=== PATIENT | male | born 1955 | race African-American/Black ===

== ENCOUNTER 2018-09-19 18:31 | Inpatient (IN) | payer BC ==
[2018-09-19] MEDS ORDERED: ASPIRIN 81 MG CHEWABLE TABLETS PO ONE (18:50)
--- NOTE | 2018-09-19 18:50 | PDOC ---
Rapid Medical Evaluation Time Seen by Provider: 09/19/18 18:48 Medical Evaluation: 09/19/18 18:49 Pt c/o: dizziness and palpitations since yesterday, no chest pain, Pt on brief exam: a fib at 136, lcta, trace pedal edema Pt ordered for: cardiac w/u pt to proceed to the ED Discharge Disposition - Diagnosis Atrial fibrillation with RVR, CKD (chronic kidney disease), Troponin I above reference range - Discharge Dispostion Disposition: AGAINST MEDICAL ADVICE Condition at time of disposition: Stable - Referrals - Patient Instructions - Post Discharge Activity
[2018-09-19] MEDS ORDERED: ASPIRIN 81 MG CHEWABLE TABLETS ONE (19:27)
[2018-09-19 19:34] LABS: BASO % 1.1 % (0-2.0); EOS % 1.2 % (0-4.5); HEMATOCRIT 33.1 % (35.4-49); HEMOGLOBIN 10.5 GM/dL (11.7-16.9); LYMPH % 20.3 % (8-40); MCH 26.5 pg (25.7-33.7); MCHC 31.7 g/dl (32.0-35.9); MEAN CELL VOLUME 83.5 fl (80-96); NEUT % 64.4 % (42.8-82.8); PLATELET COUNT 404 K/MM3 (134-434); RBC 3.96 M/mm3 (4.00-5.60); RDW 16.1 % (11.9-15.9); WHITE BLOOD COUNT 9.3 K/mm3 (4.0-10.0)
[2018-09-19] MEDS ORDERED: dilTIAZem HCL 50 MG/10 ML - 10 ML VIAL IVPUSH ONE (19:36)
--- NOTE | 2018-09-19 19:44 | PDOC ---
History of Present Illness - General Chief Complaint: Palpitations Stated Complaint: SENT BY PCP/ABNORMAL EKG Time Seen by Provider: 09/19/18 18:48 History Source: Patient Exam Limitations: No Limitations - History of Present Illness Initial Comments: Pt is a 62 yo M, with PMH of HTN and NIDDM, who is presenting from PCP office ( Dr. Deluca) with A-fib RVR. Pt presented to Dr. Deluca's office with complaints of SOB at rest and on exertion, b/l LE swelling, and waking up at night with SOB. Pt states the symptoms have been ongoing for the past 2 weeks and worsening , and has not been taking any medications or f/u at [facility] for 1.5 years. Pt denies any fevers/chills, headache, vision changes, syncope, chest pain, palpitations, nausea/vomiting, abdominal pain, urinary symptoms, or diarrhea/ constipation. Pt states he may have been on rate-control medication in the past, but does not know the names or dosages. His last stress test/echo was "decades ago". Allergies: NKDA PCP: Dr. Deluca Social: Pt denies any cigarette, alcohol, or drug use. Pt denies any recent travel or sick contacts. Surgical: no relevant history. Family: Father - MD in 60s, Mother - DM in 50s. 09/19/18 22:58 Past History - Travel Traveled outside of the country in the last 30 days: No Close contact w/someone who was outside of country & ill: No - Past Medical History Allergies/Adverse Reactions: Allergies Allergy/AdvReac Type Severity Reaction Status Date / Time No Known Allergies Allergy Verified 09/19/18 18:56 Home Medications: Ambulatory Orders NK [No Known Home Medication] 09/19/18 COPD: No Diabetes: Yes HTN: Yes Other medical history: GOUT - Suicide/Smoking/Psychosocial Hx Smoking History: Never smoked Have you smoked in the past 12 months: No Information on smoking cessation initiated: No Hx Alcohol Use: No Drug/Substance Use Hx: No Review of Systems - Review of Systems Able to Perform ROS?: Yes Is the patient limited Chinese proficient: No Constitutional: Yes: Weight Stable. No: Chills, Diaphoresis, Fever, Loss of Appetite, Malaise, Weakness HEENTM: No: Blurred Vision, Double Vision, Nose Congestion, Throat Pain, Throat Swelling, Difficulty Swallowing Respiratory: Yes: Orthopnea, Shortness of Breath, SOB with Exertion, SOB at Rest. No: Cough, Wheezing, Productive cough, Hemoptysis Cardiac (ROS): Yes: Edema. No: Irregular Heart Rate, Lightheadedness, Palpitations, Syncope, Chest Tightness ABD/GI: No: Constipated, Diarrhea, Nausea, Poor Appetite, Poor Fluid Intake, Vomiting, Abdominal cramping : No: Burning, Dysuria, Frequency, Pain, Urgency Musculoskeletal: No: Back Pain, Joint Pain, Muscle Pain, Muscle Weakness Integumentary: No: Erythema, Rash Neurological: No: Headache, Numbness, Paresthesia, Seizure, Weakness, Unsteady Gait, Dizziness Psychiatric: No: Sleep Pattern Change, Change in Appetite Endocrine: No: Increased Urine, Change in Weight Hematologic/Lymphatic: No: Anemia, Blood Clots, Easy Bleeding, Easy Bruising All Other Systems: Reviewed and Negative *Physical Exam - Vital Signs Last Vital Signs Temp Pulse Resp BP Pulse Ox 98.4 F 138 H 21 H 142/106 H 96 09/19/18 18:50 09/19/18 18:50 09/19/18 18:50 09/19/18 18:50 09/19/18 18:50 - Physical Exam Comments: Active A-fib, HR 120-140 on exam, pt afebrile. Pt in NAD, obese body habitus. No increased WOB or distress. Pt alert and oriented x3. medical intern generally intact, muscular strength and sensation intact. No midline spinal tenderness, step-offs, or crepitus. Head normocephalic, atraumatic. Eyes PERRLA, EOMI. Oropharynx without erythema or exudates, no LAD b/l. No nasal congestion, hearing intact. Clear heart sounds, S1/S2, no heart murmur. Mild JVD with b/l pitting edema to mid-shins. Diminished lung sounds at bases, no crackles or wheezes. No accessory muscle use. No abdominal or CVA tenderness to palpation, no rebound, no guarding. Abdomen soft, protuberant, and with normoactive bowel sounds. Hyperpigmentation of b/l LE. Skin without jaundice or rash. 09/19/18 19:45 09/19/18 21:28 ED Treatment Course - LABORATORY CBC & Chemistry Diagram: 09/19/18 19:20 09/19/18 19:20 - Medications Given in the ED: ED Medications Discontinued Medications Generic Name Dose Route Start Last Admin Trade Name Lee PRN Reason Stop Dose Admin Aspirin 162 mg 09/19/18 18:50 09/19/18 19:29 Asa - PO 09/19/18 18:51 162 mg ONCE ONE Administration Medical Decision Making - Medical Decision Making Pt was seen at bedside, also will be seen by attending Dr. Cardenas/ pre- attending Altaf. Pt presenting from PCP office (Dr. Deluca) with A-fib RVR. Pt presented to Dr. Deluca's office with complaints of SOB at rest and on exertion , b/l LE swelling, and waking up at night with SOB. Pt states the symptoms have been ongoing for the past 2 weeks and worsening, and has not been taking any medications or f/u at [facility] for 1.5 years. Pt denies any fevers/chills, headache, vision changes, syncope, chest pain, palpitations, nausea/vomiting, abdominal pain, urinary symptoms, or diarrhea/constipation. Considering A-fib 2/2 to chronic medication non-compliance vs new onset 2/2 CHF , CKD, infection, DVT/PE. Ordered work-up including CBC, CMP, cardiac profile, coags, D-dimer, chest x- ray. Provided 10 mg IV push diltiazem and 162 mg PO ASA for rate control and cardiac protection. Will continue to reassess pt and monitor for symptomatic improvement. ECG: NSR, intervals WNL. No TWIs or significant ST segment changes. No significant changes from prior ECG. 09/19/18 19:44 CBC: H/H 10.5/33, no increased WBC -- will obtain stool for occult blood to eval for GI bleed. BGM 208 Chest x-ray shows cardiomegaly, blunting at R base. Will continue to monitor HR for additional rate control. 09/19/18 19:58 stool for occult blood negative CMP: K 3.1, BUN 66, Cr 4.0 BNP 10,879 -- provided 40 mg IV lasix Trop .16 -- will repeat, likely demand Paging hospitalist team for admission, nephrology and cardiology for consults Pending b/l LE doppler and D-dimer 09/19/18 21:06 Spoke with cardiology team (Dr. Bradlow's group) who suggested heparin for AC and 25 mg PO toprol for rate control. Awaiting call back from nephrology and admitting team. 09/19/18 21:30 Spoke with nephrology, will replete K, consult orders placed. Pt admitted to on-call service (Dr. Ramirez covering for Dr. Deluca's team) PTT normal, ordered heparin protocol and toprol 25 mg PO BID. Pt stable and lying comfortably. BP improved 150/100, HR in 80s. 09/19/18 21:53 *DC/Admit/Observation/Transfer Diagnosis at time of Disposition: Atrial fibrillation with RVR, Troponin I above reference range CKD (chronic kidney disease) Qualifiers: Chronic kidney disease stage: unspecified stage Qualified Code(s): N18.9 - Chronic kidney disease, unspecified - Discharge Dispostion Condition at time of disposition: Stable Decision to Admit order: Yes - Referrals Referrals: Nat Deluca MD [Staff Physician] - - Patient Instructions - Post Discharge Activity
[2018-09-19] MEDS ORDERED: dilTIAZem HCL 125 MG/25 ML - 25 ML VIAL ONE ×2 (19:47)
[2018-09-19 20:20] LABS: INR 1.21 (0.83-1.09); PROTHROMBIN TIME (PATIENT) 14.3 SEC (9.7-13.0)
[2018-09-19 20:34] LABS: ALBUMIN 2.9 g/dl (3.4-5.0); BILIRUBIN,TOTAL 0.5 mg/dL (0.2-1); CALCIUM 8.3 mg/dL (8.5-10.1); MAGNESIUM 2.3 mg/dL (1.8-2.4); POTASSIUM 3.1 mmol/L (3.5-5.1); TOT PROT 6.7 g/dl (6.4-8.2)
[2018-09-19] MEDS ORDERED: FUROSEMIDE 40 MG/4 ML INJECTABLE VIAL IVPUSH ONE (20:37)
[2018-09-19] MEDS ORDERED: FUROSEMIDE 40 MG/4 ML INJECTABLE VIAL ONE (20:38)
[2018-09-19] MEDS ORDERED: POTASSIUM CHLORIDE 20 MEQ PREMIX IVPB 100 ML IVPB ONE (20:48)
[2018-09-19] MEDS ORDERED: POTASSIUM CHLORIDE TABS 20 MEQ TABLET.ER (FP) PO ONE ×2 (21:46→22:21)
[2018-09-19 21:48] LABS: ACTIVATED PTT 28.8 SECONDS (25.2-36.5)
[2018-09-19] MEDS ORDERED: HEPARIN NA (PORCINE) 5,000 UNITS/ML 1ML VIAL IVPUSH PRN ×2 (21:49)
--- NOTE | 2018-09-19 21:54 | PDOC ---
Documentation entered by Mike Mark SCRIBE, acting as scribe for Loan Cardenas DO. Loan Cardenas DO: This documentation has been prepared by the Deedee jain Elijah, SCRIBE, under my direction and personally reviewed by me in its entirety. I confirm that the documentation accurately reflects all work , treatment, procedures, and medical decision making performed by me. Attending Attestation - Resident Resident Name: SanchoMarion - ED Attending Attestation I have performed the following: I have examined & evaluated the patient, The case was reviewed & discussed with the resident, I agree w/resident's findings & plan - HPI HPI: 09/19/18 21:31 Patient is a 62 year old male with a significant past medical history of HTN, DM , and GOUT who presents to the ED from via PCP with AFIB. The patient was seen at his PCP earlier today for examination of SOB. The patient was found to have AFIB RVR and then was sent to the ED. The patient reports that the SOB occurs at both rest and with exertion. Denies Chest Pain and Syncope Allergies: FRANCES PCP: Dr. Deluca - Physicial Exam PE: 09/19/18 21:32 Agree with Resident's Exam - Critical Care Time Total Critical Care Time: 45 Critical Care Statement: The care of this patient involved high complexity decision making to prevent further life threatening deterioration of the patient 's condition and/or to evaluate & treat vital organ system(s) failure or risk of failure. - Medical Decision Making 09/19/18 21:51 62-year-old male with leg swelling and dyspnea on exertion Patient in rapid A. fib on arrival Workup and exam consistent with rapid atrial fibrillation with congestive heart failure as well as renal insufficiency with hypokalemia Consultations obtained via telephone by both cardiology and nephrology Plan for anticoagulation, diuresis and potassium replacement Admission to medical service on telemetry
[2018-09-19] MEDS ORDERED: KCL 10 MEQ IVPB 10 MEQ/100 ML INFUS.BAG IVPB SCH (22:00)
[2018-09-19] MEDS ORDERED: HEPARIN - 25,000 UNIT in SODIUM CHLORIDE 495 ML IV SCH (22:00)
[2018-09-19] MEDS ORDERED: metoPROLOL SUCCINATE 25 MG TAB.SR.24H (FP) PO SCH (22:00)
[2018-09-19 22:18] LABS: EPI CELLS 0.7 /HPF (0-5/HPF); HYALINE CASTS 0 /lpf (0-8); PH,URINE 6.5 (5.0-8.0); URINE APPEARANCE CLEAR; URINE BACTERIA 7.3 /hpf (NEGATIVE); URINE BILIRUBIN NEGATIVE (NEGATIVE); URINE COLOR YELLOW; URINE GLUCOSE (UA) NEGATIVE (NEGATIVE); URINE KETONE NEGATIVE (NEGATIVE); URINE LEUK ESTERASE NEGATIVE (NEGATIVE); URINE NITRITE NEGATIVE (NEGATIVE); URINE PROTEIN 1+ (NEGATIVE); URINE RBC 1 /hpf (0-4); URINE UROBILINOGEN 0.2 mg/dL (0.2-1.0); URINE WBC 0 /hpf (0-5)
[2018-09-19] MEDS ORDERED: KCL 10 MEQ IVPB 10 MEQ/100 ML INFUS.BAG IVPB ONE (22:21)
--- NOTE | 2018-09-19 22:52 | HP ---
CHIEF COMPLAINT: SOB and b/l leg swelling PCP:Dr Deluca HISTORY OF PRESENT ILLNESS: 62 year old male with PMHx of HTN, DM and Gout (has not taken any medication for over year and half as per patient), went to visit new PCP for SOB and b/l leg swelling, at the office patient found to have A-fib with RVR and patient sent ED for further evaluation. Patient stated has been having sob for about 2-3 week ( getting worse over time , worse when walking or sleeping, needs freqent rest periods), b/l leg edema was noted getting worse for 2 weeks now. Patient denies chest pain, syncope, dizziness at this time ER course was notable for: (1) work up consistent with rapid A-fin, CHF, renal insufficiency with hypokalemia (2) nephro and cardio consultes (3) plan of diuresis , anticoagulation, and potassium replacement Recent Travel: NO PAST MEDICAL HISTORY: HTN, DM, GOUT PAST SURGICAL HISTORY: no Social History: Smoking:NO Alcohol:social drinker Drugs: No Family History: Father, both brother had HTN, one brother had pacemaker ( all ), mother : DM Allergies: NKA No Known Allergies Allergy (Verified 09/19/18 18:56) HOME MEDICATIONS: Home Medications Medication Instructions Recorded NK [No Known Home Medication] 09/19/18 REVIEW OF SYSTEMS CONSTITUTIONAL: weight change ( as per patient gained 20 labs over a year) HEENT: Absent: rhinorrhea, nasal congestion, throat pain, throat swelling, difficulty swallowing, mouth swelling, ear pain, eye pain, visual changes CARDIOVASCULAR: Absent: chest pain, syncope, palpitations. Noted with peripheral edema RESPIRATORY: complain of shortness of breath, dyspnea with exertion, No wheezing , stridor, hemoptysis GASTROINTESTINAL: Absent: abdominal pain, abdominal distension, nausea, vomiting , diarrhea, constipation, melena, hematochezia GENITOURINARY: Absent: dysuria, frequency, urgency, hesitancy, hematuria, flank pain, genital pain MUSCULOSKELETAL: Absent: myalgia, arthralgia, joint swelling, back pain, neck pain SKIN: Absent: rash, itching, pallor HEMATOLOGIC/IMMUNOLOGIC: Absent: easy bleeding, easy bruising, lymphadenopathy , frequent infections NEUROLOGIC: Absent: headache, focal weakness or paresthesias, dizziness, unsteady gait, seizure, mental status changes, bladder or bowel incontinence PSYCHIATRIC: Absent: anxiety, depression, suicidal or homicidal ideation, hallucinations. PHYSICAL EXAMINATION Vital Signs - 24 hr 09/19/18 09/19/18 09/19/18 18:50 20:23 20:33 Temperature 98.4 F Pulse Rate 138 H Respiratory 21 H Rate Blood Pressure 142/106 H Blood Pressure 170/97 158/112 H [Left Arm] O2 Sat by Pulse 96 Oximetry (%) 09/19/18 20:55 Temperature Pulse Rate Respiratory Rate Blood Pressure Blood Pressure 170/142 H [Left Arm] O2 Sat by Pulse Oximetry (%) GENERAL: Awake, alert, and fully oriented HEENT: NC/AT, EOMI, Perrla NECK: Normal range of motion, supple without lymphadenopathy LUNGS: Breath sounds equal, no wheezing noted HEART: normal S1 and S2 without murmur, rub or gallop., pitting edema + 3 b/l LE ABDOMEN: Soft,protuberant, nontender, normoactive bowel sounds, no guarding, no rebound, no masses. MUSCULOSKELETAL: Normal range of motion at all joints. No bony deformities or tenderness. No CVA tenderness. EXTREMITY: b/l LE + 3 edema NEUROLOGICAL: Cranial nerves II-XII intact. Normal speech. Normal gait. PSYCHIATRIC: Cooperative. Good eye contact. Appropriate mood and affect. SKIN: hyperpigmentation of b/l LE, no rash Laboratory Results - last 24 hr 09/19/18 09/19/18 09/19/18 19:20 19:20 19:20 WBC 9.3 RBC 3.96 L Hgb 10.5 L Hct 33.1 L MCV 83.5 MCH 26.5 MCHC 31.7 L RDW 16.1 H Plt Count 404 MPV 8.0 Absolute Neuts (auto) 6.0 Neutrophils % 64.4 Lymphocytes % 20.3 Monocytes % 13.0 H Eosinophils % 1.2 Basophils % 1.1 Nucleated RBC % 0 PT with INR 14.30 H INR 1.21 H PTT (Actin FS) 28.8 D-Dimer Sodium 141 Potassium 3.1 L Chloride 101 Carbon Dioxide 29 Anion Gap 11 BUN 66.0 H Creatinine 4.0 H Est GFR (CKD-EPI)AfAm 17.54 Est GFR (CKD-EPI)NonAf 15.13 POC Glucometer Random Glucose 194 H Calcium 8.3 L Magnesium 2.3 Total Bilirubin 0.5 AST 29 ALT 49 Alkaline Phosphatase 77 Creatine Kinase 553 H Creatine Kinase Index 0.8 CK-MB (CK-2) 4.9 H Troponin I 0.16 H B-Natriuretic Peptide 52823.0 H Total Protein 6.7 Albumin 2.9 L Stool Occult Blood 09/19/18 09/19/18 09/19/18 19:20 19:53 20:19 WBC RBC Hgb Hct MCV MCH MCHC RDW Plt Count MPV Absolute Neuts (auto) Neutrophils % Lymphocytes % Monocytes % Eosinophils % Basophils % Nucleated RBC % PT with INR INR PTT (Actin FS) D-Dimer 626 H Sodium Potassium Chloride Carbon Dioxide Anion Gap BUN Creatinine Est GFR (CKD-EPI)AfAm Est GFR (CKD-EPI)NonAf POC Glucometer 208 Random Glucose Calcium Magnesium Total Bilirubin AST ALT Alkaline Phosphatase Creatine Kinase Creatine Kinase Index CK-MB (CK-2) Troponin I B-Natriuretic Peptide Total Protein Albumin Stool Occult Blood Negative ASSESSMENT/PLAN: 62 year old with PMHx of HTN, DM, and GOUT arrived to ER for Sob and B/L leg swelling. A-fib due to noncompliance with mediation vs new onset due to CHF Renal insufficency CKD with hypokalemia R/o DVT, PE A-fib with RVR ECG: NSR, intervals WNL. No TWIs or significant ST segment changes. No significant changes from prior ECG. D-dimer: 626 tropoin #1 : 0.16 s/p 10mg IV push diltiazem and 162 mg Po ASA for rater control stool for occult blood negative - admit to telemetry for monitoring - start rate control metoprolol 25mg BID IV push - start heparin drip - trend troponin level - follow up cardiology - Pending b/l LE doppler ?CHF BNP: 99096.0 s/p lasix 40 mg IV push x1 - follow up ECHO - continue with lasix - cardiology consult CKD with hypokalemia CMP: K 3.1, BUN 66, Cr 4.0 - K + replaced, repeat level - tend renal function - follow up neprology DM - elina at medication - diet control - follow up HgbA1c Problem List - Problem (1) A-fib Assessment/Plan: A-fib with RVR ECG: NSR, intervals WNL. No TWIs or significant ST segment changes. No significant changes from prior ECG. D-dimer: 626 tropoin #1 : 0.16 s/p 10mg IV push diltiazem and 162 mg Po ASA for rater control stool for occult blood negative - admit to telemetry for monitoring - start rate control metoprolol 25mg BID IV push - start heparin drip - trend troponin level - follow up cardiology - Pending b/l LE doppler Code(s): I48.91 - UNSPECIFIED ATRIAL FIBRILLATION (2) CHF (congestive heart failure), NYHA class II Assessment/Plan: CHF BNP: 41340.0 s/p lasix 40 mg IV push x1 - follow up ECHO - continue with lasix - cardiology consult Code(s): I50.9 - HEART FAILURE, UNSPECIFIED (3) CKD (chronic kidney disease) stage 4, GFR 15-29 ml/min Assessment/Plan: CKD stage 4 with hypokalemia CMP: K 3.1, BUN 66, Cr 4.0 - K + replaced, repeat level - tend renal function - follow up neprology Code(s): N18.4 - CHRONIC KIDNEY DISEASE, STAGE 4 (SEVERE) (4) Hypokalemia Assessment/Plan: Hypokalemia - replaced K + supplement - repeat K + level , monitor trend Code(s): E87.6 - HYPOKALEMIA (5) Diabetes Assessment/Plan: DM - elina at medication - diet control - follow up HgbA1c Code(s): E11.9 - TYPE 2 DIABETES MELLITUS WITHOUT COMPLICATIONS Visit type - Emergency Visit Emergency Visit: Yes Care time: The patient presented to the Emergency Department on the above date and was hospitalized for further evaluation of their emergent condition. - New Patient This patient is new to me today: Yes Date on this admission: 09/19/18 - Critical Care Critical Care patient: No
[2018-09-19] MEDS ORDERED: HEPARIN NA (PORCINE) 5,000 UNITS/ML 1ML VIAL ONE (22:57)
[2018-09-19] MEDS ORDERED: HEPARIN INFUSION - 25,000 UNITS/500 ML INFUS.BAG IVPB ONE (22:58)
[2018-09-20 06:27] VITALS: BP 142/90; PULSE 126; TEMP 97.9
[2018-09-20 07:55] LABS: HEMATOCRIT 32.4 % (35.4-49); HEMOGLOBIN 10.6 GM/dL (11.7-16.9); MCH 27.2 pg (25.7-33.7); MCHC 32.7 g/dl (32.0-35.9); WHITE BLOOD COUNT 9.1 K/mm3 (4.0-10.0)
[2018-09-20 08:37] LABS: BILIRUBIN,TOTAL 0.8 mg/dL (0.2-1); BLOOD UREA NITROGEN 67.4 mg/dL (7-18); CALCIUM 8.9 mg/dL (8.5-10.1); CREATININE 3.6 mg/dL (0.55-1.3); PLATELET COUNT 420 K/MM3 (134-434); POTASSIUM 3.2 mmol/L (3.5-5.1); TOT PROT 6.8 g/dl (6.4-8.2)
--- NOTE | 2018-09-20 09:07 | PN ---
Progress Note, Physician Chief Complaint: PAM Acute on chronic renal failure Hypokalemia HTN Fluid overload Anemia BLLE edema History of Present Illness: NAD sitting at the edge of the bed Extremely resistant to medical recommendations and care Refusing meds On heparin drip - Current Medication List Current Medications: Active Medications Heparin Sodium (Porcine) (Heparin -) 1,000 unit IVPUSH PRN PRN PRN Reason: Heparin Heparin Sodium (Porcine) (Heparin -) 5,000 unit IVPUSH PRN PRN PRN Reason: Heparin Last Admin: 09/19/18 23:17 Dose: 5,000 unit Heparin Sodium (Porcine) 25, (000 unit/ Sodium Chloride) 500 mls @ 20 mls/hr IV TITR [place]; Protocol Last Admin: 09/19/18 23:16 Dose: 1,000 unit/hr, 20 mls/hr Insulin Aspart (Novolog Vial Sliding Scale -) 1 vial SQ TIDAC [facility]; Protocol Insulin Detemir (Levemir Vial) 14 units SQ BID [facility] Metoprolol Tartrate (Lopressor -) 50 mg PO BID [place] Potassium Chloride (K-Dur -) 20 meq PO DAILY [place] Rosuvastatin Calcium (Crestor -) 5 mg PO HS [place] - Objective Vital Signs: Vital Signs Temperature 97.9 F 09/20/18 06:00 Pulse Rate 126 H 09/20/18 06:00 Respiratory Rate 22 H 09/20/18 08:21 Blood Pressure 142/90 09/20/18 06:00 O2 Sat by Pulse Oximetry (%) 100 09/20/18 08:21 Constitutional: Yes: Well Nourished, No Distress, Calm, Obese Cardiovascular: Yes: Regular Rate and Rhythm Respiratory: Yes: Regular Gastrointestinal: Yes: Normal Bowel Sounds, Soft, Abdomen, Obese Musculoskeletal: Yes: Muscle Weakness Edema: Yes Edema: LLE: 2+, RLE: 2+ Peripheral Pulses WNL: Yes Neurological: Yes: Alert, Oriented Psychiatric: Yes: Alert, Oriented Labs: CBC, BMP 09/20/18 07:15 09/20/18 07:15 INR, PTT INR 1.21 (0.83-1.09) H 09/19/18 19:20 Problem List - Problems (1) Acute on chronic renal failure Assessment/Plan: -Nephrology consult -monitor Cr Code(s): N17.9 - ACUTE KIDNEY FAILURE, UNSPECIFIED; N18.9 - CHRONIC KIDNEY DISEASE, UNSPECIFIED (2) Bilateral lower extremity edema Assessment/Plan: -Furosemide 40 mg as per nephrology Code(s): R60.0 - LOCALIZED EDEMA (3) Atrial fibrillation with RVR Assessment/Plan: -On heparin drip -Echo -Cardiology consult -Tele monitor -Received Toprol 25 yesterday, increase/change to lopressor 50 mg po bid, taper up as tolerated Code(s): I48.91 - UNSPECIFIED ATRIAL FIBRILLATION (4) Diabetes Assessment/Plan: -A1c at 9.3 -Diabetic low sodium diet -BGM AC HS -Start levemir 14 U BID -Novolog sliding scale TID AC -RD consult Code(s): E11.9 - TYPE 2 DIABETES MELLITUS WITHOUT COMPLICATIONS (5) Hypokalemia Assessment/Plan: -Received 50 meq KCl yesterday -Nephrology consult -KCl 40 meq BID -Continue to monitor trend Code(s): E87.6 - HYPOKALEMIA Assessment/Plan see problem list
[2018-09-20] MEDS ORDERED: POTASSIUM CHLORIDE TABS 20 MEQ TABLET.ER (FP) PO ONE (09:15)
[2018-09-20] MEDS ORDERED: FUROSEMIDE 40 MG/4 ML INJECTABLE VIAL IVPUSH ONE (09:23)
--- NOTE | 2018-09-20 09:23 | CONSULT ---
Consult Consult Specialty:: Nephrology Reason for Consultation:: PIO - History of Present Illness Chief Complaint: shortness of breath History of Present Illness: Pt is a 62 year old male with pmhx of CKD, HTN, and DM who was sent in with shortness of breath. He was found to be in afib with RVR. He was also found to have elevated creatinine and I was called to evaluate him. He does not follow with a physical therapist clinic director. He does see a physical therapist clinic director when he is admitted in [facility] and he says that his renal function was at about 30 percent a year ago. He denies dysuria or hematuria. He has a history of nsaid use in the past however was told to stop about a year ago secondary to renal disease. He complains of lower ext edema and shortness of breath. He has not taken any meds in over a year. He has appetite. He denies chest pain or palpitations. - History Source History Provided By: Patient, Medical Record - Past Medical History Cardio/Vascular: Yes: HTN Renal/: Yes: Renal Inusuff Endocrine: Yes: Diabetes Mellitus - Alcohol/Substance Use Hx Alcohol Use: No - Smoking History Smoking history: Never smoked Have you smoked in the past 12 months: No Home Medications - Allergies Allergies/Adverse Reactions: Allergies Allergy/AdvReac Type Severity Reaction Status Date / Time No Known Allergies Allergy Verified 09/19/18 18:56 - Home Medications Home Medications: Ambulatory Orders NK [No Known Home Medication] 09/19/18 Family Disease History - Family Disease History Family History: Denies Review of Systems - Review of Systems Constitutional: reports: Malaise Eyes: reports: No Symptoms HENT: reports: No Symptoms Neck: reports: No Symptoms Cardiovascular: reports: Edema, Shortness of Breath Respiratory: reports: SOB, SOB on Exertion Gastrointestinal: reports: No Symptoms Genitourinary: reports: No Symptoms Musculoskeletal: reports: No Symptoms Integumentary: reports: No Symptoms Neurological: reports: No Symptoms Endocrine: reports: No Symptoms Hematology/Lymphatic: reports: No Symptoms Psychiatric: reports: No Symptoms Physical Exam Vital Signs: Vital Signs Temperature 97.9 F 09/20/18 06:00 Pulse Rate 126 H 09/20/18 06:00 Respiratory Rate 22 H 09/20/18 08:21 Blood Pressure 142/90 09/20/18 06:00 O2 Sat by Pulse Oximetry (%) 100 09/20/18 08:21 Constitutional: Yes: Calm Eyes: Yes: Conjunctiva Clear HENT: Yes: Atraumatic Neck: Yes: Supple Cardiovascular: Yes: S1, S2 Respiratory: Yes: CTA Bilaterally Gastrointestinal: Yes: Normal Bowel Sounds, Soft Renal/: Yes: WNL Musculoskeletal: Yes: WNL Edema: Yes Edema: LLE: 3+, RLE: 3+ Neurological: Yes: Oriented Psychiatric: Yes: Oriented Labs: CBC, BMP 09/20/18 07:15 09/20/18 07:15 Laboratory Tests 09/19/18 19:20 BUN 66.0 H Creatinine 4.0 H Imaging - Results Chest X-ray: Report Reviewed Ultrasound: Report Reviewed Problem List - Problems (1) A-fib Code(s): I48.91 - UNSPECIFIED ATRIAL FIBRILLATION (2) Acute on chronic renal failure Code(s): N17.9 - ACUTE KIDNEY FAILURE, UNSPECIFIED; N18.9 - CHRONIC KIDNEY DISEASE, UNSPECIFIED (3) Atrial fibrillation with RVR Code(s): I48.91 - UNSPECIFIED ATRIAL FIBRILLATION (4) CHF (congestive heart failure), NYHA class II Code(s): I50.9 - HEART FAILURE, UNSPECIFIED (5) CKD (chronic kidney disease) Code(s): N18.9 - CHRONIC KIDNEY DISEASE, UNSPECIFIED Qualifiers: Chronic kidney disease stage: unspecified stage Qualified Code(s): N18.9 - Chronic kidney disease, unspecified Assessment/Plan Current Medications Generic Name Dose Route Start Last Admin Trade Name Freq PRN Reason Stop Dose Admin Heparin Sodium (Porcine) 1,000 unit 09/19/18 21:49 Heparin - IVPUSH PRN PRN Heparin Heparin Sodium (Porcine) 5,000 unit 09/19/18 21:49 09/19/18 23:17 Heparin - IVPUSH 5,000 unit PRN PRN Administration Heparin Heparin Sodium (Porcine) 25, 500 mls @ 20 mls/hr 09/19/18 22:00 09/19/18 23: 16 000 unit/ Sodium Chloride IV 1,000 unit/hr TITR DAKOTA 20 mls/hr Administration Protocol 1,000 UNIT/HR Insulin Aspart 1 vial 09/20/18 11:00 Novolog Vial Sliding Scale - SQ TIDAC DAK[place] Protocol Insulin Detemir 14 units 09/20/18 10:00 Levemir Vial SQ BID DAK[place] Metoprolol Tartrate 50 mg 09/20/18 10:00 Lopressor - PO BID DAK[place] Pantoprazole Sodium 40 mg 09/20/18 10:00 Protonix - PO DAILY DAK[place] Potassium Chloride 20 meq 09/20/18 10:00 K-Dur - PO DAILY DAKOTA Rosuvastatin Calcium 5 mg 09/20/18 22:00 Crestor - PO HS DAKOTA Laboratory Tests 09/19/18 22:10 Urine Protein 1+ H Urine Blood 1+ H Impression 1. CKD 2. PIO 3. a-fib 4. HTN 5. CHF 6. DM 7. non compliance Plan - replace potassium - agree with lasix - renal function is improving - will send renal workup - will need outpt follow up - cardio eval - check echo - discussed importance of compliance with pt - will need close outpt follow up once discharged
[2018-09-20] MEDS ORDERED: POTASSIUM CHLORIDE TABS 20 MEQ TABLET.ER (FP) PO SCH ×2 (09:30→10:00)
[2018-09-20] MEDS: INSULIN (LEVEMIR) 100 UNITS/ML UNITS SQ SCH ×2 (09:39→09:45)
[2018-09-20] MEDS ORDERED: METOPROLOL TARTRATE 25 MG TABLET (FP) PO SCH (10:00)
[2018-09-20] MEDS ORDERED: METOPROLOL TARTRATE 50 MG TABLET (FP) PO SCH (10:00)
[2018-09-20] MEDS ORDERED: PANTOPRAZOLE 40 MG TABLET (FP) PO SCH (10:00)
[2018-09-20] MEDS ORDERED: FUROSEMIDE 40 MG/4 ML INJECTABLE VIAL IVPUSH SCH (10:00)
--- NOTE | 2018-09-20 10:15 | EKG ---
Test Reason : Blood Pressure : / mmHG Vent. Rate : 139 BPM Atrial Rate : 394 BPM P-R Int : 000 ms QRS Dur : 098 ms QT Int : 306 ms P-R-T Axes : 000 102 -44 degrees QTc Int : 465 ms ATRIAL FIBRILLATION WITH RAPID VENTRICULAR RESPONSE WITH PREMATURE VENTRICULAR OR ABERRANTLY CONDUCTED COMPLEXES RIGHTWARD AXIS NONSPECIFIC T WAVE ABNORMALITY ABNORMAL ECG NO PREVIOUS ECGS AVAILABLE Confirmed by MARIELENA AZEVEDO MD ([id number]) on 09/20/2018 10:15:08 AM Referred By: Confirmed By:MARIELENA AZEVEDO MD
[2018-09-20] MEDS ORDERED: INSULIN SLIDING SCALE (NOVOLOG) 1 VIAL SQ SCH (11:00)
--- NOTE | 2018-09-20 12:01 | PN ---
Progress Note (short form) - Note Progress Note: I was asked to consult on this patient for newly documented atrial fibrillation. The patient wished not to be seen. Was not willing to discuss his condition with me. Wishes to go home. The patient is in atrial fibrillation and needs anticoagulation. Please arrange for an outpatient follow-up with our team. No further recommendation in this setting.
[2018-09-20 16:56] VITALS: BMI 36.0
[2018-09-20] MEDS ORDERED: ROSUVASTATIN CA 5 MG TABLET (FP) PO SCH (22:00)
[2018-09-21 12:08] LABS: SERUM IRON SATURATION 13 % (15-55); TOTAL IRON BINDING CAPACITY 365 ug/dL (250-450)
== END 2018-09-20 14:48 | disposition left against medical advice (07) | DRG 309 ==
LOC: JER 18:31 → JERBED 21:01 → J4W 23:56
PROVIDERS: ADMIT Family Medicine; ATTEND Family Medicine
DX: I48.91 Unspecified atrial fibrillation (principal); I13.0 Hypertensive heart and chronic kidney disease with heart failure and stage 1 through stage 4 chronic kidney disease, or unspecified chronic kidney disease; N18.4 Chronic kidney disease, stage 4 (severe); N17.9 Acute kidney failure, unspecified; E11.22 Type 2 diabetes mellitus with diabetic chronic kidney disease; E87.6 Hypokalemia; R00.2 Palpitations; M10.9 Gout, unspecified; E66.8 Other obesity; Z68.36 Body mass index [BMI] 36.0-36.9, adult; D64.9 Anemia, unspecified; E87.70 Fluid overload, unspecified; R60.0 Localized edema; Z91.14 Patient's other noncompliance with medication regimen
CPT/HCPCS: 36415; 71045-TC-FY; 80053; 80061; 81003; 82272; 82550; 82553; 82607; 82728; 82746; 82962; 83036; 83540; 83550; 83721; 83735; 83880; 84439; 84443; 84484; 85025; 85027; 85379; 85610; 85730; 93005; 93010; 93970-TC; 99285-25; J1644

== ENCOUNTER 2018-09-28 11:02 | Inpatient (IN) | payer BC ==
--- NOTE | 2018-09-28 12:22 | PDOC ---
History of Present Illness - General Chief Complaint: Irregular Heart Beat Stated Complaint: SENT BY PCP Time Seen by Provider: 09/28/18 11:29 - History of Present Illness Initial Comments: 09/28/18 12:21 Bennett Dorsey is a 62yM with PMHx of diabetes, HTN, new onset a fib presenting with irregular heart rate. He endorses generalized weakness and dyspnea with exertion for the last 4 weeks, progressively worsening. Presented to the ED last week and dx with a fib. Was seen in doctor office this morning, diagnosed with a fib w rvr and sent to ED. Denies fever, nausea, vomiting, chest pain, AB pain, urinary or bowel changes. Past History - Past Medical History Allergies/Adverse Reactions: Allergies Allergy/AdvReac Type Severity Reaction Status Date / Time No Known Allergies Allergy Verified 09/28/18 11:11 Home Medications: Ambulatory Orders NK [No Known Home Medication] 09/19/18 Anemia: No Asthma: No Cancer: No Cardiac Disorders: Yes (SOB) CVA: No COPD: No CHF: Yes Dementia: No Diabetes: No GI Disorders: No Disorders: No HTN: Yes Hypercholesterolemia: No Liver Disease: No Seizures: No Thyroid Disease: No - Surgical History Abdominal Surgery: No Appendectomy: No Cardiac Surgery: No Cholecystectomy: No Lung Surgery: No Neurologic Surgery: No Orthopedic Surgery: No - Suicide/Smoking/Psychosocial Hx Smoking History: Never smoked Have you smoked in the past 12 months: No Hx Alcohol Use: No Drug/Substance Use Hx: No Cardiac Specific PMH - Complaint Specific PMHX Pacemaker: No Review of Systems - Review of Systems Constitutional: Yes: Weakness (generalized). No: Chills, Fever HEENTM: No: Eye Pain, Ear Discharge, Nose Pain, Throat Pain Respiratory: Yes: Shortness of Breath (with exertion). No: Cough, Orthopnea, Wheezing, Productive cough, Hemoptysis Cardiac (ROS): No: Chest Pain, Palpitations, Syncope, Chest Tightness ABD/GI: Yes: Abdominal Distended. No: Constipated, Diarrhea, Nausea, Vomiting, Indigestion : No: Burning, Dysuria, Discharge, Flank Pain, Hematuria Musculoskeletal: No: Gout, Joint Pain, Joint Swelling, Muscle Pain Integumentary: Yes: Other (lower extremity swelling bilaterally). No: Bruising , Dryness, Erythema Neurological: No: Headache, Numbness, Paresthesia, Tingling, Tremors, Weakness Psychiatric: No: Anxiety, Depression, Stressors Endocrine: No: Excessive Sweating, Flushing, Intolerance to Cold, Intolerance to Heat Hematologic/Lymphatic: No: Anemia, Blood Clots *Physical Exam - Vital Signs Last Vital Signs Temp Pulse Resp BP Pulse Ox 97.6 F 114 H 20 142/74 97 09/28/18 15:31 09/28/18 16:20 09/28/18 16:20 09/28/18 16:20 09/28/18 16:20 - Physical Exam General Appearance: Yes: Nourished, Appropriately Dressed, Obese. No: Apparent Distress HEENT: positive: EOMI, EBONI, Normal Voice, Hearing Grossly Normal. negative: Pale Conjunctivae, Tonsillar Exudate, Lesions, [place] Respiratory/Chest: positive: Lungs Clear, Normal Breath Sounds. negative: Chest Tender, Respiratory Distress, Accessory Muscle Use, Crackles, Rales, Rhonchi, Stridor, Wheezing Cardiovascular: positive: S1, S2, Tachycardia, Irregular. negative: Edema, Murmur Gastrointestinal/Abdominal: positive: Normal Bowel Sounds, Soft, Distended. negative: Flat, Guarding, Rebound, Mass Extremity: positive: Normal Range of Motion, Swelling (+2 bilateral to knees). negative: Calf Tenderness, Erythema Neurologic: positive: Fully Oriented, Alert, Normal Mood/Affect, Normal Response. negative: Confused, Disoriented ED Treatment Course - LABORATORY CBC & Chemistry Diagram: 09/28/18 12:29 09/28/18 12:35 - ADDITIONAL ORDERS Additional order review: Laboratory Results 09/28/18 09/28/18 09/28/18 12:38 12:35 12:35 PT with INR 14.30 H INR 1.21 H PTT (Actin FS) 30.1 Sodium 137 Potassium 3.4 L Chloride 98 Carbon Dioxide 31 Anion Gap 8 BUN 68.5 H Creatinine 4.5 H Est GFR (CKD-EPI)AfAm 15.21 Est GFR (CKD-EPI)NonAf 13.12 Random Glucose 224 H Calcium 9.2 Magnesium 2.4 Total Bilirubin 0.5 AST 19 ALT 49 Alkaline Phosphatase 81 Creatine Kinase 288 Creatine Kinase Index 1.5 CK-MB (CK-2) 4.4 H Troponin I 0.15 H B-Natriuretic Peptide 84692.2 H Total Protein 7.0 Albumin 3.2 L TSH 2.70 D Urine Color Yellow Urine Appearance Clear Urine pH 5.5 Ur Specific [place] 1.016 Urine Protein 3+ H Urine Glucose (UA) Trace Urine Ketones Negative Urine Blood 1+ H Urine Nitrite Negative Urine Bilirubin Negative Urine Urobilinogen 1.0 Ur Leukocyte Esterase Negative Urine WBC (Auto) 2 Urine RBC (Auto) 1 Urine Casts (Auto) 4 U Pathogenic Cast Auto U Epithel Cells (Auto) 1.8 Urine Bacteria (Auto) 2.5 Urine Yeast (Auto) None seen 09/28/18 12:29 PT with INR INR PTT (Actin FS) Cancelled Sodium Potassium Chloride Carbon Dioxide Anion Gap BUN Creatinine Est GFR (CKD-EPI)AfAm Est GFR (CKD-EPI)NonAf Random Glucose Calcium Magnesium Total Bilirubin AST ALT Alkaline Phosphatase Creatine Kinase Creatine Kinase Index CK-MB (CK-2) Troponin I B-Natriuretic Peptide Total Protein Albumin TSH Urine Color Urine Appearance Urine pH Ur Specific [place] Urine Protein Urine Glucose (UA) Urine Ketones Urine Blood Urine Nitrite Urine Bilirubin Urine Urobilinogen Ur Leukocyte Esterase Urine WBC (Auto) Urine RBC (Auto) Urine Casts (Auto) U Pathogenic Cast Auto U Epithel Cells (Auto) Urine Bacteria (Auto) Urine Yeast (Auto) 09/28/18 12:29 RBC 4.20 MCV 83.0 MCHC 32.2 RDW 15.9 MPV 8.5 Neutrophils % 60.6 Lymphocytes % 25.3 D Monocytes % 11.9 H Eosinophils % 1.0 Basophils % 1.2 - Medications Given in the ED: ED Medications Discontinued Medications Generic Name Dose Route Start Last Admin Trade Name Marckq PRN Reason Stop Dose Admin Aspirin 162 mg 09/28/18 12:28 09/28/18 12:44 Asa - PO 09/28/18 12:29 162 mg ONCE ONE Administration Diltiazem HCl 25 mg 09/28/18 12:37 09/28/18 12:44 Cardizem Injection - IVPUSH 09/28/18 12:38 25 mg ONCE ONE Administration Diltiazem HCl 30 mg 09/28/18 13:00 09/28/18 13:52 Cardizem - PO 09/28/18 13:01 30 mg ONCE ONE Administration Diltiazem HCl 10 mg 09/28/18 13:46 09/28/18 13:52 Cardizem Injection - IVPUSH 09/28/18 13:47 10 mg ONCE ONE Administration Heparin Sodium (Porcine) 5,000 unit 09/28/18 14:05 09/28/18 14:18 Heparin - IVPUSH 09/28/18 14:06 5,000 unit ONCE ONE Administration Medical Decision Making - Critical Care Time Total Critical Care Time (minutes): 30 Critical Care Statement: The care of this patient involved high complexity decision making to prevent further life threatening deterioration of the patient 's condition and/or to evaluate & treat vital organ system(s) failure or risk of failure. - Medical Decision Making 09/28/18 13:28 EKG shows a fib with rvr Given 25 diltiazem, no response Given 30 PO + 10 IV diltiazem with HR down to 100 Chadvasc score of 3, started heparin hgb 11.2, glucose 220, Cr 4.5, trop 0.15, BNP 17,000, CK-MB 4.4 CXR showed large heart w questionable retrocardia infiltrate UA protein 3+, blood 1+ Bennett Dorsey is a 62yM with PMHx of presenting with atrial fibrillation with RVR on EKG. Given 25 diltiazem, then 30 PO + 10 diltiazem which brought HR down to 100. Started heparin. Trop elevated 0.15, Cr 4.5, 3+ urine protein Admitted to Dr Yosi white for a fib anticoagulation and acute renal failure *DC/Admit/Observation/Transfer Diagnosis at time of Disposition: A-fib Qualifiers: Atrial fibrillation type: unspecified Qualified Code(s): I48.91 - Unspecified atrial fibrillation Acute renal failure Qualifiers: Acute renal failure type: unspecified Qualified Code(s): N17.9 - Acute kidney failure, unspecified - Discharge Dispostion Condition at time of disposition: Stable Decision to Admit order Date/Time: Decision to Admit Order Category Date Time Status Decision to Admit to Hospital Routine Admission 09/28/18 16:34 Ordered - Referrals Referrals: Nat Deluca MD [Primary Care Provider] - - Patient Instructions - Post Discharge Activity
[2018-09-28] MEDS ORDERED: ASPIRIN 81 MG CHEWABLE TABLETS PO ONE (12:28)
[2018-09-28] MEDS ORDERED: dilTIAZem HCL 50 MG/10 ML - 10 ML VIAL IVPUSH ONE ×2 (12:37→13:46)
[2018-09-28] MEDS ORDERED: ASPIRIN 81 MG CHEWABLE TABLETS ONE (12:41)
[2018-09-28] MEDS ORDERED: dilTIAZem HCL 125 MG/25 ML - 25 ML VIAL ONE ×2 (12:41→13:49)
[2018-09-28 12:53] LABS: BASO % 1.2 % (0-2.0); HEMATOCRIT 34.9 % (35.4-49); HEMOGLOBIN 11.2 GM/dL (11.7-16.9); LYMPH % 25.3 % (8-40); MCH 26.8 pg (25.7-33.7); MCHC 32.2 g/dl (32.0-35.9); MEAN PLT VOLUME 8.5 fl (7.5-11.1); MONO % 11.9 % (3.8-10.2); NEUT % 60.6 % (42.8-82.8); PLATELET COUNT 418 K/MM3 (134-434); RDW 15.9 % (11.9-15.9); WHITE BLOOD COUNT 9.1 K/mm3 (4.0-10.0)
[2018-09-28] MEDS ORDERED: dilTIAZem HCL 30 MG TABLET (FP) PO ONE (13:00)
[2018-09-28 13:02] LABS: EPI CELLS 1.8 /HPF (0-5/HPF); HYALINE CASTS 4 /lpf (0-8); PH,URINE 5.5 (5.0-8.0); URINE APPEARANCE CLEAR; URINE BACTERIA 2.5 /hpf (NEGATIVE); URINE BILIRUBIN NEGATIVE (NEGATIVE); URINE COLOR YELLOW; URINE GLUCOSE (UA) TRACE (NEGATIVE); URINE KETONE NEGATIVE (NEGATIVE); URINE LEUK ESTERASE NEGATIVE (NEGATIVE); URINE NITRITE NEGATIVE (NEGATIVE); URINE PROTEIN 3+ (NEGATIVE); URINE RBC 1 /hpf (0-4); URINE WBC 2 /hpf (0-5)
[2018-09-28 13:09] LABS: INR 1.21 (0.83-1.09); PROTHROMBIN TIME (PATIENT) 14.3 SEC (9.7-13.0)
[2018-09-28 13:12] LABS: ACTIVATED PTT 30.1 SECONDS (25.2-36.5)
[2018-09-28 13:15] LABS: ALBUMIN 3.2 g/dl (3.4-5.0); BILIRUBIN,TOTAL 0.5 mg/dL (0.2-1); BLOOD UREA NITROGEN 68.5 mg/dL (7-18); CALCIUM 9.2 mg/dL (8.5-10.1); CREATININE 4.5 mg/dL (0.55-1.3); POTASSIUM 3.4 mmol/L (3.5-5.1)
--- NOTE | 2018-09-28 13:26 | PDOC ---
Documentation entered by Ryan Randolph SCRIBE, acting as scribe for Dieter Saldivar MD. Dieter Saldivar MD: This documentation has been prepared by the Agustín jain Joel, SCRIBE, under my direction and personally reviewed by me in its entirety. I confirm that the documentation accurately reflects all work, treatment, procedures, and medical decision making performed by me. Attending Attestation - Resident Resident Name: Monroe Vernon - ED Attending Attestation I have performed the following: I have examined & evaluated the patient, The case was reviewed & discussed with the resident, I agree w/resident's findings & plan, Exceptions are as noted - HPI HPI: 09/28/18 12:57 The patient is a 62 year old male with a significant PMH of new onset Afib w/ RVR, CHF, HTN, and DM who presents to the emergency department from Dr. Deluca s office for evaluation of irregular heart rate. The patient was diagnosed with Afib with RVR last week in the ED and was admitted but signed out AMA prior to completing his work up. He went back to Dr. Deluca's office today for check up, was found to be in afib with RVR, and was subsequently sent to ED for further evaluation. The patient denies chest pain, shortness of breath, headache and dizziness. Denies fever, chills, nausea, vomit, diarrhea and constipation. Denies dysuria, frequency, urgency and hematuria. Allergies: NKA Past surgical history: None reported. Social history: No reported cigarette, alcohol, or drug use. PCP: Dr. Deluca - Physicial Exam PE: 09/28/18 13:19 GENERAL: Awake, alert, and fully oriented, in no acute distress. HEAD: No signs of trauma EYES: PERRLA, EOMI, sclera anicteric, conjunctiva clear ENT: Auricles normal inspection, hearing grossly normal, nares patent, oropharynx clear without exudates. Moist mucosa NECK: Nontender, no stepoffs, Normal ROM, supple, no lymphadenopathy, JVD, or masses LUNGS: Breath sounds equal, clear to auscultation bilaterally. No wheezes, and no crackles HEART: tachycardic, irregular, no murmurs, rubs or gallops ABDOMEN: Soft, nontender, normoactive bowel sounds. No guarding, no rebound. No masses EXTREMITIES: Normal range of motion, no edema. No clubbing or cyanosis. No cords, erythema, or tenderness NEUROLOGICAL: Cranial nerves II through XII intact. 5/5 strength and sensation in all extremities, Normal speech, normal gait, normal cerebellar function SKIN: Warm, Dry, normal turgor, no rashes or lesions noted. - Critical Care Time Total Critical Care Time: 60 Critical Care Statement: The care of this patient involved high complexity decision making to prevent further life threatening deterioration of the patient 's condition and/or to evaluate & treat vital organ system(s) failure or risk of failure. - Medical Decision Making 09/28/18 13:22 62 M with afib with RVR. Rate now controlled with IV and PO dilt in ED. Pt without any symptoms. - Labs, trop, BNP - CXR - Anticoagulation - Admit for echo, cards eval
[2018-09-28 13:32] LABS: YEAST NONE SEEN (NEGATIVE)
[2018-09-28] MEDS ORDERED: dilTIAZem HCL 30 MG TABLET (FP) ONE (13:49)
[2018-09-28 14:00] LABS: MAGNESIUM 2.4 mg/dL (1.8-2.4); N-TERMINAL BNP 17796.2 pg/ml (5-125)
[2018-09-28] MEDS ORDERED: HEPARIN NA (PORCINE) 5,000 UNITS/ML 1ML VIAL IVPUSH PRN ×2 (14:05)
[2018-09-28] MEDS ORDERED: HEPARIN NA (PORCINE) 5,000 UNITS/ML 1ML VIAL IVPUSH ONE (14:05)
[2018-09-28] MEDS ORDERED: HEPARIN INFUSION - 25,000 UNITS/500 ML INFUS.BAG IVPB ONE (14:11)
[2018-09-28] MEDS ORDERED: HEPARIN NA (PORCINE) 5,000 UNITS/ML 1ML VIAL ONE (14:11)
[2018-09-28] MEDS: HEPARIN - 25,000 UNIT in SODIUM CHLORIDE 495 ML IV SCH (14:14)
[2018-09-28] MEDS ORDERED: INSULIN (NOVOLOG) ASPART 100 UNITS/ML 10ML VIAL ONE (22:17)
[2018-09-28] MEDS: INSULIN SLIDING SCALE (NOVOLOG) 1 VIAL SQ SCH (22:26)
[2018-09-28] MEDS: METOPROLOL TARTRATE 5 MG/5 ML VIAL IVPUSH PRN (23:22)
[2018-09-29] MEDS: INSULIN SLIDING SCALE (NOVOLOG) 1 VIAL SQ SCH ×4 (06:26→22:43)
[2018-09-29 08:01] LABS: BASO % 1.1 % (0-2.0); EOS % 1.1 % (0-4.5); HEMATOCRIT 32.1 % (35.4-49); HEMOGLOBIN 10.5 GM/dL (11.7-16.9); LYMPH % 26.6 % (8-40); MCH 26.7 pg (25.7-33.7); MCHC 32.6 g/dl (32.0-35.9); MEAN PLT VOLUME 8.7 fl (7.5-11.1); MONO % 8.9 % (3.8-10.2); NEUT % 62.3 % (42.8-82.8); RBC 3.92 M/mm3 (4.00-5.60); RDW 15.7 % (11.9-15.9); WHITE BLOOD COUNT 8.2 K/mm3 (4.0-10.0)
[2018-09-29 08:07] LABS: BILIRUBIN,TOTAL 0.7 mg/dL (0.2-1); CREATININE 4.4 mg/dL (0.55-1.3); MAGNESIUM 2.1 mg/dL (1.8-2.4); N-TERMINAL BNP 13942.8 pg/ml (5-125); PHOSPHOROUS 4.7 mg/dL (2.5-4.9); POTASSIUM 3.3 mmol/L (3.5-5.1); TOT PROT 6.8 g/dl (6.4-8.2)
--- NOTE | 2018-09-29 08:15 | EKG ---
Test Reason : Blood Pressure : / mmHG Vent. Rate : 168 BPM Atrial Rate : 159 BPM P-R Int : 000 ms QRS Dur : 088 ms QT Int : 300 ms P-R-T Axes : 000 107 036 degrees QTc Int : 501 ms ATRIAL FIBRILLATION WITH RAPID VENTRICULAR RESPONSE RIGHTWARD AXIS ABNORMAL ECG WHEN COMPARED WITH ECG OF 19-SEP-2018 18:28, NO SIGNIFICANT CHANGE WAS FOUND Confirmed by HUMBERTO BOJORQUEZ MD ([id number]) on 09/29/2018 8:15:04 AM Referred By: Confirmed By:HUMBERTO BOJORQUEZ MD
[2018-09-29 08:46] LABS: PLATELET COUNT 420 K/MM3 (134-434)
[2018-09-29] MEDS: METOPROLOL TARTRATE 5 MG/5 ML VIAL IVPUSH PRN ×2 (09:41→15:58)
--- NOTE | 2018-09-29 09:41 | EKG ---
Test Reason : Blood Pressure : / mmHG Vent. Rate : 100 BPM Atrial Rate : 082 BPM P-R Int : 000 ms QRS Dur : 090 ms QT Int : 392 ms P-R-T Axes : 000 103 124 degrees QTc Int : 505 ms POOR DATA QUALITY, INTERPRETATION MAY BE ADVERSELY AFFECTED ATRIAL FIBRILLATION WITH PREMATURE VENTRICULAR OR ABERRANTLY CONDUCTED COMPLEXES RIGHTWARD AXIS NONSPECIFIC T WAVE ABNORMALITY ABNORMAL ECG WHEN COMPARED WITH ECG OF 28-SEP-2018 11:48, NO SIGNIFICANT CHANGE WAS FOUND Confirmed by MARYELLEN GREEN, HUMBERTO ([id number]) on 09/29/2018 9:41:30 AM Referred By: Confirmed By:HUMBERTO BOJORQUEZ MD
[2018-09-29] MEDS ORDERED: POTASSIUM CHLORIDE ORAL LIQUID 20 MEQ/15 ML PO ONE ×2 (11:30→16:15)
--- NOTE | 2018-09-29 12:06 | HP ---
Admitting History and Physical - Primary Care Physician PCP: Nat Deluca - Admission Chief Complaint: Afib with RVR History of Present Illness: Patient is a 62 y/o male with past medical history of DM, HTN, and gout. Patient was sent to [facility] ER yesterday from PCP office with abnormal EKG showing AFIB with RVR noted with HR in 150s. Patient was previously admitted one week ago for same chief complaint but left AMA. On exam patient denies feeling any palpitations or chest pain. States having intermittent episodes of SOB. History Source: Patient Limitations to Obtaining History: No Limitations - Past Medical History Cardiovascular: Yes: HTN Renal/: Yes: Renal Inusuff Rheumatology: Yes: Gout Endocrine: Yes: Diabetes Mellitus - Smoking History Smoking history: Never smoked Have you smoked in the past 12 months: No - Alcohol/Substance Use Hx Alcohol Use: No - Social History Usual Living Arrangement: Yes: With Spouse ADL: Independent History of Recent Travel: No Home Medications - Allergies Allergies/Adverse Reactions: Allergies Allergy/AdvReac Type Severity Reaction Status Date / Time No Known Allergies Allergy Verified 09/28/18 11:11 - Home Medications Home Medications: Ambulatory Orders NK [No Known Home Medication] 09/19/18 Review of Systems - Review of Systems Constitutional: reports: Weakness Eyes: reports: No Symptoms HENT: reports: No Symptoms Neck: reports: No Symptoms Cardiovascular: reports: Shortness of Breath Respiratory: reports: SOB Gastrointestinal: reports: Abdominal Pain Genitourinary: reports: No Symptoms Breasts: reports: No Symptoms Reported Musculoskeletal: reports: No Symptoms Integumentary: reports: No Symptoms Neurological: reports: No Symptoms Endocrine: reports: No Symptoms Hematology/Lymphatic: reports: No Symptoms Psychiatric: reports: No Symptoms Physical Examination Vital Signs: Vital Signs Temperature 98.2 F 09/29/18 06:00 Pulse Rate 142 H 09/29/18 09:41 Respiratory Rate 18 09/29/18 09:00 Blood Pressure 144/100 09/29/18 09:41 O2 Sat by Pulse Oximetry (%) 98 09/28/18 22:30 Constitutional: Yes: No Distress, Calm Eyes: Yes: Conjunctiva Clear HENT: Yes: Atraumatic Neck: Yes: Supple Cardiovascular: Yes: Tachycardia, Pulse Irregular Respiratory: Yes: Regular, CTA Bilaterally Gastrointestinal: Yes: Normal Bowel Sounds, Soft, Abdomen, Obese, Tenderness ( lower abdomen) Musculoskeletal: Yes: Muscle Weakness Extremities: Yes: WNL Edema: Yes Edema: LLE: 1+, RLE: 1+ Neurological: Yes: Alert, Oriented Psychiatric: Yes: Alert, Oriented Labs: CBC, BMP 09/29/18 05:18 09/29/18 05:18 Problem List - Problems (1) Acute on chronic renal failure Assessment/Plan: -Renal consult -BUN/Cr 71/4.4 -monitor renal function daily Code(s): N17.9 - ACUTE KIDNEY FAILURE, UNSPECIFIED; N18.9 - CHRONIC KIDNEY DISEASE, UNSPECIFIED (2) Atrial fibrillation with RVR Assessment/Plan: -Tele monitoring -Cardiology consult -Metoprolol 50mg TID -Lopressor 5mg IVP prn for HR >110bpm -Heparin drip--will switch to oral AC when time for discharge Code(s): I48.91 - UNSPECIFIED ATRIAL FIBRILLATION (3) Bilateral lower extremity edema Assessment/Plan: -2/2 CHF exacerbation -1L fluid restriction -daily weights Code(s): R60.0 - LOCALIZED EDEMA (4) CHF (congestive heart failure), NYHA class II Assessment/Plan: -Cardiology on board -Furosemide -1L fluid restriction -daily weights -strict I&Os -Echocardiogram -BNP [id number] Code(s): I50.9 - HEART FAILURE, UNSPECIFIED (5) Diabetes Assessment/Plan: -HgA1c 9.5% -Endocrinology consult -ISS Code(s): E11.9 - TYPE 2 DIABETES MELLITUS WITHOUT COMPLICATIONS Assessment/Plan see problem list
[2018-09-29] MEDS ORDERED: PT OWN MED DRAWER 7, Y5N ONE (16:07)
[2018-09-29] MEDS: HEPARIN - 25,000 UNIT in SODIUM CHLORIDE 495 ML IV SCH (16:09)
[2018-09-29] MEDS ORDERED: FUROSEMIDE 40 MG/4 ML INJECTABLE VIAL IVPUSH ONE (16:21)
[2018-09-29] MEDS ORDERED: METOPROLOL TARTRATE 50 MG TABLET (FP) PO ONE (16:22)
--- NOTE | 2018-09-29 16:31 | CON.CARD ---
Consult Consult Specialty:: Cardiology Referred by:: Dr. Deluca Reason for Consultation:: afib with rvr - History of Present Illness Chief Complaint: sob, cough History of Present Illness: 62 year old man pmh HTN, DMII, afib dx on recent hospital visit last week but left ama now sent back to hospital and admitted with AFib with RVR, JASON on likely CKD, CHF. pt seen and examined today with multiple family members in the room pt in nad currently. no palpitations chest pain or sob currently. states his symptoms started approx 2 weeks ago with fatigue, sob, b/l LE edema and decreased urine output. - History Source History Provided By: Patient, Family Member Limitations to Obtaining History: No Limitations - Past Medical History Cardio/Vascular: Yes: AFIB, HTN, Hyperlipdemia Renal/: Yes: Renal Inusuff Rheumatology: Yes: Gout Endocrine: Yes: Diabetes Mellitus - Alcohol/Substance Use Hx Alcohol Use: No - Smoking History Smoking history: Never smoked Have you smoked in the past 12 months: No - Social History ADL: Independent History of Recent Travel: No Home Medications - Allergies Allergies/Adverse Reactions: Allergies Allergy/AdvReac Type Severity Reaction Status Date / Time No Known Allergies Allergy Verified 09/28/18 11:11 - Home Medications Home Medications: Ambulatory Orders NK [No Known Home Medication] 09/19/18 Family Disease History - Family Disease History Family History: Denies Review of Systems - Review of Systems Constitutional: reports: Malaise, Weakness. denies: No Symptoms, Chills, Diaphoresis, Fever, Lethargy, Loss of Appetite, Night Sweats, Unintentional Wgt. Loss, Other Eyes: denies: No Symptoms, Blind Spots, Blurred Vision, Double Vision, Eye Pain , Floaters, Photophobia, Recent Change in Vision, Other HENT: denies: No Symptoms, Difficult Swallowing, Ear Discharge, Ear Pain, Epistaxis, Gingival Bleeding, Hearing Loss, Mouth Swelling, Nasal Congestion, Ocular Prosthesis, Throat Pain, Toothache, Ringing in Ears, Other Neck: denies: No Symptoms, Decreased ROM, Lumps, Pain on Movement, Stiffness, Swollen Glands, Tenderness, Other Cardiovascular: reports: Edema, Shortness of Breath. denies: No Symptoms, Chest Pain, Palpitations, Other Respiratory: reports: Exercise Intolerance, Orthopnea, SOB, SOB on Exertion. denies: No Symptoms, Cough, Hemoptysis, PND, Snoring, Wheezing, Other Gastrointestinal: denies: No Symptoms, Abdominal Pain, Bloating, Constipation, Diarrhea, Dysphagia, Indigestion, Melena, Nausea, Rectal Bleeding, Vomiting, Vomiting Blood, Other Genitourinary: denies: No Symptoms, Burning, Discharge, Dysuria, Flank Pain, Frequency, Hematuria, Incontinence, Lesions, Menses, Pain, Testicular Mass, Testicular Pain, Testicular Swelling, Urgency, Vaginal Bleeding, Other Breasts: denies: No Symptoms Reported, See HPI, Breast Implants, Discharge from Nipple, Lumps, Pain, Skin Changes, Other Musculoskeletal: denies: No Symptoms, Back Pain, Crepitus, Decreased ROM, Extremity Pain, Joint Pain, Joint Swelling, Muscle Pain, Muscle Cramps, Muscle Weakness, Other Integumentary: denies: No Symptoms, Blister, Bruising, Change in Color, Eczema, Erythema, Incision, Lesions, Lump, Pallor, Pruritis, Rash, Wound, Other Neurological: denies: No Symptoms, Change in LOC, Change in Speech, Confusion, Dizziness, Headache, Incoordination, Numbness, Parasthesia, Pre-Existing Deficit , Seizure, Syncope, Tremors, Unsteady Gait, Weakness, Other Endocrine: denies: No Symptoms, Excessive Sweating, Flushing, Increased Hunger, Increased Thirst, Intolerance to Cold, Intolerance to Heat, Unexplained Weight Gain, Unexplained Weight Loss, Other Hematology/Lymphatic: denies: No Symptoms, Easily Bruised, Excessive Bleeding, Swollen Glands, Other Psychiatric: denies: No Symptoms, Altered Sleep Pattern, Anxiety, Depression, Hallucinations, Panic, Paranoia, Suicidal, Other - Risk Factors Known Risk Factors: Yes: Diabetes Mellitus, Hypertension Vital Signs: Vital Signs Temperature 98.6 F 09/29/18 14:00 Pulse Rate 138 H 09/29/18 15:58 Respiratory Rate 20 09/29/18 14:00 Blood Pressure 168/96 09/29/18 15:58 O2 Sat by Pulse Oximetry (%) 98 09/28/18 22:30 Constitutional: Yes: No Distress, Calm Eyes: Yes: Conjunctiva Clear, EOM Intact, PERRL HENT: Yes: Atraumatic, Normocephalic Neck: Yes: Supple, Trachea Midline Respiratory: Yes: Regular, Diminished, Rales, SOB. No: Rhonchi, Wheezes Gastrointestinal: Yes: Normal Bowel Sounds, Soft. No: Distention, Tenderness Cardiovascular: Yes: Tachycardia, Pulse Irregular. No: Regular Rate and Rhythm , Bradycardia, Gallop, Rub, Varicosities JVD: No Carotid Bruit: No PMI: Non-Displaced Heart Sounds: Yes: S1, S2. No: Split S2, S3, S4, Clicks, Gallop, Rub, Bruit Murmur: No: Systolic Murmur, Diastolic Murmur Musculoskeletal: Yes: WNL Extremities: Yes: WNL Edema: Yes Edema: LLE: 2+, RLE: 2+ Peripheral Pulses WNL: Yes Neurological: Yes: Alert, Oriented Psychiatric: Yes: Alert, Oriented - Other Data Labs, Other Data: CBC, BMP 09/29/18 05:18 09/29/18 05:18 INR, PTT INR 1.21 (0.83-1.09) H 09/28/18 12:35 Troponin, BNP 09/29/18 05:18 Troponin I 0.20 H B-Natriuretic Peptide 01544.8 H Troponin, BNP 09/29/18 05:18 Troponin I 0.20 H B-Natriuretic Peptide 55663.8 H afib with rvr Echo: Pending Imaging - Results Chest X-ray: Report Reviewed, Image Reviewed EKG: Report Reviewed, Image Reviewed Other: Report Reviewed, Image Reviewed (tele-afib with RVR 140s) Assessment/Plan AFib with RVR-HR uncontrolled -unknown if paroxysmal or chronic -cont heparin gtt with plan to transition to po prior to discharge, choice of medication to be determined based on clinical hospital course -start rate control meds, Lopressor 50mg po TID with IV pushes prn -cont tele SOB/edema/JASON on CKD -concern for ACute on chronic CHF unknown type -suspect decreased renal perfusion secondary to CHF -give trial of IV Lasix 40mg now and BID -monitor strict I/Os and daily weights -replete K and Mg -monitor bun/creat, electrolytes, and replete as needed -needs ECHO to evaluate LV function and structural heart disease
--- NOTE | 2018-09-29 19:21 | CON.NEP ---
Consult - Past Medical History Cardio/Vascular: Yes: HTN Renal/: Yes: Renal Inusuff Rheumatology: Yes: Gout Endocrine: Yes: Diabetes Mellitus - Alcohol/Substance Use Hx Alcohol Use: No - Smoking History Smoking history: Never smoked Have you smoked in the past 12 months: No - Social History ADL: Independent History of Recent Travel: No Home Medications - Allergies Allergies/Adverse Reactions: Allergies Allergy/AdvReac Type Severity Reaction Status Date / Time No Known Allergies Allergy Verified 09/28/18 11:11 - Home Medications Home Medications: Ambulatory Orders NK [No Known Home Medication] 09/19/18 Nephrology Consult - Height Height: 5 ft 9 in - Weight Weight: 246 lb - BMI Body Mass Index (BMI): 36.3 - Lab Results CBC,BMP: CBC, BMP 09/29/18 05:18 09/29/18 05:18 Anion Gap: Anion Gap Anion Gap 12 MMOL/L (8-16) 09/29/18 05:18 - Physical Examination Vital Signs: Vital Signs Temperature 98.6 F 09/29/18 14:00 Pulse Rate 138 H 09/29/18 15:58 Respiratory Rate 20 09/29/18 14:00 Blood Pressure 168/96 09/29/18 15:58 O2 Sat by Pulse Oximetry (%) 98 09/28/18 22:30 Assessment/Plan afib decompensated HF CKD stage 4 R/O acute component Hypokalemia Plan- sonogram of kidney and bladder daily weights renal data base ordered
[2018-09-29] MEDS: KCL 10 MEQ IVPB 10 MEQ/100 ML INFUS.BAG IVPB SCH (22:42)
[2018-09-29] MEDS: METOPROLOL TARTRATE 50 MG TABLET (FP) PO SCH ×2 (22:42→23:37)
[2018-09-30] MEDS ORDERED: ZOLPIDEM TARTRATE 5 MG TABLET PO ONE (00:15)
[2018-09-30] MEDS: KCL 10 MEQ IVPB 10 MEQ/100 ML INFUS.BAG IVPB SCH (01:00)
[2018-09-30] MEDS: FUROSEMIDE 40 MG/4 ML INJECTABLE VIAL IVPUSH SCH ×2 (05:23→13:54)
[2018-09-30] MEDS: METOPROLOL TARTRATE 50 MG TABLET (FP) PO SCH ×3 (05:23→22:11)
[2018-09-30] MEDS: INSULIN SLIDING SCALE (NOVOLOG) 1 VIAL SQ SCH ×4 (06:03→22:15)
[2018-09-30 07:05] LABS: HEMATOCRIT 33.7 % (35.4-49); HEMOGLOBIN 10.9 GM/dL (11.7-16.9); MCH 26.6 pg (25.7-33.7); MCHC 32.3 g/dl (32.0-35.9); MEAN CELL VOLUME 82.3 fl (80-96); MEAN PLT VOLUME 8.6 fl (7.5-11.1); PLATELET COUNT 411 K/MM3 (134-434); RBC 4.09 M/mm3 (4.00-5.60); RDW 15.9 % (11.9-15.9); WHITE BLOOD COUNT 10.7 K/mm3 (4.0-10.0)
[2018-09-30 07:40] LABS: ALBUMIN 3.1 g/dl (3.4-5.0); BILIRUBIN,TOTAL 0.8 mg/dL (0.2-1); BLOOD UREA NITROGEN 81.9 mg/dL (7-18); CALCIUM 9.1 mg/dL (8.5-10.1); CREATININE 4.7 mg/dL (0.55-1.3); POTASSIUM 4.2 mmol/L (3.5-5.1)
[2018-09-30 08:04] LABS: URIC ACID 14.6 mg/dL (2.6-7.2)
--- NOTE | 2018-09-30 09:22 | PN ---
Progress Note, Physician Chief Complaint: Afib CHF Exacerbation History of Present Illness: Previous notes and events reviewed awake and alert NAD sts having SOB on exertion denies chest pain B/L lower extremity edema - Current Medication List Current Medications: Active Medications Furosemide (Lasix Injection -) 40 mg IVPUSH BID@0600,1400 [facility] Last Admin: 09/30/18 05:23 Dose: 40 mg Heparin Sodium (Porcine) (Heparin -) 1,000 unit IVPUSH PRN PRN PRN Reason: Heparin Heparin Sodium (Porcine) (Heparin -) 5,000 unit IVPUSH PRN PRN PRN Reason: Heparin Heparin Sodium (Porcine) 25, (000 unit/ Sodium Chloride) 500 mls @ 20 mls/hr IV TITR [facility]; Protocol Last Admin: 09/29/18 16:09 Dose: 1,000 unit/hr, 20 mls/hr Insulin Aspart (Novolog Vial Sliding Scale -) 1 vial SQ ACHS [facility]; Protocol Last Admin: 09/30/18 06:03 Dose: Not Given Metoprolol Tartrate (Lopressor Injection -) 5 mg IVPUSH Q4H PRN PRN Reason: TACHYCARDIA Last Admin: 09/29/18 15:58 Dose: 5 mg Metoprolol Tartrate (Lopressor -) 50 mg PO TID [facility] Last Admin: 09/30/18 05:23 Dose: 50 mg - Objective Vital Signs: Vital Signs Temperature 98 F 09/30/18 08:44 Pulse Rate 114 H 09/30/18 08:44 Respiratory Rate 20 09/30/18 08:45 Blood Pressure 138/95 09/30/18 08:44 O2 Sat by Pulse Oximetry (%) 95 09/30/18 08:45 Constitutional: Yes: No Distress, Calm, Obese Eyes: Yes: Conjunctiva Clear HENT: Yes: Atraumatic Cardiovascular: Yes: Tachycardia, Pulse Irregular Respiratory: Yes: Regular, Diminished Gastrointestinal: Yes: Normal Bowel Sounds, Soft Musculoskeletal: Yes: WNL Extremities: Yes: WNL Edema: Yes Neurological: Yes: Alert, Oriented Psychiatric: Yes: Alert, Oriented Labs: CBC, BMP 09/30/18 05:12 09/30/18 05:12 INR, PTT INR 1.21 (0.83-1.09) H 09/28/18 12:35 Problem List - Problems (1) Acute on chronic renal failure Assessment/Plan: -Renal on board -BUN/Cr 81.9/4.7 -monitor renal function daily Code(s): N17.9 - ACUTE KIDNEY FAILURE, UNSPECIFIED; N18.9 - CHRONIC KIDNEY DISEASE, UNSPECIFIED (2) Atrial fibrillation with RVR Assessment/Plan: -Tele monitoring -Cardiology on board -Metoprolol 50mg TID -Lopressor 5mg IVP prn for HR >110bpm -Heparin drip--will switch to oral AC when time for discharge Code(s): I48.91 - UNSPECIFIED ATRIAL FIBRILLATION (3) Bilateral lower extremity edema Assessment/Plan: -2/2 CHF exacerbation -1L fluid restriction -daily weights -Furosemide Code(s): R60.0 - LOCALIZED EDEMA (4) CHF (congestive heart failure), NYHA class II Assessment/Plan: -Cardiology on board -Furosemide -1L fluid restriction -daily weights -strict I&Os -Echocardiogram -BNP 11725 Code(s): I50.9 - HEART FAILURE, UNSPECIFIED (5) Diabetes Assessment/Plan: -HgA1c 9.5% -Endocrinology consult -ISS Code(s): E11.9 - TYPE 2 DIABETES MELLITUS WITHOUT COMPLICATIONS (6) Gout Assessment/Plan: -Uric acid 14.6 -Colchicine Code(s): M10.9 - GOUT, UNSPECIFIED Assessment/Plan see problem list
[2018-09-30] MEDS: HEPARIN - 25,000 UNIT in SODIUM CHLORIDE 495 ML IV SCH ×2 (13:51→22:19)
--- NOTE | 2018-09-30 15:49 | PN ---
Progress Note (short form) - Note Progress Note: advanced renal failure AFib /HF being eval LE edema Current Medications Furosemide (Lasix Injection -) 40 mg IVPUSH BID@0600,1400 [facility] Last Admin: 09/30/18 13:54 Dose: 40 mg Heparin Sodium (Porcine) (Heparin -) 1,000 unit IVPUSH PRN PRN PRN Reason: Heparin Heparin Sodium (Porcine) (Heparin -) 5,000 unit IVPUSH PRN PRN PRN Reason: Heparin Heparin Sodium (Porcine) 25, (000 unit/ Sodium Chloride) 500 mls @ 20 mls/hr IV TITR [facility]; Protocol Last Admin: 09/29/18 16:09 Dose: 1,000 unit/hr, 20 mls/hr Insulin Aspart (Novolog Vial Sliding Scale -) 1 vial SQ ACHS [facility]; Protocol Last Admin: 09/30/18 11:18 Dose: Not Given Metoprolol Tartrate (Lopressor Injection -) 5 mg IVPUSH Q4H PRN PRN Reason: TACHYCARDIA Last Admin: 09/29/18 15:58 Dose: 5 mg Metoprolol Tartrate (Lopressor -) 50 mg PO TID [facility] Last Admin: 09/30/18 13:54 Dose: 50 mg Last Vital Signs Temp Pulse Resp BP Pulse Ox 97.8 F 112 H 20 146/88 95 09/30/18 14:00 09/30/18 14:00 09/30/18 14:00 09/30/18 14:00 09/30/18 08:45 alert in nad Lungs clear heart reg Abd soft nontender Ext no edema CBC, BMP 09/30/18 05:12 09/30/18 05:12 Renal Failure- unclear if theres acute component HF may be a factor for kidney failure Hyperuricemia responding to diuretics he diuresed 800 cc after lasix in the morning sono of bladder no significant post void Plan- continue to diurese to alleviate lung congestion follow renal function and daily weights i explained to the patient about possible need for HD in the near future
--- NOTE | 2018-09-30 16:52 | PN ---
Progress Note, Physician History of Present Illness: seen and examined today in [facility]. states he is feeling a bit better today. urinating more than yesterday. - Current Medication List Current Medications: Active Medications Furosemide (Lasix Injection -) 40 mg IVPUSH BID@0600,1400 [facility] Last Admin: 09/30/18 13:54 Dose: 40 mg Heparin Sodium (Porcine) (Heparin -) 1,000 unit IVPUSH PRN PRN PRN Reason: Heparin Heparin Sodium (Porcine) (Heparin -) 5,000 unit IVPUSH PRN PRN PRN Reason: Heparin Heparin Sodium (Porcine) 25, (000 unit/ Sodium Chloride) 500 mls @ 20 mls/hr IV TITR [facility]; Protocol Last Admin: 09/29/18 16:09 Dose: 1,000 unit/hr, 20 mls/hr Insulin Aspart (Novolog Vial Sliding Scale -) 1 vial SQ ACHS [facility]; Protocol Last Admin: 09/30/18 11:18 Dose: Not Given Metoprolol Tartrate (Lopressor Injection -) 5 mg IVPUSH Q4H PRN PRN Reason: TACHYCARDIA Last Admin: 09/29/18 15:58 Dose: 5 mg Metoprolol Tartrate (Lopressor -) 50 mg PO TID [facility] Last Admin: 09/30/18 13:54 Dose: 50 mg - Objective Vital Signs: Vital Signs Temperature 97.8 F 09/30/18 14:00 Pulse Rate 112 H 09/30/18 14:00 Respiratory Rate 20 09/30/18 14:00 Blood Pressure 146/88 09/30/18 14:00 O2 Sat by Pulse Oximetry (%) 95 09/30/18 08:45 Constitutional: Yes: No Distress, Calm Eyes: Yes: Conjunctiva Clear, PERRL HENT: Yes: Atraumatic, Normocephalic Neck: Yes: Supple, Trachea Midline Cardiovascular: Yes: Tachycardia, Pulse Irregular, S1, S2. No: Regular Rate and Rhythm, Bradycardia, Bruit, JVD, Gallop, Murmur, Rub, S3, S4, Varicosities Respiratory: Yes: Regular, Diminished. No: Rales, Rhonchi, SOB, Wheezes Gastrointestinal: Yes: Normal Bowel Sounds, Soft. No: Distention, Tenderness Musculoskeletal: Yes: WNL Extremities: Yes: WNL Edema: Yes Edema: LLE: 2+, RLE: 2+ Peripheral Pulses WNL: Yes Peripheral Pulses: Left Doralis Pedis: 2+, Right Dorsalis Pedis: 2+ Neurological: Yes: Alert, Oriented Psychiatric: Yes: Alert, Oriented Labs: CBC, BMP 09/30/18 05:12 09/30/18 05:12 INR, PTT INR 1.21 (0.83-1.09) H 09/28/18 12:35 - ....Imaging Chest X-ray: Report Reviewed, Image Reviewed EKG: Report Reviewed, Image Reviewed Other: Report Reviewed, Image Reviewed (tele-AF with RVR HR low 100sbpm,) Assessment/Plan AFib with RVR-HR uncontrolled -unknown if paroxysmal or chronic -HR is better controlled today -cont heparin gtt with plan to transition to po prior to discharge, choice of medication to be determined based on clinical hospital course -cont Lopressor 50mg po TID with IV pushes prn -titrate metoprolol as needed -cont tele SOB/edema/JASON on CKD -concern for Acute on chronic CHF unknown type -suspect decreased renal perfusion secondary to CHF -lungs more clear today, LE edema persists -cont IV Lasix 40mg BID -monitor strict I/Os and daily weights -replete K and Mg -monitor bun/creat, electrolytes, and replete as needed -needs ECHO to evaluate LV function and structural heart disease
[2018-09-30] MEDS ORDERED: PT OWN MED DRAWER 7, Y5N ONE (21:31)
[2018-10-01] MEDS: INSULIN SLIDING SCALE (NOVOLOG) 1 VIAL SQ SCH ×4 (06:24→22:38)
[2018-10-01] MEDS: METOPROLOL TARTRATE 50 MG TABLET (FP) PO SCH ×3 (06:24→22:37)
[2018-10-01] MEDS: FUROSEMIDE 40 MG/4 ML INJECTABLE VIAL IVPUSH SCH ×2 (06:24→14:00)
[2018-10-01 08:00] LABS: HEMATOCRIT 33.8 % (35.4-49); MCH 26.6 pg (25.7-33.7); MCHC 32.6 g/dl (32.0-35.9); MEAN CELL VOLUME 81.5 fl (80-96); MEAN PLT VOLUME 8.5 fl (7.5-11.1); PLATELET COUNT 449 K/MM3 (134-434); RBC 4.15 M/mm3 (4.00-5.60); WHITE BLOOD COUNT 9.2 K/mm3 (4.0-10.0)
[2018-10-01 08:30] LABS: ALBUMIN 3.1 g/dl (3.4-5.0); BILIRUBIN,TOTAL 0.8 mg/dL (0.2-1); BLOOD UREA NITROGEN 85.8 mg/dL (7-18); CALCIUM 9.1 mg/dL (8.5-10.1); CREATININE 4.6 mg/dL (0.55-1.3); N-TERMINAL BNP 21253.1 pg/ml (5-125); POTASSIUM 4.2 mmol/L (3.5-5.1)
[2018-10-01] MEDS ORDERED: PNEUMOC 13-VAL CONJ-DIP CRM/PF 0.5 ML DISP.SYRIN IM ONE (10:37)
[2018-10-01] MEDS: COLCHICINE 0.6 MG CAP PO SCH (11:17)
--- NOTE | 2018-10-01 11:55 | PN ---
Progress Note, Physician Chief Complaint: Afib with RVR History of Present Illness: NAD sitting in chair On tele, still not rate controlled - Current Medication List Current Medications: Active Medications Colchicine (Colcrys) 0.6 mg PO DAILY [facility] Last Admin: 10/01/18 11:17 Dose: 0.6 mg Furosemide (Lasix Injection -) 40 mg IVPUSH BID@0600,1400 [facility] Last Admin: 10/01/18 06:24 Dose: 40 mg Heparin Sodium (Porcine) (Heparin -) 1,000 unit IVPUSH PRN PRN PRN Reason: Heparin Heparin Sodium (Porcine) (Heparin -) 5,000 unit IVPUSH PRN PRN PRN Reason: Heparin Heparin Sodium (Porcine) 25, (000 unit/ Sodium Chloride) 500 mls @ 20 mls/hr IV TITR [facility]; Protocol Last Admin: 09/30/18 22:19 Dose: 1,000 unit/hr, 20 mls/hr Insulin Aspart (Novolog Vial Sliding Scale -) 1 vial SQ ACHS [facility]; Protocol Last Admin: 10/01/18 11:17 Dose: Not Given Metoprolol Tartrate (Lopressor Injection -) 5 mg IVPUSH Q4H PRN PRN Reason: TACHYCARDIA Last Admin: 09/29/18 15:58 Dose: 5 mg Metoprolol Tartrate (Lopressor -) 50 mg PO TID [facility] Last Admin: 10/01/18 06:24 Dose: 50 mg - Objective Vital Signs: Vital Signs Temperature 97.8 F 10/01/18 08:26 Pulse Rate 104 H 10/01/18 08:26 Respiratory Rate 20 10/01/18 08:26 Blood Pressure 139/103 H 10/01/18 08:26 O2 Sat by Pulse Oximetry (%) 99 10/01/18 08:26 Constitutional: Yes: Well Nourished, No Distress, Calm Cardiovascular: Yes: Regular Rate and Rhythm Respiratory: Yes: Regular Gastrointestinal: Yes: Normal Bowel Sounds, Soft Genitourinary: Yes: WNL Musculoskeletal: Yes: Muscle Weakness Extremities: Yes: WNL Edema: Yes Edema: LLE: 2+, RLE: 2+ Peripheral Pulses WNL: Yes Neurological: Yes: Alert, Oriented Psychiatric: Yes: Alert, Oriented Labs: CBC, BMP 10/01/18 06:00 10/01/18 06:00 INR, PTT INR 1.21 (0.83-1.09) H 09/28/18 12:35 Assessment/Plan (1) Acute on chronic renal failure Assessment/Plan: -Nephrology on board -monitor renal function trend Code(s): N17.9 - ACUTE KIDNEY FAILURE, UNSPECIFIED; N18.9 - CHRONIC KIDNEY DISEASE, UNSPECIFIED (2) Atrial fibrillation with RVR Assessment/Plan: -Tele monitoring -Cardiology on board -Metoprolol 50mg TID -Lopressor 5mg IVP prn for HR >110bpm -Heparin drip--will switch to oral AC -coumadin, if patient agrees Code(s): I48.91 - UNSPECIFIED ATRIAL FIBRILLATION (3) Bilateral lower extremity edema Assessment/Plan: -2/2 CHF exacerbation -1L fluid restriction -daily weights -Furosemide 40 mg IVP BID Code(s): R60.0 - LOCALIZED EDEMA (4) CHF (congestive heart failure), NYHA class II Assessment/Plan: -Cardiology on board -Furosemide -1L fluid restriction -daily weights -strict I&Os -Echocardiogram reviewed-with global hypokinesis and LVEF 30-35% with mild to mod MR/mild TR Code(s): I50.9 - HEART FAILURE, UNSPECIFIED (5) Diabetes Assessment/Plan: -HgA1c 9.5% -Endocrinology consult -ISS Code(s): E11.9 - TYPE 2 DIABETES MELLITUS WITHOUT COMPLICATIONS (6) Gout Assessment/Plan: -Uric acid 14.6 -Colchicine Code(s): M10.9 - GOUT, UNSPECIFIED
--- NOTE | 2018-10-01 13:19 | ECHO ---
Name: PATRICE GORDON Exam:Adult Echocardiogram Study Date: 10/01/2018 10:52 AM Age: 62 yrs Reason For Study: chf a fib,rvr Height: 69 in Weight: 246 lb BSA: 2.3 m2 MMode/2D Measurements & Calculations IVSd: 0.94 cm Ao root diam: 3.3 cm LVIDd: 5.7 cm LA dimension: 3.8 cm LVIDs: 4.8 cm ACS: 1.7 cm LVPWd: 0.99 cm IVSs: 1.2 cm LVPWs: 1.2 cm EDV(Teich): 161.1 ml ESV(Teich): 105.4 ml Doppler Measurements & Calculations MV E max kirill: 115.0 cm/sec Ao V2 max: 114.2 cm/sec Ao max P.3 mmHg Ao V2 mean: 70.4 cm/sec Ao mean P.3 mmHg Ao V2 VTI: 15.9 cm MR max kirill: 440.1 cm/sec TR max kirill: 206.1 cm/sec MR max P.5 mmHg TR max P.1 mmHg PI end-d kirill: 131.0 cm/sec Med Peak E' Kirill: 6.1 cm/sec Med E/e': 18.7 Lat Peak E' Kirill: 8.0 cm/sec Lat E/e': 14.4 Procedure A complete two-dimensional transthoracic echocardiogram was performed (2D, M-mode, Doppler and color flow Doppler). Technically limited study. Left Ventricle The left ventricle is normal in size. Left ventricular systolic function is moderate to severely redu aisha. Ejection Fraction = 30-35%. Diastolic dysfunction, Grade II (pseudonormalization pattern). There is m oderate to severe global hypokinesis of the left ventricle. Right Ventricle The right ventricle is not well visualized. Atria The left atrial size is normal. Right atrium not well visualized. Mitral Valve The mitral valve is normal in structure and function. There is mild to moderate mitral regurgitation. Tricuspid Valve The tricuspid valve is normal in structure and function. There is mild tricuspid regurgitation. Right ventricular systolic pressure is normal. Aortic Valve There is mild aortic sclerosis.;. No aortic regurgitation is present. Pulmonic Valve The pulmonic valve is not well visualized. Trace pulmonic valvular regurgitation. Great Vessels The aortic root is normal size. Pericardium/Pleura Small pericardial effusion (<1cm). Interpretation Summary Technically limited study The left ventricle is normal in size. Left ventricular systolic function is moderate to severely reduced. There is moderate to severe global hypokinesis of the left ventricle. Ejection Fraction = 30-35%. Diastolic dysfunction, Grade II (pseudonormalization pattern). The right ventricle is not well visualized. The left atrial size is normal. Right atrium not well visualized. There is mild to moderate mitral regurgitation. There is mild tricuspid regurgitation. Right ventricular systolic pressure is normal. There is mild aortic sclerosis. Trace pulmonic valvular regurgitation. Small pericardial effusion (<1cm) Jose Penaloza MD 10/01/2018 01:18 PM
[2018-10-01] MEDS: PNEUMOCOCCAL 23 VACCINE 0.5 ML VIAL IM ONE ×2 (13:59→14:23)
[2018-10-01] MEDS: HEPARIN - 25,000 UNIT in SODIUM CHLORIDE 495 ML IV SCH (14:01)
--- NOTE | 2018-10-01 14:02 | PN ---
Progress Note, Physician Chief Complaint: Putting out urine No complaints today Tele: afib 100-110s VR - Current Medication List Current Medications: Active Medications Colchicine (Colcrys) 0.6 mg PO DAILY [facility] Last Admin: 10/01/18 11:17 Dose: 0.6 mg Furosemide (Lasix Injection -) 40 mg IVPUSH BID@0600,1400 [place] Last Admin: 10/01/18 06:24 Dose: 40 mg Heparin Sodium (Porcine) (Heparin -) 1,000 unit IVPUSH PRN PRN PRN Reason: Heparin Heparin Sodium (Porcine) (Heparin -) 5,000 unit IVPUSH PRN PRN PRN Reason: Heparin Heparin Sodium (Porcine) 25, (000 unit/ Sodium Chloride) 500 mls @ 20 mls/hr IV TITR [facility]; Protocol Last Admin: 09/30/18 22:19 Dose: 1,000 unit/hr, 20 mls/hr Insulin Aspart (Novolog Vial Sliding Scale -) 1 vial SQ ACHS [facility]; Protocol Last Admin: 10/01/18 11:17 Dose: Not Given Metoprolol Tartrate (Lopressor Injection -) 5 mg IVPUSH Q4H PRN PRN Reason: TACHYCARDIA Last Admin: 09/29/18 15:58 Dose: 5 mg Metoprolol Tartrate (Lopressor -) 50 mg PO TID [facility] Last Admin: 10/01/18 06:24 Dose: 50 mg - Objective Vital Signs: Vital Signs Temperature 97.8 F 10/01/18 08:26 Pulse Rate 104 H 10/01/18 08:26 Respiratory Rate 20 10/01/18 08:26 Blood Pressure 139/103 H 10/01/18 08:26 O2 Sat by Pulse Oximetry (%) 99 10/01/18 08:26 Constitutional: Yes: No Distress Neck: Yes: Supple Cardiovascular: Yes: Tachycardia, Pulse Irregular, JVD, S1, S2. No: Murmur Respiratory: Yes: Rales Gastrointestinal: Yes: Soft Edema: LLE: 1+, RLE: 1+ Labs: CBC, BMP 10/01/18 06:00 10/01/18 06:00 INR, PTT INR 1.21 (0.83-1.09) H 09/28/18 12:35 Problem List - Problems (1) A-fib Code(s): I48.91 - UNSPECIFIED ATRIAL FIBRILLATION Qualifiers: Atrial fibrillation type: unspecified Qualified Code(s): I48.91 - Unspecified atrial fibrillation (2) CHF (congestive heart failure), NYHA class II Code(s): I50.9 - HEART FAILURE, UNSPECIFIED Assessment/Plan 62 year old male pmhx of htn, dm, pafib, ckd, chronic systolic chf, and obesity presenting with LE edema and dyspnea on exertion. Volume overloaded Afib with RVR 1) AFib with RVR- -Was known in past as far back as 2016 with h/o paroxysmal afib and refused AC in past. Now on heparin drip for AC Increase metoprolol to 75mg TID and will uptitrate as needed. 2) Acute on chronic systolic chf. -Continue to diurese with furosemide 40mg IV bid. -monitor strict I/Os and daily weights -replete K and Mg -monitor bun/creat, electrolytes, and replete as needed -Echo with global hypokinesis and LVEF 30-35% with mild to mod MR/mild TR. ( Echo in 2018 with LVEF 40-50%) -will continue volume and HR control. Will continue to diurese and uptitrate metoprolol as tolerates and needed for HR control. Also will likely need more anti-hypertensives for bp control. Holding benito/arb and spironolactone at this time given Cr 4.6 (was 2.8 04/2017)
--- NOTE | 2018-10-01 15:36 | PN ---
Progress Note, Physician History of Present Illness: Pt seen and examined at bedside. He complains of lower ext edema. He signed out AMA during last admission. - Current Medication List Current Medications: Active Medications Colchicine (Colcrys) 0.6 mg PO DAILY [facility] Last Admin: 10/01/18 11:17 Dose: 0.6 mg Furosemide (Lasix Injection -) 40 mg IVPUSH BID@0600,1400 [facility] Last Admin: 10/01/18 14:00 Dose: 40 mg Heparin Sodium (Porcine) (Heparin -) 1,000 unit IVPUSH PRN PRN PRN Reason: Heparin Heparin Sodium (Porcine) (Heparin -) 5,000 unit IVPUSH PRN PRN PRN Reason: Heparin Heparin Sodium (Porcine) 25, (000 unit/ Sodium Chloride) 500 mls @ 20 mls/hr IV TITR [facility]; Protocol Last Admin: 10/01/18 14:01 Dose: Not Given Insulin Aspart (Novolog Vial Sliding Scale -) 1 vial SQ ACHS [facility]; Protocol Last Admin: 10/01/18 11:17 Dose: Not Given Metoprolol Tartrate (Lopressor Injection -) 5 mg IVPUSH Q4H PRN PRN Reason: TACHYCARDIA Last Admin: 09/29/18 15:58 Dose: 5 mg Metoprolol Tartrate (Lopressor -) 50 mg PO TID [facility] Last Admin: 10/01/18 14:00 Dose: 50 mg - Objective Vital Signs: Vital Signs Temperature 97.8 F 10/01/18 08:26 Pulse Rate 116 H 10/01/18 14:36 Respiratory Rate 20 10/01/18 14:36 Blood Pressure 132/100 10/01/18 14:36 O2 Sat by Pulse Oximetry (%) 99 10/01/18 08:26 Constitutional: Yes: Calm Eyes: Yes: Conjunctiva Clear HENT: Yes: Atraumatic Neck: Yes: Supple Cardiovascular: Yes: S1, S2 Respiratory: Yes: CTA Bilaterally Gastrointestinal: Yes: Soft Genitourinary: Yes: WNL Musculoskeletal: Yes: WNL Edema: Yes Edema: LLE: 3+, RLE: 3+ Neurological: Yes: Oriented Psychiatric: Yes: Oriented Labs: CBC, BMP 10/01/18 06:00 10/01/18 06:00 INR, PTT INR 1.21 (0.83-1.09) H 09/28/18 12:35 Problem List - Problems (1) A-fib Code(s): I48.91 - UNSPECIFIED ATRIAL FIBRILLATION Qualifiers: Atrial fibrillation type: unspecified Qualified Code(s): I48.91 - Unspecified atrial fibrillation (2) CHF (congestive heart failure), NYHA class II Code(s): I50.9 - HEART FAILURE, UNSPECIFIED (3) CKD (chronic kidney disease) Code(s): N18.9 - CHRONIC KIDNEY DISEASE, UNSPECIFIED Qualifiers: Chronic kidney disease stage: unspecified stage Qualified Code(s): N18.9 - Chronic kidney disease, unspecified Assessment/Plan Current Medications Generic Name Dose Route Start Last Admin Trade Name Freq PRN Reason Stop Dose Admin Colchicine 0.6 mg 10/01/18 10:00 10/01/18 11:17 Colcrys PO 0.6 mg DAILY [facility] Administration Furosemide 40 mg 09/30/18 06:00 10/01/18 14:00 Lasix Injection - IVPUSH 40 mg BID@0600,1400 [facility] Administration Heparin Sodium (Porcine) 1,000 unit 09/28/18 14:05 Heparin - IVPUSH PRN PRN Heparin Heparin Sodium (Porcine) 5,000 unit 09/28/18 14:05 Heparin - IVPUSH PRN PRN Heparin Heparin Sodium (Porcine) 25, 500 mls @ 20 mls/hr 09/28/18 14:15 10/01/18 14: 01 000 unit/ Sodium Chloride IV Not Given TITR [facility] Protocol 1,000 UNIT/HR Insulin Aspart 1 vial 09/28/18 22:00 10/01/18 11:17 Novolog Vial Sliding Scale - SQ Not Given ACHS [facility] Protocol Metoprolol Tartrate 5 mg 09/28/18 16:30 09/29/18 15:58 Lopressor Injection - IVPUSH 5 mg Q4H PRN Administration TACHYCARDIA Metoprolol Tartrate 50 mg 09/29/18 22:00 10/01/18 14:00 Lopressor - PO 50 mg TID [facility] Administration Laboratory Tests 09/28/18 10/01/18 12:38 06:00 Creatinine 4.6 H Est GFR (CKD-EPI)AfAm 14.81 B-Natriuretic Peptide 13277.1 H Urine Protein 3+ H Impression 1. CKD 2. PIO 3. a-fib 4. HTN 5. CHF 6. DM 7. non compliance Plan - cont lasix - monitor renal function - check prt to master yacht ratio - pt with long standing CKD and uncontrolled HTN along with non compliance - check echo - renal workup
[2018-10-01 21:28] LABS: RATIO URIN PROTEIN/URIN CREAT 0.84 MG/DL
--- NOTE | 2018-10-02 00:05 | CONSULT ---
Consult Consult Specialty:: ENDOCRINE Referred by:: JOHN LOPEZ Reason for Consultation:: DIABETES MELLITUS UNCONTROLLED - History of Present Illness Chief Complaint: WEAK AND HIGH SUGARS History of Present Illness: 62 y/o male with past medical history of DM2, HTN, and gout. Patient was sent to [facility] ER yesterday from PCP office with abnormal EKG showing AFIB with RVR noted with HR in 150s. Patient recently left AMA,for similiar complaint. pt is poor historian,unable to remember medication or blood sugar meds. On exam patient denies feeling any palpitations or chest pain. States having intermittent episodes of SOB. - Past Medical History Cardio/Vascular: Yes: HTN Renal/: Yes: Renal Inusuff Rheumatology: Yes: Gout Endocrine: Yes: Diabetes Mellitus - Alcohol/Substance Use Hx Alcohol Use: No - Smoking History Smoking history: Never smoked Have you smoked in the past 12 months: No - Social History ADL: Independent History of Recent Travel: No Home Medications - Allergies Allergies/Adverse Reactions: Allergies Allergy/AdvReac Type Severity Reaction Status Date / Time No Known Allergies Allergy Verified 09/28/18 11:11 - Home Medications Home Medications: Ambulatory Orders NK [No Known Home Medication] 09/19/18 Review of Systems - Review of Systems Constitutional: reports: Lethargy, Weakness Eyes: reports: Blurred Vision HENT: reports: No Symptoms Neck: reports: No Symptoms Cardiovascular: reports: No Symptoms Respiratory: reports: Exercise Intolerance, SOB on Exertion Gastrointestinal: reports: Constipation Genitourinary: reports: No Symptoms Breasts: reports: No Symptoms Reported Musculoskeletal: reports: Muscle Pain, Muscle Cramps, Muscle Weakness Neurological: reports: Confusion, Weakness Physical Exam Vital Signs: Vital Signs Temperature 97.9 F 10/01/18 20:40 Pulse Rate 100 H 10/01/18 20:40 Respiratory Rate 18 10/01/18 20:40 Blood Pressure 137/87 10/01/18 20:40 O2 Sat by Pulse Oximetry (%) 99 10/01/18 08:26 Constitutional: Yes: Calm Eyes: Yes: EOM Intact HENT: Yes: Normocephalic Neck: Yes: Trachea Midline Cardiovascular: Yes: Regular Rate and Rhythm Respiratory: Yes: CTA Bilaterally Gastrointestinal: Yes: Normal Bowel Sounds ...Rectal Exam: Yes: Deferred Renal/: Yes: WNL Musculoskeletal: Yes: WNL Extremities: Yes: WNL Edema: No Integumentary: Yes: WNL Neurological: Yes: Alert, Oriented Psychiatric: Yes: Alert Labs: CBC, BMP 10/01/18 06:00 10/01/18 06:00 Problem List - Problems (1) Acute renal failure Code(s): N17.9 - ACUTE KIDNEY FAILURE, UNSPECIFIED Qualifiers: Acute renal failure type: unspecified Qualified Code(s): N17.9 - Acute kidney failure, unspecified (2) Gout Code(s): M10.9 - GOUT, UNSPECIFIED (3) Acute on chronic renal failure Code(s): N17.9 - ACUTE KIDNEY FAILURE, UNSPECIFIED; N18.9 - CHRONIC KIDNEY DISEASE, UNSPECIFIED (4) Atrial fibrillation with RVR Code(s): I48.91 - UNSPECIFIED ATRIAL FIBRILLATION (5) Bilateral lower extremity edema Code(s): R60.0 - LOCALIZED EDEMA (6) CHF (congestive heart failure), NYHA class II Code(s): I50.9 - HEART FAILURE, UNSPECIFIED (7) CKD (chronic kidney disease) Code(s): N18.9 - CHRONIC KIDNEY DISEASE, UNSPECIFIED Qualifiers: Chronic kidney disease stage: unspecified stage Qualified Code(s): N18.9 - Chronic kidney disease, unspecified Assessment/Plan Current Active Problems diabetes mellitus neuropathy ckd diabetic nephropathy A-fib (Acute) Acute renal failure (Acute) Gout (Acute) Abnormal Lab Results 10/01/18 10/01/18 10/01/18 06:00 06:00 06:00 Hgb 11.0 L Hct 33.8 L RDW 16.0 H Plt Count 449 H PTT (Actin FS) 61.9 H BUN 85.8 H Creatinine 4.6 H Random Glucose 140 H AST 70 H ALT 147 H Troponin I 0.43 H B-Natriuretic Peptide 95789.1 H Albumin 3.1 L U Random Total Protein 10/01/18 19:48 Hgb Hct RDW Plt Count PTT (Actin FS) BUN Creatinine Random Glucose AST ALT Troponin I B-Natriuretic Peptide Albumin U Random Total Protein 54.2 H Laboratory Results - last 24 hr 09/28/18 09/29/18 09/29/18 22:13 05:27 12:41 WBC RBC Hgb Hct MCV MCH MCHC RDW Plt Count MPV PTT (Actin FS) Sodium Potassium Chloride Carbon Dioxide Anion Gap BUN Creatinine Est GFR (CKD-EPI)AfAm Est GFR (CKD-EPI)NonAf POC Glucometer 201 217 213 Random Glucose Calcium Total Bilirubin AST ALT Alkaline Phosphatase Troponin I B-Natriuretic Peptide Total Protein Albumin U Random Total Protein Urine Creatinine Protein/Creatinin Ratio 09/29/18 09/29/18 09/30/18 18:45 23:27 06:00 WBC RBC Hgb Hct MCV MCH MCHC RDW Plt Count MPV PTT (Actin FS) Sodium Potassium Chloride Carbon Dioxide Anion Gap BUN Creatinine Est GFR (CKD-EPI)AfAm Est GFR (CKD-EPI)NonAf POC Glucometer 173 156 175 Random Glucose Calcium Total Bilirubin AST ALT Alkaline Phosphatase Troponin I B-Natriuretic Peptide Total Protein Albumin U Random Total Protein Urine Creatinine Protein/Creatinin Ratio 09/30/18 09/30/18 09/30/18 11:17 16:44 22:10 WBC RBC Hgb Hct MCV MCH MCHC RDW Plt Count MPV PTT (Actin FS) Sodium Potassium Chloride Carbon Dioxide Anion Gap BUN Creatinine Est GFR (CKD-EPI)AfAm Est GFR (CKD-EPI)NonAf POC Glucometer 190 191 234 Random Glucose Calcium Total Bilirubin AST ALT Alkaline Phosphatase Troponin I B-Natriuretic Peptide Total Protein Albumin U Random Total Protein Urine Creatinine Protein/Creatinin Ratio 10/01/18 10/01/18 10/01/18 06:00 06:00 06:00 WBC 9.2 RBC 4.15 Hgb 11.0 L Hct 33.8 L MCV 81.5 MCH 26.6 MCHC 32.6 RDW 16.0 H Plt Count 449 H MPV 8.5 PTT (Actin FS) 61.9 H Sodium 139 Potassium 4.2 Chloride 99 Carbon Dioxide 29 Anion Gap 11 BUN 85.8 H Creatinine 4.6 H Est GFR (CKD-EPI)AfAm 14.81 Est GFR (CKD-EPI)NonAf 12.78 POC Glucometer Random Glucose 140 H Calcium 9.1 Total Bilirubin 0.8 AST 70 H ALT 147 H Alkaline Phosphatase 90 Troponin I 0.43 H B-Natriuretic Peptide 53330.1 H Total Protein 7.0 Albumin 3.1 L U Random Total Protein Urine Creatinine Protein/Creatinin Ratio 10/01/18 10/01/18 10/01/18 06:21 11:13 17:03 WBC RBC Hgb Hct MCV MCH MCHC RDW Plt Count MPV PTT (Actin FS) Sodium Potassium Chloride Carbon Dioxide Anion Gap BUN Creatinine Est GFR (CKD-EPI)AfAm Est GFR (CKD-EPI)NonAf POC Glucometer 153 182 203 Random Glucose Calcium Total Bilirubin AST ALT Alkaline Phosphatase Troponin I B-Natriuretic Peptide Total Protein Albumin U Random Total Protein Urine Creatinine Protein/Creatinin Ratio 10/01/18 10/01/18 19:48 21:40 WBC RBC Hgb Hct MCV MCH MCHC RDW Plt Count MPV PTT (Actin FS) Sodium Potassium Chloride Carbon Dioxide Anion Gap BUN Creatinine Est GFR (CKD-EPI)AfAm Est GFR (CKD-EPI)NonAf POC Glucometer 191 Random Glucose Calcium Total Bilirubin AST ALT Alkaline Phosphatase Troponin I B-Natriuretic Peptide Total Protein Albumin U Random Total Protein 54.2 H Urine Creatinine 64.0 Protein/Creatinin Ratio 0.840 plan; levemir 20units am bgm qid novolog scale doses diet nutrtition consult
[2018-10-02] MEDS ORDERED: PT OWN MED DRAWER 7, Y5N ONE (00:29)
[2018-10-02] MEDS: HEPARIN - 25,000 UNIT in SODIUM CHLORIDE 495 ML IV SCH ×2 (00:34→13:40)
[2018-10-02] MEDS: FUROSEMIDE 40 MG/4 ML INJECTABLE VIAL IVPUSH SCH ×2 (06:43→13:39)
[2018-10-02] MEDS: INSULIN (LEVEMIR) 100 UNITS/ML UNITS SQ SCH (06:43)
[2018-10-02] MEDS: INSULIN SLIDING SCALE (NOVOLOG) 1 VIAL SQ SCH ×4 (06:43→23:01)
[2018-10-02] MEDS: METOPROLOL TARTRATE 50 MG TABLET (FP) PO SCH ×3 (06:43→23:01)
[2018-10-02] MEDS ORDERED: INSULIN (NOVOLOG) ASPART 100 UNITS/ML 10ML VIAL ONE ×2 (07:03→11:19)
[2018-10-02] MEDS: COLCHICINE 0.6 MG CAP PO SCH (09:34)
[2018-10-02 11:02] LABS: BLOOD UREA NITROGEN 83.7 mg/dL (7-18); CALCIUM 9.4 mg/dL (8.5-10.1); CREATININE 4.2 mg/dL (0.55-1.3); POTASSIUM 3.8 mmol/L (3.5-5.1)
--- NOTE | 2018-10-02 11:16 | PN ---
Progress Note, Physician Chief Complaint: Afib with RVR History of Present Illness: NAD sitting in chair On tele, still not rate controlled - Current Medication List Current Medications: Active Medications Colchicine (Colcrys) 0.6 mg PO DAILY [facility] Last Admin: 10/02/18 09:34 Dose: 0.6 mg Furosemide (Lasix Injection -) 40 mg IVPUSH BID@0600,1400 [facility] Last Admin: 10/02/18 06:43 Dose: 40 mg Heparin Sodium (Porcine) (Heparin -) 1,000 unit IVPUSH PRN PRN PRN Reason: Heparin Heparin Sodium (Porcine) (Heparin -) 5,000 unit IVPUSH PRN PRN PRN Reason: Heparin Heparin Sodium (Porcine) 25, (000 unit/ Sodium Chloride) 500 mls @ 20 mls/hr IV TITR [facility]; Protocol Last Titration: 10/02/18 10:47 Dose: 1,000 unit/hr, 20 mls/hr Insulin Aspart (Novolog Vial Sliding Scale -) 1 vial SQ ACHS [facility]; Protocol Last Admin: 10/02/18 06:43 Dose: Not Given Insulin Detemir (Levemir Vial) 20 units SQ AM [facility] Last Admin: 10/02/18 06:43 Dose: 20 units Metoprolol Tartrate (Lopressor Injection -) 5 mg IVPUSH Q4H PRN PRN Reason: TACHYCARDIA Last Admin: 09/29/18 15:58 Dose: 5 mg Metoprolol Tartrate (Lopressor -) 50 mg PO TID [facility] Last Admin: 10/02/18 06:43 Dose: 50 mg - Objective Vital Signs: Vital Signs Temperature 97.7 F 10/02/18 10:00 Pulse Rate 104 H 10/02/18 10:00 Respiratory Rate 20 10/02/18 10:00 Blood Pressure 132/96 10/02/18 10:00 O2 Sat by Pulse Oximetry (%) 98 10/02/18 10:00 Constitutional: Yes: Well Nourished, No Distress, Calm Cardiovascular: Yes: Regular Rate and Rhythm Respiratory: Yes: Regular Gastrointestinal: Yes: Normal Bowel Sounds, Soft, Abdomen, Obese Genitourinary: Yes: WNL Musculoskeletal: Yes: Muscle Weakness Extremities: Yes: WNL Edema: Yes Edema: LLE: 2+, RLE: 2+ Peripheral Pulses WNL: Yes Neurological: Yes: Alert, Oriented Psychiatric: Yes: Alert, Oriented Labs: CBC, BMP 10/01/18 06:00 10/02/18 05:45 INR, PTT INR 1.21 (0.83-1.09) H 09/28/18 12:35 Assessment/Plan (1) Acute on chronic renal failure Assessment/Plan: -Nephrology on board -monitor renal function trend -AVF placement? Code(s): N17.9 - ACUTE KIDNEY FAILURE, UNSPECIFIED; N18.9 - CHRONIC KIDNEY DISEASE, UNSPECIFIED (2) Atrial fibrillation with RVR Assessment/Plan: -Tele monitoring -Cardiology on board -Metoprolol 50mg TID -Lopressor 5mg IVP prn for HR >110bpm -Heparin drip--will switch to oral AC -coumadin, if patient agrees Code(s): I48.91 - UNSPECIFIED ATRIAL FIBRILLATION (3) Bilateral lower extremity edema Assessment/Plan: -2/2 CHF exacerbation -1L fluid restriction -daily weights -Furosemide 40 mg IVP BID Code(s): R60.0 - LOCALIZED EDEMA (4) CHF (congestive heart failure), NYHA class II Assessment/Plan: -Cardiology on board -Furosemide -1L fluid restriction -daily weights -strict I&Os -Echocardiogram reviewed-with global hypokinesis and LVEF 30-35% with mild to mod MR/mild TR Code(s): I50.9 - HEART FAILURE, UNSPECIFIED (5) Diabetes Assessment/Plan: -HgA1c 9.5% -Endocrinology consult -ISS Code(s): E11.9 - TYPE 2 DIABETES MELLITUS WITHOUT COMPLICATIONS (6) Gout Assessment/Plan: -Uric acid 14.6 -Colchicine Code(s): M10.9 - GOUT, UNSPECIFIED
--- NOTE | 2018-10-02 11:44 | PN ---
Progress Note, Physician History of Present Illness: Pt seen and examined at bedside. He is awake and alert. He denies shortness of breath. He feels that his edema is improving. - Current Medication List Current Medications: Active Medications Colchicine (Colcrys) 0.6 mg PO DAILY [facility] Last Admin: 10/02/18 09:34 Dose: 0.6 mg Furosemide (Lasix Injection -) 40 mg IVPUSH BID@0600,1400 [facility] Last Admin: 10/02/18 06:43 Dose: 40 mg Heparin Sodium (Porcine) (Heparin -) 1,000 unit IVPUSH PRN PRN PRN Reason: Heparin Heparin Sodium (Porcine) (Heparin -) 5,000 unit IVPUSH PRN PRN PRN Reason: Heparin Heparin Sodium (Porcine) 25, (000 unit/ Sodium Chloride) 500 mls @ 20 mls/hr IV TITR [facility]; Protocol Last Titration: 10/02/18 10:47 Dose: 1,000 unit/hr, 20 mls/hr Insulin Aspart (Novolog Vial Sliding Scale -) 1 vial SQ ACHS [facility]; Protocol Last Admin: 10/02/18 11:29 Dose: Not Given Insulin Detemir (Levemir Vial) 20 units SQ AM [facility] Last Admin: 10/02/18 06:43 Dose: 20 units Metoprolol Tartrate (Lopressor Injection -) 5 mg IVPUSH Q4H PRN PRN Reason: TACHYCARDIA Last Admin: 09/29/18 15:58 Dose: 5 mg Metoprolol Tartrate (Lopressor -) 50 mg PO TID [facility] Last Admin: 10/02/18 06:43 Dose: 50 mg - Objective Vital Signs: Vital Signs Temperature 97.7 F 10/02/18 10:00 Pulse Rate 104 H 10/02/18 10:00 Respiratory Rate 20 10/02/18 10:00 Blood Pressure 132/96 10/02/18 10:00 O2 Sat by Pulse Oximetry (%) 98 10/02/18 10:00 Constitutional: Yes: Calm Eyes: Yes: Conjunctiva Clear HENT: Yes: Atraumatic Neck: Yes: Supple Cardiovascular: Yes: S1, S2 Respiratory: Yes: CTA Bilaterally Gastrointestinal: Yes: Soft, Abdomen, Obese Genitourinary: Yes: WNL Musculoskeletal: Yes: WNL Edema: Yes Edema: LLE: 2+, RLE: 2+ Integumentary: Yes: WNL Neurological: Yes: Oriented Psychiatric: Yes: Oriented Labs: CBC, BMP 10/01/18 06:00 10/02/18 05:45 INR, PTT INR 1.21 (0.83-1.09) H 09/28/18 12:35 Problem List - Problems (1) A-fib Code(s): I48.91 - UNSPECIFIED ATRIAL FIBRILLATION Qualifiers: Atrial fibrillation type: unspecified Qualified Code(s): I48.91 - Unspecified atrial fibrillation (2) CHF (congestive heart failure), NYHA class II Code(s): I50.9 - HEART FAILURE, UNSPECIFIED (3) CKD (chronic kidney disease) Code(s): N18.9 - CHRONIC KIDNEY DISEASE, UNSPECIFIED Qualifiers: Chronic kidney disease stage: unspecified stage Qualified Code(s): N18.9 - Chronic kidney disease, unspecified Assessment/Plan Current Medications Generic Name Dose Route Start Last Admin Trade Name Freq PRN Reason Stop Dose Admin Colchicine 0.6 mg 10/01/18 10:00 10/02/18 09:34 Colcrys PO 0.6 mg DAILY [facility] Administration Furosemide 40 mg 09/30/18 06:00 10/02/18 06:43 Lasix Injection - IVPUSH 40 mg BID@0600,1400 [facility] Administration Heparin Sodium (Porcine) 1,000 unit 09/28/18 14:05 Heparin - IVPUSH PRN PRN Heparin Heparin Sodium (Porcine) 5,000 unit 09/28/18 14:05 Heparin - IVPUSH PRN PRN Heparin Heparin Sodium (Porcine) 25, 500 mls @ 20 mls/hr 09/28/18 14:15 10/02/18 10: 47 000 unit/ Sodium Chloride IV 1,000 unit/hr TITR [facility] 20 mls/hr Titration Protocol 1,000 UNIT/HR Insulin Aspart 1 vial 09/28/18 22:00 10/02/18 11:29 Novolog Vial Sliding Scale - SQ Not Given ACHS [facility] Protocol Insulin Detemir 20 units 10/02/18 07:00 10/02/18 06:43 Levemir Vial SQ 20 units AM [facility] Administration Metoprolol Tartrate 5 mg 09/28/18 16:30 09/29/18 15:58 Lopressor Injection - IVPUSH 5 mg Q4H PRN Administration TACHYCARDIA Metoprolol Tartrate 50 mg 09/29/18 22:00 10/02/18 06:43 Lopressor - PO 50 mg TID [facility] Administration Impression 1. CKD 2. PIO 3. a-fib 4. HTN 5. CHF 6. DM 7. 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
--- NOTE | 2018-10-02 11:59 | PN ---
Progress Note, Physician History of Present Illness: seen and examined today in nad. no overnight events. no new complaints. - Current Medication List Current Medications: Active Medications Colchicine (Colcrys) 0.6 mg PO DAILY [facility] Last Admin: 10/02/18 09:34 Dose: 0.6 mg Furosemide (Lasix Injection -) 40 mg IVPUSH BID@0600,1400 [facility] Last Admin: 10/02/18 06:43 Dose: 40 mg Heparin Sodium (Porcine) (Heparin -) 1,000 unit IVPUSH PRN PRN PRN Reason: Heparin Heparin Sodium (Porcine) (Heparin -) 5,000 unit IVPUSH PRN PRN PRN Reason: Heparin Heparin Sodium (Porcine) 25, (000 unit/ Sodium Chloride) 500 mls @ 20 mls/hr IV TITR [facility]; Protocol Last Titration: 10/02/18 10:47 Dose: 1,000 unit/hr, 20 mls/hr Insulin Aspart (Novolog Vial Sliding Scale -) 1 vial SQ ACHS [facility]; Protocol Last Admin: 10/02/18 11:29 Dose: Not Given Insulin Detemir (Levemir Vial) 20 units SQ AM [facility] Last Admin: 10/02/18 06:43 Dose: 20 units Metoprolol Tartrate (Lopressor Injection -) 5 mg IVPUSH Q4H PRN PRN Reason: TACHYCARDIA Last Admin: 09/29/18 15:58 Dose: 5 mg Metoprolol Tartrate (Lopressor -) 50 mg PO TID [facility] Last Admin: 10/02/18 06:43 Dose: 50 mg - Objective Vital Signs: Vital Signs Temperature 97.7 F 10/02/18 10:00 Pulse Rate 104 H 10/02/18 10:00 Respiratory Rate 20 10/02/18 10:00 Blood Pressure 132/96 10/02/18 10:00 O2 Sat by Pulse Oximetry (%) 98 10/02/18 10:00 Constitutional: Yes: No Distress, Calm Eyes: Yes: Conjunctiva Clear, EOM Intact HENT: Yes: Atraumatic, Normocephalic Neck: Yes: Supple, Trachea Midline Cardiovascular: Yes: Tachycardia, Pulse Irregular, S1, S2. No: Regular Rate and Rhythm, Bradycardia, Bruit, JVD, Gallop, Murmur, Rub, S3, S4, Varicosities Respiratory: Yes: Regular, Diminished. No: Rales, Rhonchi, SOB, Wheezes Gastrointestinal: Yes: Normal Bowel Sounds, Soft. No: Distention, Tenderness Edema: Yes Edema: LLE: 2+, RLE: 2+ Peripheral Pulses WNL: Yes Neurological: Yes: Alert, Oriented Psychiatric: Yes: Alert, Oriented Labs: CBC, BMP 10/01/18 06:00 10/02/18 05:45 INR, PTT INR 1.21 (0.83-1.09) H 09/28/18 12:35 - ....Imaging Chest X-ray: Report Reviewed, Image Reviewed EKG: Report Reviewed, Image Reviewed Other: Report Reviewed, Image Reviewed (tele-AF HR 90s-110s) Assessment/Plan 62 year old male pmhx of htn, dm, pafib, ckd, chronic systolic chf, and obesity presenting with LE edema and dyspnea on exertion. Volume overloaded Afib with RVR 1) AFib with RVR-HR better controlled -Was known in past as far back as 2016 with h/o paroxysmal afib and refused AC in past. -Now on heparin drip for AC, decision on po med prior to discharge depending on labs at that time -HR control is adequate for now, cont metoprolol 75mg TID and will uptitrate as needed. 2) Acute on chronic systolic chf. -Echo with global hypokinesis and LVEF 30-35% with mild to mod MR/mild TR. ( Echo in 2018 with LVEF 40-50%) -bun/creat trending down with diuresis -Continue to diurese with IV furosemide, will increase dose to 80mg BID for now -dw pt fluid restriction to 1L/24hr -monitor strict I/Os and daily weights -replete K and Mg -monitor bun/creat, electrolytes, and replete as needed -will continue volume and HR control. Will continue to diurese and uptitrate metoprolol as tolerates and needed for HR control. Also will likely need more anti-hypertensives for bp control. Holding benito/arb and spironolactone at this time given Cr 4.6 (was 2.8 04/2017)
--- NOTE | 2018-10-02 21:41 | HOSP ---
Subjective - Review of Symptoms Events since last encounter: RN on unit called hospitalist to evaluate patient post fall, during patient interview patient states " i was in the bathroom got weak and lean on right side of my body, i did not hit my head or land on the floor" Upon exam ROM good , no visible injury noted. denies any pain at this time, initally post incident had some soreness on right elbow now completely better. Patient is on Heparin drip, as per protocol will order CT head stat and follow up results. Safety/ fall precaution educated patient to use call juarez for assistance verbalized understanding. Physical Examination Vital Signs: Vital Signs Temperature 97.5 F L 10/02/18 20:30 Pulse Rate 123 H 10/02/18 20:30 Respiratory Rate 20 10/02/18 20:30 Blood Pressure 160/95 10/02/18 20:30 O2 Sat by Pulse Oximetry (%) 98 10/02/18 10:00 Constitutional: Yes: No Distress Eyes: Yes: Conjunctiva Clear, EOM Intact HENT: Yes: Atraumatic, Normocephalic Neck: Yes: Supple, Trachea Midline Cardiovascular: Yes: Regular Rate and Rhythm Respiratory: Yes: Regular Gastrointestinal: Yes: Normal Bowel Sounds, Soft Musculoskeletal: Yes: WNL Extremities: Yes: WNL Integumentary: Yes: WNL Neurological: Yes: Alert, Oriented Psychiatric: Yes: WNL Labs: CBC, BMP 10/01/18 06:00 10/02/18 05:45 Hospitalist Encounter Assessment: s/p fall incident - per protocol will follow up CT head - monitor for pain - safety/fall precaution, educated patient on safety
[2018-10-03] MEDS: FUROSEMIDE 40 MG/4 ML INJECTABLE VIAL IVPUSH SCH ×2 (06:41→14:50)
[2018-10-03] MEDS: METOPROLOL TARTRATE 50 MG TABLET (FP) PO SCH ×3 (06:41→21:22)
[2018-10-03] MEDS: INSULIN (LEVEMIR) 100 UNITS/ML UNITS SQ SCH (06:42)
[2018-10-03] MEDS: INSULIN SLIDING SCALE (NOVOLOG) 1 VIAL SQ SCH ×4 (06:48→21:23)
[2018-10-03] MEDS: COLCHICINE 0.6 MG CAP PO SCH (09:52)
[2018-10-03] MEDS: HEPARIN - 25,000 UNIT in SODIUM CHLORIDE 495 ML IV SCH ×2 (09:53→14:51)
--- NOTE | 2018-10-03 10:32 | EKG ---
Test Reason : Blood Pressure : / mmHG Vent. Rate : 133 BPM Atrial Rate : 182 BPM P-R Int : 000 ms QRS Dur : 100 ms QT Int : 288 ms P-R-T Axes : 000 074 089 degrees QTc Int : 428 ms POOR DATA QUALITY, INTERPRETATION MAY BE ADVERSELY AFFECTED ATRIAL FIBRILLATION WITH RAPID VENTRICULAR RESPONSE WITH PREMATURE VENTRICULAR OR ABERRANTLY CONDUCTED COMPLEXES NONSPECIFIC T WAVE ABNORMALITY ABNORMAL ECG WHEN COMPARED WITH ECG OF 28-SEP-2018 11:07, QRS AXIS SHIFTED LEFT Confirmed by MARYELLEN GREEN, HUMBERTO ([id number]) on 10/03/2018 10:32:24 AM Referred By: Confirmed By:HUMBERTO BOJORQUEZ MD
--- NOTE | 2018-10-03 12:09 | PN ---
Progress Note, Physician History of Present Illness: Pt seen and examined at bedside. He is awake and alert. He feels that his edema is improving. - Current Medication List Current Medications: Active Medications Colchicine (Colcrys) 0.6 mg PO DAILY [facility] Last Admin: 10/03/18 09:52 Dose: 0.6 mg Furosemide (Lasix Injection -) 80 mg IVPUSH BID@0600,1400 [facility] Last Admin: 10/03/18 06:41 Dose: 80 mg Heparin Sodium (Porcine) (Heparin -) 1,000 unit IVPUSH PRN PRN PRN Reason: Heparin Heparin Sodium (Porcine) (Heparin -) 5,000 unit IVPUSH PRN PRN PRN Reason: Heparin Heparin Sodium (Porcine) 25, (000 unit/ Sodium Chloride) 500 mls @ 20 mls/hr IV TITR [facility]; Protocol Last Admin: 10/03/18 09:53 Dose: 1,000 unit/hr, 20 mls/hr Insulin Aspart (Novolog Vial Sliding Scale -) 1 vial SQ ACHS [facility]; Protocol Last Admin: 10/03/18 12:02 Dose: Not Given Insulin Detemir (Levemir Vial) 20 units SQ AM [facility] Last Admin: 10/03/18 06:42 Dose: Not Given Metoprolol Tartrate (Lopressor Injection -) 5 mg IVPUSH Q4H PRN PRN Reason: TACHYCARDIA Last Admin: 09/29/18 15:58 Dose: 5 mg Metoprolol Tartrate (Lopressor -) 50 mg PO TID [facility] Last Admin: 10/03/18 06:41 Dose: 50 mg - Objective Vital Signs: Vital Signs Temperature 97.4 F L 10/03/18 06:00 Pulse Rate 117 H 10/03/18 06:00 Respiratory Rate 20 10/03/18 06:00 Blood Pressure 135/117 H 10/03/18 06:00 O2 Sat by Pulse Oximetry (%) 100 10/02/18 22:00 Constitutional: Yes: Calm Eyes: Yes: Conjunctiva Clear HENT: Yes: Atraumatic Cardiovascular: Yes: S1, S2 Respiratory: Yes: CTA Bilaterally Gastrointestinal: Yes: Soft Genitourinary: Yes: WNL Musculoskeletal: Yes: WNL Edema: Yes Edema: LLE: 3+, RLE: 3+ Neurological: Yes: Oriented Psychiatric: Yes: Oriented Labs: CBC, BMP 10/01/18 06:00 10/02/18 05:45 INR, PTT INR 1.21 (0.83-1.09) H 09/28/18 12:35 Problem List - Problems (1) A-fib Code(s): I48.91 - UNSPECIFIED ATRIAL FIBRILLATION Qualifiers: Atrial fibrillation type: unspecified Qualified Code(s): I48.91 - Unspecified atrial fibrillation (2) CHF (congestive heart failure), NYHA class II Code(s): I50.9 - HEART FAILURE, UNSPECIFIED (3) CKD (chronic kidney disease) Code(s): N18.9 - CHRONIC KIDNEY DISEASE, UNSPECIFIED Qualifiers: Chronic kidney disease stage: unspecified stage Qualified Code(s): N18.9 - Chronic kidney disease, unspecified Assessment/Plan Current Medications Generic Name Dose Route Start Last Admin Trade Name Freq PRN Reason Stop Dose Admin Colchicine 0.6 mg 10/01/18 10:00 10/03/18 09:52 Colcrys PO 0.6 mg DAILY [facility] Administration Furosemide 80 mg 10/02/18 12:40 10/03/18 06:41 Lasix Injection - IVPUSH 80 mg BID@0600,1400 [place] Administration Heparin Sodium (Porcine) 1,000 unit 09/28/18 14:05 Heparin - IVPUSH PRN PRN Heparin Heparin Sodium (Porcine) 5,000 unit 09/28/18 14:05 Heparin - IVPUSH PRN PRN Heparin Heparin Sodium (Porcine) 25, 500 mls @ 20 mls/hr 09/28/18 14:15 10/03/18 09: 53 000 unit/ Sodium Chloride IV 1,000 unit/hr TITR [facility] 20 mls/hr Administration Protocol 1,000 UNIT/HR Insulin Aspart 1 vial 09/28/18 22:00 10/03/18 12:02 Novolog Vial Sliding Scale - SQ Not Given ACHS [facility] Protocol Insulin Detemir 20 units 10/02/18 07:00 10/03/18 06:42 Levemir Vial SQ Not Given AM [facility] Metoprolol Tartrate 5 mg 09/28/18 16:30 09/29/18 15:58 Lopressor Injection - IVPUSH 5 mg Q4H PRN Administration TACHYCARDIA Metoprolol Tartrate 50 mg 09/29/18 22:00 10/03/18 06:41 Lopressor - PO 50 mg TID [place] Administration Laboratory Tests 10/01/18 10/02/18 10/02/18 19:48 05:45 06:00 Protein/Creatinin Ratio 0.840 ANAIS M-Jovon Pending FELIX Screen Pending c-ANCA Pending Proteinase 3 (PR3) Pending p-ANCA Pending Atypical p-ANCA Pending Myeloperoxidase Ab Pending Double Strand DNA Ab <1 Glomerular Base Memb Ab Pending Hep Bs Antigen Pending Hep Bs Antibody Pending Hep B Core Total Ab Pending Hep B Core IgM Ab Pending Hepatitis Be Antibody Pending Hepatitis Be Antigen Pending HCV Quantitation Pending Impression 1. CKD 2. PIO 3. a-fib 4. HTN 5. CHF 6. DM 7. non compliance Plan - cont lasix - check bmp, allergist/immunologist had been improving - repeat ua - follow renal workup - discussed diet and fluid intake
[2018-10-03] MEDS ORDERED: PT OWN MED DRAWER 7, Y5N ONE (12:32)
--- NOTE | 2018-10-03 12:52 | PN ---
Progress Note (short form) - Note Progress Note: PULMONARY CONSULTATION DICTATED 10/03/18 IMP DYSPNEA ACUTE ON CHRONIC CHF AFIB WITH RVR DIASTOLIC DYSFUNCTION HTN ACUTE ON CHRONIC KIDNEY INJURY ANEMIA ELEVATED TROPONIN LIKELY OSAS PLAN LASIX DAILY WT RATE CONTROL PER CARDIOLOGY MONITOR LYTES,RENAL FUNCTION,TREND TROPONIN SLEEP SCREEN F/U CHEST X-RAYS DR TAYLOR Problem List - Problems (1) A-fib Code(s): I48.91 - UNSPECIFIED ATRIAL FIBRILLATION Qualifiers: Atrial fibrillation type: unspecified Qualified Code(s): I48.91 - Unspecified atrial fibrillation (2) Gout Code(s): M10.9 - GOUT, UNSPECIFIED (3) Acute on chronic renal failure Code(s): N17.9 - ACUTE KIDNEY FAILURE, UNSPECIFIED; N18.9 - CHRONIC KIDNEY DISEASE, UNSPECIFIED (4) Atrial fibrillation with RVR Code(s): I48.91 - UNSPECIFIED ATRIAL FIBRILLATION (5) Bilateral lower extremity edema Code(s): R60.0 - LOCALIZED EDEMA (6) CHF (congestive heart failure), NYHA class II Code(s): I50.9 - HEART FAILURE, UNSPECIFIED (7) Diabetes Code(s): E11.9 - TYPE 2 DIABETES MELLITUS WITHOUT COMPLICATIONS (8) Troponin I above reference range Code(s): R74.8 - ABNORMAL LEVELS OF OTHER SERUM ENZYMES
--- NOTE | 2018-10-03 15:16 | PN ---
Progress Note, Physician Chief Complaint: Comfortable No complaints Afib around 100bpm - Current Medication List Current Medications: Active Medications Colchicine (Colcrys) 0.6 mg PO DAILY [facility] Last Admin: 10/03/18 09:52 Dose: 0.6 mg Furosemide (Lasix Injection -) 80 mg IVPUSH BID@0600,1400 [facility] Last Admin: 10/03/18 14:50 Dose: 80 mg Heparin Sodium (Porcine) (Heparin -) 1,000 unit IVPUSH PRN PRN PRN Reason: Heparin Heparin Sodium (Porcine) (Heparin -) 5,000 unit IVPUSH PRN PRN PRN Reason: Heparin Heparin Sodium (Porcine) 25, (000 unit/ Sodium Chloride) 500 mls @ 20 mls/hr IV TITR [facility]; Protocol Last Admin: 10/03/18 14:51 Dose: Not Given Insulin Aspart (Novolog Vial Sliding Scale -) 1 vial SQ ACHS [facility]; Protocol Last Admin: 10/03/18 12:02 Dose: Not Given Insulin Detemir (Levemir Vial) 20 units SQ AM [facility] Last Admin: 10/03/18 06:42 Dose: Not Given Metoprolol Tartrate (Lopressor Injection -) 5 mg IVPUSH Q4H PRN PRN Reason: TACHYCARDIA Last Admin: 09/29/18 15:58 Dose: 5 mg Metoprolol Tartrate (Lopressor -) 50 mg PO TID [facility] Last Admin: 10/03/18 14:51 Dose: 50 mg - Objective Vital Signs: Vital Signs Temperature 97.4 F L 10/03/18 06:00 Pulse Rate 117 H 10/03/18 06:00 Respiratory Rate 20 10/03/18 06:00 Blood Pressure 135/117 H 10/03/18 06:00 O2 Sat by Pulse Oximetry (%) 100 10/02/18 22:00 Constitutional: Yes: No Distress Neck: Yes: Supple Cardiovascular: Yes: Tachycardia, Pulse Irregular, JVD, S1, S2 Respiratory: Yes: Rales Gastrointestinal: Yes: Soft Edema: LLE: 2+, RLE: 2+ Labs: CBC, BMP 10/01/18 06:00 10/02/18 05:45 INR, PTT INR 1.21 (0.83-1.09) H 09/28/18 12:35 Problem List - Problems (1) A-fib Code(s): I48.91 - UNSPECIFIED ATRIAL FIBRILLATION Qualifiers: Atrial fibrillation type: unspecified Qualified Code(s): I48.91 - Unspecified atrial fibrillation (2) CHF (congestive heart failure), NYHA class II Code(s): I50.9 - HEART FAILURE, UNSPECIFIED Assessment/Plan 62 year old male pmhx of htn, dm, pafib, ckd, chronic systolic chf, and obesity presenting with LE edema and dyspnea on exertion. Volume overloaded Afib with RVR 1) AFib with RVR- -Was known in past as far back as 2016 with h/o paroxysmal afib and refused AC in past. Now on heparin drip for AC Change metoprolol to 100mg bid Going to start coumadin and bridge with heparin 2) Acute on chronic systolic chf. -Continue to diurese with furosemide 80mg IV bid. -monitor strict I/Os and daily weights -replete K and Mg -monitor bun/creat, electrolytes, and replete as needed -Echo with global hypokinesis and LVEF 30-35% with mild to mod MR/mild TR. ( Echo in 2018 with LVEF 40-50%) -will continue volume and HR control. Will continue to diurese and uptitrate metoprolol as tolerates and needed for HR control. Also will likely need more anti-hypertensives for bp control. Holding benito/arb and spironolactone at this time given Cr 4.6 (was 2.8 04/2017). If bp tolerates would consider starting bidil 1/2 a pill three times a day
--- NOTE | 2018-10-03 16:45 | CONS ---
PULMONARY CONSULTATION DATE OF CONSULTATION: 10/03/2018 REFERRING PHYSICIAN: Nat Deluca MD HISTORY: The patient is a 62-year-old black male with a past medical history that includes type 2 diabetes mellitus, atrial fibrillation, hypertension, chronic kidney disease, CHF, diastolic dysfunction. Admitted to [facility] secondary to atrial fibrillation with a rapid ventricular response. The patient was recently hospitalized with new onset atrial fibrillation, but he signed out AMA. He was readmitted to be found again to be in atrial fibrillation with rapid ventricular response. He denied any complaint of chest pain, nausea, vomiting, diaphoresis. He did complain of some shortness of breath at the time only ambulating a block without developing dyspnea and resting and then proceeding. He also complained of fatigue and increasing lower extremity edema and decreased urine output. On admission, he was noted to be in congestive heart failure. He was also noted to be in acute on chronic worsening renal failure. He was evaluated by Dr. Ying for Cardiology who felt that the patient most likely had acute on chronic congestive heart failure as well as atrial fibrillation with rapid ventricular response. He was also noted to have elevated troponin level. The patient denies any history of tobacco use. There is no history of occupational exposure to chemicals or fumes. During current hospitalization, he was also evaluated by Dr. Deras for Renal consultation who felt that the patient most likely has acute on chronic kidney disease possibly worsened secondary to CHF. 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 Denies any excessive daytime sleepiness. PAST MEDICAL HISTORY: Again, includes chronic kidney disease, atrial fibrillation, hypertension, CHF, diabetes. REVIEW OF SYSTEMS: Positive orthopnea. Positive for dyspnea on exertion. No chest pain, no palpitations. Positive increasing lower extremity edema. CURRENT MEDICATIONS: Include heparin, Lopressor, NovoLog, Levemir, and Lasix. PHYSICAL EXAMINATION: General: The patient is a well-developed, well-nourished male awake, alert currently in no acute distress. Vital Signs: He is afebrile. Heart rate is 117, blood pressure 135/117, respiratory rate is 20, O2 saturation is 100%. HEENT: Normocephalic, atraumatic. Neck: Supple. Heart: Irregularly irregular. S1, S2. Chest: A few bibasilar crackles. Abdomen: Soft. Bowel sounds are positive. Extremities: Bilateral lower extremity edema. LABORATORIES: WBC 9.2, hgb 11, hematocrit 33.8 with a platelet count of 449, 000. PTT 58.8. Chemistries: BUN 83, creatinine 4.2, BNP is 21,253. Troponin 0.43. Chest x-ray reveals cardiomegaly. Questionable retrocardiac infiltrate and/or atelectasis. Echocardiogram: [id number] global hypokinesis with left ventricular ejection fraction of 30%-35% and grade 2 diastolic dysfunction. IMPRESSION: 1. Dyspnea, acute on chronic systolic/diastolic congestive heart failure. 2. Diastolic dysfunction. 3. Atrial fibrillation with rapid ventricular response. 4. Hypertension. 5. Acute on chronic kidney injury. 6. Anemia. 7. Elevated troponin. 8. Likely obstructive sleep apnea. PLAN: Continue Lasix. Daily weights. Supplemental O2. Monitor electrolytes, renal function. Trend troponins. Negative sleep screen. Obtain follow up chest x- rays. BLANCA TAYLOR M.D. [id number] MTDD
[2018-10-03] MEDS ORDERED: WARFARIN NA 5 MG TABLET (UD) PO ONE (18:00)
[2018-10-03 18:32] LABS: EPI CELLS 0.1 /HPF (0-5/HPF); HYALINE CASTS 0 /lpf (0-8); PH,URINE 6.5 (5.0-8.0); URINE APPEARANCE CLEAR; URINE BILIRUBIN NEGATIVE (NEGATIVE); URINE COLOR YELLOW; URINE GLUCOSE (UA) NEGATIVE (NEGATIVE); URINE KETONE NEGATIVE (NEGATIVE); URINE LEUK ESTERASE NEGATIVE (NEGATIVE); URINE NITRITE NEGATIVE (NEGATIVE); URINE PROTEIN TRACE (NEGATIVE); URINE RBC 0 /hpf (0-4); URINE UROBILINOGEN 0.2 mg/dL (0.2-1.0); URINE WBC 0 /hpf (0-5)
--- NOTE | 2018-10-03 19:12 | PN ---
Progress Note, Physician Chief Complaint: Afib with RVR History of Present Illness: NAD sitting in chair On tele, still not rate controlled - Current Medication List Current Medications: Active Medications Colchicine (Colcrys) 0.6 mg PO DAILY [facility] Last Admin: 10/03/18 09:52 Dose: 0.6 mg Furosemide (Lasix Injection -) 80 mg IVPUSH BID@0600,1400 [facility] Last Admin: 10/03/18 14:50 Dose: 80 mg Heparin Sodium (Porcine) (Heparin -) 1,000 unit IVPUSH PRN PRN PRN Reason: Heparin Heparin Sodium (Porcine) (Heparin -) 5,000 unit IVPUSH PRN PRN PRN Reason: Heparin Heparin Sodium (Porcine) 25, (000 unit/ Sodium Chloride) 500 mls @ 20 mls/hr IV TITR [facility]; Protocol Last Admin: 10/03/18 14:51 Dose: Not Given Insulin Aspart (Novolog Vial Sliding Scale -) 1 vial SQ ACHS [facility]; Protocol Last Admin: 10/03/18 18:20 Dose: Not Given Insulin Detemir (Levemir Vial) 20 units SQ AM [facility] Last Admin: 10/03/18 06:42 Dose: Not Given Metoprolol Tartrate (Lopressor Injection -) 5 mg IVPUSH Q4H PRN PRN Reason: TACHYCARDIA Last Admin: 09/29/18 15:58 Dose: 5 mg Metoprolol Tartrate (Lopressor -) 50 mg PO TID [facility] Last Admin: 10/03/18 14:51 Dose: 50 mg - Objective Vital Signs: Vital Signs Temperature 97.3 F L 10/03/18 17:00 Pulse Rate 102 H 10/03/18 17:00 Respiratory Rate 20 10/03/18 17:00 Blood Pressure 146/92 10/03/18 15:29 O2 Sat by Pulse Oximetry (%) 100 10/03/18 10:00 Constitutional: Yes: Well Nourished, No Distress, Calm Cardiovascular: Yes: Pulse Irregular Respiratory: Yes: Regular Gastrointestinal: Yes: Normal Bowel Sounds, Soft, Abdomen, Obese Genitourinary: Yes: WNL Musculoskeletal: Yes: Muscle Weakness Extremities: Yes: WNL Edema: Yes Edema: LLE: 1+, RLE: 1+ Peripheral Pulses WNL: Yes Neurological: Yes: Alert, Oriented Psychiatric: Yes: Alert, Oriented Labs: CBC, BMP 10/01/18 06:00 10/02/18 05:45 INR, PTT INR 1.21 (0.83-1.09) H 09/28/18 12:35 Assessment/Plan (1) Acute on chronic renal failure Assessment/Plan: -Nephrology on board -monitor renal function trend -AVF placement? Code(s): N17.9 - ACUTE KIDNEY FAILURE, UNSPECIFIED; N18.9 - CHRONIC KIDNEY DISEASE, UNSPECIFIED (2) Atrial fibrillation with RVR Assessment/Plan: -Tele monitoring -Cardiology on board -Metoprolol 50mg TID -Lopressor 5mg IVP prn for HR >110bpm -Heparin drip -Has agreed to coumadin, started at 5 mg yesterday -D/C HEPARIN DRIP ONCE INR>2.0 Code(s): I48.91 - UNSPECIFIED ATRIAL FIBRILLATION (3) Bilateral lower extremity edema Assessment/Plan: -2/2 CHF exacerbation -1L fluid restriction -daily weights -Furosemide 40 mg IVP BID Code(s): R60.0 - LOCALIZED EDEMA (4) CHF (congestive heart failure), NYHA class II Assessment/Plan: -Cardiology on board -Furosemide -1L fluid restriction -daily weights -strict I&Os -Echocardiogram reviewed-with global hypokinesis and LVEF 30-35% with mild to mod MR/mild TR Code(s): I50.9 - HEART FAILURE, UNSPECIFIED (5) Diabetes Assessment/Plan: -HgA1c 9.5% -Endocrinology consult -ISS- -has been refusing insulin Code(s): E11.9 - TYPE 2 DIABETES MELLITUS WITHOUT COMPLICATIONS (6) Gout Assessment/Plan: -Uric acid 14.6 -Colchicine Code(s): M10.9 - GOUT, UNSPECIFIED
--- NOTE | 2018-10-03 21:08 | PN ---
Progress Note, Physician Chief Complaint: NO COMPLAINT - Current Medication List Current Medications: Active Medications Colchicine (Colcrys) 0.6 mg PO DAILY [facility] Last Admin: 10/03/18 09:52 Dose: 0.6 mg Furosemide (Lasix Injection -) 80 mg IVPUSH BID@0600,1400 [facility] Last Admin: 10/03/18 14:50 Dose: 80 mg Heparin Sodium (Porcine) (Heparin -) 1,000 unit IVPUSH PRN PRN PRN Reason: Heparin Heparin Sodium (Porcine) (Heparin -) 5,000 unit IVPUSH PRN PRN PRN Reason: Heparin Heparin Sodium (Porcine) 25, (000 unit/ Sodium Chloride) 500 mls @ 20 mls/hr IV TITR [facility]; Protocol Last Admin: 10/03/18 14:51 Dose: Not Given Insulin Aspart (Novolog Vial Sliding Scale -) 1 vial SQ ACHS [facility]; Protocol Last Admin: 10/03/18 18:20 Dose: Not Given Insulin Detemir (Levemir Vial) 20 units SQ AM [facility] Last Admin: 10/03/18 06:42 Dose: Not Given Metoprolol Tartrate (Lopressor Injection -) 5 mg IVPUSH Q4H PRN PRN Reason: TACHYCARDIA Last Admin: 09/29/18 15:58 Dose: 5 mg Metoprolol Tartrate (Lopressor -) 50 mg PO TID [facility] Last Admin: 10/03/18 14:51 Dose: 50 mg - Objective Vital Signs: Vital Signs Temperature 97.4 F L 10/03/18 20:48 Pulse Rate 110 H 10/03/18 20:48 Respiratory Rate 20 10/03/18 20:48 Blood Pressure 149/102 H 10/03/18 20:48 O2 Sat by Pulse Oximetry (%) 98 10/03/18 20:48 Constitutional: Yes: Calm Eyes: Yes: EOM Intact HENT: Yes: Normocephalic Neck: Yes: Trachea Midline Cardiovascular: Yes: Regular Rate and Rhythm Respiratory: Yes: CTA Bilaterally Gastrointestinal: Yes: Normal Bowel Sounds ...Rectal Exam: Yes: Deferred Breast(s): Yes: WNL Musculoskeletal: Yes: WNL Extremities: Yes: WNL Edema: No Neurological: Yes: Alert, Oriented Labs: CBC, BMP 10/01/18 06:00 10/02/18 05:45 INR, PTT INR 1.21 (0.83-1.09) H 09/28/18 12:35 Problem List - Problems (1) Acute renal failure Code(s): N17.9 - ACUTE KIDNEY FAILURE, UNSPECIFIED Qualifiers: Acute renal failure type: unspecified Qualified Code(s): N17.9 - Acute kidney failure, unspecified (2) Gout Code(s): M10.9 - GOUT, UNSPECIFIED (3) Acute on chronic renal failure Code(s): N17.9 - ACUTE KIDNEY FAILURE, UNSPECIFIED; N18.9 - CHRONIC KIDNEY DISEASE, UNSPECIFIED (4) Atrial fibrillation with RVR Code(s): I48.91 - UNSPECIFIED ATRIAL FIBRILLATION (5) Bilateral lower extremity edema Code(s): R60.0 - LOCALIZED EDEMA (6) CHF (congestive heart failure), NYHA class II Code(s): I50.9 - HEART FAILURE, UNSPECIFIED (7) CKD (chronic kidney disease) Code(s): N18.9 - CHRONIC KIDNEY DISEASE, UNSPECIFIED Qualifiers: Chronic kidney disease stage: unspecified stage Qualified Code(s): N18.9 - Chronic kidney disease, unspecified Assessment/Plan Current Active Problems DIABETES MELLITUS 2,CKD DIABETIC NEPHROPATHY A-fib (Acute) Acute renal failure (Acute) Gout (Acute) Laboratory Results - last 24 hr 09/30/18 10/02/18 10/02/18 05:12 05:45 06:00 PTT (Actin FS) POC Glucometer Calcium 9.6 Total Protein (PEP) 6.7 Albumin (PEP) 3.2 Globulin 3.5 Albumin/Globulin Ratio 0.9 Beta Globulins 1.2 PTH Intact 162 H PTH Intact Intraop 0 m Urine Color Urine Appearance Urine pH Ur Specific [place] Urine Protein Urine Glucose (UA) Urine Ketones Urine Blood Urine Nitrite Urine Bilirubin Urine Urobilinogen Ur Leukocyte Esterase Urine WBC (Auto) Urine RBC (Auto) Urine Casts (Auto) U Epithel Cells (Auto) Urine Bacteria (Auto) ANAIS M-Jovon Not observed Double Strand DNA Ab <1 10/02/18 10/03/18 10/03/18 23:00 05:00 06:31 PTT (Actin FS) 58.8 H POC Glucometer 159 126 Calcium Total Protein (PEP) Albumin (PEP) Globulin Albumin/Globulin Ratio Beta Globulins PTH Intact PTH Intact Intraop 0 m Urine Color Urine Appearance Urine pH Ur Specific [place] Urine Protein Urine Glucose (UA) Urine Ketones Urine Blood Urine Nitrite Urine Bilirubin Urine Urobilinogen Ur Leukocyte Esterase Urine WBC (Auto) Urine RBC (Auto) Urine Casts (Auto) U Epithel Cells (Auto) Urine Bacteria (Auto) ANAIS M-Jovon Double Strand DNA Ab 10/03/18 10/03/18 10/03/18 12:01 17:30 18:19 PTT (Actin FS) POC Glucometer 158 166 Calcium Total Protein (PEP) Albumin (PEP) Globulin Albumin/Globulin Ratio Beta Globulins PTH Intact PTH Intact Intraop 0 m Urine Color Yellow Urine Appearance Clear Urine pH 6.5 Ur Specific [place] 1.008 L Urine Protein Trace Urine Glucose (UA) Negative Urine Ketones Negative Urine Blood 1+ H Urine Nitrite Negative Urine Bilirubin Negative Urine Urobilinogen 0.2 Ur Leukocyte Esterase Negative Urine WBC (Auto) 0 Urine RBC (Auto) 0 Urine Casts (Auto) 0 U Epithel Cells (Auto) 0.1 Urine Bacteria (Auto) 1.0 ANAIS M-Jovon Double Strand DNA Ab Laboratory Tests 10/02/18 10/02/18 10/03/18 16:36 23:00 06:31 POC Glucometer 198 159 126 10/03/18 10/03/18 12:01 18:19 POC Glucometer 158 166 PLAN: BGM NOVOLOG SCALE LEVEMIR 20 UNITS AM DIABETIC RENAL DIET
[2018-10-04 06:54] LABS: ALBUMIN 3.3 g/dl (3.4-5.0); BILIRUBIN,TOTAL 0.9 mg/dL (0.2-1); CALCIUM 9.3 mg/dL (8.5-10.1); POTASSIUM 3.5 mmol/L (3.5-5.1); TOT PROT 7.1 g/dl (6.4-8.2)
[2018-10-04] MEDS: INSULIN SLIDING SCALE (NOVOLOG) 1 VIAL SQ SCH ×4 (06:54→21:45)
[2018-10-04] MEDS: INSULIN (LEVEMIR) 100 UNITS/ML UNITS SQ SCH (06:55)
[2018-10-04] MEDS: METOPROLOL TARTRATE 50 MG TABLET (FP) PO SCH ×3 (06:55→21:40)
[2018-10-04 07:00] LABS: INR 1.25 (0.83-1.09); PROTHROMBIN TIME (PATIENT) 14.8 SEC (9.7-13.0)
[2018-10-04] MEDS: FUROSEMIDE 40 MG/4 ML INJECTABLE VIAL IVPUSH SCH ×2 (07:04→13:33)
[2018-10-04 10:06] LABS: ANTIGLOMERULAR BASEMENT MEN.AB 3 units (0-20)
[2018-10-04] MEDS: COLCHICINE 0.6 MG CAP PO SCH (11:07)
[2018-10-04] MEDS ORDERED: POTASSIUM CHLORIDE TABS 20 MEQ TABLET.ER (FP) PO ONE (12:14)
--- NOTE | 2018-10-04 12:14 | PN ---
Progress Note, Physician History of Present Illness: Pt seen and examined at bedside. He is awake and alert. He feels that his edema is improving. He denies shortness of breath. - Current Medication List Current Medications: Active Medications Colchicine (Colcrys) 0.6 mg PO DAILY [facility] Last Admin: 10/04/18 11:07 Dose: 0.6 mg Furosemide (Lasix Injection -) 80 mg IVPUSH BID@0600,1400 [facility] Last Admin: 10/04/18 07:04 Dose: 80 mg Heparin Sodium (Porcine) (Heparin -) 1,000 unit IVPUSH PRN PRN PRN Reason: Heparin Heparin Sodium (Porcine) (Heparin -) 5,000 unit IVPUSH PRN PRN PRN Reason: Heparin Heparin Sodium (Porcine) 25, (000 unit/ Sodium Chloride) 500 mls @ 20 mls/hr IV TITR [facility]; Protocol Last Admin: 10/03/18 14:51 Dose: Not Given Insulin Aspart (Novolog Vial Sliding Scale -) 1 vial SQ ACHS [facility]; Protocol Last Admin: 10/04/18 11:20 Dose: 2 units Insulin Detemir (Levemir Vial) 20 units SQ AM [facility] Last Admin: 10/04/18 06:55 Dose: Not Given Metoprolol Tartrate (Lopressor Injection -) 5 mg IVPUSH Q4H PRN PRN Reason: TACHYCARDIA Last Admin: 09/29/18 15:58 Dose: 5 mg Metoprolol Tartrate (Lopressor -) 50 mg PO TID [facility] Last Admin: 10/04/18 06:55 Dose: 50 mg Warfarin Sodium (Coumadin -) 5 mg PO ONCE@1800 ONE Stop: 10/04/18 18:01 - Objective Vital Signs: Vital Signs Temperature 98.6 F 10/04/18 09:00 Pulse Rate 106 H 10/04/18 09:00 Respiratory Rate 20 10/04/18 09:00 Blood Pressure 145/49 L 10/04/18 09:00 O2 Sat by Pulse Oximetry (%) 98 10/04/18 10:00 Constitutional: Yes: Calm Eyes: Yes: Conjunctiva Clear HENT: Yes: Atraumatic Neck: Yes: Supple Cardiovascular: Yes: S1, S2 Respiratory: Yes: CTA Bilaterally Gastrointestinal: Yes: Soft Genitourinary: Yes: WNL Musculoskeletal: Yes: WNL Edema: Yes Edema: LLE: 2+, RLE: 2+ Integumentary: Yes: Venous Stasis Changes Neurological: Yes: Oriented Psychiatric: Yes: Oriented Labs: CBC, BMP 10/01/18 06:00 10/04/18 05:15 INR, PTT INR 1.25 (0.83-1.09) H 10/04/18 06:02 Problem List - Problems (1) A-fib Code(s): I48.91 - UNSPECIFIED ATRIAL FIBRILLATION Qualifiers: Atrial fibrillation type: unspecified Qualified Code(s): I48.91 - Unspecified atrial fibrillation (2) CHF (congestive heart failure), NYHA class II Code(s): I50.9 - HEART FAILURE, UNSPECIFIED (3) CKD (chronic kidney disease) Code(s): N18.9 - CHRONIC KIDNEY DISEASE, UNSPECIFIED Qualifiers: Chronic kidney disease stage: unspecified stage Qualified Code(s): N18.9 - Chronic kidney disease, unspecified Assessment/Plan Current Medications Generic Name Dose Route Start Last Admin Trade Name Lee PRN Reason Stop Dose Admin Colchicine 0.6 mg 10/01/18 10:00 10/04/18 11:07 Colcrys PO 0.6 mg DAILY [facility] Administration Furosemide 80 mg 10/02/18 12:40 10/04/18 07:04 Lasix Injection - IVPUSH 80 mg BID@0600,1400 [facility] Administration Heparin Sodium (Porcine) 1,000 unit 09/28/18 14:05 Heparin - IVPUSH PRN PRN Heparin Heparin Sodium (Porcine) 5,000 unit 09/28/18 14:05 Heparin - IVPUSH PRN PRN Heparin Heparin Sodium (Porcine) 25, 500 mls @ 20 mls/hr 09/28/18 14:15 10/03/18 14: 51 000 unit/ Sodium Chloride IV Not Given TITR [facility] Protocol 1,000 UNIT/HR Insulin Aspart 1 vial 09/28/18 22:00 10/04/18 11:20 Novolog Vial Sliding Scale - SQ 2 units ACHS [facility] Administration Protocol Insulin Detemir 20 units 10/02/18 07:00 10/04/18 06:55 Levemir Vial SQ Not Given AM [facility] Metoprolol Tartrate 5 mg 09/28/18 16:30 09/29/18 15:58 Lopressor Injection - IVPUSH 5 mg Q4H PRN Administration TACHYCARDIA Metoprolol Tartrate 50 mg 09/29/18 22:00 10/04/18 06:55 Lopressor - PO 50 mg TID [facility] Administration Warfarin Sodium 5 mg 10/04/18 18:00 Coumadin - PO 10/04/18 18:01 ONCE@1800 ONE Laboratory Tests 10/01/18 10/02/18 10/02/18 19:48 05:45 06:00 Urine Protein Urine Blood Protein/Creatinin Ratio 0.840 ANAIS M-Jovon Not observed FELIX Screen Negative c-ANCA Pending Proteinase 3 (PR3) Pending p-ANCA Pending Atypical p-ANCA Pending Myeloperoxidase Ab Pending Double Strand DNA Ab <1 Glomerular Base Memb Ab 3 10/03/18 17:30 Urine Protein Trace Urine Blood 1+ H Protein/Creatinin Ratio ANAIS M-Jovon FELIX Screen c-ANCA Proteinase 3 (PR3) p-ANCA Atypical p-ANCA Myeloperoxidase Ab Double Strand DNA Ab Glomerular Base Memb Ab Impression 1. CKD 2. PIO 3. a-fib 4. HTN 5. CHF 6. DM 7. non compliance Plan - renal function is improving - cont lasix - will give a dose of potassium - monitor volume status - renal workup in progress - repeat ua shows improvement in proteinuria - discussed diet and fluid intake
--- NOTE | 2018-10-04 12:47 | PN ---
Progress Note (short form) - Note Progress Note: PULMONARY States breathing better. Leg swelling improving. Vital Signs Period Temp Pulse Resp BP Sys/Abbott Pulse Ox Last 24 Hr 97.3 F-98.6 F 96-110 20-20 132-149/49-102 98-98 Intake & Output 10/01/18 10/02/18 10/03/18 10/04/18 23:59 23:59 23:59 23:59 Intake Total 1044 698 620 240 Output Total 1805 615 0017 Balance -846 198 -780 240 Weight 112.037 kg 111.765 kg 109.044 kg 109.044 kg Gen: NAD at rest Heart: RRR Lung: decreased breath sounds at the bases Abd: soft, nontender Ext: + edema CBC, BMP 10/01/18 06:00 10/04/18 05:15 Active Medications Colchicine (Colcrys) 0.6 mg PO DAILY [facility] Last Admin: 10/04/18 11:07 Dose: 0.6 mg Furosemide (Lasix Injection -) 80 mg IVPUSH BID@0600,1400 [facility] Last Admin: 10/04/18 07:04 Dose: 80 mg Heparin Sodium (Porcine) (Heparin -) 1,000 unit IVPUSH PRN PRN PRN Reason: Heparin Heparin Sodium (Porcine) (Heparin -) 5,000 unit IVPUSH PRN PRN PRN Reason: Heparin Heparin Sodium (Porcine) 25, (000 unit/ Sodium Chloride) 500 mls @ 20 mls/hr IV TITR [facility]; Protocol Last Admin: 10/03/18 14:51 Dose: Not Given Insulin Aspart (Novolog Vial Sliding Scale -) 1 vial SQ ACHS [facility]; Protocol Last Admin: 10/04/18 11:20 Dose: 2 units Insulin Detemir (Levemir Vial) 20 units SQ AM [facility] Last Admin: 10/04/18 06:55 Dose: Not Given Metoprolol Tartrate (Lopressor Injection -) 5 mg IVPUSH Q4H PRN PRN Reason: TACHYCARDIA Last Admin: 09/29/18 15:58 Dose: 5 mg Metoprolol Tartrate (Lopressor -) 50 mg PO TID [facility] Last Admin: 10/04/18 06:55 Dose: 50 mg Warfarin Sodium (Coumadin -) 5 mg PO ONCE@1800 ONE Stop: 10/04/18 18:01 A/P Acute on Chronic Systolic/Diastolic Heart Failure Atrial Fibrillation with RVR Acute on Chronic Renal FAilure +Troponins likely Demand Ischemia HTN Likely TAMI - continue lasix - monitor urine output, creatinine - daily weights - rate control - continue anticoagulation - outpt PSG
--- NOTE | 2018-10-04 13:55 | PN ---
Progress Note, Physician Chief Complaint: Urinating well Feeling better Afib VR 100 - Current Medication List Current Medications: Active Medications Colchicine (Colcrys) 0.6 mg PO DAILY [facility] Last Admin: 10/04/18 11:07 Dose: 0.6 mg Furosemide (Lasix Injection -) 80 mg IVPUSH BID@0600,1400 [facility] Last Admin: 10/04/18 13:33 Dose: 80 mg Heparin Sodium (Porcine) (Heparin -) 1,000 unit IVPUSH PRN PRN PRN Reason: Heparin Heparin Sodium (Porcine) (Heparin -) 5,000 unit IVPUSH PRN PRN PRN Reason: Heparin Heparin Sodium (Porcine) 25, (000 unit/ Sodium Chloride) 500 mls @ 20 mls/hr IV TITR [facility]; Protocol Last Admin: 10/03/18 14:51 Dose: Not Given Insulin Aspart (Novolog Vial Sliding Scale -) 1 vial SQ ACHS [facility]; Protocol Last Admin: 10/04/18 11:20 Dose: 2 units Insulin Detemir (Levemir Vial) 20 units SQ AM [facility] Last Admin: 10/04/18 06:55 Dose: Not Given Metoprolol Tartrate (Lopressor Injection -) 5 mg IVPUSH Q4H PRN PRN Reason: TACHYCARDIA Last Admin: 09/29/18 15:58 Dose: 5 mg Metoprolol Tartrate (Lopressor -) 50 mg PO TID [facility] Last Admin: 10/04/18 13:33 Dose: 50 mg Warfarin Sodium (Coumadin -) 5 mg PO ONCE@1800 ONE Stop: 10/04/18 18:01 - Objective Vital Signs: Vital Signs Temperature 98.2 F 10/04/18 11:00 Pulse Rate 102 H 10/04/18 11:00 Respiratory Rate 20 10/04/18 11:00 Blood Pressure 146/92 10/04/18 11:00 O2 Sat by Pulse Oximetry (%) 98 10/04/18 10:00 Constitutional: Yes: No Distress Neck: Yes: Supple Cardiovascular: Yes: Pulse Irregular, JVD, S1, S2 Respiratory: Yes: CTA Bilaterally Gastrointestinal: Yes: Soft Edema: LLE: 2+, RLE: 2+ Labs: CBC, BMP 10/01/18 06:00 10/04/18 05:15 INR, PTT INR 1.25 (0.83-1.09) H 10/04/18 06:02 Problem List - Problems (1) A-fib Code(s): I48.91 - UNSPECIFIED ATRIAL FIBRILLATION Qualifiers: Atrial fibrillation type: unspecified Qualified Code(s): I48.91 - Unspecified atrial fibrillation (2) CHF (congestive heart failure), NYHA class II Code(s): I50.9 - HEART FAILURE, UNSPECIFIED Assessment/Plan 62 year old male pmhx of htn, dm, pafib, ckd, chronic systolic chf, and obesity presenting with LE edema and dyspnea on exertion. Volume overloaded Afib with RVR 1) AFib with RVR- -Was known in past as far back as 2016 with h/o paroxysmal afib and refused AC in past. Started coumadin and bridge with heparin. Discussed at length with patient and his importance of compliance and how dangerous coumadin is if he is not gonna follow up weekly for his blood checks and dose adjustments. Patient understands benefits/risks and wants to take coumadin. -Change metoprolol to 100mg PO BID 2) Acute on chronic systolic chf. -Continue to diurese with furosemide 80mg IV bid. -monitor strict I/Os and daily weights -replete K and Mg -monitor bun/creat, electrolytes, and replete as needed -Echo with global hypokinesis and LVEF 30-35% with mild to mod MR/mild TR. ( Echo in 2018 with LVEF 40-50%) -will continue volume and HR control. Will continue to diurese and uptitrate metoprolol as tolerates and needed for HR control. Also will likely need more anti-hypertensives for bp control. Holding benito/arb and spironolactone at this time given Cr 4.0 (was 2.8 04/2017). If bp tolerates would consider starting bidil 1/2 a pill three times a day
[2018-10-04] MEDS: HEPARIN - 25,000 UNIT in SODIUM CHLORIDE 495 ML IV SCH (14:15)
[2018-10-04 16:09] LABS: ATYPICAL pANCA <1:20 titer (Neg:<1:20); C-ANCA <1:20 titer (Neg:<1:20)
[2018-10-04] MEDS ORDERED: PT OWN MED DRAWER 7, Y5N ONE (16:48)
--- NOTE | 2018-10-04 17:51 | PN ---
Progress Note, Physician Chief Complaint: Afib with RVR History of Present Illness: NAD sitting at the edge of the bed at bedside On tele, still not rate controlled Started on coumadin yesterday - Current Medication List Current Medications: Active Medications Colchicine (Colcrys) 0.6 mg PO DAILY [facility] Last Admin: 10/04/18 11:07 Dose: 0.6 mg Furosemide (Lasix Injection -) 80 mg IVPUSH BID@0600,1400 [facility] Last Admin: 10/04/18 13:33 Dose: 80 mg Heparin Sodium (Porcine) (Heparin -) 1,000 unit IVPUSH PRN PRN PRN Reason: Heparin Heparin Sodium (Porcine) (Heparin -) 5,000 unit IVPUSH PRN PRN PRN Reason: Heparin Heparin Sodium (Porcine) 25, (000 unit/ Sodium Chloride) 500 mls @ 20 mls/hr IV TITR [facility]; Protocol Last Admin: 10/04/18 14:15 Dose: 1,000 unit/hr, 20 mls/hr Insulin Aspart (Novolog Vial Sliding Scale -) 1 vial SQ ACHS [facility]; Protocol Last Admin: 10/04/18 16:41 Dose: Not Given Insulin Detemir (Levemir Vial) 20 units SQ AM [facility] Last Admin: 10/04/18 06:55 Dose: Not Given Metoprolol Tartrate (Lopressor Injection -) 5 mg IVPUSH Q4H PRN PRN Reason: TACHYCARDIA Last Admin: 09/29/18 15:58 Dose: 5 mg Metoprolol Tartrate (Lopressor -) 50 mg PO TID [facility] Last Admin: 10/04/18 13:33 Dose: 50 mg Warfarin Sodium (Coumadin -) 5 mg PO ONCE@1800 ONE Stop: 10/04/18 18:01 - Objective Vital Signs: Vital Signs Temperature 98.5 F 10/04/18 15:00 Pulse Rate 109 H 10/04/18 15:00 Respiratory Rate 20 10/04/18 15:00 Blood Pressure 144/100 10/04/18 15:00 O2 Sat by Pulse Oximetry (%) 98 10/04/18 10:00 Constitutional: Yes: Well Nourished, No Distress, Calm Cardiovascular: Yes: Regular Rate and Rhythm Respiratory: Yes: Regular Gastrointestinal: Yes: Normal Bowel Sounds, Soft, Abdomen, Obese Musculoskeletal: Yes: Muscle Weakness Extremities: Yes: WNL Edema: Yes Edema: LLE: 1+, RLE: 1+ Peripheral Pulses WNL: Yes Neurological: Yes: Alert, Oriented Psychiatric: Yes: Alert, Oriented Labs: CBC, BMP 10/01/18 06:00 10/04/18 05:15 INR, PTT INR 1.25 (0.83-1.09) H 10/04/18 06:02 Assessment/Plan (1) Acute on chronic renal failure Assessment/Plan: -Nephrology on board -monitor renal function trend -AVF placement as per renal Code(s): N17.9 - ACUTE KIDNEY FAILURE, UNSPECIFIED; N18.9 - CHRONIC KIDNEY DISEASE, UNSPECIFIED (2) Atrial fibrillation with RVR Assessment/Plan: -Tele monitoring -Cardiology on board -Metoprolol 50mg TID -Lopressor 5mg IVP prn for HR >110bpm -Heparin drip -Has agreed to coumadin, started at 5 mg PO DAILY yesterday -D/C HEPARIN DRIP ONCE INR>2.0 Code(s): I48.91 - UNSPECIFIED ATRIAL FIBRILLATION (3) Bilateral lower extremity edema Assessment/Plan: -2/2 CHF exacerbation -1L fluid restriction -daily weights -Furosemide 40 mg IVP BID Code(s): R60.0 - LOCALIZED EDEMA (4) CHF (congestive heart failure), NYHA class II Assessment/Plan: -Cardiology on board -Furosemide -1L fluid restriction -daily weights -strict I&Os -Echocardiogram reviewed-with global hypokinesis and LVEF 30-35% with mild to mod MR/mild TR Code(s): I50.9 - HEART FAILURE, UNSPECIFIED (5) Diabetes Assessment/Plan: -HgA1c 9.5% -Endocrinology consult -ISS- -has been refusing insulin Code(s): E11.9 - TYPE 2 DIABETES MELLITUS WITHOUT COMPLICATIONS (6) Gout Assessment/Plan: -Uric acid 14.6 -Colchicine Code(s): M10.9 - GOUT, UNSPECIFIED
[2018-10-04] MEDS ORDERED: WARFARIN NA 5 MG TABLET (UD) PO ONE (18:00)
[2018-10-04 18:10] LABS: HEP B CORE AB, TOT Negative (Negative)
[2018-10-05] MEDS: FUROSEMIDE 40 MG/4 ML INJECTABLE VIAL IVPUSH SCH ×2 (06:15→14:37)
[2018-10-05] MEDS: METOPROLOL TARTRATE 50 MG TABLET (FP) PO SCH ×3 (06:15→22:16)
[2018-10-05] MEDS: INSULIN SLIDING SCALE (NOVOLOG) 1 VIAL SQ SCH ×4 (06:15→22:17)
[2018-10-05] MEDS: INSULIN (LEVEMIR) 100 UNITS/ML UNITS SQ SCH (06:15)
[2018-10-05] MEDS: COLCHICINE 0.6 MG CAP PO SCH (11:37)
--- NOTE | 2018-10-05 11:37 | PN ---
Progress Note, Physician History of Present Illness: PULMONARY ALERT,COMFORTABLE,DYSPNEA IMPROVING. WT 238 - Current Medication List Current Medications: Active Medications Colchicine (Colcrys) 0.6 mg PO DAILY [facility] Last Admin: 10/04/18 11:07 Dose: 0.6 mg Furosemide (Lasix Injection -) 80 mg IVPUSH BID@0600,1400 [facility] Last Admin: 10/05/18 06:15 Dose: Not Given Heparin Sodium (Porcine) (Heparin -) 1,000 unit IVPUSH PRN PRN PRN Reason: Heparin Heparin Sodium (Porcine) (Heparin -) 5,000 unit IVPUSH PRN PRN PRN Reason: Heparin Heparin Sodium (Porcine) 25, (000 unit/ Sodium Chloride) 500 mls @ 20 mls/hr IV TITR [facility]; Protocol Last Admin: 10/04/18 14:15 Dose: 1,000 unit/hr, 20 mls/hr Insulin Aspart (Novolog Vial Sliding Scale -) 1 vial SQ ACHS [facility]; Protocol Last Admin: 10/05/18 06:15 Dose: Not Given Insulin Detemir (Levemir Vial) 20 units SQ AM [facility] Last Admin: 10/05/18 06:15 Dose: Not Given Metoprolol Tartrate (Lopressor Injection -) 5 mg IVPUSH Q4H PRN PRN Reason: TACHYCARDIA Last Admin: 09/29/18 15:58 Dose: 5 mg Metoprolol Tartrate (Lopressor -) 50 mg PO TID [facility] Last Admin: 10/05/18 06:15 Dose: Not Given - Objective Vital Signs: Vital Signs Temperature 98.2 F 10/05/18 09:00 Pulse Rate 117 H 10/05/18 09:00 Respiratory Rate 20 10/05/18 09:00 Blood Pressure 152/96 10/05/18 09:00 O2 Sat by Pulse Oximetry (%) 98 10/05/18 09:58 Constitutional: Yes: Well Nourished, Calm Eyes: Yes: WNL HENT: Yes: WNL Neck: Yes: WNL Cardiovascular: Yes: Pulse Irregular, S1, S2 Respiratory: Yes: Diminished Gastrointestinal: Yes: Normal Bowel Sounds, Soft Extremities: Yes: WNL Edema: Yes Edema: LLE: 2+, RLE: 2+ Labs: CBC, BMP Problem List - Problems (1) A-fib Code(s): I48.91 - UNSPECIFIED ATRIAL FIBRILLATION Qualifiers: Atrial fibrillation type: unspecified Qualified Code(s): I48.91 - Unspecified atrial fibrillation (2) Gout Code(s): M10.9 - GOUT, UNSPECIFIED (3) Acute on chronic renal failure Code(s): N17.9 - ACUTE KIDNEY FAILURE, UNSPECIFIED; N18.9 - CHRONIC KIDNEY DISEASE, UNSPECIFIED (4) Atrial fibrillation with RVR Code(s): I48.91 - UNSPECIFIED ATRIAL FIBRILLATION (5) Bilateral lower extremity edema Code(s): R60.0 - LOCALIZED EDEMA (6) CHF (congestive heart failure), NYHA class II Code(s): I50.9 - HEART FAILURE, UNSPECIFIED (7) Diabetes Code(s): E11.9 - TYPE 2 DIABETES MELLITUS WITHOUT COMPLICATIONS (8) Troponin I above reference range Code(s): R74.8 - ABNORMAL LEVELS OF OTHER SERUM ENZYMES Assessment/Plan MP DYSPNEA IMPROVING ACUTE ON CHRONIC CHF IMPROVING AFIB WITH RVR DIASTOLIC DYSFUNCTION HTN ACUTE ON CHRONIC KIDNEY INJURY ANEMIA ELEVATED TROPONIN LIKELY OSAS PLAN LASIX BID DAILY WT RATE CONTROL PER CARDIOLOGY MONITOR LYTES,RENAL FUNCTION SLEEP SCREEN F/U CHEST X-RAYS DR TAYLOR Problem List - Problems (1) A-fib Code(s): I48.91 - UNSPECIFIED ATRIAL FIBRILLATION Qualifiers: Atrial fibrillation type: unspecified Qualified Code(s): I48.91 - Unspecified atrial fibrillation (2) Gout Code(s): M10.9 - GOUT, UNSPECIFIED (3) Acute on chronic renal failure Code(s): N17.9 - ACUTE KIDNEY FAILURE, UNSPECIFIED; N18.9 - CHRONIC KIDNEY DISEASE, UNSPECIFIED (4) Atrial fibrillation with RVR Code(s): I48.91 - UNSPECIFIED ATRIAL FIBRILLATION (5) Bilateral lower extremity edema Code(s): R60.0 - LOCALIZED EDEMA (6) CHF (congestive heart failure), NYHA class II Code(s): I50.9 - HEART FAILURE, UNSPECIFIED (7) Diabetes Code(s): E11.9 - TYPE 2 DIABETES MELLITUS WITHOUT COMPLICATIONS (8) Troponin I above reference range Code(s): R74.8 - ABNORMAL LEVELS OF OTHER SERUM ENZYMES
[2018-10-05 11:40] VITALS: BMI 35.1
--- NOTE | 2018-10-05 11:57 | PN ---
Progress Note, Physician Chief Complaint: Afib with RVR History of Present Illness: NAD sitting at the edge of the bed Refused labs this morning for INR check On tele, still not rate controlled Started on coumadin, still subtherapeutic Heparin drip to be continued until INR>2.0 - Current Medication List Current Medications: Active Medications Colchicine (Colcrys) 0.6 mg PO DAILY [facility] Last Admin: 10/05/18 11:37 Dose: 0.6 mg Furosemide (Lasix Injection -) 80 mg IVPUSH BID@0600,1400 [facility] Last Admin: 10/05/18 06:15 Dose: Not Given Heparin Sodium (Porcine) (Heparin -) 1,000 unit IVPUSH PRN PRN PRN Reason: Heparin Heparin Sodium (Porcine) (Heparin -) 5,000 unit IVPUSH PRN PRN PRN Reason: Heparin Heparin Sodium (Porcine) 25, (000 unit/ Sodium Chloride) 500 mls @ 20 mls/hr IV TITR [facility]; Protocol Last Admin: 10/04/18 14:15 Dose: 1,000 unit/hr, 20 mls/hr Insulin Aspart (Novolog Vial Sliding Scale -) 1 vial SQ ACHS [facility]; Protocol Last Admin: 10/05/18 11:37 Dose: 2 units Insulin Detemir (Levemir Vial) 20 units SQ AM [facility] Last Admin: 10/05/18 06:15 Dose: Not Given Metoprolol Tartrate (Lopressor Injection -) 5 mg IVPUSH Q4H PRN PRN Reason: TACHYCARDIA Last Admin: 09/29/18 15:58 Dose: 5 mg Metoprolol Tartrate (Lopressor -) 50 mg PO TID [facility] Last Admin: 10/05/18 06:15 Dose: Not Given - Objective Vital Signs: Vital Signs Temperature 98.2 F 10/05/18 09:00 Pulse Rate 117 H 10/05/18 09:00 Respiratory Rate 20 10/05/18 09:00 Blood Pressure 152/96 10/05/18 09:00 O2 Sat by Pulse Oximetry (%) 98 10/05/18 09:58 Constitutional: Yes: Well Nourished, No Distress, Calm Cardiovascular: Yes: Pulse Irregular Respiratory: Yes: Regular Gastrointestinal: Yes: Normal Bowel Sounds, Soft, Abdomen, Obese Genitourinary: Yes: WNL Musculoskeletal: Yes: WNL Extremities: Yes: WNL Edema: Yes Edema: LLE: Trace, RLE: Trace Peripheral Pulses WNL: Yes Neurological: Yes: Alert, Oriented Psychiatric: Yes: Alert, Oriented Labs: CBC, BMP 10/01/18 06:00 10/04/18 05:15 INR, PTT INR 1.25 (0.83-1.09) H 10/04/18 06:02 Assessment/Plan (1) Acute on chronic renal failure Assessment/Plan: -Nephrology on board -monitor renal function trend -AVF placement as per renal Code(s): N17.9 - ACUTE KIDNEY FAILURE, UNSPECIFIED; N18.9 - CHRONIC KIDNEY DISEASE, UNSPECIFIED (2) Atrial fibrillation with RVR Assessment/Plan: -Tele monitoring -Cardiology on board -Metoprolol 50mg TID -Lopressor 5mg IVP prn for HR >110bpm -Heparin drip -Coumadin 10 mg today, then 7.5 mg po daily -Daily INR check -D/C HEPARIN DRIP ONCE INR>2.0 Code(s): I48.91 - UNSPECIFIED ATRIAL FIBRILLATION (3) Bilateral lower extremity edema Assessment/Plan: -2/2 CHF exacerbation -1L fluid restriction -daily weights -Furosemide 40 mg IVP BID Code(s): R60.0 - LOCALIZED EDEMA (4) CHF (congestive heart failure), NYHA class II Assessment/Plan: -Cardiology on board -Furosemide -1L fluid restriction -daily weights -strict I&Os -Echocardiogram reviewed-with global hypokinesis and LVEF 30-35% with mild to mod MR/mild TR -Cardiology recommended starting Bidil 1/2 tab tid, however hospital doesn't carry it -Start Isosorbide dinitrite 10 mg po tid -Add Hydralazine 10 mg po TID if BP allows over the weekend Code(s): I50.9 - HEART FAILURE, UNSPECIFIED (5) Diabetes Assessment/Plan: -HgA1c 9.5% -Endocrinology consult -ISS- -has been refusing insulin Code(s): E11.9 - TYPE 2 DIABETES MELLITUS WITHOUT COMPLICATIONS (6) Gout Assessment/Plan: -Uric acid 14.6 -Colchicine Code(s): M10.9 - GOUT, UNSPECIFIED
[2018-10-05 12:53] LABS: INR 1.26 (0.83-1.09); PROTHROMBIN TIME (PATIENT) 14.9 SEC (9.7-13.0)
[2018-10-05] MEDS: HEPARIN - 25,000 UNIT in SODIUM CHLORIDE 495 ML IV SCH (14:15)
--- NOTE | 2018-10-05 14:24 | PN ---
Progress Note, Physician Chief Complaint: Urinating well Feeling better Afib VR 100 - Current Medication List Current Medications: Active Medications Colchicine (Colcrys) 0.6 mg PO DAILY [facility] Last Admin: 10/05/18 11:37 Dose: 0.6 mg Furosemide (Lasix Injection -) 80 mg IVPUSH BID@0600,1400 [facility] Last Admin: 10/05/18 06:15 Dose: Not Given Heparin Sodium (Porcine) (Heparin -) 1,000 unit IVPUSH PRN PRN PRN Reason: Heparin Heparin Sodium (Porcine) (Heparin -) 5,000 unit IVPUSH PRN PRN PRN Reason: Heparin Heparin Sodium (Porcine) 25, (000 unit/ Sodium Chloride) 500 mls @ 20 mls/hr IV TITR [facility]; Protocol Last Admin: 10/04/18 14:15 Dose: 1,000 unit/hr, 20 mls/hr Insulin Aspart (Novolog Vial Sliding Scale -) 1 vial SQ ACHS [facility]; Protocol Last Admin: 10/05/18 11:37 Dose: 2 units Insulin Detemir (Levemir Vial) 20 units SQ AM [facility] Last Admin: 10/05/18 06:15 Dose: Not Given Metoprolol Tartrate (Lopressor Injection -) 5 mg IVPUSH Q4H PRN PRN Reason: TACHYCARDIA Last Admin: 09/29/18 15:58 Dose: 5 mg Metoprolol Tartrate (Lopressor -) 50 mg PO TID [facility] Last Admin: 10/05/18 06:15 Dose: Not Given - Objective Vital Signs: Vital Signs Temperature 98.2 F 10/05/18 09:00 Pulse Rate 117 H 10/05/18 09:00 Respiratory Rate 20 10/05/18 09:00 Blood Pressure 152/96 10/05/18 09:00 O2 Sat by Pulse Oximetry (%) 98 10/05/18 09:58 Constitutional: Yes: No Distress Neck: Yes: Supple Cardiovascular: Yes: Tachycardia, Pulse Irregular, JVD, S1, S2 Respiratory: Yes: Rales Gastrointestinal: Yes: Soft Edema: LLE: 3+, RLE: 3+ Labs: CBC, BMP 10/01/18 06:00 10/04/18 05:15 INR, PTT INR 1.26 (0.83-1.09) H 10/05/18 12:20 Problem List - Problems (1) A-fib Code(s): I48.91 - UNSPECIFIED ATRIAL FIBRILLATION Qualifiers: Atrial fibrillation type: unspecified Qualified Code(s): I48.91 - Unspecified atrial fibrillation (2) CHF (congestive heart failure), NYHA class II Code(s): I50.9 - HEART FAILURE, UNSPECIFIED Assessment/Plan 62 year old male pmhx of htn, dm, pafib, ckd, chronic systolic chf, and obesity presenting with LE edema and dyspnea on exertion. Volume overloaded Afib with RVR 1) AFib with RVR- -Was known in past as far back as 2016 with h/o paroxysmal afib and refused AC in past. Started coumadin and bridge with heparin. Discussed at length with patient and his importance of compliance and how dangerous coumadin is if he is not gonna follow up weekly for his blood checks and dose adjustments. Patient understands benefits/risks and wants to take coumadin. -Change metoprolol to 100mg PO BID 2) Acute on chronic systolic chf. -Continue to diurese with furosemide 80mg IV bid. -monitor strict I/Os and daily weights -replete K and Mg -monitor bun/creat, electrolytes, and replete as needed -Echo with global hypokinesis and LVEF 30-35% with mild to mod MR/mild TR. ( Echo in 2018 with LVEF 40-50%) -will continue volume and HR control. Will continue to diurese and uptitrate metoprolol as tolerates and needed for HR control. Also will likely need more anti-hypertensives for bp control. Holding benito/arb and spironolactone at this time given Cr 4.0 (was 2.8 04/2017). If bp tolerates would consider starting bidil 1/2 a pill three times a day
[2018-10-05] MEDS: ISOSORBIDE DINITRATE 10 MG TABLET (FP) PO SCH ×2 (15:17→22:16)
--- NOTE | 2018-10-05 15:47 | PN ---
Progress Note, Physician History of Present Illness: Pt seen and examined at bedside. He is awake and alert. He denies shortness of breath. - Current Medication List Current Medications: Active Medications Colchicine (Colcrys) 0.6 mg PO DAILY [facility] Last Admin: 10/05/18 11:37 Dose: 0.6 mg Furosemide (Lasix Injection -) 80 mg IVPUSH BID@0600,1400 [facility] Last Admin: 10/05/18 14:37 Dose: 80 mg Heparin Sodium (Porcine) (Heparin -) 1,000 unit IVPUSH PRN PRN PRN Reason: Heparin Heparin Sodium (Porcine) (Heparin -) 5,000 unit IVPUSH PRN PRN PRN Reason: Heparin Heparin Sodium (Porcine) 25, (000 unit/ Sodium Chloride) 500 mls @ 20 mls/hr IV TITR [facility]; Protocol Last Admin: 10/05/18 14:15 Dose: 1,000 unit/hr, 20 mls/hr Insulin Aspart (Novolog Vial Sliding Scale -) 1 vial SQ ACHS [facility]; Protocol Last Admin: 10/05/18 11:37 Dose: 2 units Insulin Detemir (Levemir Vial) 20 units SQ AM [facility] Last Admin: 10/05/18 06:15 Dose: Not Given Isosorbide Dinitrate (Isordil -) 10 mg PO TIDISORDIL [facility] Last Admin: 10/05/18 15:17 Dose: 10 mg Metoprolol Tartrate (Lopressor Injection -) 5 mg IVPUSH Q4H PRN PRN Reason: TACHYCARDIA Last Admin: 09/29/18 15:58 Dose: 5 mg Metoprolol Tartrate (Lopressor -) 50 mg PO TID [facility] Last Admin: 10/05/18 14:37 Dose: 50 mg Warfarin Sodium (Coumadin -) 7.5 mg PO DAILY@1800 [facility] Warfarin Sodium (Coumadin -) 10 mg PO ONCE@1800 [facility] Stop: 10/05/18 18:01 - Objective Vital Signs: Vital Signs Temperature 98.2 F 10/05/18 15:00 Pulse Rate 114 H 10/05/18 15:00 Respiratory Rate 20 10/05/18 15:00 Blood Pressure 147/95 10/05/18 15:00 O2 Sat by Pulse Oximetry (%) 98 10/05/18 09:58 Constitutional: Yes: Calm Eyes: Yes: Conjunctiva Clear HENT: Yes: Atraumatic Neck: Yes: Supple Cardiovascular: Yes: S1, S2 Respiratory: Yes: CTA Bilaterally Gastrointestinal: Yes: Soft Genitourinary: Yes: WNL Musculoskeletal: Yes: WNL Edema: Yes Edema: LLE: 3+, RLE: 3+ Neurological: Yes: Oriented Psychiatric: Yes: Oriented Labs: CBC, BMP 10/01/18 06:00 10/04/18 05:15 INR, PTT INR 1.26 (0.83-1.09) H 10/05/18 12:20 Problem List - Problems (1) A-fib Code(s): I48.91 - UNSPECIFIED ATRIAL FIBRILLATION Qualifiers: Atrial fibrillation type: unspecified Qualified Code(s): I48.91 - Unspecified atrial fibrillation (2) CHF (congestive heart failure), NYHA class II Code(s): I50.9 - HEART FAILURE, UNSPECIFIED (3) CKD (chronic kidney disease) Code(s): N18.9 - CHRONIC KIDNEY DISEASE, UNSPECIFIED Qualifiers: Chronic kidney disease stage: unspecified stage Qualified Code(s): N18.9 - Chronic kidney disease, unspecified Assessment/Plan Current Medications Generic Name Dose Route Start Last Admin Trade Name Freq PRN Reason Stop Dose Admin Colchicine 0.6 mg 10/01/18 10:00 10/05/18 11:37 Colcrys PO 0.6 mg DAILY [facility] Administration Furosemide 80 mg 10/02/18 12:40 10/05/18 14:37 Lasix Injection - IVPUSH 80 mg BID@0600,1400 [facility] Administration Heparin Sodium (Porcine) 1,000 unit 09/28/18 14:05 Heparin - IVPUSH PRN PRN Heparin Heparin Sodium (Porcine) 5,000 unit 09/28/18 14:05 Heparin - IVPUSH PRN PRN Heparin Heparin Sodium (Porcine) 25, 500 mls @ 20 mls/hr 09/28/18 14:15 10/05/18 14: 15 000 unit/ Sodium Chloride IV 1,000 unit/hr TITR [facility] 20 mls/hr Administration Protocol 1,000 UNIT/HR Insulin Aspart 1 vial 09/28/18 22:00 10/05/18 11:37 Novolog Vial Sliding Scale - SQ 2 units ACHS [facility] Administration Protocol Insulin Detemir 20 units 10/02/18 07:00 10/05/18 06:15 Levemir Vial SQ Not Given AM [facility] Isosorbide Dinitrate 10 mg 10/05/18 14:45 10/05/18 15:17 Isordil - PO 10 mg TIDISORDIL [facility] Administration Metoprolol Tartrate 5 mg 09/28/18 16:30 09/29/18 15:58 Lopressor Injection - IVPUSH 5 mg Q4H PRN Administration TACHYCARDIA Metoprolol Tartrate 50 mg 09/29/18 22:00 10/05/18 14:37 Lopressor - PO 50 mg TID [facility] Administration Warfarin Sodium 7.5 mg 10/06/18 18:00 Coumadin - PO DAILY@1800 [facility] Warfarin Sodium 10 mg 10/05/18 18:00 Coumadin - PO 10/05/18 18:01 ONCE@1800 [facility] Laboratory Tests 10/02/18 10/02/18 05:45 06:00 ANAIS M-Jovon Not observed FELIX Screen Negative c-ANCA <1:20 Proteinase 3 (PR3) <3.5 p-ANCA <1:20 Myeloperoxidase Ab <9.0 Double Strand DNA Ab <1 Glomerular Base Memb Ab 3 Impression 1. CKD 2. PIO 3. a-fib 4. HTN 5. CHF 6. DM 7. non compliance Plan - cont lasix - monitor renal function - serologies negative so far - cont IV lasix - repeat ua shows improvement in proteinuria - discussed diet and fluid intake again
[2018-10-05] MEDS ORDERED: WARFARIN NA 10 MG TABLET (FP) PO ONE (18:00)
[2018-10-06] MEDS: FUROSEMIDE 40 MG/4 ML INJECTABLE VIAL IVPUSH SCH ×2 (06:06→14:40)
[2018-10-06] MEDS: METOPROLOL TARTRATE 50 MG TABLET (FP) PO SCH ×3 (06:08→22:28)
[2018-10-06] MEDS: INSULIN (LEVEMIR) 100 UNITS/ML UNITS SQ SCH (06:08)
[2018-10-06] MEDS: INSULIN SLIDING SCALE (NOVOLOG) 1 VIAL SQ SCH ×4 (06:42→22:26)
[2018-10-06 07:10] LABS: BASO % 1.3 % (0-2.0); EOS % 0.6 % (0-4.5); HEMATOCRIT 32.7 % (35.4-49); HEMOGLOBIN 10.6 GM/dL (11.7-16.9); LYMPH % 22.9 % (8-40); MCH 26.5 pg (25.7-33.7); MCHC 32.5 g/dl (32.0-35.9); MEAN CELL VOLUME 81.5 fl (80-96); MEAN PLT VOLUME 8.3 fl (7.5-11.1); MONO % 10.8 % (3.8-10.2); NEUT % 64.4 % (42.8-82.8); RBC 4.01 M/mm3 (4.00-5.60); RDW 15.6 % (11.9-15.9); WHITE BLOOD COUNT 8.8 K/mm3 (4.0-10.0)
[2018-10-06 07:23] LABS: INR 1.37 (0.83-1.09); PROTHROMBIN TIME (PATIENT) 16.2 SEC (9.7-13.0)
[2018-10-06 07:39] LABS: ALBUMIN 3.2 g/dl (3.4-5.0); BILIRUBIN,TOTAL 0.4 mg/dL (0.2-1); BLOOD UREA NITROGEN 91.8 mg/dL (7-18); CALCIUM 9.3 mg/dL (8.5-10.1); CREATININE 4.1 mg/dL (0.55-1.3); POTASSIUM 3.6 mmol/L (3.5-5.1); TOT PROT 6.9 g/dl (6.4-8.2)
[2018-10-06 07:59] LABS: PLATELET COUNT 429 K/MM3 (134-434)
[2018-10-06] MEDS: ISOSORBIDE DINITRATE 10 MG TABLET (FP) PO SCH ×5 (09:49→17:26)
[2018-10-06] MEDS: COLCHICINE 0.6 MG CAP PO SCH (09:49)
--- NOTE | 2018-10-06 11:49 | PN ---
Progress Note (short form) - Note Progress Note: Renal follow up for CKD Coverage for Dr. Deras Pt seen and examined at the bedside awake and alert sob is improved, no cough leg swelling improving Vital Signs Temperature 98.2 F 10/06/18 10:00 Pulse Rate 109 H 10/06/18 10:00 Respiratory Rate 20 10/06/18 10:00 Blood Pressure 143/95 10/06/18 10:00 O2 Sat by Pulse Oximetry (%) 98 10/06/18 10:00 Intake & Output 10/03/18 10/04/18 10/05/18 10/06/18 23:59 23:59 23:59 23:59 Intake Total 620 1360 900 260 Output Total 1400 1500 900 600 Balance -780 -140 0 -340 Weight 109.044 kg 109.044 kg 107.955 kg 107.139 kg NAD irregular, tachycardic CTA + edema in LE CBC, BMP 10/06/18 05:47 10/06/18 05:47 Current Medications Colchicine (Colcrys) 0.6 mg PO DAILY [facility] Last Admin: 10/06/18 09:49 Dose: 0.6 mg Furosemide (Lasix Injection -) 80 mg IVPUSH BID@0600,1400 [facility] Last Admin: 10/06/18 06:06 Dose: 80 mg Heparin Sodium (Porcine) (Heparin -) 1,000 unit IVPUSH PRN PRN PRN Reason: Heparin Last Admin: 10/05/18 17:15 Dose: 1,000 unit Heparin Sodium (Porcine) (Heparin -) 5,000 unit IVPUSH PRN PRN PRN Reason: Heparin Heparin Sodium (Porcine) 25, (000 unit/ Sodium Chloride) 500 mls @ 20 mls/hr IV TITR [facility]; Protocol Last Titration: 10/05/18 17:15 Dose: 1,100 unit/hr, 22 mls/hr Insulin Aspart (Novolog Vial Sliding Scale -) 1 vial SQ ACHS [facility]; Protocol Last Admin: 10/06/18 06:42 Dose: Not Given Insulin Detemir (Levemir Vial) 20 units SQ AM [facility] Last Admin: 10/06/18 06:08 Dose: 20 units Isosorbide Dinitrate (Isordil -) 10 mg PO TIDISORDIL [facility] Last Admin: 10/06/18 09:52 Dose: Not Given Metoprolol Tartrate (Lopressor Injection -) 5 mg IVPUSH Q4H PRN PRN Reason: TACHYCARDIA Last Admin: 09/29/18 15:58 Dose: 5 mg Metoprolol Tartrate (Lopressor -) 50 mg PO TID [facility] Last Admin: 10/06/18 06:08 Dose: 50 mg Warfarin Sodium (Coumadin -) 7.5 mg PO DAILY@1800 [facility] Impression 1. CKD stage 4 2. PIO 3. a-fib 4. HTN 5. CHF 6. DM 7. non compliance Plan Renal function stable. No overt electrolyte or acid/base disturbance. Pt still has volume overload. Continue IV Lasix BID low salt diet. Trend weights Hgb > 10, no ALEYDA needed Rate control as per cardiology on Warfarin for A/C, INR below goal Gabriel Callahan DO
--- NOTE | 2018-10-06 12:30 | PN ---
Progress Note, Physician Chief Complaint: no complaints tele not on. refusing to wear. History of Present Illness: 62 year old male pmhx of htn, dm, pafib, ckd, chronic systolic chf, and obesity presenting with LE edema and dyspnea on exertion. Volume overloaded Afib with RVR - Current Medication List Current Medications: Active Medications Colchicine (Colcrys) 0.6 mg PO DAILY [facility] Last Admin: 10/06/18 09:49 Dose: 0.6 mg Furosemide (Lasix Injection -) 80 mg IVPUSH BID@0600,1400 [facility] Last Admin: 10/06/18 06:06 Dose: 80 mg Heparin Sodium (Porcine) (Heparin -) 1,000 unit IVPUSH PRN PRN PRN Reason: Heparin Last Admin: 10/05/18 17:15 Dose: 1,000 unit Heparin Sodium (Porcine) (Heparin -) 5,000 unit IVPUSH PRN PRN PRN Reason: Heparin Heparin Sodium (Porcine) 25, (000 unit/ Sodium Chloride) 500 mls @ 20 mls/hr IV TITR [facility]; Protocol Last Titration: 10/05/18 17:15 Dose: 1,100 unit/hr, 22 mls/hr Insulin Aspart (Novolog Vial Sliding Scale -) 1 vial SQ ACHS [facility]; Protocol Last Admin: 10/06/18 06:42 Dose: Not Given Insulin Detemir (Levemir Vial) 20 units SQ AM [facility] Last Admin: 10/06/18 06:08 Dose: 20 units Isosorbide Dinitrate (Isordil -) 10 mg PO TIDISORDIL [facility] Last Admin: 10/06/18 09:52 Dose: Not Given Metoprolol Tartrate (Lopressor Injection -) 5 mg IVPUSH Q4H PRN PRN Reason: TACHYCARDIA Last Admin: 09/29/18 15:58 Dose: 5 mg Metoprolol Tartrate (Lopressor -) 50 mg PO TID [facility] Last Admin: 10/06/18 06:08 Dose: 50 mg Warfarin Sodium (Coumadin -) 7.5 mg PO DAILY@1800 [facility] - Objective Vital Signs: Vital Signs Temperature 98.2 F 10/06/18 10:00 Pulse Rate 109 H 10/06/18 10:00 Respiratory Rate 20 10/06/18 10:00 Blood Pressure 143/95 10/06/18 10:00 O2 Sat by Pulse Oximetry (%) 98 10/06/18 10:00 Constitutional: Yes: No Distress, Calm Eyes: Yes: Conjunctiva Clear, EOM Intact HENT: Yes: Atraumatic, Normocephalic Neck: Yes: Supple Cardiovascular: Yes: Tachycardia, Pulse Irregular Respiratory: Yes: CTA Bilaterally Gastrointestinal: Yes: Normal Bowel Sounds, Abdomen, Obese Musculoskeletal: Yes: WNL Extremities: Yes: WNL Edema: No Labs: CBC, BMP 10/06/18 05:47 10/06/18 05:47 INR, PTT INR 1.37 (0.83-1.09) H 10/06/18 05:47 Assessment/Plan 62 year old male pmhx of htn, dm, pafib, ckd, chronic systolic chf, and obesity presenting with LE edema and dyspnea on exertion. Volume overloaded Afib with RVR 1) AFib with RVR- -Was known in past as far back as 2016 with h/o paroxysmal afib and refused AC in past. Started coumadin and bridge with heparin. Discussed at length with patient and his importance of compliance and how dangerous coumadin is if he is not gonna follow up weekly for his blood checks and dose adjustments. Patient understands benefits/risks and wants to take coumadin. -Change metoprolol to 100mg PO BID 2) Acute on chronic systolic chf. -Continue to diurese with furosemide 80mg IV bid. -monitor strict I/Os and daily weights -replete K and Mg -monitor bun/creat, electrolytes, and replete as needed -Echo with global hypokinesis and LVEF 30-35% with mild to mod MR/mild TR. ( Echo in 2018 with LVEF 40-50%) -will continue volume and HR control. Will continue to diurese and uptitrate metoprolol as tolerates and needed for HR control. Also will likely need more anti-hypertensives for bp control. Holding benito/arb and spironolactone at this time given Cr 4.0 (was 2.8 04/2017). If bp tolerates would consider starting bidil 1/2 a pill three times a day
[2018-10-06] MEDS ORDERED: PT OWN MED DRAWER 7, Y5N ONE ×6 (13:25→23:32)
[2018-10-06] MEDS: HEPARIN - 25,000 UNIT in SODIUM CHLORIDE 495 ML IV SCH (14:15)
--- NOTE | 2018-10-06 14:24 | PN ---
Progress Note, Physician Chief Complaint: AWAKE ALERT FEELING BETTER DENIES CHEST PAIN DENIES SOB - Current Medication List Current Medications: Active Medications Colchicine (Colcrys) 0.6 mg PO DAILY [facility] Last Admin: 10/06/18 09:49 Dose: 0.6 mg Furosemide (Lasix Injection -) 80 mg IVPUSH BID@0600,1400 [facility] Last Admin: 10/06/18 06:06 Dose: 80 mg Heparin Sodium (Porcine) (Heparin -) 1,000 unit IVPUSH PRN PRN PRN Reason: Heparin Last Admin: 10/05/18 17:15 Dose: 1,000 unit Heparin Sodium (Porcine) (Heparin -) 5,000 unit IVPUSH PRN PRN PRN Reason: Heparin Hydralazine HCl (Apresoline -) 10 mg PO TID [facility] Heparin Sodium (Porcine) 25, (000 unit/ Sodium Chloride) 500 mls @ 20 mls/hr IV TITR [facility]; Protocol Last Titration: 10/05/18 17:15 Dose: 1,100 unit/hr, 22 mls/hr Insulin Aspart (Novolog Vial Sliding Scale -) 1 vial SQ ACHS [facility]; Protocol Last Admin: 10/06/18 12:00 Dose: Not Given Insulin Detemir (Levemir Vial) 20 units SQ AM [facility] Last Admin: 10/06/18 06:08 Dose: 20 units Isosorbide Dinitrate (Isordil -) 10 mg PO TIDISORDIL [facility] Last Admin: 10/06/18 13:23 Dose: Not Given Metoprolol Tartrate (Lopressor Injection -) 5 mg IVPUSH Q4H PRN PRN Reason: TACHYCARDIA Last Admin: 09/29/18 15:58 Dose: 5 mg Metoprolol Tartrate (Lopressor -) 50 mg PO TID [facility] Last Admin: 10/06/18 06:08 Dose: 50 mg Warfarin Sodium (Coumadin -) 7.5 mg PO DAILY@1800 [facility] - Objective Vital Signs: Vital Signs Temperature 98.2 F 10/06/18 10:00 Pulse Rate 109 H 10/06/18 10:00 Respiratory Rate 20 10/06/18 10:00 Blood Pressure 143/95 10/06/18 10:00 O2 Sat by Pulse Oximetry (%) 98 10/06/18 10:00 Constitutional: Yes: Mild Distress Eyes: Yes: WNL HENT: Yes: WNL Neck: Yes: WNL Cardiovascular: Yes: Pulse Irregular Respiratory: Yes: Diminished, On Nasal O2 Gastrointestinal: Yes: WNL Genitourinary: Yes: WNL Musculoskeletal: Yes: WNL Extremities: Yes: WNL Edema: Yes Edema: LLE: 2+, RLE: 2+ Peripheral Pulses WNL: Yes Integumentary: Yes: WNL Wound/Incision: Yes: Clean/Dry Neurological: Yes: WNL ...Motor Strength: WNL Psychiatric: Yes: WNL Labs: CBC, BMP 10/06/18 05:47 10/06/18 05:47 INR, PTT INR 1.37 (0.83-1.09) H 10/06/18 05:47 Problem List - Problems (1) Noncompliance of patient with dietary regimen Code(s): Z91.11 - PATIENT'S NONCOMPLIANCE WITH DIETARY REGIMEN (2) A-fib Code(s): I48.91 - UNSPECIFIED ATRIAL FIBRILLATION Qualifiers: Atrial fibrillation type: unspecified Qualified Code(s): I48.91 - Unspecified atrial fibrillation (3) Acute renal failure Code(s): N17.9 - ACUTE KIDNEY FAILURE, UNSPECIFIED Qualifiers: Acute renal failure type: unspecified Qualified Code(s): N17.9 - Acute kidney failure, unspecified (4) Gout Code(s): M10.9 - GOUT, UNSPECIFIED (5) Acute on chronic renal failure Code(s): N17.9 - ACUTE KIDNEY FAILURE, UNSPECIFIED; N18.9 - CHRONIC KIDNEY DISEASE, UNSPECIFIED (6) Atrial fibrillation with RVR Code(s): I48.91 - UNSPECIFIED ATRIAL FIBRILLATION (7) Bilateral lower extremity edema Code(s): R60.0 - LOCALIZED EDEMA (8) CHF (congestive heart failure), NYHA class II Code(s): I50.9 - HEART FAILURE, UNSPECIFIED (9) Diabetes Code(s): E11.9 - TYPE 2 DIABETES MELLITUS WITHOUT COMPLICATIONS Assessment/Plan LASIX IV CONTINUE HEPARIN IV BRIDGE TO COUMADIN THERAPY RENAL FAILURE F/U NEPHROLOGY DECREASE COLCHRYS WHICH CAN ELEVATE RENAL FUNCTION OOB TO CHAIR WITH ASSIST CARDIO/PULM F/U. COMPLIANCE D/W PATIENT AND DIETARY CONSULT ORDERED TO FOLLOW A DIABETIC/CARDIO/RENAL DIET. CLOSE OUTPATIENT F/U
[2018-10-06] MEDS: hydrALAZINE HCL 10 MG TABLET PO SCH ×2 (14:40→22:28)
--- NOTE | 2018-10-06 14:48 | PN ---
Progress Note (short form) - Note Progress Note: Breathing feels better. No CP. No acute events overnight. Intake & Output 10/03/18 10/04/18 10/05/18 10/06/18 23:59 23:59 23:59 23:59 Intake Total 620 1360 900 260 Output Total 1400 1500 900 600 Balance -780 -140 0 -340 Weight 240 lb 6.4 oz 240 lb 6.4 oz 238 lb 236 lb 3.2 oz Last Vital Signs Temp Pulse Resp BP Pulse Ox 98.2 F 109 H 20 143/95 98 10/06/18 10:00 10/06/18 10:00 10/06/18 10:00 10/06/18 10:00 10/06/18 10:00 Active Medications Colchicine (Colcrys) 0.6 mg PO DAILY [facility] Last Admin: 10/06/18 09:49 Dose: 0.6 mg Furosemide (Lasix Injection -) 80 mg IVPUSH BID@0600,1400 [facility] Last Admin: 10/06/18 14:40 Dose: 80 mg Heparin Sodium (Porcine) (Heparin -) 1,000 unit IVPUSH PRN PRN PRN Reason: Heparin Last Admin: 10/05/18 17:15 Dose: 1,000 unit Heparin Sodium (Porcine) (Heparin -) 5,000 unit IVPUSH PRN PRN PRN Reason: Heparin Hydralazine HCl (Apresoline -) 10 mg PO TID [facility] Last Admin: 10/06/18 14:40 Dose: 10 mg Heparin Sodium (Porcine) 25, (000 unit/ Sodium Chloride) 500 mls @ 20 mls/hr IV TITR [facility]; Protocol Last Admin: 10/06/18 14:15 Dose: 1,100 unit/hr, 22 mls/hr Insulin Aspart (Novolog Vial Sliding Scale -) 1 vial SQ ACHS [facility]; Protocol Last Admin: 10/06/18 12:00 Dose: Not Given Insulin Detemir (Levemir Vial) 20 units SQ AM [facility] Last Admin: 10/06/18 06:08 Dose: 20 units Isosorbide Dinitrate (Isordil -) 10 mg PO TIDISORDIL [facility] Last Admin: 10/06/18 14:40 Dose: 10 mg Metoprolol Tartrate (Lopressor Injection -) 5 mg IVPUSH Q4H PRN PRN Reason: TACHYCARDIA Last Admin: 09/29/18 15:58 Dose: 5 mg Metoprolol Tartrate (Lopressor -) 50 mg PO TID [facility] Last Admin: 10/06/18 14:40 Dose: 50 mg Warfarin Sodium (Coumadin -) 7.5 mg PO DAILY@1800 [facility] Constitutional: Yes: NAD Eyes: Yes: WNL HENT: Yes: WNL Neck: Yes: WNL Cardiovascular: Yes: Pulse Irregular, S1, S2 Respiratory: Yes: Diminished Gastrointestinal: Yes: Normal Bowel Sounds, Soft Extremities: Yes: WNL Edema: Yes Edema: LLE: 2+, RLE: 2+ Labs: Laboratory Results - last 24 hr 10/05/18 10/05/18 10/05/18 13:40 16:48 22:15 WBC RBC Hgb Hct MCV MCH MCHC RDW Plt Count MPV Absolute Neuts (auto) Neutrophils % Lymphocytes % Monocytes % Eosinophils % Basophils % Nucleated RBC % PT with INR INR PTT (Actin FS) 41.6 H Sodium Potassium Chloride Carbon Dioxide Anion Gap BUN Creatinine Est GFR (CKD-EPI)AfAm Est GFR (CKD-EPI)NonAf POC Glucometer 146 184 Random Glucose Calcium Total Bilirubin AST ALT Alkaline Phosphatase Total Protein Albumin 10/05/18 10/06/18 10/06/18 23:15 05:47 05:47 WBC 8.8 RBC 4.01 Hgb 10.6 L Hct 32.7 L MCV 81.5 MCH 26.5 MCHC 32.5 RDW 15.6 Plt Count 429 MPV 8.3 Absolute Neuts (auto) 5.7 Neutrophils % 64.4 Lymphocytes % 22.9 Monocytes % 10.8 H Eosinophils % 0.6 Basophils % 1.3 Nucleated RBC % 0 PT with INR 16.20 H INR 1.37 H PTT (Actin FS) 72.0 H Sodium Potassium Chloride Carbon Dioxide Anion Gap BUN Creatinine Est GFR (CKD-EPI)AfAm Est GFR (CKD-EPI)NonAf POC Glucometer Random Glucose Calcium Total Bilirubin AST ALT Alkaline Phosphatase Total Protein Albumin 10/06/18 10/06/18 10/06/18 05:47 06:40 06:46 WBC RBC Hgb Hct MCV MCH MCHC RDW Plt Count MPV Absolute Neuts (auto) Neutrophils % Lymphocytes % Monocytes % Eosinophils % Basophils % Nucleated RBC % PT with INR INR PTT (Actin FS) 62.9 H Sodium 141 Potassium 3.6 Chloride 101 Carbon Dioxide 30 Anion Gap 11 BUN 91.8 H Creatinine 4.1 H Est GFR (CKD-EPI)AfAm 17.02 Est GFR (CKD-EPI)NonAf 14.69 POC Glucometer 165 Random Glucose 172 H Calcium 9.3 Total Bilirubin 0.4 AST 29 ALT 87 H Alkaline Phosphatase 72 Total Protein 6.9 Albumin 3.2 L Problem List - Problems (1) A-fib Code(s): I48.91 - UNSPECIFIED ATRIAL FIBRILLATION Qualifiers: Atrial fibrillation type: unspecified Qualified Code(s): I48.91 - Unspecified atrial fibrillation (2) Gout Code(s): M10.9 - GOUT, UNSPECIFIED (3) Acute on chronic renal failure Code(s): N17.9 - ACUTE KIDNEY FAILURE, UNSPECIFIED; N18.9 - CHRONIC KIDNEY DISEASE, UNSPECIFIED (4) Atrial fibrillation with RVR Code(s): I48.91 - UNSPECIFIED ATRIAL FIBRILLATION (5) Bilateral lower extremity edema Code(s): R60.0 - LOCALIZED EDEMA (6) CHF (congestive heart failure), NYHA class II Code(s): I50.9 - HEART FAILURE, UNSPECIFIED (7) Diabetes Code(s): E11.9 - TYPE 2 DIABETES MELLITUS WITHOUT COMPLICATIONS (8) Troponin I above reference range Code(s): R74.8 - ABNORMAL LEVELS OF OTHER SERUM ENZYMES Assessment/Plan IMP DYSPNEA IMPROVING ACUTE ON CHRONIC CHF IMPROVING AFIB WITH RVR DIASTOLIC DYSFUNCTION HTN ACUTE ON CHRONIC KIDNEY INJURY ANEMIA ELEVATED TROPONIN LIKELY OSAS PLAN LASIX BID DAILY WT RATE CONTROL PER CARDIOLOGY MONITOR LYTES,RENAL FUNCTION SLEEP SCREEN DR RUBI
[2018-10-06] MEDS: WARFARIN NA 7.5 MG TABLET (FP) PO SCH (17:26)
[2018-10-07] MEDS: FUROSEMIDE 40 MG/4 ML INJECTABLE VIAL IVPUSH SCH ×2 (06:49→13:58)
[2018-10-07] MEDS: INSULIN (LEVEMIR) 100 UNITS/ML UNITS SQ SCH ×2 (06:49→07:04)
[2018-10-07] MEDS: hydrALAZINE HCL 10 MG TABLET PO SCH ×3 (06:49→21:35)
[2018-10-07] MEDS: METOPROLOL TARTRATE 50 MG TABLET (FP) PO SCH ×3 (06:49→21:35)
[2018-10-07] MEDS: INSULIN SLIDING SCALE (NOVOLOG) 1 VIAL SQ SCH ×4 (06:50→21:36)
[2018-10-07 07:56] LABS: INR 1.57 (0.83-1.09); PROTHROMBIN TIME (PATIENT) 18.6 SEC (9.7-13.0)
[2018-10-07 07:59] LABS: ACTIVATED PTT 66.4 SECONDS (25.2-36.5)
[2018-10-07 08:42] LABS: BLOOD UREA NITROGEN 93.7 mg/dL (7-18); CALCIUM 9.4 mg/dL (8.5-10.1); CREATININE 4.3 mg/dL (0.55-1.3); MAGNESIUM 2.2 mg/dL (1.8-2.4); PHOSPHOROUS 5.9 mg/dL (2.5-4.9); POTASSIUM 3.6 mmol/L (3.5-5.1)
[2018-10-07] MEDS: COLCHICINE 0.6 MG CAP PO SCH (09:13)
[2018-10-07] MEDS: ISOSORBIDE DINITRATE 10 MG TABLET (FP) PO SCH ×3 (09:13→17:58)
--- NOTE | 2018-10-07 09:36 | PN ---
Progress Note, Physician Chief Complaint: AWAKE ALERT SITTING UP REPORTS FEELING BETTER - Current Medication List Current Medications: Active Medications Colchicine (Colcrys) 0.6 mg PO DAILY [facility] Last Admin: 10/07/18 09:13 Dose: 0.6 mg Furosemide (Lasix Injection -) 80 mg IVPUSH BID@0600,1400 [facility] Last Admin: 10/07/18 06:49 Dose: 80 mg Heparin Sodium (Porcine) (Heparin -) 1,000 unit IVPUSH PRN PRN PRN Reason: Heparin Last Admin: 10/05/18 17:15 Dose: 1,000 unit Heparin Sodium (Porcine) (Heparin -) 5,000 unit IVPUSH PRN PRN PRN Reason: Heparin Hydralazine HCl (Apresoline -) 10 mg PO TID [facility] Last Admin: 10/07/18 06:49 Dose: 10 mg Heparin Sodium (Porcine) 25, (000 unit/ Sodium Chloride) 500 mls @ 20 mls/hr IV TITR [facility]; Protocol Last Admin: 10/06/18 14:15 Dose: 1,100 unit/hr, 22 mls/hr Insulin Aspart (Novolog Vial Sliding Scale -) 1 vial SQ ACHS [facility]; Protocol Last Admin: 10/07/18 06:50 Dose: Not Given Insulin Detemir (Levemir Vial) 20 units SQ AM [facility] Last Admin: 10/07/18 07:04 Dose: Not Given Isosorbide Dinitrate (Isordil -) 10 mg PO TIDISORDIL [facility] Last Admin: 10/07/18 09:13 Dose: 10 mg Metoprolol Tartrate (Lopressor Injection -) 5 mg IVPUSH Q4H PRN PRN Reason: TACHYCARDIA Last Admin: 09/29/18 15:58 Dose: 5 mg Metoprolol Tartrate (Lopressor -) 50 mg PO TID [facility] Last Admin: 10/07/18 06:49 Dose: 50 mg Warfarin Sodium (Coumadin -) 7.5 mg PO DAILY@1800 [facility] Last Admin: 10/06/18 17:26 Dose: 7.5 mg - Objective Vital Signs: Vital Signs Temperature 98.0 F 10/07/18 05:53 Pulse Rate 106 H 10/07/18 05:53 Respiratory Rate 18 10/07/18 05:53 Blood Pressure 143/99 10/07/18 05:53 O2 Sat by Pulse Oximetry (%) 98 10/06/18 22:00 Constitutional: Yes: Mild Distress Eyes: Yes: WNL HENT: Yes: WNL Neck: Yes: WNL Cardiovascular: Yes: Pulse Irregular Respiratory: Yes: Diminished, On Nasal O2 Gastrointestinal: Yes: Soft Genitourinary: Yes: WNL Musculoskeletal: Yes: WNL Extremities: Yes: WNL Edema: Yes Edema: LLE: 2+, RLE: 2+ Peripheral Pulses WNL: Yes Integumentary: Yes: WNL Wound/Incision: Yes: Clean/Dry Neurological: Yes: WNL ...Motor Strength: WNL Psychiatric: Yes: Other Labs: CBC, BMP 10/06/18 05:47 10/07/18 06:25 INR, PTT INR 1.57 (0.83-1.09) H 10/07/18 06:25 Problem List - Problems (1) Noncompliance of patient with dietary regimen Code(s): Z91.11 - PATIENT'S NONCOMPLIANCE WITH DIETARY REGIMEN (2) A-fib Code(s): I48.91 - UNSPECIFIED ATRIAL FIBRILLATION Qualifiers: Atrial fibrillation type: unspecified Qualified Code(s): I48.91 - Unspecified atrial fibrillation (3) Acute renal failure Code(s): N17.9 - ACUTE KIDNEY FAILURE, UNSPECIFIED Qualifiers: Acute renal failure type: unspecified Qualified Code(s): N17.9 - Acute kidney failure, unspecified (4) Gout Code(s): M10.9 - GOUT, UNSPECIFIED (5) Acute on chronic renal failure Code(s): N17.9 - ACUTE KIDNEY FAILURE, UNSPECIFIED; N18.9 - CHRONIC KIDNEY DISEASE, UNSPECIFIED (6) Atrial fibrillation with RVR Code(s): I48.91 - UNSPECIFIED ATRIAL FIBRILLATION (7) Bilateral lower extremity edema Code(s): R60.0 - LOCALIZED EDEMA (8) CHF (congestive heart failure), NYHA class II Code(s): I50.9 - HEART FAILURE, UNSPECIFIED (9) Diabetes Code(s): E11.9 - TYPE 2 DIABETES MELLITUS WITHOUT COMPLICATIONS Assessment/Plan LASIX IV CONTINUE HEPARIN IV BRIDGE TO COUMADIN THERAPY RENAL FAILURE F/U NEPHROLOGY DECREASE COLCHRYS WHICH CAN ELEVATE RENAL FUNCTION OOB TO CHAIR WITH ASSIST CARDIO/PULM F/U. COMPLIANCE D/W PATIENT AND DIETARY CONSULT ORDERED TO FOLLOW A DIABETIC/CARDIO/RENAL DIET. CLOSE OUTPATIENT F/U
--- NOTE | 2018-10-07 12:54 | PN ---
Progress Note, Physician Chief Complaint: no complaints tele not on. refusing to wear. History of Present Illness: 62 year old male pmhx of htn, dm, pafib, ckd, chronic systolic chf, and obesity presenting with LE edema and dyspnea on exertion. Volume overloaded Afib with RVR - Current Medication List Current Medications: Active Medications Colchicine (Colcrys) 0.6 mg PO DAILY [facility] Last Admin: 10/07/18 09:13 Dose: 0.6 mg Furosemide (Lasix Injection -) 80 mg IVPUSH BID@0600,1400 [facility] Last Admin: 10/07/18 06:49 Dose: 80 mg Heparin Sodium (Porcine) (Heparin -) 1,000 unit IVPUSH PRN PRN PRN Reason: Heparin Last Admin: 10/05/18 17:15 Dose: 1,000 unit Heparin Sodium (Porcine) (Heparin -) 5,000 unit IVPUSH PRN PRN PRN Reason: Heparin Hydralazine HCl (Apresoline -) 10 mg PO TID [facility] Last Admin: 10/07/18 06:49 Dose: 10 mg Heparin Sodium (Porcine) 25, (000 unit/ Sodium Chloride) 500 mls @ 20 mls/hr IV TITR [facility]; Protocol Last Admin: 10/06/18 14:15 Dose: 1,100 unit/hr, 22 mls/hr Insulin Aspart (Novolog Vial Sliding Scale -) 1 vial SQ ACHS [facility]; Protocol Last Admin: 10/07/18 11:57 Dose: Not Given Insulin Detemir (Levemir Vial) 20 units SQ AM [facility] Last Admin: 10/07/18 07:04 Dose: Not Given Isosorbide Dinitrate (Isordil -) 10 mg PO TIDISORDIL [facility] Last Admin: 10/07/18 09:13 Dose: 10 mg Metoprolol Tartrate (Lopressor Injection -) 5 mg IVPUSH Q4H PRN PRN Reason: TACHYCARDIA Last Admin: 09/29/18 15:58 Dose: 5 mg Metoprolol Tartrate (Lopressor -) 50 mg PO TID [facility] Last Admin: 10/07/18 06:49 Dose: 50 mg Warfarin Sodium (Coumadin -) 7.5 mg PO DAILY@1800 [facility] Last Admin: 10/06/18 17:26 Dose: 7.5 mg - Objective Vital Signs: Vital Signs Temperature 97.8 F 10/07/18 09:57 Pulse Rate 109 H 10/07/18 09:57 Respiratory Rate 22 H 10/07/18 09:57 Blood Pressure 141/89 10/07/18 09:57 O2 Sat by Pulse Oximetry (%) 96 10/07/18 10:00 Constitutional: Yes: No Distress, Calm Eyes: Yes: Conjunctiva Clear, EOM Intact HENT: Yes: Normocephalic Neck: Yes: Trachea Midline Cardiovascular: Yes: Tachycardia, Pulse Irregular Respiratory: Yes: CTA Bilaterally Gastrointestinal: Yes: Normal Bowel Sounds, Soft Extremities: Yes: WNL Edema: No Peripheral Pulses WNL: Yes Labs: CBC, BMP 10/06/18 05:47 10/07/18 06:25 INR, PTT INR 1.57 (0.83-1.09) H 10/07/18 06:25 Assessment/Plan 62 year old male pmhx of htn, dm, pafib, ckd, chronic systolic chf, and obesity presenting with LE edema and dyspnea on exertion. Volume overloaded Afib with RVR 1) AFib with RVR- -Was known in past as far back as 2016 with h/o paroxysmal afib and refused AC in past. Started coumadin and bridge with heparin. Discussed at length with patient and his importance of compliance and how dangerous coumadin is if he is not gonna follow up weekly for his blood checks and dose adjustments. Patient understands benefits/risks and wants to take coumadin. -Change metoprolol to 100mg PO BID 2) Acute on chronic systolic chf. -Continue to diurese with furosemide 80mg IV bid. -monitor strict I/Os and daily weights -replete K and Mg -monitor bun/creat, electrolytes, and replete as needed -Echo with global hypokinesis and LVEF 30-35% with mild to mod MR/mild TR. ( Echo in 2018 with LVEF 40-50%) -will continue volume and HR control. Will continue to diurese and uptitrate metoprolol as tolerates and needed for HR control. Also will likely need more anti-hypertensives for bp control. Holding benito/arb and spironolactone at this time given Cr 4.0 (was 2.8 04/2017). - -continue hydralazine/isosorbide
--- NOTE | 2018-10-07 13:34 | PN ---
Progress Note (short form) - Note Progress Note: Breathing feels overall better. No CP. No acute events overnight. Intake & Output 10/04/18 10/05/18 10/06/18 10/07/18 23:59 23:59 23:59 23:59 Intake Total 5012 913 1444 264 Output Total 4674 698 0357 Balance -140 0 -1441 264 Weight 240 lb 6.4 oz 238 lb 236 lb 3.2 oz 237 lb 9.6 oz Last Vital Signs Temp Pulse Resp BP Pulse Ox 97.8 F 109 H 22 H 141/89 96 10/07/18 09:57 10/07/18 09:57 10/07/18 09:57 10/07/18 09:57 10/07/18 10:00 Active Medications Colchicine (Colcrys) 0.6 mg PO DAILY [facility] Last Admin: 10/07/18 09:13 Dose: 0.6 mg Furosemide (Lasix Injection -) 80 mg IVPUSH BID@0600,1400 [place] Last Admin: 10/07/18 06:49 Dose: 80 mg Heparin Sodium (Porcine) (Heparin -) 1,000 unit IVPUSH PRN PRN PRN Reason: Heparin Last Admin: 10/05/18 17:15 Dose: 1,000 unit Heparin Sodium (Porcine) (Heparin -) 5,000 unit IVPUSH PRN PRN PRN Reason: Heparin Hydralazine HCl (Apresoline -) 10 mg PO TID [facility] Last Admin: 10/07/18 06:49 Dose: 10 mg Heparin Sodium (Porcine) 25, (000 unit/ Sodium Chloride) 500 mls @ 20 mls/hr IV TITR [facility]; Protocol Last Admin: 10/06/18 14:15 Dose: 1,100 unit/hr, 22 mls/hr Insulin Aspart (Novolog Vial Sliding Scale -) 1 vial SQ ACHS [facility]; Protocol Last Admin: 10/07/18 11:57 Dose: Not Given Insulin Detemir (Levemir Vial) 20 units SQ AM [facility] Last Admin: 10/07/18 07:04 Dose: Not Given Isosorbide Dinitrate (Isordil -) 10 mg PO TIDISORDIL [facility] Last Admin: 10/07/18 09:13 Dose: 10 mg Metoprolol Tartrate (Lopressor Injection -) 5 mg IVPUSH Q4H PRN PRN Reason: TACHYCARDIA Last Admin: 09/29/18 15:58 Dose: 5 mg Metoprolol Tartrate (Lopressor -) 50 mg PO TID [facility] Last Admin: 10/07/18 06:49 Dose: 50 mg Warfarin Sodium (Coumadin -) 7.5 mg PO DAILY@1800 [facility] Last Admin: 10/06/18 17:26 Dose: 7.5 mg Constitutional: Yes: NAD Eyes: Yes: WNL HENT: Yes: WNL Neck: Yes: WNL Cardiovascular: Yes: Pulse Irregular, S1, S2 Respiratory: Yes: Diminished Gastrointestinal: Yes: Normal Bowel Sounds, Soft Extremities: Yes: WNL Edema: Yes Edema: LLE: 2+, RLE: 2+ Labs: Laboratory Results - last 24 hr 10/06/18 10/06/18 10/06/18 11:43 16:56 22:26 PT with INR INR PTT ([place]in FS) Sodium Potassium Chloride Carbon Dioxide Anion Gap BUN Creatinine Est GFR (CKD-EPI)AfAm Est GFR (CKD-EPI)NonAf POC Glucometer 179 178 111 Random Glucose Calcium Phosphorus Magnesium 10/07/18 10/07/18 10/07/18 06:25 06:25 06:49 PT with INR 18.60 H INR 1.57 H PTT (Actin FS) 66.4 H Sodium 141 Potassium 3.6 Chloride 101 Carbon Dioxide 31 Anion Gap 9 BUN 93.7 H Creatinine 4.3 H Est GFR (CKD-EPI)AfAm 16.07 Est GFR (CKD-EPI)NonAf 13.87 POC Glucometer 145 Random Glucose 132 H Calcium 9.4 Phosphorus 5.9 H Magnesium 2.2 10/07/18 11:55 PT with INR INR PTT (Actin FS) Sodium Potassium Chloride Carbon Dioxide Anion Gap BUN Creatinine Est GFR (CKD-EPI)AfAm Est GFR (CKD-EPI)NonAf POC Glucometer 182 Random Glucose Calcium Phosphorus Magnesium Problem List - Problems (1) A-fib Code(s): I48.91 - UNSPECIFIED ATRIAL FIBRILLATION Qualifiers: Atrial fibrillation type: unspecified Qualified Code(s): I48.91 - Unspecified atrial fibrillation (2) Gout Code(s): M10.9 - GOUT, UNSPECIFIED (3) Acute on chronic renal failure Code(s): N17.9 - ACUTE KIDNEY FAILURE, UNSPECIFIED; N18.9 - CHRONIC KIDNEY DISEASE, UNSPECIFIED (4) Atrial fibrillation with RVR Code(s): I48.91 - UNSPECIFIED ATRIAL FIBRILLATION (5) Bilateral lower extremity edema Code(s): R60.0 - LOCALIZED EDEMA (6) CHF (congestive heart failure), NYHA class II Code(s): I50.9 - HEART FAILURE, UNSPECIFIED (7) Diabetes Code(s): E11.9 - TYPE 2 DIABETES MELLITUS WITHOUT COMPLICATIONS (8) Troponin I above reference range Code(s): R74.8 - ABNORMAL LEVELS OF OTHER SERUM ENZYMES Assessment/Plan IMP DYSPNEA IMPROVING ACUTE ON CHRONIC CHF IMPROVING AFIB WITH RVR DIASTOLIC DYSFUNCTION HTN ACUTE ON CHRONIC KIDNEY INJURY ANEMIA ELEVATED TROPONIN LIKELY OSAS PLAN LASIX BID DAILY WT RATE CONTROL PER CARDIOLOGY MONITOR LYTES,RENAL FUNCTION CHECK SLEEP SCREEN DR RUBI
[2018-10-07] MEDS ORDERED: PT OWN MED DRAWER 7, Y5N ONE ×2 (13:54→18:16)
[2018-10-07] MEDS: HEPARIN - 25,000 UNIT in SODIUM CHLORIDE 495 ML IV SCH (13:59)
--- NOTE | 2018-10-07 14:58 | PN ---
Progress Note (short form) - Note Progress Note: Renal follow up for CKD Coverage for Dr. Deras Pt seen and examined at the bedside awake and alert leg edema slowly improving no overt sob today Vital Signs Temperature 97.8 F 10/07/18 09:57 Pulse Rate 109 H 10/07/18 09:57 Respiratory Rate 22 H 10/07/18 09:57 Blood Pressure 141/89 10/07/18 09:57 O2 Sat by Pulse Oximetry (%) 96 10/07/18 10:00 Intake & Output 10/04/18 10/05/18 10/06/18 10/07/18 23:59 23:59 23:59 23:59 Intake Total 8550 017 5546 264 Output Total 9522 398 4522 Balance -140 0 -1441 264 Weight 109.044 kg 107.955 kg 107.139 kg 107.774 kg NAD irregular, tachycardic CTA + edema in LE CBC, BMP 10/06/18 05:47 10/07/18 06:25 Current Medications Colchicine (Colcrys) 0.6 mg PO DAILY [facility] Last Admin: 10/07/18 09:13 Dose: 0.6 mg Furosemide (Lasix Injection -) 80 mg IVPUSH BID@0600,1400 [place] Last Admin: 10/07/18 13:58 Dose: 80 mg Heparin Sodium (Porcine) (Heparin -) 1,000 unit IVPUSH PRN PRN PRN Reason: Heparin Last Admin: 10/05/18 17:15 Dose: 1,000 unit Heparin Sodium (Porcine) (Heparin -) 5,000 unit IVPUSH PRN PRN PRN Reason: Heparin Hydralazine HCl (Apresoline -) 10 mg PO TID [facility] Last Admin: 10/07/18 13:58 Dose: 10 mg Heparin Sodium (Porcine) 25, (000 unit/ Sodium Chloride) 500 mls @ 20 mls/hr IV TITR [facility]; Protocol Last Admin: 10/07/18 13:59 Dose: 1,100 unit/hr, 22 mls/hr Insulin Aspart (Novolog Vial Sliding Scale -) 1 vial SQ ACHS [facility]; Protocol Last Admin: 10/07/18 11:57 Dose: Not Given Insulin Detemir (Levemir Vial) 20 units SQ AM [facility] Last Admin: 10/07/18 07:04 Dose: Not Given Isosorbide Dinitrate (Isordil -) 10 mg PO TIDISORDIL [facility] Last Admin: 10/07/18 13:59 Dose: 10 mg Metoprolol Tartrate (Lopressor Injection -) 5 mg IVPUSH Q4H PRN PRN Reason: TACHYCARDIA Last Admin: 09/29/18 15:58 Dose: 5 mg Metoprolol Tartrate (Lopressor -) 50 mg PO TID [facility] Last Admin: 10/07/18 13:58 Dose: 50 mg Warfarin Sodium (Coumadin -) 7.5 mg PO DAILY@1800 [facility] Last Admin: 10/06/18 17:26 Dose: 7.5 mg Impression 1. CKD stage 4 2. PIO 3. a-fib 4. HTN 5. CHF 6. DM 7. non compliance Plan Renal function stable. No overt electrolyte or acid/base disturbance. volume status improving, continue IV lasix as per cardiology low salt diet. Trend weights Hgb > 10, no ALEYDA needed Rate control as per cardiology on Warfarin for A/C, INR below goal Gabriel Callahan DO
[2018-10-07] MEDS: WARFARIN NA 7.5 MG TABLET (FP) PO SCH (17:58)
[2018-10-08] MEDS: FUROSEMIDE 40 MG/4 ML INJECTABLE VIAL IVPUSH SCH ×2 (06:01→13:57)
[2018-10-08] MEDS: hydrALAZINE HCL 10 MG TABLET PO SCH ×3 (06:01→22:20)
[2018-10-08] MEDS: METOPROLOL TARTRATE 50 MG TABLET (FP) PO SCH ×3 (06:01→22:20)
[2018-10-08] MEDS: INSULIN (LEVEMIR) 100 UNITS/ML UNITS SQ SCH (06:12)
[2018-10-08] MEDS: INSULIN SLIDING SCALE (NOVOLOG) 1 VIAL SQ SCH ×4 (06:12→23:05)
[2018-10-08 06:40] LABS: INR 1.97 (0.83-1.09); PROTHROMBIN TIME (PATIENT) 23.4 SEC (9.7-13.0)
[2018-10-08 07:07] LABS: BLOOD UREA NITROGEN 93.8 mg/dL (7-18); CALCIUM 9.6 mg/dL (8.5-10.1); CREATININE 4.3 mg/dL (0.55-1.3); MAGNESIUM 2.2 mg/dL (1.8-2.4); POTASSIUM 3.7 mmol/L (3.5-5.1)
[2018-10-08 07:08] LABS: HEMATOCRIT 33.6 % (35.4-49); HEMOGLOBIN 10.6 GM/dL (11.7-16.9); MCH 25.9 pg (25.7-33.7); MCHC 31.7 g/dl (32.0-35.9); MEAN CELL VOLUME 81.6 fl (80-96); MEAN PLT VOLUME 8.7 fl (7.5-11.1); PLATELET COUNT 423 K/MM3 (134-434); RBC 4.11 M/mm3 (4.00-5.60); RDW 16.2 % (11.9-15.9); WHITE BLOOD COUNT 8.2 K/mm3 (4.0-10.0)
[2018-10-08] MEDS ORDERED: PT OWN MED DRAWER 7, Y5N ONE ×4 (09:23→18:06)
[2018-10-08] MEDS: COLCHICINE 0.6 MG CAP PO SCH (09:41)
[2018-10-08] MEDS: ISOSORBIDE DINITRATE 10 MG TABLET (FP) PO SCH ×3 (09:41→17:49)
--- NOTE | 2018-10-08 10:47 | PN ---
Progress Note, Physician History of Present Illness: PULMONARY ALERT,FEELING BETTER,LESS DYSPNEIC - Current Medication List Current Medications: Active Medications Colchicine (Colcrys) 0.6 mg PO DAILY [facility] Last Admin: 10/08/18 09:41 Dose: 0.6 mg Furosemide (Lasix Injection -) 80 mg IVPUSH BID@0600,1400 [facility] Last Admin: 10/08/18 06:01 Dose: 80 mg Heparin Sodium (Porcine) (Heparin -) 1,000 unit IVPUSH PRN PRN PRN Reason: Heparin Last Admin: 10/05/18 17:15 Dose: 1,000 unit Heparin Sodium (Porcine) (Heparin -) 5,000 unit IVPUSH PRN PRN PRN Reason: Heparin Hydralazine HCl (Apresoline -) 10 mg PO TID [facility] Last Admin: 10/08/18 06:01 Dose: 10 mg Heparin Sodium (Porcine) 25, (000 unit/ Sodium Chloride) 500 mls @ 20 mls/hr IV TITR [facility]; Protocol Last Admin: 10/07/18 13:59 Dose: 1,100 unit/hr, 22 mls/hr Insulin Aspart (Novolog Vial Sliding Scale -) 1 vial SQ ACHS [facility]; Protocol Last Admin: 10/08/18 06:12 Dose: Not Given Insulin Detemir (Levemir Vial) 20 units SQ AM [facility] Last Admin: 10/08/18 06:12 Dose: Not Given Isosorbide Dinitrate (Isordil -) 10 mg PO TIDISORDIL [facility] Last Admin: 10/08/18 09:41 Dose: 10 mg Metoprolol Tartrate (Lopressor Injection -) 5 mg IVPUSH Q4H PRN PRN Reason: TACHYCARDIA Last Admin: 09/29/18 15:58 Dose: 5 mg Metoprolol Tartrate (Lopressor -) 50 mg PO TID [facility] Last Admin: 10/08/18 06:01 Dose: 50 mg Warfarin Sodium (Coumadin -) 7.5 mg PO DAILY@1800 [facility] Last Admin: 10/07/18 17:58 Dose: 7.5 mg - Objective Vital Signs: Vital Signs Temperature 97.8 F 10/08/18 05:00 Pulse Rate 122 H 10/08/18 05:00 Respiratory Rate 20 10/08/18 05:00 Blood Pressure 125/93 10/08/18 05:00 O2 Sat by Pulse Oximetry (%) 100 10/07/18 22:00 Constitutional: Yes: Well Nourished, Calm Eyes: Yes: WNL HENT: Yes: WNL Neck: Yes: WNL Cardiovascular: Yes: Pulse Irregular, S1, S2 Respiratory: Yes: Diminished Gastrointestinal: Yes: Normal Bowel Sounds, Soft Extremities: Yes: WNL Edema: Yes Labs: CBC, BMP 10/08/18 05:15 10/08/18 05:15 INR, PTT INR 1.97 (0.83-1.09) H 10/08/18 05:15 Problem List - Problems (1) A-fib Code(s): I48.91 - UNSPECIFIED ATRIAL FIBRILLATION Qualifiers: Atrial fibrillation type: unspecified Qualified Code(s): I48.91 - Unspecified atrial fibrillation (2) Gout Code(s): M10.9 - GOUT, UNSPECIFIED (3) Acute on chronic renal failure Code(s): N17.9 - ACUTE KIDNEY FAILURE, UNSPECIFIED; N18.9 - CHRONIC KIDNEY DISEASE, UNSPECIFIED (4) Atrial fibrillation with RVR Code(s): I48.91 - UNSPECIFIED ATRIAL FIBRILLATION (5) Bilateral lower extremity edema Code(s): R60.0 - LOCALIZED EDEMA (6) CHF (congestive heart failure), NYHA class II Code(s): I50.9 - HEART FAILURE, UNSPECIFIED (7) Diabetes Code(s): E11.9 - TYPE 2 DIABETES MELLITUS WITHOUT COMPLICATIONS (8) Troponin I above reference range Code(s): R74.8 - ABNORMAL LEVELS OF OTHER SERUM ENZYMES Assessment/Plan MP DYSPNEA IMPROVING ACUTE ON CHRONIC CHF IMPROVING AFIB WITH RVR DIASTOLIC DYSFUNCTION HTN ACUTE ON CHRONIC KIDNEY INJURY ANEMIA ELEVATED TROPONIN LIKELY OSAS PLAN LASIX BID DAILY WT RATE CONTROL PER CARDIOLOGY MONITOR LYTES,RENAL FUNCTION F/U CHEST X-RAYS SLEEP STUDIES OUTPATIENT DR TAYLOR Problem List - Problems (1) A-fib Code(s): I48.91 - UNSPECIFIED ATRIAL FIBRILLATION Qualifiers: Atrial fibrillation type: unspecified Qualified Code(s): I48.91 - Unspecified atrial fibrillation (2) Gout Code(s): M10.9 - GOUT, UNSPECIFIED (3) Acute on chronic renal failure Code(s): N17.9 - ACUTE KIDNEY FAILURE, UNSPECIFIED; N18.9 - CHRONIC KIDNEY DISEASE, UNSPECIFIED (4) Atrial fibrillation with RVR Code(s): I48.91 - UNSPECIFIED ATRIAL FIBRILLATION (5) Bilateral lower extremity edema Code(s): R60.0 - LOCALIZED EDEMA (6) CHF (congestive heart failure), NYHA class II Code(s): I50.9 - HEART FAILURE, UNSPECIFIED (7) Diabetes Code(s): E11.9 - TYPE 2 DIABETES MELLITUS WITHOUT COMPLICATIONS (8) Troponin I above reference range Code(s): R74.8 - ABNORMAL LEVELS OF OTHER SERUM ENZYMES
--- NOTE | 2018-10-08 11:39 | PN ---
Progress Note, Physician Chief Complaint: Afib with RVR History of Present Illness: NAD sitting at the edge of the bed Refused labs this morning for INR check On tele, still not rate controlled Started on coumadin, still subtherapeutic Heparin drip to be continued until INR>2.0 - Current Medication List Current Medications: Active Medications Colchicine (Colcrys) 0.6 mg PO DAILY [facility] Last Admin: 10/08/18 09:41 Dose: 0.6 mg Furosemide (Lasix Injection -) 80 mg IVPUSH BID@0600,1400 [facility] Last Admin: 10/08/18 06:01 Dose: 80 mg Heparin Sodium (Porcine) (Heparin -) 1,000 unit IVPUSH PRN PRN PRN Reason: Heparin Last Admin: 10/05/18 17:15 Dose: 1,000 unit Heparin Sodium (Porcine) (Heparin -) 5,000 unit IVPUSH PRN PRN PRN Reason: Heparin Hydralazine HCl (Apresoline -) 10 mg PO TID [facility] Last Admin: 10/08/18 06:01 Dose: 10 mg Heparin Sodium (Porcine) 25, (000 unit/ Sodium Chloride) 500 mls @ 20 mls/hr IV TITR [facility]; Protocol Last Admin: 10/07/18 13:59 Dose: 1,100 unit/hr, 22 mls/hr Insulin Aspart (Novolog Vial Sliding Scale -) 1 vial SQ ACHS [facility]; Protocol Last Admin: 10/08/18 06:12 Dose: Not Given Insulin Detemir (Levemir Vial) 20 units SQ AM [facility] Last Admin: 10/08/18 06:12 Dose: Not Given Isosorbide Dinitrate (Isordil -) 10 mg PO TIDISORDIL [facility] Last Admin: 10/08/18 09:41 Dose: 10 mg Metoprolol Tartrate (Lopressor Injection -) 5 mg IVPUSH Q4H PRN PRN Reason: TACHYCARDIA Last Admin: 09/29/18 15:58 Dose: 5 mg Metoprolol Tartrate (Lopressor -) 50 mg PO TID [facility] Last Admin: 10/08/18 06:01 Dose: 50 mg Warfarin Sodium (Coumadin -) 7.5 mg PO DAILY@1800 [facility] Last Admin: 10/07/18 17:58 Dose: 7.5 mg - Objective Vital Signs: Vital Signs Temperature 97.8 F 10/08/18 09:00 Pulse Rate 111 H 10/08/18 09:00 Respiratory Rate 22 H 10/08/18 09:00 Blood Pressure 145/90 10/08/18 09:00 O2 Sat by Pulse Oximetry (%) 97 10/08/18 10:00 Constitutional: Yes: Well Nourished, No Distress, Calm Cardiovascular: Yes: Regular Rate and Rhythm Respiratory: Yes: Regular Gastrointestinal: Yes: Normal Bowel Sounds, Soft, Abdomen, Obese Genitourinary: Yes: WNL Musculoskeletal: Yes: Muscle Weakness Extremities: Yes: WNL Edema: Yes Edema: LLE: Trace, RLE: Trace Peripheral Pulses WNL: Yes Neurological: Yes: Alert, Oriented Psychiatric: Yes: Alert, Oriented Labs: CBC, BMP 10/08/18 05:15 10/08/18 05:15 INR, PTT INR 1.97 (0.83-1.09) H 10/08/18 05:15 Assessment/Plan (1) Acute on chronic renal failure Assessment/Plan: -Nephrology on board -monitor renal function trend -AVF placement as per renal Code(s): N17.9 - ACUTE KIDNEY FAILURE, UNSPECIFIED; N18.9 - CHRONIC KIDNEY DISEASE, UNSPECIFIED (2) Atrial fibrillation with RVR Assessment/Plan: -Tele monitoring -Cardiology on board -Metoprolol 50mg TID -Lopressor 5mg IVP prn for HR >110bpm -Heparin drip -Coumadin 7.5 mg po daily -Daily INR check -D/C HEPARIN DRIP ONCE INR>2.0 Code(s): I48.91 - UNSPECIFIED ATRIAL FIBRILLATION (3) Bilateral lower extremity edema Assessment/Plan: -2/2 CHF exacerbation -1L fluid restriction -daily weights -Furosemide 40 mg IVP BID Code(s): R60.0 - LOCALIZED EDEMA (4) CHF (congestive heart failure), NYHA class II Assessment/Plan: -Cardiology on board -Furosemide -1L fluid restriction -daily weights -strict I&Os -Echocardiogram reviewed-with global hypokinesis and LVEF 30-35% with mild to mod MR/mild TR -Cardiology recommended starting Bidil 1/2 tab tid, however hospital doesn't carry it -Start Isosorbide dinitrite 10 mg po tid -Add Hydralazine 10 mg po TID if BP allows over the weekend Code(s): I50.9 - HEART FAILURE, UNSPECIFIED (5) Diabetes Assessment/Plan: -HgA1c 9.5% -Endocrinology consult -ISS- -has been refusing insulin Code(s): E11.9 - TYPE 2 DIABETES MELLITUS WITHOUT COMPLICATIONS (6) Gout Assessment/Plan: -Uric acid 14.6 -Colchicine Code(s): M10.9 - GOUT, UNSPECIFIED
--- NOTE | 2018-10-08 13:51 | PN ---
Progress Note, Physician Chief Complaint: no complaints tele af better VR, 6 beats NSVT History of Present Illness: 62 year old male pmhx of htn, dm, pafib, ckd, chronic systolic chf, and obesity presenting with LE edema and dyspnea on exertion. Volume overloaded Afib with RVR - Current Medication List Current Medications: Active Medications Colchicine (Colcrys) 0.6 mg PO DAILY [facility] Last Admin: 10/08/18 09:41 Dose: 0.6 mg Furosemide (Lasix Injection -) 80 mg IVPUSH BID@0600,1400 [facility] Last Admin: 10/08/18 06:01 Dose: 80 mg Heparin Sodium (Porcine) (Heparin -) 1,000 unit IVPUSH PRN PRN PRN Reason: Heparin Last Admin: 10/05/18 17:15 Dose: 1,000 unit Heparin Sodium (Porcine) (Heparin -) 5,000 unit IVPUSH PRN PRN PRN Reason: Heparin Hydralazine HCl (Apresoline -) 10 mg PO TID [facility] Last Admin: 10/08/18 06:01 Dose: 10 mg Heparin Sodium (Porcine) 25, (000 unit/ Sodium Chloride) 500 mls @ 20 mls/hr IV TITR [facility]; Protocol Last Admin: 10/07/18 13:59 Dose: 1,100 unit/hr, 22 mls/hr Insulin Aspart (Novolog Vial Sliding Scale -) 1 vial SQ ACHS [facility]; Protocol Last Admin: 10/08/18 12:45 Dose: Not Given Insulin Detemir (Levemir Vial) 20 units SQ AM [facility] Last Admin: 10/08/18 06:12 Dose: Not Given Isosorbide Dinitrate (Isordil -) 10 mg PO TIDISORDIL [facility] Last Admin: 10/08/18 09:41 Dose: 10 mg Metoprolol Tartrate (Lopressor Injection -) 5 mg IVPUSH Q4H PRN PRN Reason: TACHYCARDIA Last Admin: 09/29/18 15:58 Dose: 5 mg Metoprolol Tartrate (Lopressor -) 50 mg PO TID [facility] Last Admin: 10/08/18 06:01 Dose: 50 mg Warfarin Sodium (Coumadin -) 7.5 mg PO DAILY@1800 [facility] Last Admin: 10/07/18 17:58 Dose: 7.5 mg - Objective Vital Signs: Vital Signs Temperature 97.8 F 10/08/18 09:00 Pulse Rate 111 H 10/08/18 09:00 Respiratory Rate 22 H 10/08/18 09:00 Blood Pressure 145/90 10/08/18 09:00 O2 Sat by Pulse Oximetry (%) 97 10/08/18 10:00 Constitutional: Yes: No Distress, Calm Eyes: Yes: Conjunctiva Clear, EOM Intact HENT: Yes: Normocephalic Neck: Yes: Trachea Midline Cardiovascular: Yes: Pulse Irregular Respiratory: Yes: CTA Bilaterally Gastrointestinal: Yes: Normal Bowel Sounds, Soft Extremities: Yes: WNL Edema: No Labs: CBC, BMP 10/08/18 05:15 10/08/18 05:15 INR, PTT INR 1.97 (0.83-1.09) H 10/08/18 05:15 Assessment/Plan 62 year old male pmhx of htn, dm, pafib, ckd, chronic systolic chf, and obesity presenting with LE edema and dyspnea on exertion. Volume overloaded Afib with RVR 1) AFib with RVR- -Was known in past as far back as 2016 with h/o paroxysmal afib and refused AC in past. Started coumadin and bridged with heparin. Discussed at length with patient and his importance of compliance and how dangerous coumadin is if he is not gonna follow up weekly for his blood checks and dose adjustments. Patient understands benefits/risks and wants to take coumadin. -Continue metoprolol 100mg PO BID 2) Acute on chronic systolic chf. -Continue to diurese with furosemide 80mg IV bid. -monitor strict I/Os and daily weights -replete K and Mg -monitor bun/creat, electrolytes, and replete as needed -Echo with global hypokinesis and LVEF 30-35% with mild to mod MR/mild TR. ( Echo in 2018 with LVEF 40-50%) -will continue volume and HR control. Will continue to diurese and uptitrate metoprolol as tolerates and needed for HR control. Also will likely need more anti-hypertensives for bp control. Holding benito/arb and spironolactone at this time given Cr 4.0 (was 2.8 04/2017). - -continue hydralazine/isosorbide follow as outpatient.
--- NOTE | 2018-10-08 14:32 | PN ---
Progress Note, Physician History of Present Illness: Pt seen and examined at bedside. He feels that his edema is slowly improving. He denies shortness of breath. - Current Medication List Current Medications: Active Medications Colchicine (Colcrys) 0.6 mg PO DAILY [facility] Last Admin: 10/08/18 09:41 Dose: 0.6 mg Furosemide (Lasix Injection -) 80 mg IVPUSH BID@0600,1400 [facility] Last Admin: 10/08/18 13:57 Dose: 80 mg Heparin Sodium (Porcine) (Heparin -) 1,000 unit IVPUSH PRN PRN PRN Reason: Heparin Last Admin: 10/05/18 17:15 Dose: 1,000 unit Heparin Sodium (Porcine) (Heparin -) 5,000 unit IVPUSH PRN PRN PRN Reason: Heparin Hydralazine HCl (Apresoline -) 10 mg PO TID [facility] Last Admin: 10/08/18 13:57 Dose: 10 mg Heparin Sodium (Porcine) 25, (000 unit/ Sodium Chloride) 500 mls @ 20 mls/hr IV TITR [facility]; Protocol Last Admin: 10/07/18 13:59 Dose: 1,100 unit/hr, 22 mls/hr Insulin Aspart (Novolog Vial Sliding Scale -) 1 vial SQ ACHS [facility]; Protocol Last Admin: 10/08/18 12:45 Dose: Not Given Insulin Detemir (Levemir Vial) 20 units SQ AM [facility] Last Admin: 10/08/18 06:12 Dose: Not Given Isosorbide Dinitrate (Isordil -) 10 mg PO TIDISORDIL [facility] Last Admin: 10/08/18 13:57 Dose: 10 mg Metoprolol Tartrate (Lopressor Injection -) 5 mg IVPUSH Q4H PRN PRN Reason: TACHYCARDIA Last Admin: 09/29/18 15:58 Dose: 5 mg Metoprolol Tartrate (Lopressor -) 50 mg PO TID [facility] Last Admin: 10/08/18 13:57 Dose: 50 mg Warfarin Sodium (Coumadin -) 7.5 mg PO DAILY@1800 [facility] Last Admin: 10/07/18 17:58 Dose: 7.5 mg - Objective Vital Signs: Vital Signs Temperature 97.8 F 10/08/18 09:00 Pulse Rate 111 H 10/08/18 09:00 Respiratory Rate 22 H 10/08/18 09:00 Blood Pressure 145/90 10/08/18 09:00 O2 Sat by Pulse Oximetry (%) 97 10/08/18 10:00 Constitutional: Yes: Calm Eyes: Yes: Conjunctiva Clear HENT: Yes: Atraumatic Neck: Yes: Supple Cardiovascular: Yes: S1, S2 Respiratory: Yes: CTA Bilaterally Gastrointestinal: Yes: Soft Genitourinary: Yes: WNL Musculoskeletal: Yes: WNL Edema: No Neurological: Yes: Oriented Psychiatric: Yes: Oriented Labs: CBC, BMP 10/08/18 05:15 10/08/18 05:15 INR, PTT INR 1.97 (0.83-1.09) H 10/08/18 05:15 Problem List - Problems (1) A-fib Code(s): I48.91 - UNSPECIFIED ATRIAL FIBRILLATION Qualifiers: Atrial fibrillation type: unspecified Qualified Code(s): I48.91 - Unspecified atrial fibrillation (2) CHF (congestive heart failure), NYHA class II Code(s): I50.9 - HEART FAILURE, UNSPECIFIED (3) CKD (chronic kidney disease) Code(s): N18.9 - CHRONIC KIDNEY DISEASE, UNSPECIFIED Qualifiers: Chronic kidney disease stage: unspecified stage Qualified Code(s): N18.9 - Chronic kidney disease, unspecified Assessment/Plan Current Medications Generic Name Dose Route Start Last Admin Trade Name Freq PRN Reason Stop Dose Admin Colchicine 0.6 mg 10/01/18 10:00 10/08/18 09:41 Colcrys PO 0.6 mg DAILY [facility] Administration Furosemide 80 mg 10/02/18 12:40 10/08/18 13:57 Lasix Injection - IVPUSH 80 mg BID@0600,1400 [facility] Administration Heparin Sodium (Porcine) 1,000 unit 09/28/18 14:05 10/05/18 17:15 Heparin - IVPUSH 1,000 unit PRN PRN Administration Heparin Heparin Sodium (Porcine) 5,000 unit 09/28/18 14:05 Heparin - IVPUSH PRN PRN Heparin Hydralazine HCl 10 mg 10/06/18 14:00 10/08/18 13:57 Apresoline - PO 10 mg TID [facility] Administration Heparin Sodium (Porcine) 25, 500 mls @ 20 mls/hr 09/28/18 14:15 10/07/18 13: 59 000 unit/ Sodium Chloride IV 1,100 unit/hr TITR [facility] 22 mls/hr Administration Protocol 1,000 UNIT/HR Insulin Aspart 1 vial 09/28/18 22:00 10/08/18 12:45 Novolog Vial Sliding Scale - SQ Not Given ACHS [facility] Protocol Insulin Detemir 20 units 10/02/18 07:00 10/08/18 06:12 Levemir Vial SQ Not Given AM [facility] Isosorbide Dinitrate 10 mg 10/05/18 14:45 10/08/18 13:57 Isordil - PO 10 mg TIDISORDIL [facility] Administration Metoprolol Tartrate 5 mg 09/28/18 16:30 09/29/18 15:58 Lopressor Injection - IVPUSH 5 mg Q4H PRN Administration TACHYCARDIA Metoprolol Tartrate 50 mg 09/29/18 22:00 10/08/18 13:57 Lopressor - PO 50 mg TID [facility] Administration Warfarin Sodium 7.5 mg 10/06/18 18:00 10/07/18 17:58 Coumadin - PO 7.5 mg DAILY@1800 [facility] Administration Laboratory Tests 10/02/18 10/02/18 05:45 06:00 ANAIS M-Jovon Not observed FELIX Screen Negative c-ANCA <1:20 Proteinase 3 (PR3) <3.5 p-ANCA <1:20 Atypical p-ANCA <1:20 Myeloperoxidase Ab <9.0 Double Strand DNA Ab <1 Glomerular Base Memb Ab 3 Impression 1. CKD 2. PIO 3. a-fib 4. HTN 5. CHF 6. DM 7. non compliance Plan - cont with lasix - monitor volume status - he remains hypervolemic - will need close outpt follow up - discussed diet and fluid intake
[2018-10-08] MEDS: WARFARIN NA 7.5 MG TABLET (FP) PO SCH (17:49)
[2018-10-08] MEDS: HEPARIN - 25,000 UNIT in SODIUM CHLORIDE 495 ML IV SCH (18:43)
[2018-10-09] MEDS: hydrALAZINE HCL 10 MG TABLET PO SCH (06:08)
[2018-10-09] MEDS: METOPROLOL TARTRATE 50 MG TABLET (FP) PO SCH (06:08)
[2018-10-09] MEDS: INSULIN (LEVEMIR) 100 UNITS/ML UNITS SQ SCH (06:09)
[2018-10-09] MEDS: FUROSEMIDE 40 MG/4 ML INJECTABLE VIAL IVPUSH SCH (06:09)
[2018-10-09] MEDS: INSULIN SLIDING SCALE (NOVOLOG) 1 VIAL SQ SCH ×2 (06:09→11:27)
[2018-10-09 06:29] VITALS: BP 138/101; PULSE 104; TEMP 98.4
[2018-10-09 06:52] LABS: HEMATOCRIT 31.8 % (35.4-49); HEMOGLOBIN 10.4 GM/dL (11.7-16.9); MCH 26.6 pg (25.7-33.7); MCHC 32.7 g/dl (32.0-35.9); MEAN CELL VOLUME 81.4 fl (80-96); MEAN PLT VOLUME 8.4 fl (7.5-11.1); PLATELET COUNT 372 K/MM3 (134-434); RDW 16.4 % (11.9-15.9); WHITE BLOOD COUNT 7.9 K/mm3 (4.0-10.0)
[2018-10-09 07:14] LABS: INR 2.36 (0.83-1.09); PROTHROMBIN TIME (PATIENT) 28.1 SEC (9.7-13.0)
[2018-10-09 08:12] LABS: BLOOD UREA NITROGEN 97.3 mg/dL (7-18); CREATININE 4.5 mg/dL (0.55-1.3); POTASSIUM 3.9 mmol/L (3.5-5.1)
[2018-10-09] MEDS ORDERED: PT OWN MED DRAWER 7, Y5N ONE (08:12)
[2018-10-09 08:57] LABS: CALCIUM 9.6 mg/dL (8.5-10.1)
[2018-10-09] MEDS: ISOSORBIDE DINITRATE 10 MG TABLET (FP) PO SCH (09:21)
[2018-10-09] MEDS: COLCHICINE 0.6 MG CAP PO SCH (09:21)
--- NOTE | 2018-10-09 10:25 | PN ---
Progress Note, Physician History of Present Illness: PULMONARY ALERT,COMFORTABLE AT REST ,WANTS TO GO HOME - Current Medication List Current Medications: Active Medications Colchicine (Colcrys) 0.6 mg PO DAILY [facility] Last Admin: 10/09/18 09:21 Dose: Not Given Furosemide (Lasix Injection -) 80 mg IVPUSH BID@0600,1400 [facility] Last Admin: 10/09/18 06:09 Dose: 80 mg Heparin Sodium (Porcine) (Heparin -) 1,000 unit IVPUSH PRN PRN PRN Reason: Heparin Last Admin: 10/05/18 17:15 Dose: 1,000 unit Heparin Sodium (Porcine) (Heparin -) 5,000 unit IVPUSH PRN PRN PRN Reason: Heparin Hydralazine HCl (Apresoline -) 10 mg PO TID [facility] Last Admin: 10/09/18 06:08 Dose: 10 mg Heparin Sodium (Porcine) 25, (000 unit/ Sodium Chloride) 500 mls @ 20 mls/hr IV TITR [facility]; Protocol Last Admin: 10/08/18 18:43 Dose: 1,100 unit/hr, 22 mls/hr Insulin Aspart (Novolog Vial Sliding Scale -) 1 vial SQ ACHS [facility]; Protocol Last Admin: 10/09/18 06:09 Dose: Not Given Insulin Detemir (Levemir Vial) 20 units SQ AM [facility] Last Admin: 10/09/18 06:09 Dose: Not Given Isosorbide Dinitrate (Isordil -) 10 mg PO TIDISORDIL [facility] Last Admin: 10/09/18 09:21 Dose: Not Given Metoprolol Tartrate (Lopressor Injection -) 5 mg IVPUSH Q4H PRN PRN Reason: TACHYCARDIA Last Admin: 09/29/18 15:58 Dose: 5 mg Metoprolol Tartrate (Lopressor -) 50 mg PO TID [facility] Last Admin: 10/09/18 06:08 Dose: 50 mg Warfarin Sodium (Coumadin -) 7.5 mg PO DAILY@1800 [facility] Last Admin: 10/08/18 17:49 Dose: 7.5 mg - Objective Vital Signs: Vital Signs Temperature 98.4 F 10/09/18 06:00 Pulse Rate 104 H 10/09/18 06:00 Respiratory Rate 18 10/09/18 06:00 Blood Pressure 138/101 H 10/09/18 06:00 O2 Sat by Pulse Oximetry (%) 100 10/08/18 22:00 Constitutional: Yes: Well Nourished, Calm Eyes: Yes: WNL HENT: Yes: WNL Neck: Yes: WNL Cardiovascular: Yes: Pulse Irregular, S1, S2 Respiratory: Yes: Diminished Gastrointestinal: Yes: Normal Bowel Sounds, Soft Extremities: Yes: WNL Edema: Yes Edema: LLE: 3+, RLE: 3+ Labs: CBC, BMP 10/09/18 05:10 10/09/18 05:10 INR, PTT INR 2.36 (0.83-1.09) H 10/09/18 05:10 Problem List - Problems (1) A-fib Code(s): I48.91 - UNSPECIFIED ATRIAL FIBRILLATION Qualifiers: Atrial fibrillation type: unspecified Qualified Code(s): I48.91 - Unspecified atrial fibrillation (2) Gout Code(s): M10.9 - GOUT, UNSPECIFIED (3) Acute on chronic renal failure Code(s): N17.9 - ACUTE KIDNEY FAILURE, UNSPECIFIED; N18.9 - CHRONIC KIDNEY DISEASE, UNSPECIFIED (4) Atrial fibrillation with RVR Code(s): I48.91 - UNSPECIFIED ATRIAL FIBRILLATION (5) Bilateral lower extremity edema Code(s): R60.0 - LOCALIZED EDEMA (6) CHF (congestive heart failure), NYHA class II Code(s): I50.9 - HEART FAILURE, UNSPECIFIED (7) Diabetes Code(s): E11.9 - TYPE 2 DIABETES MELLITUS WITHOUT COMPLICATIONS (8) Troponin I above reference range Code(s): R74.8 - ABNORMAL LEVELS OF OTHER SERUM ENZYMES Assessment/Plan MP DYSPNEA IMPROVING ACUTE ON CHRONIC CHF IMPROVING AFIB WITH RVR DIASTOLIC DYSFUNCTION HTN ACUTE ON CHRONIC KIDNEY INJURY ANEMIA ELEVATED TROPONIN LIKELY OSAS PLAN LASIX DAILY WT RATE CONTROL PER CARDIOLOGY MONITOR LYTES,RENAL FUNCTION F/U CHEST X-RAYS SLEEP STUDIES OUTPATIENT DR TAYLOR Problem List - Problems (1) A-fib Code(s): I48.91 - UNSPECIFIED ATRIAL FIBRILLATION Qualifiers: Atrial fibrillation type: unspecified Qualified Code(s): I48.91 - Unspecified atrial fibrillation (2) Gout Code(s): M10.9 - GOUT, UNSPECIFIED (3) Acute on chronic renal failure Code(s): N17.9 - ACUTE KIDNEY FAILURE, UNSPECIFIED; N18.9 - CHRONIC KIDNEY DISEASE, UNSPECIFIED (4) Atrial fibrillation with RVR Code(s): I48.91 - UNSPECIFIED ATRIAL FIBRILLATION (5) Bilateral lower extremity edema Code(s): R60.0 - LOCALIZED EDEMA (6) CHF (congestive heart failure), NYHA class II Code(s): I50.9 - HEART FAILURE, UNSPECIFIED (7) Diabetes Code(s): E11.9 - TYPE 2 DIABETES MELLITUS WITHOUT COMPLICATIONS (8) Troponin I above reference range Code(s): R74.8 - ABNORMAL LEVELS OF OTHER SERUM ENZYMES
--- NOTE | 2018-10-09 11:24 | DS ---
Physical Examination Vital Signs: Vital Signs Temperature 98.4 F 10/09/18 06:00 Pulse Rate 104 H 10/09/18 06:00 Respiratory Rate 18 10/09/18 06:00 Blood Pressure 138/101 H 10/09/18 06:00 O2 Sat by Pulse Oximetry (%) 100 10/08/18 22:00 Findings/Remarks: Patient is a 62 y/o male with past medical history of DM, HTN, and gout. Patient was sent to [facility] ER yesterday from PCP office with abnormal EKG showing AFIB with RVR noted with HR in 150s. Patient was previously admitted one week ago for same chief complaint but left AMA. On exam patient denies feeling any palpitations or chest pain. States having intermittent episodes of SOB. During his stay patient was started on Heparin drip and eventually on coumadin until his INR was >2.0. Therapeutic goal for INR-2.0-3.0. His afib and BP was controlled by metoprolol, hydralazine and isosorbide. He was also started on Furosemide 80 mg po BID Pt refuses to take insulin- was seen by Endocrinology for Diabetes Mellitus type 2 Labs: CBC, BMP 10/09/18 05:10 10/09/18 05:10 Discharge Summary Reason For Visit: ACUTE RENAL FAILURE AFIB Current Active Problems A-fib (Acute) Acute renal failure (Acute) Gout (Acute) Noncompliance of patient with dietary regimen (Acute) Condition: Stable - Instructions Diet, Activity, Other Instructions: Take warfarin 5 mg Tue & Thurs, 7.5 mg on [id number] Follow up with cardiology Dr Ying by calling at [phone] within 1 week for INR check at [facility] on 1st Floor Follow up with Nephrology Dr Deras within 2 weeks Referrals: Nate Ying MD [Staff Physician] - Levar Deras MD [Staff Physician] - Disposition: HOME - Home Medications Comprehensive Discharge Medication List: Ambulatory Orders Colchicine [Colcrys] 0.6 mg PO DAILY #30 cap 10/09/18 Furosemide 80 mg PO BID #60 tablet 10/09/18 Insulin Detemir [Levemir Flextouch] 20 unit SQ AM #1 insuln.pen 10/09/18 Isosorbide Dinitrate [Isordil] 10 mg PO TID #90 tablet 10/09/18 Metoprolol Tartrate [Lopressor -] 50 mg PO TID #90 tablet 10/09/18 Pen Needle, Diabetic [Pen Needle] 1 each MC AM #30 dis.needle 10/09/18 Warfarin Na [Coumadin -] 5 mg PO ASDIR #30 tablet 10/09/18 Warfarin Na [Coumadin -] 7.5 mg PO ASDIR #30 tablet 10/09/18 hydrALAZINE HCL [Apresoline -] 10 mg PO TID #90 tablet 10/09/18
--- NOTE | 2018-10-09 11:50 | PN ---
Progress Note, Physician History of Present Illness: Pt seen and examined at bedside. He is awake and alert. He denies shortness of breath. He is asking to go home. - Current Medication List Current Medications: Active Medications Colchicine (Colcrys) 0.6 mg PO DAILY [facility] Last Admin: 10/09/18 09:21 Dose: Not Given Furosemide (Lasix Injection -) 80 mg IVPUSH BID@0600,1400 [facility] Last Admin: 10/09/18 06:09 Dose: 80 mg Hydralazine HCl (Apresoline -) 10 mg PO TID [facility] Last Admin: 10/09/18 06:08 Dose: 10 mg Insulin Aspart (Novolog Vial Sliding Scale -) 1 vial SQ ACHS [facility]; Protocol Last Admin: 10/09/18 11:27 Dose: Not Given Insulin Detemir (Levemir Vial) 20 units SQ AM [facility] Last Admin: 10/09/18 06:09 Dose: Not Given Isosorbide Dinitrate (Isordil -) 10 mg PO TIDISORDIL [facility] Last Admin: 10/09/18 09:21 Dose: Not Given Metoprolol Tartrate (Lopressor Injection -) 5 mg IVPUSH Q4H PRN PRN Reason: TACHYCARDIA Last Admin: 09/29/18 15:58 Dose: 5 mg Metoprolol Tartrate (Lopressor -) 50 mg PO TID [facility] Last Admin: 10/09/18 06:08 Dose: 50 mg Warfarin Sodium (Coumadin -) 7.5 mg PO DAILY@1800 [facility] Last Admin: 10/08/18 17:49 Dose: 7.5 mg - Objective Vital Signs: Vital Signs Temperature 98.4 F 10/09/18 06:00 Pulse Rate 104 H 10/09/18 06:00 Respiratory Rate 18 10/09/18 06:00 Blood Pressure 138/101 H 10/09/18 06:00 O2 Sat by Pulse Oximetry (%) 100 10/08/18 22:00 Constitutional: Yes: Calm Eyes: Yes: Conjunctiva Clear HENT: Yes: Atraumatic Neck: Yes: Supple Cardiovascular: Yes: S1, S2 Respiratory: Yes: CTA Bilaterally Gastrointestinal: Yes: Soft Genitourinary: Yes: WNL Musculoskeletal: Yes: WNL Edema: Yes Edema: LLE: 2+, RLE: 2+ Neurological: Yes: Oriented Psychiatric: Yes: Oriented Labs: CBC, BMP 10/09/18 05:10 10/09/18 05:10 INR, PTT INR 2.36 (0.83-1.09) H 10/09/18 05:10 Problem List - Problems (1) A-fib Code(s): I48.91 - UNSPECIFIED ATRIAL FIBRILLATION Qualifiers: Atrial fibrillation type: unspecified Qualified Code(s): I48.91 - Unspecified atrial fibrillation (2) CHF (congestive heart failure), NYHA class II Code(s): I50.9 - HEART FAILURE, UNSPECIFIED (3) CKD (chronic kidney disease) Code(s): N18.9 - CHRONIC KIDNEY DISEASE, UNSPECIFIED Qualifiers: Chronic kidney disease stage: unspecified stage Qualified Code(s): N18.9 - Chronic kidney disease, unspecified Assessment/Plan Current Medications Generic Name Dose Route Start Last Admin Trade Name Freq PRN Reason Stop Dose Admin Colchicine 0.6 mg 10/01/18 10:00 10/09/18 09:21 Colcrys PO Not Given DAILY [facility] Furosemide 80 mg 10/02/18 12:40 10/09/18 06:09 Lasix Injection - IVPUSH 80 mg BID@0600,1400 [facility] Administration Hydralazine HCl 10 mg 10/06/18 14:00 10/09/18 06:08 Apresoline - PO 10 mg TID [facility] Administration Insulin Aspart 1 vial 09/28/18 22:00 10/09/18 11:27 Novolog Vial Sliding Scale - SQ Not Given ACHS [facility] Protocol Insulin Detemir 20 units 10/02/18 07:00 10/09/18 06:09 Levemir Vial SQ Not Given AM [facility] Isosorbide Dinitrate 10 mg 10/05/18 14:45 10/09/18 09:21 Isordil - PO Not Given TIDISORDIL [facility] Metoprolol Tartrate 5 mg 09/28/18 16:30 09/29/18 15:58 Lopressor Injection - IVPUSH 5 mg Q4H PRN Administration TACHYCARDIA Metoprolol Tartrate 50 mg 09/29/18 22:00 10/09/18 06:08 Lopressor - PO 50 mg TID [facility] Administration Warfarin Sodium 7.5 mg 10/06/18 18:00 10/08/18 17:49 Coumadin - PO 7.5 mg DAILY@1800 [facility] Administration Impression 1. CKD 2. PIO 3. a-fib 4. HTN 5. CHF 6. DM 7. non compliance Plan - cont lasix, will need it at home - discussed fluid and salt intake - renal diet - will need close outpt follow up - can see in office next week
== END 2018-10-09 13:21 | disposition home or self-care (01) | DRG 308 ==
LOC: JER 11:02 → JERBED 16:34 → J4W 23:01
PROVIDERS: ADMIT Family Medicine; ATTEND Family Medicine
DX: I48.0 Paroxysmal atrial fibrillation (principal); I50.23 Acute on chronic systolic (congestive) heart failure; I13.0 Hypertensive heart and chronic kidney disease with heart failure and stage 1 through stage 4 chronic kidney disease, or unspecified chronic kidney disease; N17.9 Acute kidney failure, unspecified; N18.4 Chronic kidney disease, stage 4 (severe); I24.8 Other forms of acute ischemic heart disease; E11.9 Type 2 diabetes mellitus without complications; M10.9 Gout, unspecified; R00.0 Tachycardia, unspecified; R60.0 Localized edema; E78.5 Hyperlipidemia, unspecified; E87.6 Hypokalemia; E11.22 Type 2 diabetes mellitus with diabetic chronic kidney disease; Z91.19 Patient's noncompliance with other medical treatment and regimen; G47.33 Obstructive sleep apnea (adult) (pediatric); D64.9 Anemia, unspecified; E66.9 Obesity, unspecified; Z68.35 Body mass index [BMI] 35.0-35.9, adult; R74.8 Abnormal levels of other serum enzymes
CPT/HCPCS: 36415; 70450-TC; 71045-TC-FY; 76775-TC; 76856-TC; 80048; 80053; 80061; 81003; 82310; 82550; 82553; 82565; 82570; 82962; 83036; 83516; 83520; 83721; 83735; 83880; 83970; 84100; 84155; 84156; 84165; 84300; 84436; 84443; 84484; 84550; 85025; 85027; 85610; 85730; 86038; 86225; 86256; 86704; 86706; 86707; 86708; 86709; 87086; 87340; 87522; 90732; 93005; 93010; 93306-TC; 97116-GP; 97161-GP; 99285-25; G0009; J1644

== ENCOUNTER 2018-11-15 12:38 | Inpatient (IN) | payer BC ==
--- NOTE | 2018-11-15 13:07 | PDOC ---
History of Present Illness - General Chief Complaint: Pain Stated Complaint: Pain Time Seen by Provider: 11/15/18 13:02 History Source: Patient - History of Present Illness Initial Comments: 11/15/18 14:19 Mr. Dorsey is a 62 y/o man with hx afib, CKD, CHFII, DM (refusing insulin), gout presenting with 3-4 weeks of lower extremity swelling and difficulty walking starting today. He was recently admitted to the hospital for afib with RVR and reports that the swelling began shortly after his discharge. He reports that he has not been taking his furosemide as he felt it was not working - he last took it approx 1.5 weeks ago. He reports that he has taken his other medications including his metoprolol. He reports that this morning, he noted difficulty standing up from sitting position. He describes feeling limited by both pain and weakness, and reports concern that he may fall. He reports that the weakness began last night, and feels as though he cannot move the leg. He denies any fevers, chills, palpitations, fatigue, confusion, vertigo, dizziness. He reports mild pain in his LLE with fluid leakage from the leg. Past History - Past Medical History Allergies/Adverse Reactions: Allergies Allergy/AdvReac Type Severity Reaction Status Date / Time No Known Allergies Allergy Verified 11/15/18 12:42 Home Medications: Ambulatory Orders Colchicine [Colcrys] 0.6 mg PO DAILY #30 cap 10/09/18 Furosemide 80 mg PO BID #60 tablet 10/09/18 Insulin Detemir [Levemir Flextouch] 20 unit SQ AM #1 insuln.pen 10/09/18 Isosorbide Dinitrate [Isordil] 10 mg PO TID #90 tablet 10/09/18 Metoprolol Tartrate [Lopressor -] 50 mg PO TID #90 tablet 10/09/18 Pen Needle, Diabetic [Pen Needle] 1 each MC AM #30 dis.needle 10/09/18 Warfarin Na [Coumadin -] 5 mg PO ASDIR #30 tablet 10/09/18 Warfarin Na [Coumadin -] 7.5 mg PO ASDIR #30 tablet 10/09/18 hydrALAZINE HCL [Apresoline -] 10 mg PO TID #90 tablet 10/09/18 Anemia: No Asthma: No Cancer: No Cardiac Disorders: Yes (SOB) CVA: No COPD: No CHF: Yes Dementia: No Diabetes: Yes GI Disorders: No Disorders: No HTN: Yes Hypercholesterolemia: No Liver Disease: No Seizures: No Thyroid Disease: No - Surgical History Abdominal Surgery: No Appendectomy: No Cardiac Surgery: No Cholecystectomy: No Lung Surgery: No Neurologic Surgery: No Orthopedic Surgery: No - Suicide/Smoking/Psychosocial Hx Smoking History: Unknown if ever smoked Have you smoked in the past 12 months: No Information on smoking cessation initiated: No Hx Alcohol Use: No Drug/Substance Use Hx: No Review of Systems - Review of Systems Able to Perform ROS?: Yes Comments:: 11/15/18 15:35 ROS: GENERAL/CONSTITUTIONAL: No fever or chills. LLE weakness. HEAD, EYES, EARS, NOSE AND THROAT: No change in vision. No ear pain or discharge. No sore throat. CARDIOVASCULAR: No chest pain or shortness of breath RESPIRATORY: No cough, wheezing, or hemoptysis. GASTROINTESTINAL: No nausea, vomiting, diarrhea or constipation. GENITOURINARY: No dysuria, frequency, or change in urination. MUSCULOSKELETAL: L knee pain, weakness. SKIN: No rash NEUROLOGIC: No headache, vertigo, loss of consciousness, or change in strength/ sensation. ENDOCRINE: No increased thirst. No abnormal weight change HEMATOLOGIC/LYMPHATIC: No anemia, easy bleeding, or history of blood clots. ALLERGIC/IMMUNOLOGIC: No hives or skin allergy. *Physical Exam - Vital Signs Last Vital Signs Temp Pulse Resp BP Pulse Ox 98.1 F 130 H 16 135/85 100 11/15/18 12:40 11/15/18 12:40 11/15/18 12:40 11/15/18 12:40 11/15/18 12:40 - Physical Exam Comments: 11/15/18 15:36 PE: GENERAL: Awake, alert, and fully oriented, in no acute distress HEAD: No signs of trauma, normocephalic, atraumatic EYES: PERRLA, EOMI, scleral icteris bilaterally ENT: Auricles normal inspection, hearing grossly normal, nares patent, oropharynx clear without exudates. Moist mucosa NECK: Normal ROM, supple, no lymphadenopathy, JVD, or masses LUNGS: No distress, speaks full sentences, clear to auscultation bilaterally HEART: Afib, tachycardic, normal S1 and S2, no murmurs, rubs or gallops, peripheral pulses normal and equal bilaterally. ABDOMEN: Soft, nontender, normoactive bowel sounds. No guarding, no rebound. No masses EXTREMITIES : 3+ pitting edema bilaterally, LLE weakness. No clubbing or cyanosis. NEUROLOGICAL: Cranial nerves II through XII grossly intact. Normal speech. Normal sensation of LE bilaterally. 1/5 strength LLE. SKIN: Warm, Dry, normal turgor, no rashes or lesions noted ED Treatment Course - LABORATORY CBC & Chemistry Diagram: 11/15/18 13:57 11/15/18 13:57 Medical Decision Making - Medical Decision Making 11/15/18 14:39 62 y/o M with hx afib with RVR, DM, CHF p/w three weeks LE edema and one day of acute onset leg weakness, most likely representing volume overload secondary to CHF after self-discontinuing Lasix, but also concerning for possible lacunar stroke. Plan: CBC CMP EKG CXR Troponin BNP Head CT non-contrast Dispo: Likely telemetry admission --- Seen by ultrasound team - bedside US notable for R sided dilation w/heart failure, reduced left EF, trace cardiac effusion. Flat IVC notable - intravascularly volume depleted. No fluid identified in the lungs. --- IV placed at EJ by ultrasound team. --- Patient in CT. Cr - 5.1 (4.6 prior) BNP - >35,000 Troponin I - 0.11 (likely stress demand) --- 11/15/18 15:32 CT negative for acute hemorrhage on my review, awaiting official read. Patient admitted to telemetry. *DC/Admit/Observation/Transfer Diagnosis at time of Disposition: Bilateral lower extremity edema, Atrial fibrillation with RVR CHF (congestive heart failure), NYHA class II Qualifiers: Congestive heart failure type: unspecified Qualified Code(s): I50.9 - Heart failure, unspecified - Referrals - Patient Instructions - Post Discharge Activity
[2018-11-15] MEDS ORDERED: METOPROLOL TARTRATE 5 MG/5 ML VIAL IVPUSH ONE ×3 (13:08→15:27)
[2018-11-15] MEDS ORDERED: METOPROLOL TARTRATE 5 MG/5 ML VIAL ONE ×3 (13:47→16:06)
[2018-11-15 14:10] LABS: BASO % 0.7 % (0-2.0); EOS % 0.5 % (0-4.5); HEMATOCRIT 31.1 % (35.4-49); HEMOGLOBIN 9.9 GM/dL (11.7-16.9); LYMPH % 15.2 % (8-40); MCH 24.4 pg (25.7-33.7); MCHC 31.8 g/dl (32.0-35.9); MEAN CELL VOLUME 76.6 fl (80-96); MEAN PLT VOLUME 7.1 fl (7.5-11.1); MONO % 12.2 % (3.8-10.2); NEUT % 71.4 % (42.8-82.8); PLATELET COUNT 406 K/MM3 (134-434); RBC 4.06 M/mm3 (4.00-5.60); RDW 17.3 % (11.9-15.9); WHITE BLOOD COUNT 9.6 K/mm3 (4.0-10.0)
[2018-11-15] MEDS ORDERED: FUROSEMIDE 40 MG/4 ML INJECTABLE VIAL IVPUSH ONE (14:18)
--- NOTE | 2018-11-15 14:19 | PDOC ---
NIH Stroke Scale - Last Known Well Date/Time & Onset Date Last Known Well: 11/12/18 Time Last Known Well: 14:00 - Initial Evaluation Level of consciousness: Alert Ask patient the month and their age: Answers both correctly Ask patient to open & close eyes; make fist and let go: Obeys both correctly Best gaze (horizontal eye movement): Normal Visual field testing: No visual field loss Facial paresis (Show teeth/raise eyebrows/close eyes tight): Normal symmetrical movement Motor Function: Left Arm: Normal Motor Function: Right Arm: Normal (extends arm 90 (or 45) degrees for 10 seconds without drift Motor Function: Left Leg: No effort against gravity Motor Function: Right Leg: Normal (extends leg 30 degrees for 5 seconds without drift) Limb Ataxia: No ataxia Sensory(Use pinprick test arms,legs,trunk,face/side to side): Normal Best language (Describe picture, name items, read sentences): No Aphasia Dysarthria (read several words): Normal articulation Extinction and Inattention: No abnormality - Total Score NIH Stroke Scale Score: 3
--- NOTE | 2018-11-15 14:44 | PDOC ---
Documentation entered by Gini Preciado SCRIBE, acting as scribe for Steve Becker MD. Steve Becker MD: This documentation has been prepared by the Ilana jain Adrianna, SCRIBE, under my direction and personally reviewed by me in its entirety. I confirm that the documentation accurately reflects all work, treatment, procedures, and medical decision making performed by me. Attending Attestation - Resident Resident Name: Omid De Dios - ED Attending Attestation I have performed the following: I have examined & evaluated the patient, The case was reviewed & discussed with the resident, I agree w/resident's findings & plan - HPI HPI: 11/15/18 14:36 62y/o M diabetes, afib recent admission for rvr in setting of med noncompliance , discharged on meds but remains noncompliant (refuses insulin, stopped oral lasix because he felt it was ineffective, missed last two days of metoprolol) comes in now 2/2 b/l leg swelling and new LLE weakness. Pt reports onset 3d ago of mild LLE weakness, noting difficulty ambulating with his cane (baseline 2/2 L knee pain) that has since progressed to more severe LLE weakness since last night. denies cp/palp/sob/shepherd, no cough/f/c. - Physicial Exam PE: 11/15/18 14:40 Vitals as noted, tachycardia, blood pressure stable Alert lying in stretcher speaking full sentences Heart is irregular tachycardia, lungs with bibasilar crackles, abdomen benign 2-3+ pitting edema bilaterally, left knee joint effusion with tenderness to palpation Left lower extremity to out of 5 strength, 5 out of 5 otherwise. No facial droop , speech clear. - Critical Care Time Total Critical Care Time: 40 Critical Care Statement: The care of this patient involved high complexity decision making to prevent further life threatening deterioration of the patient 's condition and/or to evaluate & treat vital organ system(s) failure or risk of failure. - Medical Decision Making 11/15/18 14:41 62-year-old male with history of diabetes and atrial fibrillation and known medication noncompliance presents for evaluation of new and progressive left leg weakness over the last 3 days, concerning for lacunar CVA particularly in the setting of known A. fib and medication noncompliance. Patient is also in A. fib with RVR likely secondary to medication noncompliance, and also has peripheral volume overload also likely in the setting of noncompliance with diuretics. Stroke protocol initiated Rate control with metoprolol labs, ekg, cxr will need readmission Heart Score/ECG Review #1 ECG reviewed & interpreted by me at: 12:56 General ECG Interpretation: Normal Intervals (afib with rvr at 148. qtc 492), No acute ischemic changes (nonspecific t wave flattening)
[2018-11-15 14:47] LABS: ALBUMIN 2.7 g/dl (3.4-5.0); BLOOD UREA NITROGEN 64.7 mg/dL (7-18); CALCIUM 9.4 mg/dL (8.5-10.1); CREATININE 5.1 mg/dL (0.55-1.3); POTASSIUM 3.4 mmol/L (3.5-5.1); TOT PROT 6.7 g/dl (6.4-8.2)
[2018-11-15 14:57] LABS: N-TERMINAL BNP > 35000.0 pg/ml (5-125)
[2018-11-15] MEDS ORDERED: FUROSEMIDE 40 MG/4 ML INJECTABLE VIAL ONE (15:20)
--- NOTE | 2018-11-15 15:28 | EKG ---
Test Reason : Blood Pressure : / mmHG Vent. Rate : 148 BPM Atrial Rate : 159 BPM P-R Int : 000 ms QRS Dur : 090 ms QT Int : 314 ms P-R-T Axes : 000 113 -44 degrees QTc Int : 492 ms ATRIAL FIBRILLATION WITH RAPID VENTRICULAR RESPONSE LEFT POSTERIOR FASCICULAR BLOCK NONSPECIFIC T WAVE ABNORMALITY ABNORMAL ECG WHEN COMPARED WITH ECG OF 28-SEP-2018 17:17, NONSPECIFIC T WAVE ABNORMALITY NO LONGER EVIDENT IN ANTERIOR LEADS Confirmed by ANNEMARIE OLIVAS MD ([id number]) on 11/15/2018 3:28:22 PM Referred By: Confirmed By:ANNEMARIE OLIVAS MD
[2018-11-15] MEDS ORDERED: METOPROLOL TARTRATE 50 MG TABLET (FP) PO ONE (15:30)
[2018-11-15] MEDS ORDERED: METOPROLOL TARTRATE 50 MG TABLET (FP) ONE (16:06)
--- NOTE | 2018-11-15 16:15 | HP ---
Admitting History and Physical - Admission Chief Complaint: came in for leg heaviness History of Present Illness: 62 yr old male with h/o DM, afib , CKD came in with leg heaviness per patient his leg has been feeling very sluggish and heavy for a few weeks, and he has not taken coumadin since his hospital discharge a few weeks back and has not visited his PMD since,he has not been taking insulin says he has no glucometer he says his leg gotten heavy he has been dragging his leg for a few weeks and last few days got worse and today it just was not moving he had to lift up his leg in ER he got IV lopressor and iv lasix History Source: Patient - Past Medical History Cardiovascular: Yes: HTN Renal/: Yes: Renal Inusuff Rheumatology: Yes: Gout Endocrine: Yes: Diabetes Mellitus - Smoking History Smoking history: Unknown if ever smoked Have you smoked in the past 12 months: No - Alcohol/Substance Use Hx Alcohol Use: No - Social History ADL: Independent History of Recent Travel: No Home Medications - Allergies Allergies/Adverse Reactions: Allergies Allergy/AdvReac Type Severity Reaction Status Date / Time No Known Allergies Allergy Verified 11/15/18 12:42 - Home Medications Home Medications: Ambulatory Orders Colchicine [Colcrys] 0.6 mg PO DAILY #30 cap 10/09/18 Furosemide 80 mg PO BID #60 tablet 10/09/18 Insulin Detemir [Levemir Flextouch] 20 unit SQ AM #1 insuln.pen 10/09/18 Isosorbide Dinitrate [Isordil] 10 mg PO TID #90 tablet 10/09/18 Metoprolol Tartrate [Lopressor -] 50 mg PO TID #90 tablet 10/09/18 Pen Needle, Diabetic [Pen Needle] 1 each MC AM #30 dis.needle 10/09/18 Warfarin Na [Coumadin -] 5 mg PO ASDIR #30 tablet 10/09/18 Warfarin Na [Coumadin -] 7.5 mg PO ASDIR #30 tablet 10/09/18 hydrALAZINE HCL [Apresoline -] 10 mg PO TID #90 tablet 10/09/18 Review of Systems - Review of Systems Musculoskeletal: reports: Extremity Pain (left leg left leg heavy) Physical Examination Vital Signs: Vital Signs Temperature 98.1 F 11/15/18 12:40 Pulse Rate 126 H 11/15/18 15:26 Respiratory Rate 25 H 11/15/18 15:26 Blood Pressure 113/89 11/15/18 15:26 O2 Sat by Pulse Oximetry (%) 100 11/15/18 15:26 Constitutional: Yes: Calm Cardiovascular: Yes: Regular Rate and Rhythm, S1, S2 Respiratory: Yes: Diminished Gastrointestinal: Yes: Normal Bowel Sounds, Soft Edema: Yes Neurological: Yes: Alert, Oriented Labs: CBC, BMP 11/15/18 13:57 11/15/18 13:57 Imaging - Results Chest X-ray: Pending Cat Scan: Report Reviewed Problem List - Problems (1) Atrial fibrillation with RVR Code(s): I48.91 - UNSPECIFIED ATRIAL FIBRILLATION (2) Bilateral lower extremity edema Assessment/Plan: doppler of legs iv lasix Code(s): R60.0 - LOCALIZED EDEMA (3) A-fib Assessment/Plan: metoprolol tele cardiology coumadin inr check Code(s): I48.91 - UNSPECIFIED ATRIAL FIBRILLATION Qualifiers: Atrial fibrillation type: unspecified Qualified Code(s): I48.91 - Unspecified atrial fibrillation (4) CKD (chronic kidney disease) Assessment/Plan: renal consult iv lasix Code(s): N18.9 - CHRONIC KIDNEY DISEASE, UNSPECIFIED Qualifiers: Chronic kidney disease stage: unspecified stage Qualified Code(s): N18.9 - Chronic kidney disease, unspecified (5) Diabetes Assessment/Plan: insulin bgm sliding scale hgba1c Code(s): E11.9 - TYPE 2 DIABETES MELLITUS WITHOUT COMPLICATIONS (6) Left leg weakness Assessment/Plan: ct head negative PT eval lasix iv neurology eval Code(s): R29.898 - OTH SYMPTOMS AND SIGNS INVOLVING THE MUSCULOSKELETAL SYSTEM
[2018-11-15] MEDS ORDERED: HEPARIN INFUSION - 25,000 UNITS/500 ML INFUS.BAG IVPB ONE (16:34)
[2018-11-15 17:09] LABS: INR 1.35 (0.83-1.09)
[2018-11-15 17:11] LABS: ACTIVATED PTT 30.5 SECONDS (25.2-36.5)
[2018-11-15] MEDS: INSULIN SLIDING SCALE (NOVOLOG) 1 VIAL SQ SCH ×2 (17:24→21:28)
--- NOTE | 2018-11-15 17:26 | CON.CARD ---
Consult Consult Specialty:: Cardiology Reason for Consultation:: Rapid AFIB - History of Present Illness History of Present Illness: 62 yo M with DM, HTN, and chronic Afib with cardiomyopathy and a history of poor compliance presented to ER with new onset weakness of the Rt lower extremity for 1 day. He was admitted 1 moth ago with with renal dysfunction, volume overload, and rapid Afib. Echocardiogram at the time showed EF 35-30% with global LV dysfunction and normal LV size. RV was not visualized. No significant valvular pathology was noted. The patient was placed on beta viv and diuretics in addition to AC and discharged home. He did not take coumadin after discharge as he was confused about the different names of the medications he got from the pharmacy (warfarin). He last took metoprolol 2 days ago. Today, was unable to move his Rt leg. Denies dyspnea, orthopnea but has Lext swelling and abdominal distention. - History Source History Provided By: Patient, Medical Record Limitations to Obtaining History: No Limitations - Past Medical History Cardio/Vascular: Yes: AFIB, CHF, HTN Renal/: Yes: Renal Inusuff Rheumatology: Yes: Gout Endocrine: Yes: Diabetes Mellitus - Alcohol/Substance Use Hx Alcohol Use: No - Smoking History Smoking history: Unknown if ever smoked Have you smoked in the past 12 months: No - Social History ADL: Independent History of Recent Travel: No Home Medications - Allergies Allergies/Adverse Reactions: Allergies Allergy/AdvReac Type Severity Reaction Status Date / Time No Known Allergies Allergy Verified 11/15/18 12:42 - Home Medications Home Medications: Ambulatory Orders Colchicine [Colcrys] 0.6 mg PO DAILY #30 cap 10/09/18 Furosemide 80 mg PO BID #60 tablet 10/09/18 Insulin Detemir [Levemir Flextouch] 20 unit SQ AM #1 insuln.pen 10/09/18 Isosorbide Dinitrate [Isordil] 10 mg PO TID #90 tablet 10/09/18 Metoprolol Tartrate [Lopressor -] 50 mg PO TID #90 tablet 10/09/18 Pen Needle, Diabetic [Pen Needle] 1 each MC AM #30 dis.needle 10/09/18 Warfarin Na [Coumadin -] 5 mg PO ASDIR #30 tablet 10/09/18 Warfarin Na [Coumadin -] 7.5 mg PO ASDIR #30 tablet 10/09/18 hydrALAZINE HCL [Apresoline -] 10 mg PO TID #90 tablet 10/09/18 Review of Systems - Review of Systems Constitutional: reports: No Symptoms Eyes: reports: No Symptoms HENT: reports: No Symptoms Neck: reports: No Symptoms Cardiovascular: reports: Edema. denies: Chest Pain, Palpitations, Shortness of Breath Respiratory: reports: No Symptoms Gastrointestinal: reports: Bloating Vital Signs: Vital Signs Temperature 98.1 F 11/15/18 12:40 Pulse Rate 126 H 11/15/18 15:26 Respiratory Rate 25 H 11/15/18 15:26 Blood Pressure 118/86 11/15/18 16:11 O2 Sat by Pulse Oximetry (%) 100 11/15/18 15:26 Constitutional: Yes: Well Nourished, No Distress, Calm Eyes: Yes: Conjunctiva Clear, EOM Intact HENT: Yes: Atraumatic, Normocephalic Neck: Yes: Supple, Trachea Midline Respiratory: Yes: Regular, CTA Bilaterally Gastrointestinal: Yes: Normal Bowel Sounds, Soft, Abdomen, Obese. No: Hepatomegaly, Palpable Mass, Tenderness, Rebound Cardiovascular: Yes: Tachycardia, Pulse Irregular JVD: No PMI: Non-Displaced Heart Sounds: Yes: S1, S2 Murmur: No: Systolic Murmur, Diastolic Murmur Edema: Yes Edema: LLE: 2+, RLE: 2+ - Other Data Labs, Other Data: CBC, BMP 11/15/18 13:57 11/15/18 13:57 INR, PTT INR 1.35 (0.83-1.09) H 11/15/18 16:42 Troponin, BNP 11/15/18 13:57 Troponin I 0.11 H B-Natriuretic Peptide > 09553.0 H Troponin, BNP 11/15/18 13:57 Troponin I 0.11 H B-Natriuretic Peptide > 40981.0 H Afib RVR nl axis and interval. Imaging - Results Chest X-ray: Report Reviewed Problem List - Problems (1) Atrial fibrillation with RVR Code(s): I48.91 - UNSPECIFIED ATRIAL FIBRILLATION (2) CHF (congestive heart failure), NYHA class II Code(s): I50.9 - HEART FAILURE, UNSPECIFIED Qualifiers: Congestive heart failure type: unspecified Qualified Code(s): I50.9 - Heart failure, unspecified (3) Left leg weakness Code(s): R29.898 - [facility] SYMPTOMS AND SIGNS INVOLVING THE MUSCULOSKELETAL SYSTEM Assessment/Plan 62 M chronic Afib, CKD, HTN. History of poor compliance. 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 Now with leg paresis and rapid afib in the setting of medication non- compliance. 1. Neurologic evaluation in progress to exclude embolic stroke. 2. Admit to telemetry. 3. Metoprolol succinate 100mg QD 4. Has chronic Lext swelling predominantly Rt sided volume overload without significant pulmonary edema. Continue with oral diuretics. Renal consult. 5. IV heparin if no contraindications.
[2018-11-15] MEDS: HEPARIN INFUSION - 25,000 UNITS/500 ML INFUS.BAG IV SCH (17:45)
[2018-11-16] MEDS: HEPARIN INFUSION - 25,000 UNITS/500 ML INFUS.BAG IV SCH ×4 (02:07→17:17)
[2018-11-16 05:11] LABS: EPI CELLS 1.8 /HPF (0-5/HPF); HYALINE CASTS 5 /lpf (0-8); URINE APPEARANCE Error; URINE BACTERIA 10.5 /hpf (NEGATIVE); URINE BILIRUBIN NEGATIVE (NEGATIVE); URINE COLOR YELLOW; URINE GLUCOSE (UA) NEGATIVE (NEGATIVE); URINE KETONE NEGATIVE (NEGATIVE); URINE LEUK ESTERASE NEGATIVE (NEGATIVE); URINE NITRITE NEGATIVE (NEGATIVE); URINE PROTEIN 1+ (NEGATIVE); URINE RBC 5 /hpf (0-4); URINE WBC 1 /hpf (0-5)
[2018-11-16] MEDS: INSULIN SLIDING SCALE (NOVOLOG) 1 VIAL SQ SCH ×4 (06:43→21:18)
[2018-11-16] MEDS: INSULIN (LEVEMIR) 100 UNITS/ML UNITS SQ SCH (06:46)
[2018-11-16 08:04] LABS: BASO % 1.2 % (0-2.0); EOS % 0.7 % (0-4.5); HEMOGLOBIN 10.3 GM/dL (11.7-16.9); LYMPH % 18.9 % (8-40); MCH 24.2 pg (25.7-33.7); MCHC 31.3 g/dl (32.0-35.9); MEAN CELL VOLUME 77.5 fl (80-96); MEAN PLT VOLUME 7.7 fl (7.5-11.1); MONO % 12.7 % (3.8-10.2); NEUT % 66.5 % (42.8-82.8); PLATELET COUNT 449 K/MM3 (134-434); RBC 4.26 M/mm3 (4.00-5.60); RDW 17.1 % (11.9-15.9); WHITE BLOOD COUNT 9.3 K/mm3 (4.0-10.0)
[2018-11-16 08:54] LABS: ALBUMIN 2.7 g/dl (3.4-5.0); BILIRUBIN,TOTAL 1.3 mg/dL (0.2-1); BLOOD UREA NITROGEN 68.5 mg/dL (7-18); CALCIUM 9.4 mg/dL (8.5-10.1); CREATININE 5.3 mg/dL (0.55-1.3); MAGNESIUM 2.4 mg/dL (1.8-2.4); N-TERMINAL BNP 67921.8 pg/ml (5-125); PHOSPHOROUS 6.6 mg/dL (2.5-4.9); POTASSIUM 4.4 mmol/L (3.5-5.1); TOT PROT 6.9 g/dl (6.4-8.2)
[2018-11-16 09:16] LABS: INR 1.49 (0.83-1.09); PROTHROMBIN TIME (PATIENT) 17.7 SEC (9.7-13.0)
[2018-11-16 09:19] LABS: ACTIVATED PTT 32.1 SECONDS (25.2-36.5)
[2018-11-16] MEDS: FUROSEMIDE 40 MG/4 ML INJECTABLE VIAL IVPUSH SCH (09:55)
[2018-11-16] MEDS: HEPARIN NA (PORCINE) 5,000 UNITS/ML 1ML VIAL IVPUSH PRN (09:59)
--- NOTE | 2018-11-16 10:49 | ECHO ---
Name: PATRICE GORDON Exam:Adult Echocardiogram Study Date: 11/16/2018 09:44 AM Age: 62 yrs Reason For Study: LVEF Height: 69 in Weight: 245 lb BSA: 2.3 m2 MMode/2D Measurements & Calculations IVSd: 1.1 cm Ao root diam: 2.7 cm LVIDd: 4.9 cm LVIDs: 4.2 cm LVPWd: 1.0 cm EDV(Teich): 114.2 ml LVOT diam: 2.1 cm ESV(Teich): 78.4 ml Doppler Measurements & Calculations MV E max kirill: 101.7 cm/sec Ao V2 max: 128.6 cm/sec MV A max kirill: 21.2 cm/sec Ao max P.6 mmHg MV E/A: 4.8 Ao V2 mean: 105.7 cm/sec MV dec time: 0.11 sec Ao mean P.7 mmHg Ao V2 VTI: 22.0 cm LEE(I,D): 1.7 cm2 LEE(V,D): 1.9 cm2 LV V1 max P.9 mmHg MR max kirill: 444.8 cm/sec LV V1 mean P.1 mmHg MR max P.2 mmHg LV V1 max: 69.6 cm/sec LV V1 mean: 48.5 cm/sec LV V1 VTI: 10.6 cm SV(LVOT): 37.5 ml TR max kirill: 264.7 cm/sec TR max P.2 mmHg PI end-d kirill: 98.8 cm/sec Med Peak E' Kirill: 6.4 cm/sec Med E/e': 15.9 Lat Peak E' Kirill: 8.9 cm/sec Lat E/e': 11.4 Left Ventricle The left ventricle is grossly normal size. Left ventricular systolic function is severely reduced. Ej ection Fraction = 20-25%. The transmitral spectral Doppler flow pattern is suggestive of pseudonormalization . There is severe global hypokinesis of the left ventricle. Right Ventricle The right ventricle is grossly normal size. The right ventricular systolic function is moderately red uced. Atria Normal left and right atrial size and function. Mitral Valve The mitral valve is normal in structure and function. There is no mitral valve stenosis. There is mil d to moderate mitral regurgitation. Tricuspid Valve The tricuspid valve is normal in structure and function. There is mild tricuspid regurgitation. Right ventricular systolic pressure is elevated at 30-40mmHg. Aortic Valve The aortic valve opens well. No hemodynamically significant valvular aortic stenosis. No aortic regur gitation is present. Pulmonic Valve The pulmonic valve is not well seen, but is grossly normal. There is no pulmonic valvular stenosis. M ild pulmonic valvular regurgitation. Great Vessels The aortic root is normal size. Pericardium/Pleura Possible trivial pericardial effusion, not hemodynamically significant. Interpretation Summary Left ventricular systolic function is severely reduced. Ejection Fraction = 20-25%. The transmitral spectral Doppler flow pattern is suggestive of pseudonormalization. There is severe global hypokinesis of the left ventricle. The right ventricular systolic function is moderately reduced. There is mild to moderate mitral regurgitation. There is mild tricuspid regurgitation. Right ventricular systolic pressure is elevated at 30-40mmHg. Possible trivial pericardial effusion, not hemodynamically significant. MD Camilo *Dangelo 11/16/2018 10:49 AM
--- NOTE | 2018-11-16 12:38 | PN ---
Progress Note, Physician Chief Complaint: seen and examined complaining of leg weakness - Current Medication List Current Medications: Active Medications Furosemide (Lasix Injection -) 80 mg IVPUSH DAILY [facility] Last Admin: 11/16/18 09:55 Dose: 80 mg Heparin Sodium (Porcine) (Heparin -) 1,000 unit IVPUSH PRN PRN PRN Reason: Heparin Heparin Sodium (Porcine) (Heparin -) 5,000 unit IVPUSH PRN PRN PRN Reason: Heparin Last Admin: 11/16/18 09:59 Dose: 5,000 unit Heparin Sodium/Dextrose (Heparin Infusion -) 25,000 units in 500 mls @ 20 mls/ hr IV TITR [facility]; Protocol Last Admin: 11/16/18 09:58 Dose: 850 units/hr, 17 mls/hr Insulin Aspart (Novolog Vial Sliding Scale -) 1 vial SQ ACHS [facility]; Protocol Last Admin: 11/16/18 11:49 Dose: Not Given Insulin Detemir (Levemir Vial) 20 units SQ AM [facility] Last Admin: 11/16/18 06:46 Dose: Not Given Metoprolol Succinate (Toprol Xl -) 50 mg PO BID [facility] Last Admin: 11/16/18 09:58 Dose: 50 mg - Objective Vital Signs: Vital Signs Temperature 97.1 F L 11/16/18 06:00 Pulse Rate 114 H 11/16/18 06:00 Respiratory Rate 20 11/16/18 06:00 Blood Pressure 151/80 11/16/18 06:00 O2 Sat by Pulse Oximetry (%) 99 11/15/18 20:30 Constitutional: Yes: Calm Cardiovascular: Yes: Pulse Irregular, S1, S2 Respiratory: Yes: CTA Bilaterally Gastrointestinal: Yes: Normal Bowel Sounds, Soft Edema: Yes Neurological: Yes: Alert, Oriented Labs: CBC, BMP 11/16/18 06:23 11/16/18 06:23 INR, PTT INR 1.49 (0.83-1.09) H 11/16/18 06:23 Problem List - Problems (1) Atrial fibrillation with RVR Assessment/Plan: iv heparin metoprolol telemetry Code(s): I48.91 - UNSPECIFIED ATRIAL FIBRILLATION (2) Bilateral lower extremity edema Assessment/Plan: doppler of legs no dvt iv lasix Code(s): R60.0 - LOCALIZED EDEMA (3) A-fib Assessment/Plan: metoprolol tele cardiology heprain drip inr check Code(s): I48.91 - UNSPECIFIED ATRIAL FIBRILLATION Qualifiers: Atrial fibrillation type: unspecified Qualified Code(s): I48.91 - Unspecified atrial fibrillation (4) CKD (chronic kidney disease) Assessment/Plan: renal consult iv lasix Code(s): N18.9 - CHRONIC KIDNEY DISEASE, UNSPECIFIED Qualifiers: Chronic kidney disease stage: unspecified stage Qualified Code(s): N18.9 - Chronic kidney disease, unspecified (5) Diabetes Assessment/Plan: insulin bgm sliding scale hgba1c Code(s): E11.9 - TYPE 2 DIABETES MELLITUS WITHOUT COMPLICATIONS (6) Left leg weakness Assessment/Plan: ct head negative alan order MRI and MRA w/o contrast neurology evaluation PT eval Code(s): R29.898 - OTH SYMPTOMS AND SIGNS INVOLVING THE MUSCULOSKELETAL SYSTEM
[2018-11-16] MEDS: BACITRACIN 15 GM TUBE TOPICAL OINTMENT TP SCH ×2 (12:45→21:18)
--- NOTE | 2018-11-16 14:01 | CONSULT ---
Consultation: CONSULT SERVICE: Nephrology Resident HISTORY OF PRESENT ILLNESS: 62yo M with h/o T2DM, Atrial fibrillation, CKD who initially presented to the hospital for acute R knee/leg immobility and pain after stopping his Warfarin abruptly. Pt was admitted to telemetry and started on Heparin gtt. We were asked to medically evaluate the patient due to his CKD and worsening Cr. Pt has a history of noncompliance and previously has stopped taking his Lasix dose. He reports when he does take Lasix at home he has noticed diminished returns on his urine volume. Currently pt denies any lightheadedness, fever/ chills, shortness of breath, chest pain, palpitations, abdominal pain, dysuria, hematuria. MHx: As above SHx: Denies SoHx: Tobacco - None Alcohol - denies Illicit drugs - Denies Lives at home with his (Sujey) and son FamHx: Father, brother 1 - HTN Brother 2 () had PPM Mother DM REVIEW OF SYSTEMS: As per HPI PHYSICAL EXAMINATION Vital Signs 11/15/18 11/15/18 11/15/18 14:17 14:30 15:26 Temperature Pulse Rate Pulse Rate [ 118 H 126 H Apical] Respiratory 24 H 25 H Rate Blood Pressure 110/76 Blood Pressure 102/86 113/89 [Right Arm] O2 Sat by Pulse 110 H 100 Oximetry (%) 11/15/18 11/15/18 11/15/18 16:11 18:08 20:30 Temperature 98.2 F Pulse Rate 116 H Pulse Rate [ 114 H Apical] Respiratory 24 H 20 Rate Blood Pressure 118/86 141/82 Blood Pressure 120/98 [Right Arm] O2 Sat by Pulse 99 99 Oximetry (%) 11/16/18 11/16/18 02:00 06:00 Temperature 97.3 F L 97.1 F L Pulse Rate 125 H 114 H Pulse Rate [ Apical] Respiratory 20 20 Rate Blood Pressure 128/85 151/80 Blood Pressure [Right Arm] O2 Sat by Pulse Oximetry (%) GENERAL: Awake, alert, and fully oriented, in no acute distress. HEENT: NC/AT, sclera anicteric, MMM NECK: No JVD, L EJ in place LUNGS: Diminished at the bases bilaterally. No wheezes, and no crackles. No accessory muscle use. HEART: Irregularly irregular rhythm with normal rate, normal S1 and S2 without murmur ABDOMEN: Soft, NT/ND, normoactive bowel sounds, no guarding MUSCULOSKELETAL: No CVA tenderness. RLE ROM limited 2/2 to immobility EXTREMITIES: B/l warm extremities to toes, b/l skin changes noted in lower extremities, nonpitting edema noted b/l. Hypersensitivity to touch most notable on R leg. PSYCHIATRIC: Cooperative. Good eye contact. Appropriate mood and affect. SKIN: Warm, dry, no rashes Laboratory Results 11/15/18 11/16/18 11/16/18 23:00 04:35 06:23 WBC 9.3 RBC 4.26 Hgb 10.3 L Hct 33.0 L MCV 77.5 L MCH 24.2 L MCHC 31.3 L RDW 17.1 H Plt Count 449 H MPV 7.7 Absolute Neuts (auto) 6.2 Neutrophils % 66.5 Lymphocytes % 18.9 D Monocytes % 12.7 H Eosinophils % 0.7 Basophils % 1.2 Nucleated RBC % 0 Manual Slide Review Cancelled PT with INR INR PTT (Actin FS) > 400.0 H Sodium Potassium Chloride Carbon Dioxide Anion Gap BUN Creatinine Est GFR (CKD-EPI)AfAm Est GFR (CKD-EPI)NonAf POC Glucometer Random Glucose Calcium Phosphorus Magnesium Total Bilirubin AST ALT Alkaline Phosphatase Creatine Kinase Creatine Kinase Index CK-MB (CK-2) Troponin I B-Natriuretic Peptide Total Protein Albumin Triglycerides Cholesterol Total LDL Cholesterol HDL Cholesterol Urine Color Yellow Urine Appearance Error Urine pH 5.0 D Ur Specific [place] 1.012 Urine Protein 1+ H Urine Glucose (UA) Negative Urine Ketones Negative Urine Blood Trace Urine Nitrite Negative Urine Bilirubin Negative Urine Urobilinogen 1.0 Ur Leukocyte Esterase Negative Urine WBC (Auto) 1 Urine RBC (Auto) 5 Urine Casts (Auto) 5 U Epithel Cells (Auto) 1.8 Urine Bacteria (Auto) 10.5 11/16/18 11/16/18 11/16/18 06:23 06:23 06:41 WBC RBC Hgb Hct MCV MCH MCHC RDW Plt Count MPV Absolute Neuts (auto) Neutrophils % Lymphocytes % Monocytes % Eosinophils % Basophils % Nucleated RBC % Manual Slide Review PT with INR 17.70 H INR 1.49 H PTT (Actin FS) 32.1 Sodium 139 Potassium 4.4 Chloride 100 Carbon Dioxide 27 Anion Gap 12 BUN 68.5 H Creatinine 5.3 H Est GFR (CKD-EPI)AfAm 12.48 Est GFR (CKD-EPI)NonAf 10.77 POC Glucometer 144 Random Glucose 147 H Calcium 9.4 Phosphorus 6.6 H Magnesium 2.4 Total Bilirubin 1.3 H AST 328 H ALT 221 H Alkaline Phosphatase 85 Creatine Kinase 264 Creatine Kinase Index 1.0 CK-MB (CK-2) 2.9 Troponin I 0.12 H B-Natriuretic Peptide 08184.8 H Total Protein 6.9 Albumin 2.7 L Triglycerides 91 Cholesterol 119 Total LDL Cholesterol 65 HDL Cholesterol 41 Urine Color Urine Appearance Urine pH Ur Specific [place] Urine Protein Urine Glucose (UA) Urine Ketones Urine Blood Urine Nitrite Urine Bilirubin Urine Urobilinogen Ur Leukocyte Esterase Urine WBC (Auto) Urine RBC (Auto) Urine Casts (Auto) U Epithel Cells (Auto) Urine Bacteria (Auto) Active Medications Generic Name Dose Route Start Last Admin Trade Name Freq PRN Reason Stop Dose Admin Bacitracin 1 applic 11/16/18 12:45 Bacitracin - TP BID [facility] Furosemide 80 mg 11/16/18 10:00 11/16/18 09:55 Lasix Injection - IVPUSH 80 mg DAILY [facility] Administration Heparin Sodium (Porcine) 1,000 unit 11/15/18 16:22 Heparin - IVPUSH PRN PRN Heparin Heparin Sodium (Porcine) 5,000 unit 11/15/18 16:22 11/16/18 09:59 Heparin - IVPUSH 5,000 unit PRN PRN Administration Heparin Heparin Sodium/Dextrose 25,000 units in 500 mls @ 20 mls/hr 11/15/18 16:30 09:58 Heparin Infusion - IV 850 units/hr TITR [facility] 17 mls/hr Administration Protocol 1,000 UNITS/HR Insulin Aspart 1 vial 11/15/18 16:30 11/16/18 11:49 Novolog Vial Sliding Scale - SQ Not Given ACHS [facility] Protocol Insulin Detemir 20 units 11/16/18 07:00 11/16/18 06:46 Levemir Vial SQ Not Given AM [facility] Metoprolol Succinate 50 mg 11/15/18 22:00 11/16/18 09:58 Toprol Xl - PO 50 mg BID [facility] Administration ASSESSMENT/PLAN: Acute on Chronic renal insufficiency Thromboemoblic event of RLE Atrial fibrillation T2DM --Discussed paramount need for patient to adhere to his medication and to not stop any abruptly without a physician instruction --Given increase in fluid of lower extremities will continue Lasix 80mg IVP qdaily --Monitor Cr and UO (baseline Cr ~4.4) --Daily weights --Avoid nephrotoxic agents --Discussed with patient and family if diuretic response lessens and becomes insignificant, dialysis may be needed in the future. --Rest per primary team FEN: F: Avoid E: None; monitor K+ given acute failure Thank you for this consultative opportunity. Case discussed with Dr. Braeden Hilliard, DO - IM PGY-3 Visit type - Emergency Visit Emergency Visit: Yes ED Registration Date: 11/15/18 Care time: The patient presented to the Emergency Department on the above date and was hospitalized for further evaluation of their emergent condition. - New Patient This patient is new to me today: Yes Date on this admission: 11/16/18 - Critical Care Critical Care patient: No ATTENDING PHYSICIAN STATEMENT I saw and evaluated the patient. I reviewed the resident's note and discussed the case with the resident. I agree with the resident's findings and plan as documented. SUBJECTIVE: OBJECTIVE: ASSESSMENT AND PLAN:
[2018-11-16 14:06] LABS: IRON SERUM 14 ug/dL (50-175); TOTAL IRON BINDING CAPACITY 343 ug/dL (250-450)
--- NOTE | 2018-11-16 14:43 | PN ---
Teaching Attending Note Name of Resident: Omi Hilliard (Nephrology) ATTENDING PHYSICIAN STATEMENT I saw and evaluated the patient. I reviewed the resident's note and discussed the case with the resident. I agree with the resident's findings and plan as documented. Renal Pt is a 62year old male with pmhx of ckd, dm, chf, and htn who presents to the ER with kneed pain and edema. He has not followed since his last hospitalization. He says that he is making urine but feels that lasix does not work at times. He denies dysuria or hematuria. He denies shortness of breath. pmhx ckd htn chf nkda family hx denies social hx lives at home Current Medications Generic Name Dose Route Start Last Admin Trade Name Freq PRN Reason Stop Dose Admin Bacitracin 1 applic 11/16/18 12:45 Bacitracin - TP BID [facility] Furosemide 80 mg 11/16/18 10:00 11/16/18 09:55 Lasix Injection - IVPUSH 80 mg DAILY [facility] Administration Heparin Sodium (Porcine) 1,000 unit 11/15/18 16:22 Heparin - IVPUSH PRN PRN Heparin Heparin Sodium (Porcine) 5,000 unit 11/15/18 16:22 11/16/18 09:59 Heparin - IVPUSH 5,000 unit PRN PRN Administration Heparin Heparin Sodium/Dextrose 25,000 units in 500 mls @ 20 mls/hr 11/15/18 16:30 09:58 Heparin Infusion - IV 850 units/hr TITR [facility] 17 mls/hr Administration Protocol 1,000 UNITS/HR Insulin Aspart 1 vial 11/15/18 16:30 11/16/18 11:49 Novolog Vial Sliding Scale - SQ Not Given ACHS [facility] Protocol Insulin Detemir 20 units 11/16/18 07:00 11/16/18 06:46 Levemir Vial SQ Not Given AM [facility] Metoprolol Succinate 50 mg 11/15/18 22:00 11/16/18 09:58 Toprol Xl - PO 50 mg BID [facility] Administration Laboratory Tests 10/02/18 10/02/18 10/07/18 05:45 06:00 06:25 Hgb Creatinine 4.3 H ANAIS M-Jovon Not observed FELIX Screen Negative c-ANCA <1:20 Proteinase 3 (PR3) <3.5 p-ANCA <1:20 Atypical p-ANCA <1:20 Myeloperoxidase Ab <9.0 Double Strand DNA Ab <1 Glomerular Base Memb Ab 3 10/08/18 10/09/18 11/15/18 05:15 05:10 13:57 Hgb Creatinine 4.3 H 4.5 H 5.1 H ANAIS M-Jovon FELIX Screen c-ANCA Proteinase 3 (PR3) p-ANCA Atypical p-ANCA Myeloperoxidase Ab Double Strand DNA Ab Glomerular Base Memb Ab 11/16/18 11/16/18 06:23 06:23 Hgb 10.3 L Creatinine 5.3 H ANAIS M-Jovon FELIX Screen c-ANCA Proteinase 3 (PR3) p-ANCA Atypical p-ANCA Myeloperoxidase Ab Double Strand DNA Ab Glomerular Base Memb Ab Last Vital Signs Temp Pulse Resp BP Pulse Ox 97.1 F L 114 H 20 151/80 99 11/16/18 06:00 11/16/18 06:00 11/16/18 06:00 11/16/18 06:00 11/15/18 20:30 cardio s1s2 pulm clear GI soft ext edema neuro awake and alert Impression 1. CKD 2. PIO 3. a-fib 4. HTN 5. CHF 6. DM 7. 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
--- NOTE | 2018-11-16 16:33 | PN ---
Progress Note, Physician Chief Complaint: No dyspnea Telem Rapid AF. History of Present Illness: 62 yo M with DM, HTN, and chronic Afib with cardiomyopathy and a history of poor compliance presented to ER with new onset weakness of the Rt lower extremity for 1 day. He was admitted 1 moth ago with with renal dysfunction, volume overload, and rapid Afib. Echocardiogram at the time showed EF 35-30% with global LV dysfunction and normal LV size. RV was not visualized. No significant valvular pathology was noted. The patient was placed on beta viv and diuretics in addition to AC and discharged home. He did not take coumadin after discharge as he was confused about the different names of the medications he got from the pharmacy (warfarin). He last took metoprolol 2 days ago. Today, was unable to move his Rt leg. Denies dyspnea, orthopnea but has Lext swelling and abdominal distention. - Current Medication List Current Medications: Active Medications Bacitracin (Bacitracin -) 1 applic TP BID [facility] Furosemide (Lasix Injection -) 80 mg IVPUSH DAILY [facility] Last Admin: 11/16/18 09:55 Dose: 80 mg Heparin Sodium (Porcine) (Heparin -) 1,000 unit IVPUSH PRN PRN PRN Reason: Heparin Heparin Sodium (Porcine) (Heparin -) 5,000 unit IVPUSH PRN PRN PRN Reason: Heparin Last Admin: 11/16/18 09:59 Dose: 5,000 unit Heparin Sodium/Dextrose (Heparin Infusion -) 25,000 units in 500 mls @ 20 mls/ hr IV TITR [facility]; Protocol Last Admin: 11/16/18 09:58 Dose: 850 units/hr, 17 mls/hr Insulin Aspart (Novolog Vial Sliding Scale -) 1 vial SQ ACHS [facility]; Protocol Last Admin: 11/16/18 11:49 Dose: Not Given Insulin Detemir (Levemir Vial) 20 units SQ AM [facility] Last Admin: 11/16/18 06:46 Dose: Not Given Metoprolol Succinate (Toprol Xl -) 50 mg PO BID [facility] Last Admin: 11/16/18 09:58 Dose: 50 mg - Objective Vital Signs: Vital Signs Temperature 97.6 F 11/16/18 14:00 Pulse Rate 120 H 11/16/18 14:00 Respiratory Rate 20 11/16/18 14:00 Blood Pressure 146/107 H 11/16/18 14:00 O2 Sat by Pulse Oximetry (%) 99 11/15/18 20:30 Constitutional: Yes: Well Nourished, No Distress Eyes: Yes: Conjunctiva Clear, EOM Intact HENT: Yes: Atraumatic, Normocephalic Neck: Yes: Supple, Trachea Midline Cardiovascular: Yes: Tachycardia, Pulse Irregular, JVD, S1, S2 Respiratory: Yes: Regular, CTA Bilaterally Gastrointestinal: Yes: Normal Bowel Sounds Edema: Yes Edema: LLE: 2+, RLE: 2+ Labs: CBC, BMP 11/16/18 06:23 11/16/18 06:23 INR, PTT INR 1.49 (0.83-1.09) H 11/16/18 06:23 Problem List - Problems (1) Atrial fibrillation with RVR Code(s): I48.91 - UNSPECIFIED ATRIAL FIBRILLATION (2) CHF (congestive heart failure), NYHA class II Code(s): I50.9 - HEART FAILURE, UNSPECIFIED Qualifiers: Congestive heart failure type: unspecified Qualified Code(s): I50.9 - Heart failure, unspecified (3) Left leg weakness Code(s): R29.898 - [facility] SYMPTOMS AND SIGNS INVOLVING THE MUSCULOSKELETAL SYSTEM Assessment/Plan 62 M chronic Afib, CKD, HTN. History of poor compliance. 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 Now with leg paresis and rapid afib in the setting of medication non- compliance. 1. AF remains poorly controlled. Increase TOprol 200mg QD 2. cont diuretics. 5. IV heparin if no contraindications. Transition to coumadin
--- NOTE | 2018-11-16 17:17 | CON.NEURO ---
Consult - Past Medical History Cardio/Vascular: Yes: AFIB, CHF, HTN Renal/: Yes: Renal Inusuff Rheumatology: Yes: Gout Endocrine: Yes: Diabetes Mellitus - Alcohol/Substance Use Hx Alcohol Use: No - Smoking History Smoking history: Unknown if ever smoked Have you smoked in the past 12 months: No - Social History ADL: Independent History of Recent Travel: No Home Medications - Allergies Allergies/Adverse Reactions: Allergies Allergy/AdvReac Type Severity Reaction Status Date / Time No Known Allergies Allergy Verified 11/15/18 12:42 - Home Medications Home Medications: Ambulatory Orders Colchicine [Colcrys] 0.6 mg PO DAILY #30 cap 10/09/18 Furosemide 80 mg PO BID #60 tablet 10/09/18 Insulin Detemir [Levemir Flextouch] 20 unit SQ AM #1 insuln.pen 10/09/18 Isosorbide Dinitrate [Isordil] 10 mg PO TID #90 tablet 10/09/18 Metoprolol Tartrate [Lopressor -] 50 mg PO TID #90 tablet 10/09/18 Pen Needle, Diabetic [Pen Needle] 1 each [facility] AM #30 dis.needle 10/09/18 Warfarin Na [Coumadin -] 5 mg PO ASDIR #30 tablet 10/09/18 Warfarin Na [Coumadin -] 7.5 mg PO ASDIR #30 tablet 10/09/18 hydrALAZINE HCL [Apresoline -] 10 mg PO TID #90 tablet 10/09/18 Physical Exam-Neuro Vital Signs: Vital Signs Temperature 97.6 F 11/16/18 14:00 Pulse Rate 120 H 11/16/18 14:00 Respiratory Rate 20 11/16/18 14:00 Blood Pressure 146/107 H 11/16/18 14:00 O2 Sat by Pulse Oximetry (%) 99 11/15/18 20:30 Labs: CBC, BMP 11/16/18 06:23 11/16/18 06:23 INR, PTT INR 1.49 (0.83-1.09) H 11/16/18 06:23 Assessment/Plan cc Lower Extremity weakness HPI 62 year old male history of DM,CKD,Atrial fibrillation. He presented to hospital for feeling of sluggish adn heavy in his leg and last few days got worse. He denies any trauma,fever or cancer. He deneis any bowel or bladder incontinence or severe back pain. [facility] and have difficulty moving around. He uses cane. His leg swelling has been etting worse. PMH as above Allergies/Adverse Reactions: Allergies Allergy/AdvReac Type Severity Reaction Status Date / Time No Known Allergies Allergy Verified 11/15/18 12:42 Home Medications: Colchicine [Colcrys] 0.6 mg PO DAILY #30 cap 10/09/18 Furosemide 80 mg PO BID #60 tablet 10/09/18 Insulin Detemir [Levemir Flextouch] 20 unit SQ AM #1 insuln.pen 10/09/18 Isosorbide Dinitrate [Isordil] 10 mg PO TID #90 tablet 10/09/18 Metoprolol Tartrate [Lopressor -] 50 mg PO TID #90 tablet 10/09/18 Pen Needle, Diabetic [Pen Needle] 1 each MC AM #30 dis.needle 10/09/18 Warfarin Na [Coumadin -] 5 mg PO ASDIR #30 tablet 10/09/18 Warfarin Na [Coumadin -] 7.5 mg PO ASDIR #30 tablet 10/09/18 hydrALAZINE HCL [Apresoline -] 10 mg PO TID #90 tablet 10/09/18 ROS,FH, SH reviewed in chart NEUROLOGICAL EXAMINATION Alert oriented x 3, speech is normal neck is supple, VSS afebrile eomi, pupils reactive , no face asymmetry, vf normal upper extremity is grade 5 Patient has severe edema in lower extremity and skin discoloration in lower extremity There is bilateral proximal muslce weakness of grade 4 plus hip extension, knee flexion, planter extension is grade 5 left knee extension and bilateral planter flexion is grade 4+ bilaterally diminished sensation distally in lower extremity reflex are absent at ankle knee reflex are grade 2 Assessment/Plan Most likley lower extremity weakness is gradual detioration of Neuropathy and Deconditioning and painful leg swelling. Clinically unlikely to be GBS or Cord compression Plan: sugest to do b12,folate tsh, emg, mri of t and L spine -PT - Continue supportive care Thanking you so much Juan Carlos Rodríguez MD
[2018-11-17] MEDS: INSULIN SLIDING SCALE (NOVOLOG) 1 VIAL SQ SCH ×4 (06:13→22:13)
[2018-11-17] MEDS: INSULIN (LEVEMIR) 100 UNITS/ML UNITS SQ SCH (06:16)
[2018-11-17 08:37] LABS: HEMATOCRIT 33.1 % (35.4-49); HEMOGLOBIN 10.6 GM/dL (11.7-16.9); MCH 24.5 pg (25.7-33.7); MCHC 32.1 g/dl (32.0-35.9); MEAN CELL VOLUME 76.5 fl (80-96); MEAN PLT VOLUME 7.5 fl (7.5-11.1); PLATELET COUNT 481 K/MM3 (134-434); RBC 4.33 M/mm3 (4.00-5.60); WHITE BLOOD COUNT 9.2 K/mm3 (4.0-10.0)
[2018-11-17 08:48] LABS: INR 1.46 (0.83-1.09); PROTHROMBIN TIME (PATIENT) 17.3 SEC (9.7-13.0)
[2018-11-17 08:51] LABS: ACTIVATED PTT 33.9 SECONDS (25.2-36.5)
[2018-11-17 08:57] LABS: ALBUMIN 2.7 g/dl (3.4-5.0); BILIRUBIN,TOTAL 1.4 mg/dL (0.2-1); BLOOD UREA NITROGEN 75.4 mg/dL (7-18); CALCIUM 9.1 mg/dL (8.5-10.1); CREATININE 5.2 mg/dL (0.55-1.3); MAGNESIUM 2.3 mg/dL (1.8-2.4); POTASSIUM 3.7 mmol/L (3.5-5.1); TOT PROT 6.9 g/dl (6.4-8.2)
[2018-11-17] MEDS: FUROSEMIDE 40 MG/4 ML INJECTABLE VIAL IVPUSH SCH (09:06)
[2018-11-17] MEDS: BACITRACIN 15 GM TUBE TOPICAL OINTMENT TP SCH ×2 (09:18→22:13)
[2018-11-17 10:30] LABS: HEMATOCRIT 33.8 % (35.4-49); HEMOGLOBIN 10.7 GM/dL (11.7-16.9); MCH 24.4 pg (25.7-33.7); MCHC 31.7 g/dl (32.0-35.9); MEAN CELL VOLUME 76.8 fl (80-96); MEAN PLT VOLUME 7.5 fl (7.5-11.1); PLATELET COUNT 445 K/MM3 (134-434); RDW 17.5 % (11.9-15.9); WHITE BLOOD COUNT 9.4 K/mm3 (4.0-10.0)
[2018-11-17] MEDS: HEPARIN NA (PORCINE) 5,000 UNITS/ML 1ML VIAL IVPUSH PRN ×2 (13:22→22:13)
--- NOTE | 2018-11-17 13:23 | PN ---
Progress Note, Physician - Current Medication List Current Medications: Active Medications Bacitracin (Bacitracin -) 1 applic TP BID [facility] Last Admin: 11/17/18 09:18 Dose: 1 applic Furosemide (Lasix Injection -) 80 mg IVPUSH DAILY [facility] Last Admin: 11/17/18 09:06 Dose: 80 mg Heparin Sodium (Porcine) (Heparin -) 1,000 unit IVPUSH PRN PRN PRN Reason: Heparin Heparin Sodium (Porcine) (Heparin -) 5,000 unit IVPUSH PRN PRN PRN Reason: Heparin Last Admin: 11/16/18 09:59 Dose: 5,000 unit Heparin Sodium/Dextrose (Heparin Infusion -) 25,000 units in 500 mls @ 20 mls/ hr IV TITR [facility]; Protocol Last Admin: 11/16/18 17:17 Dose: 850 units/hr, 17 mls/hr Insulin Aspart (Novolog Vial Sliding Scale -) 1 vial SQ ACHS [facility]; Protocol Last Admin: 11/17/18 11:52 Dose: 2 units Insulin Detemir (Levemir Vial) 20 units SQ AM [facility] Last Admin: 11/17/18 06:16 Dose: Not Given Metoprolol Succinate (Toprol Xl -) 50 mg PO BID [facility] Last Admin: 11/17/18 09:06 Dose: 50 mg - Objective Vital Signs: Vital Signs Temperature 97.5 F L 11/17/18 08:21 Pulse Rate 125 H 11/17/18 08:21 Respiratory Rate 19 11/17/18 08:21 Blood Pressure 154/102 H 11/17/18 08:21 O2 Sat by Pulse Oximetry (%) 96 11/16/18 21:00 Cardiovascular: Yes: S1, S2 Respiratory: Yes: Regular, CTA Bilaterally Gastrointestinal: Yes: Normal Bowel Sounds, Soft Edema: Yes Labs: CBC, BMP 11/17/18 10:10 11/17/18 06:39 INR, PTT INR 1.46 (0.83-1.09) H 11/17/18 06:39 Assessment/Plan - Problems (1) Atrial fibrillation with RVR Assessment/Plan: iv heparin metoprolol telemetry Code(s): I48.91 - UNSPECIFIED ATRIAL FIBRILLATION (2) Bilateral lower extremity edema Assessment/Plan: doppler of legs no dvt iv lasix Code(s): R60.0 - LOCALIZED EDEMA (3) (4) CKD (chronic kidney disease) Assessment/Plan: renal consult iv lasix Code(s): N18.9 - CHRONIC KIDNEY DISEASE, UNSPECIFIED Qualifiers: Chronic kidney disease stage: unspecified stage Qualified Code(s): N18.9 - Chronic kidney disease, unspecified (5) Diabetes Assessment/Plan: insulin bgm sliding scale hgba1c Code(s): E11.9 - TYPE 2 DIABETES MELLITUS WITHOUT COMPLICATIONS (6) Left leg weakness Assessment/Plan: ct head negative MRI and MRA w/o contrast neurology evaluation PT eval Code(s): R29.898 - OTH SYMPTOMS AND SIGNS INVOLVING THE MUSCULOSKELETAL SYSTEM
--- NOTE | 2018-11-17 14:14 | PN ---
Progress Note, Physician Chief Complaint: The patient was sitting in chair comfortably. He reports no palpitation, SOB at rest or chest pain. Telemetry shows persistent atrial fibrillation with rapid VR: up to 150s, current at 110s. History of Present Illness: 62 yo M with DM, HTN, and chronic Afib with cardiomyopathy and a history of poor compliance presented to ER 11/15/18 with new onset weakness of the Rt lower extremity for 1 day. He was admitted 1 moth ago with with renal dysfunction, volume overload, and rapid Afib. Echocardiogram at the time showed EF 35-30% with global LV dysfunction and normal LV size. RV was not visualized. No significant valvular pathology was noted. The patient was placed on beta viv and diuretics in addition to AC and discharged home. He did not take coumadin after discharge as he was confused about the different names of the medications he got from the pharmacy (warfarin). He last took metoprolol 2 days ago. He has been treated for ventricular control and fluid overload. - Current Medication List Current Medications: Active Medications Bacitracin (Bacitracin -) 1 applic TP BID [facility] Last Admin: 11/17/18 09:18 Dose: 1 applic Furosemide (Lasix Injection -) 80 mg IVPUSH DAILY [facility] Last Admin: 11/17/18 09:06 Dose: 80 mg Heparin Sodium (Porcine) (Heparin -) 1,000 unit IVPUSH PRN PRN PRN Reason: Heparin Heparin Sodium (Porcine) (Heparin -) 5,000 unit IVPUSH PRN PRN PRN Reason: Heparin Last Admin: 11/17/18 13:22 Dose: 5,000 unit Heparin Sodium/Dextrose (Heparin Infusion -) 25,000 units in 500 mls @ 20 mls/ hr IV TITR [facility]; Protocol Last Titration: 11/17/18 13:09 Dose: 1,000 units/hr, 20 mls/hr Insulin Aspart (Novolog Vial Sliding Scale -) 1 vial SQ [facility]; Protocol Last Admin: 11/17/18 11:52 Dose: 2 units Insulin Detemir (Levemir Vial) 20 units SQ AM [facility] Last Admin: 11/17/18 06:16 Dose: Not Given Metoprolol Succinate (Toprol Xl -) 50 mg PO BID [facility] Last Admin: 11/17/18 09:06 Dose: 50 mg - Objective Vital Signs: Vital Signs Temperature 97.5 F L 11/17/18 08:21 Pulse Rate 125 H 11/17/18 08:21 Respiratory Rate 19 11/17/18 08:21 Blood Pressure 154/102 H 11/17/18 08:21 O2 Sat by Pulse Oximetry (%) 96 11/16/18 21:00 General: Well developed. Obese and chronic ill. No acute distress. Head: Normocephalic. Atraumatic, Eyes: PERRLA, EOMI. Sclerae anicteric. Conjunctivae clear. Neck: Supple. No JVD. No bruits. Heart: Normal S1, S2: Irregular rhythm and tachycardia. Lungs: Symmetrical air entry. Bibasilar crackles. No wheezing or rhonchi. Abdomen: Obese. Soft. Bowel sound positive. Non tender. No masses. Extremities: Anasarca, 3-4+ edema. . Constitutional: Yes: Well Nourished Labs: CBC, BMP 11/17/18 10:10 11/17/18 06:39 INR, PTT INR 1.46 (0.83-1.09) H 11/17/18 06:39 Assessment/Plan 62 M chronic Afib, CKD, HTN. History of poor compliance. 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 Now with leg paresis and rapid afib in the setting of medication non- compliance. He has been treated for ventricular control and fluid overload. 1. Persistent atrial fibrillation: Remains poorly controlled. -Increase Toprol to 200mg QD was recommended. -Add digoxin 0.125 mg daily, first dose 0.25 mg today. May need to decrease digoxin to 0.125 mg every other day in a few days based on his renal function. -Continue IV heparin. Transition to coumadin. 2. Decompesated systolic CHF with severe fluid overload: Increase IV Lasix to 80 mg [id number] Monitor daily weight, Is&Os, renal function and electrolytes.
[2018-11-17] MEDS: HEPARIN INFUSION - 25,000 UNITS/500 ML INFUS.BAG IV SCH (17:33)
--- NOTE | 2018-11-17 20:07 | PN ---
Progress Note (short form) - Note Progress Note: Problems 1. CKD 2. PIO 3. a-fib 4. HTN 5. CHF 6. DM 7. non compliance Current Medications Bacitracin (Bacitracin -) 1 applic TP BID [facility] Last Admin: 11/17/18 09:18 Dose: 1 applic Furosemide (Lasix Injection -) 80 mg IVPUSH DAILY [facility] Last Admin: 11/17/18 09:06 Dose: 80 mg Heparin Sodium (Porcine) (Heparin -) 1,000 unit IVPUSH PRN PRN PRN Reason: Heparin Heparin Sodium (Porcine) (Heparin -) 5,000 unit IVPUSH PRN PRN PRN Reason: Heparin Last Admin: 11/17/18 13:22 Dose: 5,000 unit Heparin Sodium/Dextrose (Heparin Infusion -) 25,000 units in 500 mls @ 20 mls/ hr IV TITR [facility]; Protocol Last Admin: 11/17/18 17:33 Dose: Not Given Insulin Aspart (Novolog Vial Sliding Scale -) 1 vial SQ ACHS [facility]; Protocol Last Admin: 11/17/18 17:32 Dose: Not Given Insulin Detemir (Levemir Vial) 20 units SQ AM [facility] Last Admin: 11/17/18 06:16 Dose: Not Given Metoprolol Succinate (Toprol Xl -) 50 mg PO BID [facility] Last Admin: 11/17/18 09:06 Dose: 50 mg Last Vital Signs Temp Pulse Resp BP Pulse Ox 98.2 F 117 H 19 138/100 97 11/17/18 18:42 11/17/18 18:42 11/17/18 18:42 11/17/18 18:42 11/17/18 09:00 CBC, BMP 11/17/18 10:10 11/17/18 06:39 advanced renal failure no improvement Plan - 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
[2018-11-18 06:16] LABS: BASO % 0.7 % (0-2.0); EOS % 1.5 % (0-4.5); HEMATOCRIT 34.1 % (35.4-49); HEMOGLOBIN 10.7 GM/dL (11.7-16.9); LYMPH % 18.9 % (8-40); MCH 24.1 pg (25.7-33.7); MCHC 31.5 g/dl (32.0-35.9); MEAN CELL VOLUME 76.6 fl (80-96); MEAN PLT VOLUME 7.1 fl (7.5-11.1); MONO % 10.7 % (3.8-10.2); NEUT % 68.2 % (42.8-82.8); PLATELET COUNT 429 K/MM3 (134-434); RBC 4.45 M/mm3 (4.00-5.60); RDW 17.3 % (11.9-15.9); WHITE BLOOD COUNT 9.5 K/mm3 (4.0-10.0)
[2018-11-18] MEDS: INSULIN SLIDING SCALE (NOVOLOG) 1 VIAL SQ SCH ×4 (06:33→22:15)
[2018-11-18] MEDS: INSULIN (LEVEMIR) 100 UNITS/ML UNITS SQ SCH (06:34)
[2018-11-18 06:43] LABS: ALBUMIN 2.8 g/dl (3.4-5.0); BILIRUBIN,TOTAL 1.1 mg/dL (0.2-1); CALCIUM 9.2 mg/dL (8.5-10.1); CREATININE 5.1 mg/dL (0.55-1.3); POTASSIUM 3.3 mmol/L (3.5-5.1)
[2018-11-18] MEDS: FUROSEMIDE 40 MG/4 ML INJECTABLE VIAL IVPUSH SCH ×2 (10:41→14:56)
[2018-11-18] MEDS: BACITRACIN 15 GM TUBE TOPICAL OINTMENT TP SCH ×2 (10:41→21:45)
--- NOTE | 2018-11-18 10:56 | PN ---
Progress Note, Physician - Current Medication List Current Medications: Active Medications Bacitracin (Bacitracin -) 1 applic TP BID [facility] Last Admin: 11/18/18 10:41 Dose: 1 applic Digoxin (Lanoxin -) 0.125 mg PO DAILY [facility] Furosemide (Lasix Injection -) 80 mg IVPUSH BID [facility] Heparin Sodium (Porcine) (Heparin -) 1,000 unit IVPUSH PRN PRN PRN Reason: Heparin Last Admin: 11/17/18 22:13 Dose: 1,000 unit Heparin Sodium (Porcine) (Heparin -) 5,000 unit IVPUSH PRN PRN PRN Reason: Heparin Last Admin: 11/17/18 13:22 Dose: 5,000 unit Heparin Sodium/Dextrose (Heparin Infusion -) 25,000 units in 500 mls @ 20 mls/ hr IV TITR [facility]; Protocol Last Titration: 11/17/18 22:14 Dose: 1,100 units/hr, 22 mls/hr Insulin Aspart (Novolog Vial Sliding Scale -) 1 vial SQ ACHS [facility]; Protocol Last Admin: 11/18/18 06:33 Dose: Not Given Insulin Detemir (Levemir Vial) 20 units SQ AM [facility] Last Admin: 11/18/18 06:34 Dose: Not Given Metoprolol Succinate (Toprol Xl -) 50 mg PO BID [facility] Last Admin: 11/18/18 10:41 Dose: 50 mg - Objective Vital Signs: Vital Signs Temperature 98.3 F 11/18/18 10:00 Pulse Rate 126 H 11/18/18 10:00 Respiratory Rate 20 11/18/18 10:00 Blood Pressure 131/96 11/18/18 10:00 O2 Sat by Pulse Oximetry (%) 98 11/17/18 20:35 Cardiovascular: Yes: S1, S2 Respiratory: Yes: Diminished, Rales Gastrointestinal: Yes: Normal Bowel Sounds, Soft Edema: Yes Labs: CBC, BMP 11/18/18 05:48 11/18/18 05:48 INR, PTT INR 1.46 (0.83-1.09) H 11/17/18 06:39 Assessment/Plan - Problems (1) Atrial fibrillation with RVR Assessment/Plan: iv heparin metoprolol add dig telemetry Code(s): I48.91 - UNSPECIFIED ATRIAL FIBRILLATION (2) Bilateral lower extremity edema Assessment/Plan: doppler of legs no dvt iv lasix Code(s): R60.0 - LOCALIZED EDEMA (3) (4) CKD (chronic kidney disease) Assessment/Plan: renal consult iv lasix-increase to 80 bid Code(s): N18.9 - CHRONIC KIDNEY DISEASE, UNSPECIFIED Qualifiers: Chronic kidney disease stage: unspecified stage Qualified Code(s): N18.9 - Chronic kidney disease, unspecified (5) Diabetes Assessment/Plan: insulin bgm sliding scale hgba1c Code(s): E11.9 - TYPE 2 DIABETES MELLITUS WITHOUT COMPLICATIONS (6) Left leg weakness Assessment/Plan: ct head negative MRI and MRA w/o contrast neurology evaluation PT eval Code(s): R29.898 - OTH SYMPTOMS AND SIGNS INVOLVING THE MUSCULOSKELETAL SYSTEM
[2018-11-18] MEDS: DIGOXIN 0.125 MG TABLET (FP) PO SCH (12:57)
[2018-11-18] MEDS: DOCUSATE SODIUM 100 MG CAPSULE (FP) PO SCH ×2 (15:45→21:45)
[2018-11-18] MEDS: HEPARIN INFUSION - 25,000 UNITS/500 ML INFUS.BAG IV SCH (17:09)
--- NOTE | 2018-11-18 17:45 | PN ---
Progress Note, Physician Chief Complaint: The patient feels better and appears comfortable. He reports no palpitation, SOB at rest or chest pain. Telemetry shows persistent atrial fibrillation with rapid VR: up to 150-160s, current at 110s. History of Present Illness: 62 yo M with DM, HTN, and chronic Afib with cardiomyopathy and a history of poor compliance presented to ER 11/15/18 with new onset weakness of the Rt lower extremity for 1 day. He was admitted 1 moth ago with with renal dysfunction, volume overload, and rapid Afib. Echocardiogram at the time showed EF 35-30% with global LV dysfunction and normal LV size. RV was not visualized. No significant valvular pathology was noted. The patient was placed on beta viv and diuretics in addition to AC and discharged home. He did not take coumadin after discharge as he was confused about the different names of the medications he got from the pharmacy (warfarin). He last took metoprolol 2 days ago. He has been treated for ventricular control and fluid overload. - Current Medication List Current Medications: Active Medications Bacitracin (Bacitracin -) 1 applic TP BID [facility] Last Admin: 11/18/18 10:41 Dose: 1 applic Digoxin (Lanoxin -) 0.125 mg PO DAILY [facility] Last Admin: 11/18/18 12:57 Dose: 0.125 mg Docusate Sodium (Colace -) 100 mg PO BID [facility] Last Admin: 11/18/18 15:45 Dose: 100 mg Furosemide (Lasix Injection -) 80 mg IVPUSH BIDLASIX [facility] Last Admin: 11/18/18 14:56 Dose: 80 mg Heparin Sodium (Porcine) (Heparin -) 1,000 unit IVPUSH PRN PRN PRN Reason: Heparin Last Admin: 11/17/18 22:13 Dose: 1,000 unit Heparin Sodium (Porcine) (Heparin -) 5,000 unit IVPUSH PRN PRN PRN Reason: Heparin Last Admin: 11/17/18 13:22 Dose: 5,000 unit Heparin Sodium/Dextrose (Heparin Infusion -) 25,000 units in 500 mls @ 20 mls/ hr IV TITR [facility]; Protocol Last Admin: 11/18/18 17:09 Dose: 1,100 units/hr, 22 mls/hr Insulin Aspart (Novolog Vial Sliding Scale -) 1 vial SQ ACHS [facility]; Protocol Last Admin: 11/18/18 17:09 Dose: Not Given Insulin Detemir (Levemir Vial) 20 units SQ AM [facility] Last Admin: 11/18/18 06:34 Dose: Not Given Metoprolol Succinate (Toprol Xl -) 100 mg PO BID [facility] - Objective Vital Signs: Vital Signs Temperature 98.0 F 11/18/18 14:00 Pulse Rate 121 H 11/18/18 14:00 Respiratory Rate 20 11/18/18 10:00 Blood Pressure 125/99 11/18/18 14:00 O2 Sat by Pulse Oximetry (%) 98 11/18/18 09:00 General: Well developed. Obese and chronic ill. No acute distress. Head: Normocephalic. Atraumatic, Eyes: PERRLA, EOMI. Sclerae anicteric. Conjunctivae clear. Neck: Supple. No JVD. No bruits. Heart: Normal S1, S2: Irregular rhythm and tachycardia. Lungs: Symmetrical air entry. Bibasilar crackles. No wheezing or rhonchi. Abdomen: Obese. Soft. Bowel sound positive. Non tender. No masses. Extremities: Anasarca, 2-3+ edema. Labs: CBC, BMP 11/18/18 05:48 11/18/18 05:48 INR, PTT INR 1.46 (0.83-1.09) H 11/17/18 06:39 Assessment/Plan 62 M chronic Afib, CKD, HTN. History of poor compliance. 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 Now with leg paresis and rapid afib in the setting of medication non- compliance. He has been treated for ventricular control and fluid overload. 1. Persistent atrial fibrillation with poorly controlled VR. -Toprol increased to 100 mg BID from 50 mg BID this afternoon. Digoxin 0.125 mg daily just added. May need to decrease digoxin to 0.125 mg every other day in a few days based on his renal function. -Continue IV heparin. Transition to coumadin. 2. Decompesated systolic CHF with severe fluid overload: IV Lasix increased to 80 mg [id number] Monitor daily weight, Is&Os, renal function and electrolytes.
--- NOTE | 2018-11-18 20:47 | PN ---
Progress Note (short form) - Note Progress Note: Problems 1. CKD 2. PIO 3. a-fib 4. HTN 5. CHF 6. DM 7. non compliance Current Medications Bacitracin (Bacitracin -) 1 applic TP BID [facility] Last Admin: 11/18/18 10:41 Dose: 1 applic Digoxin (Lanoxin -) 0.125 mg PO DAILY [facility] Last Admin: 11/18/18 12:57 Dose: 0.125 mg Docusate Sodium (Colace -) 100 mg PO BID [facility] Last Admin: 11/18/18 15:45 Dose: 100 mg Furosemide (Lasix Injection -) 80 mg IVPUSH BIDLASIX [facility] Last Admin: 11/18/18 14:56 Dose: 80 mg Heparin Sodium (Porcine) (Heparin -) 1,000 unit IVPUSH PRN PRN PRN Reason: Heparin Last Admin: 11/17/18 22:13 Dose: 1,000 unit Heparin Sodium (Porcine) (Heparin -) 5,000 unit IVPUSH PRN PRN PRN Reason: Heparin Last Admin: 11/17/18 13:22 Dose: 5,000 unit Heparin Sodium/Dextrose (Heparin Infusion -) 25,000 units in 500 mls @ 20 mls/ hr IV TITR [facility]; Protocol Last Admin: 11/18/18 17:09 Dose: 1,100 units/hr, 22 mls/hr Insulin Aspart (Novolog Vial Sliding Scale -) 1 vial SQ ACHS [facility]; Protocol Last Admin: 11/18/18 17:09 Dose: Not Given Insulin Detemir (Levemir Vial) 20 units SQ AM [facility] Last Admin: 11/18/18 06:34 Dose: Not Given Metoprolol Succinate (Toprol Xl -) 100 mg PO BID [facility] Last Vital Signs Temp Pulse Resp BP Pulse Ox 98.1 F 120 H 17 145/83 98 11/18/18 20:25 11/18/18 20:25 11/18/18 20:25 11/18/18 20:25 11/18/18 09:00 advanced renal failure no improvement CBC, BMP 11/18/18 05:48 11/18/18 05:48 IMP- advanced kidney failure no uremic symptoms or signs Hypokalemia will replace a small amount cautiously orally Plan - cont lasix - 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
[2018-11-19] MEDS: FUROSEMIDE 40 MG/4 ML INJECTABLE VIAL IVPUSH SCH ×2 (06:20→14:52)
[2018-11-19] MEDS: INSULIN (LEVEMIR) 100 UNITS/ML UNITS SQ SCH ×2 (06:21→06:38)
[2018-11-19] MEDS: INSULIN SLIDING SCALE (NOVOLOG) 1 VIAL SQ SCH ×4 (06:34→22:36)
[2018-11-19 07:31] LABS: ALBUMIN 2.8 g/dl (3.4-5.0); BLOOD UREA NITROGEN 84.1 mg/dL (7-18); CALCIUM 9.3 mg/dL (8.5-10.1); CREATININE 5.3 mg/dL (0.55-1.3); POTASSIUM 3.4 mmol/L (3.5-5.1); TOT PROT 7.5 g/dl (6.4-8.2)
[2018-11-19] MEDS: BACITRACIN 15 GM TUBE TOPICAL OINTMENT TP SCH ×2 (09:20→22:59)
[2018-11-19] MEDS: DOCUSATE SODIUM 100 MG CAPSULE (FP) PO SCH ×2 (09:20→22:36)
[2018-11-19] MEDS: DIGOXIN 0.125 MG TABLET (FP) PO SCH (09:22)
[2018-11-19 10:21] LABS: HEMATOCRIT 34.4 % (35.4-49); HEMOGLOBIN 10.8 GM/dL (11.7-16.9); MCH 24.2 pg (25.7-33.7); MCHC 31.3 g/dl (32.0-35.9); MEAN CELL VOLUME 77.5 fl (80-96); MEAN PLT VOLUME 7.3 fl (7.5-11.1); PLATELET COUNT 390 K/MM3 (134-434); RBC 4.44 M/mm3 (4.00-5.60); RDW 17.6 % (11.9-15.9); WHITE BLOOD COUNT 8.4 K/mm3 (4.0-10.0)
--- NOTE | 2018-11-19 11:31 | PN ---
Progress Note, Physician - Current Medication List Current Medications: Active Medications Bacitracin (Bacitracin -) 1 applic TP BID [facility] Last Admin: 11/19/18 09:20 Dose: 1 applic Digoxin (Lanoxin -) 0.125 mg PO DAILY [facility] Last Admin: 11/19/18 09:22 Dose: 0.125 mg Docusate Sodium (Colace -) 100 mg PO BID [facility] Last Admin: 11/19/18 09:20 Dose: 100 mg Furosemide (Lasix Injection -) 80 mg IVPUSH BIDLASIX [facility] Last Admin: 11/19/18 06:20 Dose: 80 mg Heparin Sodium (Porcine) (Heparin -) 1,000 unit IVPUSH PRN PRN PRN Reason: Heparin Last Admin: 11/17/18 22:13 Dose: 1,000 unit Heparin Sodium (Porcine) (Heparin -) 5,000 unit IVPUSH PRN PRN PRN Reason: Heparin Last Admin: 11/17/18 13:22 Dose: 5,000 unit Heparin Sodium/Dextrose (Heparin Infusion -) 25,000 units in 500 mls @ 20 mls/ hr IV TITR [facility]; Protocol Last Admin: 11/18/18 17:09 Dose: 1,100 units/hr, 22 mls/hr Insulin Aspart (Novolog Vial Sliding Scale -) 1 vial SQ ACHS [facility]; Protocol Last Admin: 11/19/18 06:34 Dose: Not Given Insulin Detemir (Levemir Vial) 20 units SQ AM [facility] Last Admin: 11/19/18 06:38 Dose: Not Given Metoprolol Succinate (Toprol Xl -) 100 mg PO BID [facility] Last Admin: 11/19/18 09:20 Dose: 100 mg - Objective Vital Signs: Vital Signs Temperature 97.3 F L 11/19/18 06:00 Pulse Rate 114 H 11/19/18 09:22 Respiratory Rate 20 11/19/18 08:51 Blood Pressure 130/96 11/19/18 06:00 O2 Sat by Pulse Oximetry (%) 98 11/19/18 08:51 Cardiovascular: Yes: Regular Rate and Rhythm Respiratory: Yes: Rales Gastrointestinal: Yes: Normal Bowel Sounds, Soft Edema: Yes Labs: CBC, BMP 11/19/18 09:55 11/19/18 06:55 INR, PTT INR 1.46 (0.83-1.09) H 11/17/18 06:39 Assessment/Plan - Problems (1) Atrial fibrillation with RVR Assessment/Plan: iv heparin metoprolol and added dig telemetry Code(s): I48.91 - UNSPECIFIED ATRIAL FIBRILLATION (2) Bilateral lower extremity edema Assessment/Plan: doppler of legs no dvt iv lasix Code(s): R60.0 - LOCALIZED EDEMA (3) (4) CKD (chronic kidney disease) Assessment/Plan: renal consult iv lasix-increase to 80 bid Code(s): N18.9 - CHRONIC KIDNEY DISEASE, UNSPECIFIED Qualifiers: Chronic kidney disease stage: unspecified stage Qualified Code(s): N18.9 - Chronic kidney disease, unspecified (5) Diabetes Assessment/Plan: insulin bgm sliding scale hgba1c Code(s): E11.9 - TYPE 2 DIABETES MELLITUS WITHOUT COMPLICATIONS (6) Left leg weakness Assessment/Plan: ct head negative MRI and MRA w/o contrast neurology evaluation PT eval Code(s): R29.898 - OTH SYMPTOMS AND SIGNS INVOLVING THE MUSCULOSKELETAL SYSTEM
--- NOTE | 2018-11-19 11:31 | PN ---
Progress Note (short form) - Note Progress Note: Problems 1. CKD 2. PIO 3. a-fib 4. HTN 5. CHF 6. DM 7. non compliance Current Medications Bacitracin (Bacitracin -) 1 applic TP BID [facility] Last Admin: 11/19/18 09:20 Dose: 1 applic Digoxin (Lanoxin -) 0.125 mg PO DAILY [facility] Last Admin: 11/19/18 09:22 Dose: 0.125 mg Docusate Sodium (Colace -) 100 mg PO BID [facility] Last Admin: 11/19/18 09:20 Dose: 100 mg Furosemide (Lasix Injection -) 80 mg IVPUSH BIDLASIX [facility] Last Admin: 11/19/18 06:20 Dose: 80 mg Heparin Sodium (Porcine) (Heparin -) 1,000 unit IVPUSH PRN PRN PRN Reason: Heparin Last Admin: 11/17/18 22:13 Dose: 1,000 unit Heparin Sodium (Porcine) (Heparin -) 5,000 unit IVPUSH PRN PRN PRN Reason: Heparin Last Admin: 11/17/18 13:22 Dose: 5,000 unit Heparin Sodium/Dextrose (Heparin Infusion -) 25,000 units in 500 mls @ 20 mls/ hr IV TITR [facility]; Protocol Last Admin: 11/18/18 17:09 Dose: 1,100 units/hr, 22 mls/hr Insulin Aspart (Novolog Vial Sliding Scale -) 1 vial SQ ACHS [facility]; Protocol Last Admin: 11/19/18 06:34 Dose: Not Given Insulin Detemir (Levemir Vial) 20 units SQ AM [facility] Last Admin: 11/19/18 06:38 Dose: Not Given Metoprolol Succinate (Toprol Xl -) 100 mg PO BID [facility] Last Admin: 11/19/18 09:20 Dose: 100 mg Last Vital Signs Temp Pulse Resp BP Pulse Ox 97.3 F L 114 H 20 130/96 98 11/19/18 06:00 11/19/18 09:22 11/19/18 08:51 11/19/18 06:00 11/19/18 08:51 advanced renal failure no improvement CBC, BMP 11/19/18 09:55 11/19/18 06:55 CBC, BMP 11/18/18 05:48 11/18/18 05:48 IMP- advanced kidney failure no uremic symptoms or signs persistent Hypokalemia will replace a small amount cautiously orally Plan - cont lasix - monitor lytes and secondary set up man - if not 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
[2018-11-19] MEDS: HEPARIN INFUSION - 25,000 UNITS/500 ML INFUS.BAG IV SCH (16:56)
[2018-11-20] MEDS: INSULIN SLIDING SCALE (NOVOLOG) 1 VIAL SQ SCH ×3 (06:56→22:03)
[2018-11-20] MEDS: INSULIN (LEVEMIR) 100 UNITS/ML UNITS SQ SCH (06:57)
[2018-11-20] MEDS: FUROSEMIDE 40 MG/4 ML INJECTABLE VIAL IVPUSH SCH ×2 (06:57→14:09)
--- NOTE | 2018-11-20 09:13 | PN ---
Progress Note, Physician - Current Medication List Current Medications: Active Medications Bacitracin (Bacitracin -) 1 applic TP BID [facility] Last Admin: 11/19/18 22:59 Dose: 1 applic Digoxin (Lanoxin -) 0.125 mg PO DAILY [facility] Last Admin: 11/19/18 09:22 Dose: 0.125 mg Docusate Sodium (Colace -) 100 mg PO BID [facility] Last Admin: 11/19/18 22:36 Dose: 100 mg Furosemide (Lasix Injection -) 80 mg IVPUSH BIDLASIX [facility] Last Admin: 11/20/18 06:57 Dose: 80 mg Heparin Sodium (Porcine) (Heparin -) 1,000 unit IVPUSH PRN PRN PRN Reason: Heparin Last Admin: 11/17/18 22:13 Dose: 1,000 unit Heparin Sodium (Porcine) (Heparin -) 5,000 unit IVPUSH PRN PRN PRN Reason: Heparin Last Admin: 11/17/18 13:22 Dose: 5,000 unit Heparin Sodium/Dextrose (Heparin Infusion -) 25,000 units in 500 mls @ 20 mls/ hr IV TITR [facility]; Protocol Last Admin: 11/19/18 16:56 Dose: 1,100 units/hr, 22 mls/hr Insulin Aspart (Novolog Vial Sliding Scale -) 1 vial SQ ACHS [facility]; Protocol Last Admin: 11/20/18 06:56 Dose: Not Given Insulin Detemir (Levemir Vial) 20 units SQ AM [facility] Last Admin: 11/20/18 06:57 Dose: Not Given Metoprolol Succinate (Toprol Xl -) 100 mg PO BID [facility] Last Admin: 11/19/18 22:36 Dose: 100 mg - Objective Vital Signs: Vital Signs Temperature 97.6 F 11/20/18 01:00 Pulse Rate 113 H 11/20/18 05:00 Respiratory Rate 20 11/20/18 08:36 Blood Pressure 141/89 11/20/18 05:00 O2 Sat by Pulse Oximetry (%) 99 11/20/18 08:36 Cardiovascular: Yes: Regular Rate and Rhythm Respiratory: Yes: Regular, CTA Bilaterally Gastrointestinal: Yes: Normal Bowel Sounds, Soft Labs: CBC, BMP 11/19/18 09:55 11/19/18 06:55 INR, PTT INR 1.46 (0.83-1.09) H 11/17/18 06:39 Assessment/Plan - Problems (1) Atrial fibrillation with RVR Assessment/Plan: iv heparin metoprolol and added dig telemetry Code(s): I48.91 - UNSPECIFIED ATRIAL FIBRILLATION (2) Bilateral lower extremity edema Assessment/Plan: doppler of legs no dvt iv lasix Code(s): R60.0 - LOCALIZED EDEMA (3) Leg Wound Assessment/Plan: wound care surgical consult (4) CKD (chronic kidney disease) Assessment/Plan: renal consult--follow up--Dialysis? iv lasix-increase to 80 bid Code(s): N18.9 - CHRONIC KIDNEY DISEASE, UNSPECIFIED Qualifiers: Chronic kidney disease stage: unspecified stage Qualified Code(s): N18.9 - Chronic kidney disease, unspecified (5) Diabetes Assessment/Plan: insulin bgm sliding scale hgba1c Code(s): E11.9 - TYPE 2 DIABETES MELLITUS WITHOUT COMPLICATIONS (6) Left leg weakness Assessment/Plan: ct head negative MRI and MRA w/o contrast mri of ls disc w mass efect NS consult neurology evaluation PT eval Code(s): R29.898 - OTH SYMPTOMS AND SIGNS INVOLVING THE MUSCULOSKELETAL SYSTEM
--- NOTE | 2018-11-20 09:35 | PN ---
Progress Note (short form) - Note Progress Note: 62 year old male history of DM,CKD,Atrial fibrillation. He presented to hospital for feeling of sluggish adn heavy in his leg and last few days got worse. He denies any trauma,fever or cancer. He deneis any bowel or bladder incontinence or severe back pain. Patient lives in apt and have difficulty moving around. He uses cane. Mri of t and l spine was unremarkable, patient is walking around with help NEUROLOGICAL EXAMINATION Alert oriented x 3, speech is normal neck is supple, VSS afebrile eomi, pupils reactive , no face asymmetry, vf normal upper extremity is grade 5 Patient has severe edema in lower extremity and skin discoloration in lower extremity There is bilateral proximal muslce weakness of grade 4 plus hip extension, knee flexion, planter extension is grade 5 left knee extension and bilateral planter flexion is grade 4+ bilaterally diminished sensation distally in lower extremity reflex are absent at ankle knee reflex are grade 2 Assessment/Plan Most likley lower extremity weakness is gradual detioration of Neuropathy and Deconditioning and painful leg swelling.MRI of L and T spine si unremarkable. He is feeling better and walking with walker Clinically unlikely to be GBS or Cord compression emg,b12,folate tsh is pending Plan: -PT - Continue supportive care Thanking you so much Juan Carlos Rodríguez MD
[2018-11-20] MEDS ORDERED: PT OWN MED DRAWER 7, Y5N ONE (10:03)
[2018-11-20] MEDS: HEPARIN INFUSION - 25,000 UNITS/500 ML INFUS.BAG IV SCH ×2 (10:07→18:18)
[2018-11-20] MEDS: BACITRACIN 15 GM TUBE TOPICAL OINTMENT TP SCH ×2 (10:07→22:00)
[2018-11-20] MEDS: DIGOXIN 0.125 MG TABLET (FP) PO SCH ×2 (10:08→10:09)
[2018-11-20] MEDS: DOCUSATE SODIUM 100 MG CAPSULE (FP) PO SCH ×2 (10:09→22:00)
--- NOTE | 2018-11-20 11:46 | CONSULT ---
- Consultation REQUESTING PROVIDER: CONSULT REQUEST: We have been asked to surgically evaluate this patient for left lower leg wounds. PCP:Doreen Corbin HISTORY OF PRESENT ILLNESS:The patient is a 62 yo male who presents to the ER for SOB, bilateral lower extremity weakness. His legs have had an increase in swelling and feeling of heaviness. There has been some leakiness from the his wounds. He ambulates small distances. PMHx: DM, CHF, AFIB, PSHx: Home Medications Medication Instructions Recorded Colchicine [Colcrys] 0.6 mg PO DAILY #30 cap 10/09/18 Furosemide 80 mg PO BID #60 tablet 10/09/18 Insulin Detemir [Levemir Flextouch] 20 unit SQ AM #1 insuln.pen 10/09/18 Isosorbide Dinitrate [Isordil] 10 mg PO TID #90 tablet 10/09/18 Metoprolol Tartrate [Lopressor -] 50 mg PO TID #90 tablet 10/09/18 Pen Needle, Diabetic [Pen Needle] 1 each MC AM #30 dis.needle 10/09/18 Warfarin Na [Coumadin -] 5 mg PO ASDIR #30 tablet 10/09/18 Warfarin Na [Coumadin -] 7.5 mg PO ASDIR #30 tablet 10/09/18 hydrALAZINE HCL [Apresoline -] 10 mg PO TID #90 tablet 10/09/18 Allergies Allergy/AdvReac Type Severity Reaction Status Date / Time No Known Allergies Allergy Verified 11/15/18 12:42 REVIEW OF SYSTEMS: CONSTITUTIONAL: Absent: fever, chills CARDIOVASCULAR: Absent: chest pain, syncope, palpitations RESPIRATORY: Present: cough, shortness of breath GASTROINTESTINAL: Absent: Abdominal distention, having bowel function GENITOURINARY: Absent: dysuria, frequency, urgency, hesitancy, hematuria, flank pain, genital pain NEUROLOGIC: Absent: paresthesias, dizziness, PHYSICAL EXAM: GENERAL: Awake, alert, and fully oriented, in no acute distress. LUNGS: Clear to auscultation bilat anteriorly. No wheezes, and no crackles. HEART: Regular rate and irrhythm. ABDOMEN: Soft, nontender, not distended. LOWER EXTREMITIES: cool to touch b/l. No ulcers to his feet. +2 DP/PT pulse with doppler to the RLE. +1 DP/+2 PT with doppler. Left >right peripheral edema to above the knee. LLE with superficial ulcers/various sizing. One laterally approx 2 x3 cm and on the posterior leg. NEUROLOGICAL: Normal speech, gait not observed. PSYCH: Cooperative. Good eye contact. Appropriate mood and affect. Vital Signs Temperature 97.6 F 11/20/18 01:00 Pulse Rate 110 H 11/20/18 10:09 Respiratory Rate 20 11/20/18 08:36 Blood Pressure 141/89 11/20/18 05:00 O2 Sat by Pulse Oximetry (%) 99 11/20/18 08:36 Lab Results WBC 8.4 K/mm3 (4.0-10.0) 11/19/18 09:55 RBC 4.44 M/mm3 (4.00-5.60) 11/19/18 09:55 Hgb 10.8 GM/dL (11.7-16.9) L 11/19/18 09:55 Hct 34.4 % (35.4-49) L 11/19/18 09:55 MCV 77.5 fl (80-96) L 11/19/18 09:55 MCHC 31.3 g/dl (32.0-35.9) L 11/19/18 09:55 RDW 17.6 % (11.9-15.9) H 11/19/18 09:55 Plt Count 390 K/MM3 (134-434) 11/19/18 09:55 Sodium 137 mmol/L (136-145) 11/19/18 06:55 Potassium 3.4 mmol/L (3.5-5.1) L 11/19/18 06:55 Chloride 99 mmol/L (98-107) 11/19/18 06:55 Carbon Dioxide 25 mmol/L (21-32) 11/19/18 06:55 Anion Gap 13 MMOL/L (8-16) 11/19/18 06:55 BUN 84.1 mg/dL (7-18) H 11/19/18 06:55 Creatinine 5.3 mg/dL (0.55-1.3) H 11/19/18 06:55 Random Glucose 190 mg/dL (74-106) H 11/19/18 06:55 Calcium 9.3 mg/dL (8.5-10.1) 11/19/18 06:55 INR 1.46 (0.83-1.09) H 11/17/18 06:39 DVT study(11/15): no evidence of DVT to both legs. Problem List - Problems (1) Bilateral lower extremity edema Assessment/Plan: Local wound care ordered to b/l lower ext. Ervin wraps to from feet to knee and xerform to open wound on the left. Elevate lower ext at all times on pillows while seated and OOB to chair. Elevate foot of bed also, at all times. Recommend to follow up with Dr. Mccollum, in the wound clinic as an outpt Medical managment of his CHF/renal disease. Plan for possible fistula once pt has stabilized. D/w Dr. Mccollum Code(s): R60.0 - LOCALIZED EDEMA
--- NOTE | 2018-11-20 14:27 | PN ---
Progress Note, Physician History of Present Illness: Pt seen and examined at bedside. He is awake and alert. He feels that the edema is improving. - Current Medication List Current Medications: Active Medications Bacitracin (Bacitracin -) 1 applic TP BID [facility] Last Admin: 11/20/18 10:07 Dose: 1 applic Digoxin (Lanoxin -) 0.125 mg PO DAILY [facility] Last Admin: 11/20/18 10:09 Dose: 0.125 mg Docusate Sodium (Colace -) 100 mg PO BID [facility] Last Admin: 11/20/18 10:09 Dose: 100 mg Furosemide (Lasix Injection -) 80 mg IVPUSH BIDLASIX [facility] Last Admin: 11/20/18 14:09 Dose: 80 mg Heparin Sodium (Porcine) (Heparin -) 1,000 unit IVPUSH PRN PRN PRN Reason: Heparin Last Admin: 11/17/18 22:13 Dose: 1,000 unit Heparin Sodium (Porcine) (Heparin -) 5,000 unit IVPUSH PRN PRN PRN Reason: Heparin Last Admin: 11/17/18 13:22 Dose: 5,000 unit Heparin Sodium/Dextrose (Heparin Infusion -) 25,000 units in 500 mls @ 20 mls/ hr IV TITR [facility]; Protocol Last Admin: 11/20/18 10:07 Dose: 1,100 units/hr, 22 mls/hr Insulin Aspart (Novolog Vial Sliding Scale -) 1 vial SQ ACHS [facility]; Protocol Last Admin: 11/20/18 06:56 Dose: Not Given Insulin Detemir (Levemir Vial) 20 units SQ AM [facility] Last Admin: 11/20/18 06:57 Dose: Not Given Metoprolol Succinate (Toprol Xl -) 100 mg PO BID [facility] Last Admin: 11/20/18 10:18 Dose: 100 mg - Objective Vital Signs: Vital Signs Temperature 97.6 F 11/20/18 01:00 Pulse Rate 110 H 11/20/18 10:09 Respiratory Rate 20 11/20/18 08:36 Blood Pressure 141/89 11/20/18 05:00 O2 Sat by Pulse Oximetry (%) 99 11/20/18 08:36 Constitutional: Yes: Calm Eyes: Yes: Conjunctiva Clear HENT: Yes: Atraumatic Neck: Yes: Supple Cardiovascular: Yes: S1, S2 Respiratory: Yes: CTA Bilaterally Gastrointestinal: Yes: Soft Genitourinary: Yes: WNL Musculoskeletal: Yes: WNL Edema: Yes Edema: LLE: 2+, RLE: 2+ Neurological: Yes: Oriented Psychiatric: Yes: Oriented Labs: CBC, BMP 11/19/18 09:55 11/19/18 06:55 INR, PTT INR 1.46 (0.83-1.09) H 11/17/18 06:39 Assessment/Plan Current Medications Generic Name Dose Route Start Last Admin Trade Name Freq PRN Reason Stop Dose Admin Bacitracin 1 applic 11/16/18 12:45 11/20/18 10:07 Bacitracin - TP 1 applic BID [facility] Administration Digoxin 0.125 mg 11/18/18 11:00 11/20/18 10:09 Lanoxin - PO 0.125 mg DAILY [facility] Administration Docusate Sodium 100 mg 11/18/18 15:45 11/20/18 10:09 Colace - PO 100 mg BID [facility] Administration Furosemide 80 mg 11/18/18 14:00 11/20/18 14:09 Lasix Injection - IVPUSH 80 mg BIDLASIX [facility] Administration Heparin Sodium (Porcine) 1,000 unit 11/15/18 16:22 11/17/18 22:13 Heparin - IVPUSH 1,000 unit PRN PRN Administration Heparin Heparin Sodium (Porcine) 5,000 unit 11/15/18 16:22 11/17/18 13:22 Heparin - IVPUSH 5,000 unit PRN PRN Administration Heparin Heparin Sodium/Dextrose 25,000 units in 500 mls @ 20 mls/hr 11/15/18 16:30 10:07 Heparin Infusion - IV 1,100 units/hr TITR [facility] 22 mls/hr Administration Protocol 1,000 UNITS/HR Insulin Aspart 1 vial 11/15/18 16:30 11/20/18 06:56 Novolog Vial Sliding Scale - SQ Not Given ACHS [facility] Protocol Insulin Detemir 20 units 11/16/18 07:00 11/20/18 06:57 Levemir Vial SQ Not Given AM [facility] Metoprolol Succinate 100 mg 11/18/18 22:00 11/20/18 10:18 Toprol Xl - PO 100 mg BID [facility] Administration Impression 1. CKD 2. PIO 3. a-fib 4. HTN 5. CHF 6. DM 7. non compliance Plan - cont current meds - will need fistula once more stable - vascular follow up - renal diet
--- NOTE | 2018-11-20 14:45 | CONSULT ---
Consult Consult Specialty:: PM&R Dr Paredes for Dr Schmitt Reason for Consultation:: EMG BLE, evaluate for peripheral neuropathy - History of Present Illness History of Present Illness: This is a 62 year old man with a medical history of CHF, A fib, HTN, renal insufficiency. CKD, gout, DM, who presented to the ED 11/15/18 with BLE weakness. He also notes LBP which is bilaterally and began only today. MRI/ MRA brain was limited but without acute pathology. MRI thoracic spine showed L T2 laminar calcifications with ligamentum flavum thickening without cord or nerve root damage. MRI lumbar spine showed DDD without central stenosis, with L4-5 disc bulge causing B foraminal narrowing and impinging on R L5 nerve root, and L5-S1 HNP causing mass effect on R S1 nerve root. Neurology consult requested EMG BLE as well as neuropathic work-up. He is also being seen and Renal and possibly Vascular for AVF placement. He was seen by PT, and on 11/20/18 he was Minimum Assist in Transfers, and ambulated 10 feet Contact Guard with Rolling Walker. Physiatry was requested to perform EMG BLE. - Past Medical History Cardio/Vascular: Yes: AFIB, CHF, HTN Renal/: Yes: Renal Inusuff Rheumatology: Yes: Gout Endocrine: Yes: Diabetes Mellitus - Alcohol/Substance Use Hx Alcohol Use: No - Smoking History Smoking history: Unknown if ever smoked Have you smoked in the past 12 months: No - Social History Usual Living Arrangement: With Spouse (in apartment without stairs) ADL: Independent (with [place]) History of Recent Travel: No Home Medications - Allergies Allergies/Adverse Reactions: Allergies Allergy/AdvReac Type Severity Reaction Status Date / Time No Known Allergies Allergy Verified 11/15/18 12:42 - Home Medications Home Medications: Ambulatory Orders Colchicine [Colcrys] 0.6 mg PO DAILY #30 cap 10/09/18 Furosemide 80 mg PO BID #60 tablet 10/09/18 Insulin Detemir [Levemir Flextouch] 20 unit SQ AM #1 insuln.pen 10/09/18 Isosorbide Dinitrate [Isordil] 10 mg PO TID #90 tablet 10/09/18 Metoprolol Tartrate [Lopressor -] 50 mg PO TID #90 tablet 10/09/18 Pen Needle, Diabetic [Pen Needle] 1 each MC AM #30 dis.needle 10/09/18 Warfarin Na [Coumadin -] 5 mg PO ASDIR #30 tablet 10/09/18 Warfarin Na [Coumadin -] 7.5 mg PO ASDIR #30 tablet 10/09/18 hydrALAZINE HCL [Apresoline -] 10 mg PO TID #90 tablet 10/09/18 Review of Systems Findings/Remarks: Denies fevers, chills, changes in vision/ hearing/ mood, CP, SOB,m abdominal pain, nausea, vomiting, constipation, diarrhea, dysuria Notes decreased urine output, LBP, and B foot electrical shocks with BLE edema Physical Exam Vital Signs: Vital Signs Temperature 97.6 F 11/20/18 01:00 Pulse Rate 110 H 11/20/18 10:09 Respiratory Rate 20 11/20/18 08:36 Blood Pressure 141/89 11/20/18 05:00 O2 Sat by Pulse Oximetry (%) 99 11/20/18 08:36 Musculoskeletal: Yes: Other (General: calm elderly AAM sitting in bed NAD N/M: 4 /5 R HF then 4/5 RLE, 3/5 L HF then 4/5 LLE Extremities: 3+ BLE pitting edema, no B calf tenderness) Labs: CBC, BMP 11/19/18 09:55 11/19/18 06:55 Imaging - Results MRI: Report Reviewed (as per HPI) Assessment/Plan Electrodiagnostics were performed, please see print-out in chart for details. FYI scan is often placed under date of admission. Test was limited due to severe BLE pitting edema. There is electrophysiological evidence of an axonal more than demyelinating sensorimotor peripheral neuropathy. 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 4) Lumbar DDD with disc bulges 5) CHF, A fib, HTN 6) CKD/ renal insufficiency with BLE pitting edema 7) gout 8) DM 9) Obesity 10) No documented flu shot/ pneumovax Recommendations: 1) PT for stretching strengthening ROM and functional mobility 2) Falls, safety precautions 3) Cardiac, diabetic precautions 4) Heat LB prn 5) DVT ppx: on hep sc 6) Denies constipation on current bowel regimen 7) Skin protection: float heels, q2 hour turning 8) Ervin wrap BLE for edema control 9) Nutrition consult for obesity 10) Continue work-up per Neurology and primary team 11) Discharge planning: given BLE weakness, he would benefit from short- course inpatient rehabilitation once medically stable Thank you for this referral.
[2018-11-20] MEDS ORDERED: FUROSEMIDE 40 MG/4 ML INJECTABLE VIAL ONE (15:13)
[2018-11-21] MEDS: FUROSEMIDE 40 MG/4 ML INJECTABLE VIAL IVPUSH SCH ×2 (06:58→14:17)
[2018-11-21] MEDS: INSULIN (LEVEMIR) 100 UNITS/ML UNITS SQ SCH (06:59)
[2018-11-21] MEDS: INSULIN SLIDING SCALE (NOVOLOG) 1 VIAL SQ SCH ×4 (06:59→23:31)
[2018-11-21 08:33] LABS: INR 1.34 (0.83-1.09); PROTHROMBIN TIME (PATIENT) 15.8 SEC (9.7-13.0)
[2018-11-21 08:36] LABS: ACTIVATED PTT 80.1 SECONDS (25.2-36.5)
[2018-11-21 08:59] LABS: ALBUMIN 2.9 g/dl (3.4-5.0); BILIRUBIN,TOTAL 0.9 mg/dL (0.2-1); BLOOD UREA NITROGEN 82.4 mg/dL (7-18); CALCIUM 9.5 mg/dL (8.5-10.1); CREATININE 4.7 mg/dL (0.55-1.3); POTASSIUM 3.9 mmol/L (3.5-5.1); TOT PROT 7.4 g/dl (6.4-8.2)
[2018-11-21 09:20] LABS: HEMATOCRIT 33.5 % (35.4-49); HEMOGLOBIN 10.6 GM/dL (11.7-16.9); MCHC 31.5 g/dl (32.0-35.9); MEAN CELL VOLUME 76.2 fl (80-96); MEAN PLT VOLUME 7.3 fl (7.5-11.1); PLATELET COUNT 348 K/MM3 (134-434); RDW 17.6 % (11.9-15.9); WHITE BLOOD COUNT 9.4 K/mm3 (4.0-10.0)
--- NOTE | 2018-11-21 09:47 | PN ---
Progress Note, Physician - Current Medication List Current Medications: Active Medications Bacitracin (Bacitracin -) 1 applic TP BID [facility] Last Admin: 11/20/18 22:00 Dose: 1 applic Digoxin (Lanoxin -) 0.125 mg PO DAILY [facility] Last Admin: 11/20/18 10:09 Dose: 0.125 mg Docusate Sodium (Colace -) 100 mg PO BID [facility] Last Admin: 11/20/18 22:00 Dose: 100 mg Furosemide (Lasix Injection -) 80 mg IVPUSH BIDLASIX [facility] Last Admin: 11/21/18 06:58 Dose: 80 mg Heparin Sodium (Porcine) (Heparin -) 1,000 unit IVPUSH PRN PRN PRN Reason: Heparin Last Admin: 11/17/18 22:13 Dose: 1,000 unit Heparin Sodium (Porcine) (Heparin -) 5,000 unit IVPUSH PRN PRN PRN Reason: Heparin Last Admin: 11/17/18 13:22 Dose: 5,000 unit Heparin Sodium/Dextrose (Heparin Infusion -) 25,000 units in 500 mls @ 20 mls/ hr IV TITR [facility]; Protocol Last Admin: 11/20/18 18:18 Dose: 1,100 units/hr, 22 mls/hr Insulin Aspart (Novolog Vial Sliding Scale -) 1 vial SQ ACHS [facility]; Protocol Last Admin: 11/21/18 06:59 Dose: Not Given Insulin Detemir (Levemir Vial) 20 units SQ AM [facility] Last Admin: 11/21/18 06:59 Dose: Not Given Metoprolol Succinate (Toprol Xl -) 100 mg PO BID [facility] Last Admin: 11/20/18 22:00 Dose: 100 mg - Objective Vital Signs: Vital Signs Temperature 97.6 F 11/21/18 02:00 Pulse Rate 105 H 11/21/18 09:37 Respiratory Rate 20 11/21/18 09:37 Blood Pressure 114/97 11/21/18 09:37 O2 Sat by Pulse Oximetry (%) 99 11/21/18 09:00 Cardiovascular: Yes: S1, S2 Respiratory: Yes: Regular, CTA Bilaterally Gastrointestinal: Yes: Normal Bowel Sounds, Soft Edema: Yes Labs: CBC, BMP 11/21/18 06:45 11/21/18 08:06 INR, PTT INR 1.34 (0.83-1.09) H 11/21/18 06:45 Assessment/Plan - Problems (1) Atrial fibrillation with RVR Assessment/Plan: iv heparin metoprolol and dig telemetry Code(s): I48.91 - UNSPECIFIED ATRIAL FIBRILLATION (2) Bilateral lower extremity edema Assessment/Plan: doppler of legs no dvt iv lasix Code(s): R60.0 - LOCALIZED EDEMA (3) Leg Wound Assessment/Plan: wound care surgical consult (4) CKD (chronic kidney disease) Assessment/Plan: renal consult--follow up--Dialysis-agrees to asses iv lasix-increase to 80 bid Code(s): N18.9 - CHRONIC KIDNEY DISEASE, UNSPECIFIED Qualifiers: Chronic kidney disease stage: unspecified stage Qualified Code(s): N18.9 - Chronic kidney disease, unspecified (5) Diabetes Assessment/Plan: insulin bgm sliding scale hgba1c Code(s): E11.9 - TYPE 2 DIABETES MELLITUS WITHOUT COMPLICATIONS (6) Left leg weakness Assessment/Plan: ct head negative MRI and MRA w/o contrast mri of ls disc w mass effect--d/w nS--Will need surgery once cleared NS consult noted neurology evaluation PT eval Code(s): R29.898 - OTH SYMPTOMS AND SIGNS INVOLVING THE MUSCULOSKELETAL SYSTEM
[2018-11-21] MEDS: DIGOXIN 0.125 MG TABLET (FP) PO SCH (10:01)
[2018-11-21] MEDS: DOCUSATE SODIUM 100 MG CAPSULE (FP) PO SCH ×2 (10:02→23:29)
[2018-11-21] MEDS: BACITRACIN 15 GM TUBE TOPICAL OINTMENT TP SCH ×2 (10:02→23:29)
--- NOTE | 2018-11-21 11:05 | CONSULT ---
Consult - text type - Consultation Consultation Note: NEUROSURGERY CONSULTATION Bennett Dorsey is a 62 year old male who has a history of multiple medical problems including Atrial Fibrillation which is managed with Coumadin as well as Chronic renal disease. Patient describes a 4 week history of progressive gait impairment and relates that he has been developing proximal leg weakness and giving away of his legs while standing. This has resulted in several falls. He has had exacerbation of his renal disease and increased lower extremity edema at the time of presentation although this is improving somewhat. He has a mid-Thoracic sensory level and feels that his abdomen feels "strange." MRI of his Thoracic spine reveals a small focus of dorsal compression which may represent an intradural/extramedullary lesion such as a meningioma versus nerve sheath tumor or possibly extradural compression from a hypertrophic facet joint or calcified ligamentum flavum. MRI with and without contrast would be helpful, but may not be advised given his renal status. His leg heaviness may also be partially due to his edema. Vascular studies did not suggest a thromboembolic etiology of his acute difficulties. Case discussed with patient and Dr. Espino. At this point, medical optimization would appear to be warranted and I understand that a fistula is being planned. Once he has been stabilized, imaging may be considered and the potential role of minimally invasive decompression of the mass may be contemplated.
[2018-11-21] MEDS: HEPARIN INFUSION - 25,000 UNITS/500 ML INFUS.BAG IV SCH ×2 (12:21→17:54)
--- NOTE | 2018-11-21 12:38 | PN ---
Progress Note, Physician History of Present Illness: Pt seen and examined at bedside. He is awake and alert. He still has edema. He denies shortness of breath. - Current Medication List Current Medications: Active Medications Bacitracin (Bacitracin -) 1 applic TP BID [facility] Last Admin: 11/21/18 10:02 Dose: Not Given Digoxin (Lanoxin -) 0.125 mg PO DAILY [facility] Last Admin: 11/21/18 10:01 Dose: 0.125 mg Docusate Sodium (Colace -) 100 mg PO BID [facility] Last Admin: 11/21/18 10:02 Dose: 100 mg Furosemide (Lasix Injection -) 80 mg IVPUSH BIDLASIX [facility] Last Admin: 11/21/18 06:58 Dose: 80 mg Heparin Sodium (Porcine) (Heparin -) 1,000 unit IVPUSH PRN PRN PRN Reason: Heparin Last Admin: 11/17/18 22:13 Dose: 1,000 unit Heparin Sodium (Porcine) (Heparin -) 5,000 unit IVPUSH PRN PRN PRN Reason: Heparin Last Admin: 11/17/18 13:22 Dose: 5,000 unit Heparin Sodium/Dextrose (Heparin Infusion -) 25,000 units in 500 mls @ 20 mls/ hr IV TITR [facility]; Protocol Last Admin: 11/21/18 12:21 Dose: 1,050 units/hr, 21 mls/hr Insulin Aspart (Novolog Vial Sliding Scale -) 1 vial SQ ACHS [facility]; Protocol Last Admin: 11/21/18 12:05 Dose: Not Given Insulin Detemir (Levemir Vial) 20 units SQ AM [facility] Last Admin: 11/21/18 06:59 Dose: Not Given Metoprolol Succinate (Toprol Xl -) 100 mg PO BID [facility] Last Admin: 11/21/18 10:02 Dose: 100 mg - Objective Vital Signs: Vital Signs Temperature 97.6 F 11/21/18 02:00 Pulse Rate 105 H 11/21/18 10:01 Respiratory Rate 20 11/21/18 09:37 Blood Pressure 114/97 11/21/18 09:37 O2 Sat by Pulse Oximetry (%) 99 11/21/18 09:00 Constitutional: Yes: Calm Eyes: Yes: Conjunctiva Clear HENT: Yes: Atraumatic Neck: Yes: Supple Cardiovascular: Yes: S1, S2 Respiratory: Yes: CTA Bilaterally Gastrointestinal: Yes: Soft Genitourinary: Yes: WNL Edema: Yes Edema: LLE: 2+, RLE: 2+ Neurological: Yes: Oriented Psychiatric: Yes: Oriented Labs: CBC, BMP 11/21/18 06:45 11/21/18 08:06 INR, PTT INR 1.34 (0.83-1.09) H 11/21/18 06:45 Assessment/Plan Current Medications Generic Name Dose Route Start Last Admin Trade Name Freq PRN Reason Stop Dose Admin Bacitracin 1 applic 11/16/18 12:45 11/21/18 10:02 Bacitracin - TP Not Given BID [facility] Digoxin 0.125 mg 11/18/18 11:00 11/21/18 10:01 Lanoxin - PO 0.125 mg DAILY [facility] Administration Docusate Sodium 100 mg 11/18/18 15:45 11/21/18 10:02 Colace - PO 100 mg BID [facility] Administration Furosemide 80 mg 11/18/18 14:00 11/21/18 06:58 Lasix Injection - IVPUSH 80 mg BIDLASIX [facility] Administration Heparin Sodium (Porcine) 1,000 unit 11/15/18 16:22 11/17/18 22:13 Heparin - IVPUSH 1,000 unit PRN PRN Administration Heparin Heparin Sodium (Porcine) 5,000 unit 11/15/18 16:22 11/17/18 13:22 Heparin - IVPUSH 5,000 unit PRN PRN Administration Heparin Heparin Sodium/Dextrose 25,000 units in 500 mls @ 20 mls/hr 11/15/18 16:30 12:21 Heparin Infusion - IV 1,050 units/hr TITR [facility] 21 mls/hr Administration Protocol 1,000 UNITS/HR Insulin Aspart 1 vial 11/15/18 16:30 11/21/18 12:05 Novolog Vial Sliding Scale - SQ Not Given ACHS [facility] Protocol Insulin Detemir 20 units 11/16/18 07:00 11/21/18 06:59 Levemir Vial SQ Not Given AM [facility] Metoprolol Succinate 100 mg 11/18/18 22:00 11/21/18 10:02 Toprol Xl - PO 100 mg BID [facility] Administration Impression 1. CKD 2. PIO 3. a-fib 4. HTN 5. CHF 6. DM 7. non compliance Plan - cont diuretics - renal function has been progressively worsening - repeat labs in am - recommend that pt gets an AV fistula, discussed it with him yesterday and again today - compliance has been an issue - vascular follow up - renal diet
--- NOTE | 2018-11-21 18:24 | PN ---
Progress Note (short form) - Note Progress Note: Vascular Surgery Pt seen and examined. Spoke to pt about HD in the future. Explained vein mapping to pt. He agrees. Pt is right handed, so we should try to save his left arm. However pt has venipuctures in both arms already. Awaiting vein mapping so that we can plan his procedure. Abdias Mccollum DO
--- NOTE | 2018-11-21 20:53 | PN ---
Progress Note (short form) - Note Progress Note: GI CONSULT DICTATED IMPRESSION: CONGESTIVE HEPATOPATHY / NAFLD REC: - F/U SEROLOGY AND SONOGRAM SEE FULL CONSULT FOR DETAILS
--- NOTE | 2018-11-21 21:22 | CONS ---
GASTROENTEROLOGY CONSULTATION DATE OF CONSULTATION: DATE OF DICTATION: 11/21/2018 Patient is a 62-year-old man, past medical history of CHF, atrial fibrillation on anticoagulation, hypertension, renal insufficiency, chronic kidney disease, gout, diabetes, who was admitted to the hospital on November 15, with complaints of bilateral lower extremity weakness and difficulty with gait. He was admitted with a diagnosis of atrial fibrillation with rapid ventricular response, bilateral lower extremity edema. During the course, he was noted to have abnormal liver tests. As per the patient's history, he denies any history of liver disease. He states he has no abdominal pain and nausea, vomiting, melena, hematochezia, constipation, diarrhea. Does not drink any alcohol. No tattoos or blood transfusions in the past. He denies a family history of liver disease. He states he had an upper endoscopy and colonoscopy done at an outside facility within the year, which he reports to be normal. He does state that he has been having some intermittent abdominal bloating. However, the outpatient workup was negative. He denies new medications, herbal supplements. PAST MEDICAL AND SURGICAL HISTORY: As listed in the HPI. ALLERGIES: No known drug allergies. SOCIAL HISTORY: Does not smoke. No alcohol or drug abuse. HOME MEDICATIONS: Reviewed, include colchicine, furosemide, insulin, isosorbide, dinitrate, metoprolol, warfarin, and hydralazine. REVIEW OF SYSTEMS: As per the HPI. PHYSICAL EXAMINATION: Vital Signs: Temperature 97, pulse 98, blood pressure 139/96, respiratory rate 12, oxygen saturation 99% on room air. General: No acute distress. HEENT: Anicteric sclera. Cardiovascular: S1, S2. Regular rate and rhythm. Lungs: Bilaterally clear to auscultation. Abdomen: Soft and nontender. Extremities: With pedal edema. LABORATORY DATA: White blood cell count 9.4, hemoglobin 10 and hematocrit 33, MCV 76, platelet count 348. INR 1.34. Sodium 149, potassium 3.9, BUN 82, creatinine 4.7, glucose 163. AST 190 yesterday and ALT 306, currently 204 and 65, respectively. Alkaline phosphatase 109, total bilirubin 0.9. Peak AST on the thirtieth was 328. He has not had any abdominal imaging done on this hospitalization. He did have an echocardiogram which revealed ejection fraction of 20% to 25%, severe global hypokinesis of the left ventricle, moderate reduction in function of the right ventricular system, [id number] mitral regurgitation, and mild tricuspid regurgitation. IMPRESSION: Transaminitis, hepatocellular pattern, most likely secondary to congestive hepatopathy with underlying nonalcoholic fatty liver disease secondary to underlying diabetes. Chronic inherited disease should be excluded. PLAN: Trend liver tests daily while hospitalized, avoid hepatotoxic medications. Viral serologies will be ordered as well as an FELIX, fluid antibody, alpha-1 antitrypsin, iron studies, and an LDH. Abdominal ultrasound was ordered by the primary medical team and will be followed up. DO JOLEEN ANAYA/[id number]
[2018-11-22] MEDS: INSULIN (LEVEMIR) 100 UNITS/ML UNITS SQ SCH (06:28)
[2018-11-22] MEDS: INSULIN SLIDING SCALE (NOVOLOG) 1 VIAL SQ SCH ×4 (06:29→21:38)
[2018-11-22 07:11] LABS: INR 1.27 (0.83-1.09)
[2018-11-22 07:13] LABS: ACTIVATED PTT 45.3 SECONDS (25.2-36.5)
[2018-11-22] MEDS: DIGOXIN 0.125 MG TABLET (FP) PO SCH (10:56)
[2018-11-22] MEDS: DOCUSATE SODIUM 100 MG CAPSULE (FP) PO SCH ×2 (10:56→21:37)
[2018-11-22] MEDS: BACITRACIN 15 GM TUBE TOPICAL OINTMENT TP SCH ×2 (10:59→11:29)
[2018-11-22] MEDS: FUROSEMIDE 40 MG/4 ML INJECTABLE VIAL IVPUSH SCH ×2 (11:10→16:32)
[2018-11-22] MEDS: HEPARIN INFUSION - 25,000 UNITS/500 ML INFUS.BAG IV SCH ×3 (11:10→16:33)
[2018-11-22] MEDS: HEPARIN NA (PORCINE) 5,000 UNITS/ML 1ML VIAL IVPUSH PRN (11:11)
--- NOTE | 2018-11-22 11:47 | PN ---
Progress Note, Physician Chief Complaint: patient seen and examined awaiting vein mapping on heparin drip - Current Medication List Current Medications: Active Medications Bacitracin (Bacitracin -) 1 applic TP BID [facility] Last Admin: 11/22/18 11:29 Dose: Not Given Digoxin (Lanoxin -) 0.125 mg PO DAILY [facility] Last Admin: 11/22/18 10:56 Dose: 0.125 mg Docusate Sodium (Colace -) 100 mg PO BID [facility] Last Admin: 11/22/18 10:56 Dose: 100 mg Furosemide (Lasix Injection -) 80 mg IVPUSH BIDLASIX [facility] Last Admin: 11/22/18 11:10 Dose: 80 mg Heparin Sodium (Porcine) (Heparin -) 1,000 unit IVPUSH PRN PRN PRN Reason: Heparin Last Admin: 11/22/18 11:11 Dose: 1,000 unit Heparin Sodium (Porcine) (Heparin -) 5,000 unit IVPUSH PRN PRN PRN Reason: Heparin Last Admin: 11/17/18 13:22 Dose: 5,000 unit Heparin Sodium/Dextrose (Heparin Infusion -) 25,000 units in 500 mls @ 20 mls/ hr IV TITR [facility]; Protocol Last Admin: 11/22/18 11:10 Dose: 1,150 units/hr, 23 mls/hr Insulin Aspart (Novolog Vial Sliding Scale -) 1 vial SQ ACHS [facility]; Protocol Last Admin: 11/22/18 06:29 Dose: Not Given Insulin Detemir (Levemir Vial) 20 units SQ AM [facility] Last Admin: 11/22/18 06:28 Dose: Not Given Metoprolol Succinate (Toprol Xl -) 100 mg PO BID [facility] Last Admin: 11/22/18 10:56 Dose: 100 mg - Objective Vital Signs: Vital Signs Temperature 97.7 F 11/22/18 02:00 Pulse Rate 112 H 11/22/18 10:56 Respiratory Rate 20 11/22/18 06:00 Blood Pressure 142/92 11/22/18 06:00 O2 Sat by Pulse Oximetry (%) 99 11/21/18 09:00 Constitutional: Yes: Calm Cardiovascular: Yes: Regular Rate and Rhythm, S1, S2, Other Respiratory: Yes: CTA Bilaterally, Diminished (at bases) Gastrointestinal: Yes: Normal Bowel Sounds, Soft Extremities: Yes: Other (LE wound) Edema: Yes Neurological: Yes: Alert, Oriented Labs: CBC, BMP 11/21/18 06:45 11/21/18 08:06 INR, PTT INR 1.27 (0.83-1.09) H 11/22/18 05:27 Problem List - Problems (1) Atrial fibrillation with RVR Assessment/Plan: iv heparin metoprolol inc to 100mg po bid not on lo0ng term AC as yet as will need placement of fistula in arm telemetry Code(s): I48.91 - UNSPECIFIED ATRIAL FIBRILLATION (2) Bilateral lower extremity edema Assessment/Plan: doppler of legs no dvt iv lasix bid Code(s): R60.0 - LOCALIZED EDEMA (3) A-fib Assessment/Plan: metoprolol inc to 100mg bid and digoxin dosing q48 given renal function check digoxin level tele cardiology noted heparin drip Code(s): I48.91 - UNSPECIFIED ATRIAL FIBRILLATION Qualifiers: Atrial fibrillation type: unspecified Qualified Code(s): I48.91 - Unspecified atrial fibrillation (4) CKD (chronic kidney disease) Assessment/Plan: renal noted awaiting vein mapping needs fistula iv lasix bid Code(s): N18.9 - CHRONIC KIDNEY DISEASE, UNSPECIFIED Qualifiers: Chronic kidney disease stage: unspecified stage Qualified Code(s): N18.9 - Chronic kidney disease, unspecified (5) Diabetes Assessment/Plan: insulin bgm sliding scale hgba1c 8.9 Code(s): E11.9 - TYPE 2 DIABETES MELLITUS WITHOUT COMPLICATIONS (6) Left leg weakness Assessment/Plan: ct head negative alan order MRI and MRA w/o contrast- no acute infarct seen neurology evaluation noted PT eval shuffling with 25 feet Code(s): R29.898 - OT SYMPTOMS AND SIGNS INVOLVING THE MUSCULOSKELETAL SYSTEM
--- NOTE | 2018-11-22 13:44 | PN ---
Progress Note, Physician History of Present Illness: Pt seen and examined at bedside. He is awake and alert. He denies shortness of breath. - Current Medication List Current Medications: Active Medications Digoxin (Lanoxin -) 0.125 mg PO Q48H [facility] Docusate Sodium (Colace -) 100 mg PO BID [facility] Last Admin: 11/22/18 10:56 Dose: 100 mg Furosemide (Lasix Injection -) 80 mg IVPUSH BIDLASIX [facility] Last Admin: 11/22/18 11:10 Dose: 80 mg Heparin Sodium (Porcine) (Heparin -) 1,000 unit IVPUSH PRN PRN PRN Reason: Heparin Last Admin: 11/22/18 11:11 Dose: 1,000 unit Heparin Sodium (Porcine) (Heparin -) 5,000 unit IVPUSH PRN PRN PRN Reason: Heparin Last Admin: 11/17/18 13:22 Dose: 5,000 unit Heparin Sodium/Dextrose (Heparin Infusion -) 25,000 units in 500 mls @ 20 mls/ hr IV TITR [facility]; Protocol Last Admin: 11/22/18 11:10 Dose: 1,150 units/hr, 23 mls/hr Insulin Aspart (Novolog Vial Sliding Scale -) 1 vial SQ ACHS [facility]; Protocol Last Admin: 11/22/18 13:03 Dose: Not Given Insulin Detemir (Levemir Vial) 20 units SQ AM [facility] Last Admin: 11/22/18 06:28 Dose: Not Given Metoprolol Succinate (Toprol Xl -) 100 mg PO BID [facility] Last Admin: 11/22/18 10:56 Dose: 100 mg - Objective Vital Signs: Vital Signs Temperature 97.7 F 11/22/18 02:00 Pulse Rate 112 H 11/22/18 10:56 Respiratory Rate 20 11/22/18 06:00 Blood Pressure 142/92 11/22/18 06:00 O2 Sat by Pulse Oximetry (%) 99 11/21/18 09:00 Constitutional: Yes: Calm Eyes: Yes: Conjunctiva Clear HENT: Yes: Atraumatic Neck: Yes: Supple Cardiovascular: Yes: S1, S2 Respiratory: Yes: CTA Bilaterally Gastrointestinal: Yes: Soft, Abdomen, Obese Genitourinary: Yes: WNL Edema: Yes Edema: LLE: 2+, RLE: 2+ Integumentary: Yes: Venous Stasis Changes Neurological: Yes: Oriented Psychiatric: Yes: Oriented Labs: CBC, BMP 11/21/18 06:45 11/21/18 08:06 INR, PTT INR 1.27 (0.83-1.09) H 11/22/18 05:27 Problem List - Problems (1) Atrial fibrillation with RVR Code(s): I48.91 - UNSPECIFIED ATRIAL FIBRILLATION (2) Bilateral lower extremity edema Code(s): R60.0 - LOCALIZED EDEMA (3) CHF (congestive heart failure), NYHA class II Code(s): I50.9 - HEART FAILURE, UNSPECIFIED Qualifiers: Congestive heart failure type: unspecified Qualified Code(s): I50.9 - Heart failure, unspecified (4) CKD (chronic kidney disease) Code(s): N18.9 - CHRONIC KIDNEY DISEASE, UNSPECIFIED Qualifiers: Chronic kidney disease stage: unspecified stage Qualified Code(s): N18.9 - Chronic kidney disease, unspecified Assessment/Plan Current Medications Generic Name Dose Route Start Last Admin Trade Name Freq PRN Reason Stop Dose Admin Digoxin 0.125 mg 11/24/18 11:45 Lanoxin - PO Q48H [facility] Docusate Sodium 100 mg 11/18/18 15:45 11/22/18 10:56 Colace - PO 100 mg BID [facility] Administration Furosemide 80 mg 11/18/18 14:00 11/22/18 11:10 Lasix Injection - IVPUSH 80 mg BIDLASIX [facility] Administration Heparin Sodium (Porcine) 1,000 unit 11/15/18 16:22 11/22/18 11:11 Heparin - IVPUSH 1,000 unit PRN PRN Administration Heparin Heparin Sodium (Porcine) 5,000 unit 11/15/18 16:22 11/17/18 13:22 Heparin - IVPUSH 5,000 unit PRN PRN Administration Heparin Heparin Sodium/Dextrose 25,000 units in 500 mls @ 20 mls/hr 11/15/18 16:30 11:10 Heparin Infusion - IV 1,150 units/hr TITR [facility] 23 mls/hr Administration Protocol 1,000 UNITS/HR Insulin Aspart 1 vial 11/15/18 16:30 11/22/18 13:03 Novolog Vial Sliding Scale - SQ Not Given ACHS [facility] Protocol Insulin Detemir 20 units 11/16/18 07:00 11/22/18 06:28 Levemir Vial SQ Not Given AM [facility] Metoprolol Succinate 100 mg 11/18/18 22:00 11/22/18 10:56 Toprol Xl - PO 100 mg BID [facility] Administration Impression 1. CKD 2. PIO 3. a-fib 4. HTN 5. CHF 6. DM 7. non compliance Plan - cont lasix - monitor lytes - vascular for fistula - discussed access and hd with pt and his at length again today - compliance has been an issue - renal diet
[2018-11-22] MEDS ORDERED: INSULIN (NOVOLOG) ASPART 100 UNITS/ML 10ML VIAL ONE (21:13)
[2018-11-23] MEDS: INSULIN SLIDING SCALE (NOVOLOG) 1 VIAL SQ SCH ×4 (06:34→21:26)
[2018-11-23] MEDS: FUROSEMIDE 40 MG/4 ML INJECTABLE VIAL IVPUSH SCH ×2 (06:34→14:26)
[2018-11-23] MEDS: INSULIN (LEVEMIR) 100 UNITS/ML UNITS SQ SCH (06:35)
[2018-11-23 06:58] LABS: INR 1.33 (0.83-1.09); PROTHROMBIN TIME (PATIENT) 15.7 SEC (9.7-13.0)
[2018-11-23 07:01] LABS: ACTIVATED PTT 79.8 SECONDS (25.2-36.5)
[2018-11-23 09:36] LABS: HEMATOCRIT 32.4 % (35.4-49); HEMOGLOBIN 10.2 GM/dL (11.7-16.9); MCH 23.7 pg (25.7-33.7); MCHC 31.4 g/dl (32.0-35.9); MEAN CELL VOLUME 75.6 fl (80-96); MEAN PLT VOLUME 7.4 fl (7.5-11.1); PLATELET COUNT 247 K/MM3 (134-434); RBC 4.28 M/mm3 (4.00-5.60); RDW 17.7 % (11.9-15.9); WHITE BLOOD COUNT 9.9 K/mm3 (4.0-10.0)
[2018-11-23 11:23] LABS: BLOOD UREA NITROGEN 83.2 mg/dL (7-18); CALCIUM 9.6 mg/dL (8.5-10.1); CREATININE 4.5 mg/dL (0.55-1.3); POTASSIUM 3.5 mmol/L (3.5-5.1)
[2018-11-23] MEDS: DOCUSATE SODIUM 100 MG CAPSULE (FP) PO SCH ×2 (11:32→21:23)
--- NOTE | 2018-11-23 13:28 | PN ---
Progress Note, Physician History of Present Illness: Pt seen and examined at bedside. He is awake and appears comfortable. He denies shortness of breath. - Current Medication List Current Medications: Active Medications Digoxin (Lanoxin -) 0.125 mg PO Q48H [facility] Docusate Sodium (Colace -) 100 mg PO BID [facility] Last Admin: 11/23/18 11:32 Dose: 100 mg Furosemide (Lasix Injection -) 80 mg IVPUSH BIDLASIX [facility] Last Admin: 11/23/18 06:34 Dose: 80 mg Insulin Aspart (Novolog Vial Sliding Scale -) 1 vial SQ ACHS [facility]; Protocol Last Admin: 11/23/18 11:38 Dose: Not Given Insulin Detemir (Levemir Vial) 20 units SQ AM [facility] Last Admin: 11/23/18 06:35 Dose: Not Given Metoprolol Succinate (Toprol Xl -) 100 mg PO BID [facility] Last Admin: 11/23/18 11:32 Dose: 100 mg - Objective Vital Signs: Vital Signs Temperature 97.3 F L 11/23/18 11:00 Pulse Rate 102 H 11/23/18 11:00 Respiratory Rate 17 11/23/18 11:00 Blood Pressure 147/82 11/23/18 11:00 O2 Sat by Pulse Oximetry (%) 98 11/23/18 08:29 Constitutional: Yes: Calm Eyes: Yes: Conjunctiva Clear HENT: Yes: Atraumatic Cardiovascular: Yes: S1, S2 Respiratory: Yes: CTA Bilaterally Gastrointestinal: Yes: Normal Bowel Sounds, Soft Genitourinary: Yes: WNL Musculoskeletal: Yes: WNL Edema: Yes Edema: LLE: 2+, RLE: 2+ Neurological: Yes: Oriented Psychiatric: Yes: Oriented Labs: CBC, BMP 11/23/18 05:40 11/23/18 07:00 INR, PTT INR 1.33 (0.83-1.09) H 11/23/18 05:40 Problem List - Problems (1) Atrial fibrillation with RVR Code(s): I48.91 - UNSPECIFIED ATRIAL FIBRILLATION (2) Bilateral lower extremity edema Code(s): R60.0 - LOCALIZED EDEMA (3) CHF (congestive heart failure), NYHA class II Code(s): I50.9 - HEART FAILURE, UNSPECIFIED Qualifiers: Congestive heart failure type: unspecified Qualified Code(s): I50.9 - Heart failure, unspecified (4) CKD (chronic kidney disease) Code(s): N18.9 - CHRONIC KIDNEY DISEASE, UNSPECIFIED Qualifiers: Chronic kidney disease stage: unspecified stage Qualified Code(s): N18.9 - Chronic kidney disease, unspecified Assessment/Plan Current Medications Generic Name Dose Route Start Last Admin Trade Name Freozzy PRN Reason Stop Dose Admin Digoxin 0.125 mg 11/24/18 11:45 Lanoxin - PO Q48H [facility] Docusate Sodium 100 mg 11/18/18 15:45 11/23/18 11:32 Colace - PO 100 mg BID [facility] Administration Furosemide 80 mg 11/18/18 14:00 11/23/18 06:34 Lasix Injection - IVPUSH 80 mg BIDLASIX [facility] Administration Insulin Aspart 1 vial 11/15/18 16:30 11/23/18 11:38 Novolog Vial Sliding Scale - SQ Not Given ACHS [facility] Protocol Insulin Detemir 20 units 11/16/18 07:00 11/23/18 06:35 Levemir Vial SQ Not Given AM [facility] Metoprolol Succinate 100 mg 11/18/18 22:00 11/23/18 11:32 Toprol Xl - PO 100 mg BID [facility] Administration Impression 1. CKD 2. PIO 3. a-fib 4. HTN 5. CHF 6. DM 7. non compliance Plan - pending fistula placement - cont lasix - renal diet - monitor lytes - follow vein mapping - compliance has been an issue
--- NOTE | 2018-11-23 14:52 | PN ---
Progress Note, Physician Chief Complaint: patient seen and examined vein mapping done - Current Medication List Current Medications: Active Medications Digoxin (Lanoxin -) 0.125 mg PO Q48H [facility] Docusate Sodium (Colace -) 100 mg PO BID [facility] Last Admin: 11/23/18 11:32 Dose: 100 mg Furosemide (Lasix Injection -) 80 mg IVPUSH BIDLASIX [facility] Last Admin: 11/23/18 14:26 Dose: 80 mg Insulin Aspart (Novolog Vial Sliding Scale -) 1 vial SQ ACHS [facility]; Protocol Last Admin: 11/23/18 11:38 Dose: Not Given Insulin Detemir (Levemir Vial) 20 units SQ AM [facility] Last Admin: 11/23/18 06:35 Dose: Not Given Metoprolol Succinate (Toprol Xl -) 100 mg PO BID [facility] Last Admin: 11/23/18 11:32 Dose: 100 mg - Objective Vital Signs: Vital Signs Temperature 97.4 F L 11/23/18 14:00 Pulse Rate 101 H 11/23/18 14:00 Respiratory Rate 20 11/23/18 14:00 Blood Pressure 147/79 11/23/18 14:00 O2 Sat by Pulse Oximetry (%) 98 11/23/18 08:29 Constitutional: Yes: Calm Cardiovascular: Yes: Regular Rate and Rhythm, S1, S2 Respiratory: Yes: Diminished (at bases) Gastrointestinal: Yes: Normal Bowel Sounds, Soft Edema: Yes Neurological: Yes: Alert, Oriented Labs: CBC, BMP 11/23/18 05:40 11/23/18 07:00 INR, PTT INR 1.33 (0.83-1.09) H 11/23/18 05:40 Problem List - Problems (1) Atrial fibrillation with RVR Assessment/Plan: iv heparin metoprolol inc to 100mg po bid not on lo0ng term AC as yet as will need placement of fistula in arm telemetry Code(s): I48.91 - UNSPECIFIED ATRIAL FIBRILLATION (2) Bilateral lower extremity edema Assessment/Plan: doppler of legs no dvt iv lasix bid Code(s): R60.0 - LOCALIZED EDEMA (3) A-fib Assessment/Plan: metoprolol inc to 100mg bid and digoxin dosing q48 given renal function check digoxin level tele cardiology noted heparin drip Code(s): I48.91 - UNSPECIFIED ATRIAL FIBRILLATION Qualifiers: Atrial fibrillation type: unspecified Qualified Code(s): I48.91 - Unspecified atrial fibrillation (4) CKD (chronic kidney disease) Assessment/Plan: renal noted vein mapping needs fistula by vascular iv lasix bid Code(s): N18.9 - CHRONIC KIDNEY DISEASE, UNSPECIFIED Qualifiers: Chronic kidney disease stage: unspecified stage Qualified Code(s): N18.9 - Chronic kidney disease, unspecified (5) Diabetes Assessment/Plan: insulin bgm sliding scale hgba1c 8.9 Code(s): E11.9 - TYPE 2 DIABETES MELLITUS WITHOUT COMPLICATIONS Qualifiers: Diabetes mellitus type: type 2 (6) Left leg weakness Assessment/Plan: ct head negative r MRI and MRA w/o contrast- no acute infarct seen neurology evaluation noted PT eval shuffling with 25 feet Code(s): R29.898 - OT SYMPTOMS AND SIGNS INVOLVING THE MUSCULOSKELETAL SYSTEM
[2018-11-24] MEDS: FUROSEMIDE 40 MG/4 ML INJECTABLE VIAL IVPUSH SCH ×2 (06:46→14:07)
[2018-11-24] MEDS: INSULIN (LEVEMIR) 100 UNITS/ML UNITS SQ SCH (06:46)
[2018-11-24] MEDS: INSULIN SLIDING SCALE (NOVOLOG) 1 VIAL SQ SCH ×4 (06:49→22:10)
[2018-11-24 07:06] LABS: HEMATOCRIT 32.2 % (35.4-49); HEMOGLOBIN 10.2 GM/dL (11.7-16.9); MCH 23.9 pg (25.7-33.7); MCHC 31.7 g/dl (32.0-35.9); MEAN CELL VOLUME 75.5 fl (80-96); MEAN PLT VOLUME 7.4 fl (7.5-11.1); PLATELET COUNT 246 K/MM3 (134-434); RBC 4.27 M/mm3 (4.00-5.60); RDW 17.3 % (11.9-15.9); WHITE BLOOD COUNT 8.7 K/mm3 (4.0-10.0)
[2018-11-24 07:37] LABS: BLOOD UREA NITROGEN 86.9 mg/dL (7-18); CALCIUM 9.5 mg/dL (8.5-10.1); CREATININE 4.3 mg/dL (0.55-1.3); POTASSIUM 3.1 mmol/L (3.5-5.1)
[2018-11-24] MEDS: DOCUSATE SODIUM 100 MG CAPSULE (FP) PO SCH ×2 (09:38→22:11)
--- NOTE | 2018-11-24 10:09 | PN ---
Progress Note (short form) - Note Progress Note: RENAL Pt is awake and alert sitting up cleaning himself on side of bed Last Vital Signs Temp Pulse Resp BP Pulse Ox 98.2 F 87 18 153/83 97 11/24/18 05:52 11/24/18 05:52 11/24/18 08:43 11/24/18 05:52 11/24/18 08:43 obese lungs clear cvs s1s2 irregular abd soft ext +edema, bilat LE's wrapped neuro a+o x3 skin no obvious rashes CBC, BMP 11/24/18 05:55 11/24/18 05:55 Current Medications Generic Name Dose Route Start Last Admin Trade Name Freq PRN Reason Stop Dose Admin Digoxin 0.125 mg 11/24/18 11:45 Lanoxin - PO Q48H [facility] Docusate Sodium 100 mg 11/18/18 15:45 11/24/18 09:38 Colace - PO 100 mg BID [facility] Administration Furosemide 80 mg 11/18/18 14:00 11/24/18 06:46 Lasix Injection - IVPUSH 80 mg BIDLASIX [facility] Administration Insulin Aspart 1 vial 11/15/18 16:30 11/24/18 06:49 Novolog Vial Sliding Scale - SQ Not Given ACHS [facility] Protocol Insulin Detemir 20 units 11/16/18 07:00 11/24/18 06:46 Levemir Vial SQ 20 units AM [facility] Administration Metoprolol Succinate 100 mg 11/18/18 22:00 11/24/18 09:38 Toprol Xl - PO 100 mg BID [facility] Administration Impression 1. CKD 2. PIO 3. a-fib 4. HTN 5. CHF 6. DM 7. non compliance Plan awaiting fistula diuretics cardiac clearance for avf keep monitoring MV
--- NOTE | 2018-11-24 11:24 | PN ---
Progress Note, Physician - Current Medication List Current Medications: Active Medications Digoxin (Lanoxin -) 0.125 mg PO Q48H [facility] Docusate Sodium (Colace -) 100 mg PO BID [facility] Last Admin: 11/24/18 09:38 Dose: 100 mg Furosemide (Lasix Injection -) 80 mg IVPUSH BIDLASIX [facility] Last Admin: 11/24/18 06:46 Dose: 80 mg Insulin Aspart (Novolog Vial Sliding Scale -) 1 vial SQ ACHS [facility]; Protocol Last Admin: 11/24/18 06:49 Dose: Not Given Insulin Detemir (Levemir Vial) 20 units SQ AM [facility] Last Admin: 11/24/18 06:46 Dose: 20 units Metoprolol Succinate (Toprol Xl -) 100 mg PO BID [facility] Last Admin: 11/24/18 09:38 Dose: 100 mg - Objective Vital Signs: Vital Signs Temperature 98.2 F 11/24/18 05:52 Pulse Rate 87 11/24/18 05:52 Respiratory Rate 18 11/24/18 08:43 Blood Pressure 153/83 11/24/18 05:52 O2 Sat by Pulse Oximetry (%) 97 11/24/18 08:43 Cardiovascular: Yes: S1, S2 Respiratory: Yes: Regular, CTA Bilaterally Gastrointestinal: Yes: Normal Bowel Sounds, Soft Labs: CBC, BMP 11/24/18 05:55 11/24/18 05:55 INR, PTT INR 1.33 (0.83-1.09) H 11/23/18 05:40 Assessment/Plan - Problems (1) Atrial fibrillation with RVR Assessment/Plan: iv heparin metoprolol inc to 100mg po bid not on lo0ng term AC as yet as will need placement of fistula in arm telemetry Code(s): I48.91 - UNSPECIFIED ATRIAL FIBRILLATION (2) Bilateral lower extremity edema Assessment/Plan: doppler of legs no dvt iv lasix bid Code(s): R60.0 - LOCALIZED EDEMA (3) A-fib Assessment/Plan: metoprolol inc to 100mg bid and digoxin dosing q48 given renal function check digoxin level tele cardiology noted heparin drip Code(s): I48.91 - UNSPECIFIED ATRIAL FIBRILLATION Qualifiers: Atrial fibrillation type: unspecified Qualified Code(s): I48.91 - Unspecified atrial fibrillation (4) CKD (chronic kidney disease) Assessment/Plan: renal noted vein mapping needs fistula by vascular iv lasix bid Code(s): N18.9 - CHRONIC KIDNEY DISEASE, UNSPECIFIED Qualifiers: Chronic kidney disease stage: unspecified stage Qualified Code(s): N18.9 - Chronic kidney disease, unspecified (5) Diabetes Assessment/Plan: insulin bgm sliding scale hgba1c 8.9 Code(s): E11.9 - TYPE 2 DIABETES MELLITUS WITHOUT COMPLICATIONS Qualifiers: Diabetes mellitus type: type 2 (6) Left leg weakness Assessment/Plan: ct head negative r MRI and MRA w/o contrast- no acute infarct seen neurology evaluation noted PT eval shuffling with 25 feet Code(s): R29.898 - OTH SYMPTOMS AND SIGNS INVOLVING THE MUSCULOSKELETAL SYSTEM
[2018-11-24] MEDS: DIGOXIN 0.125 MG TABLET (FP) PO SCH (14:06)
[2018-11-25] MEDS: FUROSEMIDE 40 MG/4 ML INJECTABLE VIAL IVPUSH SCH ×3 (06:07→17:42)
[2018-11-25] MEDS: INSULIN SLIDING SCALE (NOVOLOG) 1 VIAL SQ SCH ×4 (06:07→22:41)
[2018-11-25] MEDS: INSULIN (LEVEMIR) 100 UNITS/ML UNITS SQ SCH (06:51)
[2018-11-25] MEDS: DOCUSATE SODIUM 100 MG CAPSULE (FP) PO SCH ×2 (10:39→22:40)
[2018-11-25 11:04] LABS: HEMOGLOBIN 9.7 GM/dL (11.7-16.9); MCH 23.7 pg (25.7-33.7); MCHC 31.4 g/dl (32.0-35.9); MEAN CELL VOLUME 75.3 fl (80-96); MEAN PLT VOLUME 7.6 fl (7.5-11.1); PLATELET COUNT 227 K/MM3 (134-434); RBC 4.12 M/mm3 (4.00-5.60); RDW 17.8 % (11.9-15.9); WHITE BLOOD COUNT 10.3 K/mm3 (4.0-10.0)
--- NOTE | 2018-11-25 11:24 | PN ---
Progress Note, Physician - Current Medication List Current Medications: Active Medications Digoxin (Lanoxin -) 0.125 mg PO Q48H [facility] Last Admin: 11/24/18 14:06 Dose: 0.125 mg Docusate Sodium (Colace -) 100 mg PO BID [facility] Last Admin: 11/25/18 10:39 Dose: 100 mg Furosemide (Lasix Injection -) 80 mg IVPUSH BIDLASIX [facility] Last Admin: 11/25/18 06:07 Dose: Not Given Insulin Aspart (Novolog Vial Sliding Scale -) 1 vial SQ ACHS [facility]; Protocol Last Admin: 11/25/18 06:07 Dose: Not Given Insulin Detemir (Levemir Vial) 20 units SQ AM [facility] Last Admin: 11/25/18 06:51 Dose: Not Given Metoprolol Succinate (Toprol Xl -) 100 mg PO BID [facility] Last Admin: 11/25/18 10:38 Dose: 100 mg - Objective Vital Signs: Vital Signs Temperature 98 F 11/25/18 06:54 Pulse Rate 107 H 11/25/18 06:54 Respiratory Rate 18 11/25/18 06:54 Blood Pressure 132/87 11/25/18 06:54 O2 Sat by Pulse Oximetry (%) 99 11/24/18 21:00 Labs: CBC, BMP 11/25/18 10:35 11/24/18 05:55 INR, PTT INR 1.33 (0.83-1.09) H 11/23/18 05:40 Assessment/Plan - Problems (1) Atrial fibrillation with RVR Assessment/Plan: iv heparin metoprolol inc to 100mg po bid not on lo0ng term AC as yet as will need placement of fistula in arm telemetry Code(s): I48.91 - UNSPECIFIED ATRIAL FIBRILLATION (2) Bilateral lower extremity edema Assessment/Plan: doppler of legs no dvt iv lasix bid Code(s): R60.0 - LOCALIZED EDEMA (3) A-fib Assessment/Plan: metoprolol inc to 100mg bid and digoxin dosing q48 given renal function check digoxin level tele cardiology noted heparin drip Code(s): I48.91 - UNSPECIFIED ATRIAL FIBRILLATION Qualifiers: Atrial fibrillation type: unspecified Qualified Code(s): I48.91 - Unspecified atrial fibrillation (4) CKD (chronic kidney disease) Assessment/Plan: renal noted vein mapping needs fistula by vascular iv lasix bid Code(s): N18.9 - CHRONIC KIDNEY DISEASE, UNSPECIFIED Qualifiers: Chronic kidney disease stage: unspecified stage Qualified Code(s): N18.9 - Chronic kidney disease, unspecified (5) Diabetes Assessment/Plan: insulin bgm sliding scale hgba1c 8.9 Code(s): E11.9 - TYPE 2 DIABETES MELLITUS WITHOUT COMPLICATIONS Qualifiers: Diabetes mellitus type: type 2 (6) Left leg weakness Assessment/Plan: ct head negative r MRI and MRA w/o contrast- no acute infarct seen neurology evaluation noted PT eval shuffling with 25 feet Code(s): R29.898 - OTH SYMPTOMS AND SIGNS INVOLVING THE MUSCULOSKELETAL SYSTEM
--- NOTE | 2018-11-25 12:36 | PN ---
Progress Note (short form) - Note Progress Note: RENAL Pt is awake and alert Last Vital Signs Temp Pulse Resp BP Pulse Ox 98 F 107 H 18 132/87 99 11/25/18 06:54 11/25/18 06:54 11/25/18 09:00 11/25/18 06:54 11/25/18 09:00 obese lungs clear cvs s1s2 irregular abd soft ext +edema, legs are weeping neuro a+o x3 skin no obvious rashes CBC, BMP 11/25/18 10:35 11/24/18 05:55 Current Medications Generic Name Dose Route Start Last Admin Trade Name Lee PRN Reason Stop Dose Admin Digoxin 0.125 mg 11/24/18 11:45 11/24/18 14:06 Lanoxin - PO 0.125 mg Q48H [facility] Administration Docusate Sodium 100 mg 11/18/18 15:45 11/25/18 10:39 Colace - PO 100 mg BID [facility] Administration Furosemide 80 mg 11/18/18 14:00 11/25/18 06:07 Lasix Injection - IVPUSH Not Given BIDLASIX [facility] Insulin Aspart 1 vial 11/15/18 16:30 11/25/18 12:18 Novolog Vial Sliding Scale - SQ Not Given ACHS [facility] Protocol Insulin Detemir 20 units 11/16/18 07:00 11/25/18 06:51 Levemir Vial SQ Not Given AM [facility] Metoprolol Succinate 100 mg 11/18/18 22:00 11/25/18 10:38 Toprol Xl - PO 100 mg BID [facility] Administration Impression 1. CKD 2. PIO 3. a-fib 4. HTN 5. CHF 6. DM 7. non compliance Plan awaiting fistula would give iv lasix ad place shay in since he is concerned that he cant get to bathroom if he takes lasix cardiac clearance for avf keep monitoring repeat labs need to correct k since he is on dig MV
[2018-11-26] MEDS: INSULIN (LEVEMIR) 100 UNITS/ML UNITS SQ SCH (06:15)
[2018-11-26] MEDS: FUROSEMIDE 40 MG/4 ML INJECTABLE VIAL IVPUSH SCH ×2 (06:15→14:14)
[2018-11-26] MEDS: INSULIN SLIDING SCALE (NOVOLOG) 1 VIAL SQ SCH ×4 (06:15→22:45)
[2018-11-26] MEDS: DOCUSATE SODIUM 100 MG CAPSULE (FP) PO SCH ×3 (10:18→22:37)
--- NOTE | 2018-11-26 11:10 | PN ---
Progress Note (short form) - Note Progress Note: VASCULAR SURGERY LUE Vein mapping done. Awaiting official read. Planning for LUE AVF. Medical optimization/clearance No IVs/BP/Phlebotomy from [facility]
--- NOTE | 2018-11-26 12:13 | PN ---
Progress Note, Physician History of Present Illness: Pt seen and examined at bedside. He is awake and alert. he denied shortness of breath. He complains of edema. - Current Medication List Current Medications: Active Medications Digoxin (Lanoxin -) 0.125 mg PO Q48H [facility] Last Admin: 11/24/18 14:06 Dose: 0.125 mg Docusate Sodium (Colace -) 100 mg PO BID [facility] Last Admin: 11/26/18 10:18 Dose: Not Given Furosemide (Lasix Injection -) 80 mg IVPUSH BIDLASIX [facility] Last Admin: 11/26/18 06:15 Dose: 80 mg Insulin Aspart (Novolog Vial Sliding Scale -) 1 vial SQ ACHS [facility]; Protocol Last Admin: 11/26/18 06:15 Dose: Not Given Insulin Detemir (Levemir Vial) 20 units SQ AM [facility] Last Admin: 11/26/18 06:15 Dose: Not Given Metoprolol Succinate (Toprol Xl -) 100 mg PO BID [facility] Last Admin: 11/26/18 10:18 Dose: 100 mg - Objective Vital Signs: Vital Signs Temperature 97.8 F 11/26/18 09:00 Pulse Rate 102 H 11/26/18 09:00 Respiratory Rate 20 11/26/18 09:00 Blood Pressure 147/80 11/26/18 09:00 O2 Sat by Pulse Oximetry (%) 99 11/26/18 09:00 Constitutional: Yes: Calm Eyes: Yes: Conjunctiva Clear HENT: Yes: Atraumatic Neck: Yes: Supple Cardiovascular: Yes: S1, S2 Respiratory: Yes: CTA Bilaterally Gastrointestinal: Yes: Soft, Abdomen, Obese Genitourinary: Yes: WNL Musculoskeletal: Yes: WNL Edema: Yes Edema: LLE: 2+, RLE: 2+ Neurological: Yes: Oriented Psychiatric: Yes: Oriented Labs: CBC, BMP 11/25/18 10:35 11/24/18 05:55 INR, PTT INR 1.33 (0.83-1.09) H 11/23/18 05:40 Problem List - Problems (1) Atrial fibrillation with RVR Code(s): I48.91 - UNSPECIFIED ATRIAL FIBRILLATION (2) Bilateral lower extremity edema Code(s): R60.0 - LOCALIZED EDEMA (3) CHF (congestive heart failure), NYHA class II Code(s): I50.9 - HEART FAILURE, UNSPECIFIED Qualifiers: Congestive heart failure type: unspecified Qualified Code(s): I50.9 - Heart failure, unspecified (4) CKD (chronic kidney disease) Code(s): N18.9 - CHRONIC KIDNEY DISEASE, UNSPECIFIED Qualifiers: Chronic kidney disease stage: unspecified stage Qualified Code(s): N18.9 - Chronic kidney disease, unspecified Assessment/Plan Current Medications Generic Name Dose Route Start Last Admin Trade Name Lee PRN Reason Stop Dose Admin Digoxin 0.125 mg 11/24/18 11:45 11/24/18 14:06 Lanoxin - PO 0.125 mg Q48H [facility] Administration Docusate Sodium 100 mg 11/18/18 15:45 11/26/18 10:18 Colace - PO Not Given BID [facility] Furosemide 80 mg 11/18/18 14:00 11/26/18 06:15 Lasix Injection - IVPUSH 80 mg BIDLASIX [facility] Administration Insulin Aspart 1 vial 11/15/18 16:30 11/26/18 06:15 Novolog Vial Sliding Scale - SQ Not Given ACHS [facility] Protocol Insulin Detemir 20 units 11/16/18 07:00 11/26/18 06:15 Levemir Vial SQ Not Given AM [facility] Metoprolol Succinate 100 mg 11/18/18 22:00 11/26/18 10:18 Toprol Xl - PO 100 mg BID [facility] Administration Impression 1. CKD 2. PIO 3. a-fib 4. HTN 5. CHF 6. DM 7. non compliance Plan - check labs - discussed with medical team - follow vein mapping - pt for fistula - renal diet - monitor lytes
[2018-11-26] MEDS: DIGOXIN 0.125 MG TABLET (FP) PO SCH (12:14)
--- NOTE | 2018-11-26 12:53 | PN ---
Progress Note, Physician Chief Complaint: awating AVF placement no chest pain has leg swelling - Current Medication List Current Medications: Active Medications Digoxin (Lanoxin -) 0.125 mg PO Q48H [facility] Last Admin: 11/24/18 14:06 Dose: 0.125 mg Docusate Sodium (Colace -) 100 mg PO BID [facility] Last Admin: 11/26/18 10:18 Dose: Not Given Furosemide (Lasix Injection -) 80 mg IVPUSH BIDLASIX [facility] Last Admin: 11/26/18 06:15 Dose: 80 mg Insulin Aspart (Novolog Vial Sliding Scale -) 1 vial SQ ACHS [facility]; Protocol Last Admin: 11/26/18 12:17 Dose: Not Given Insulin Detemir (Levemir Vial) 20 units SQ AM [facility] Last Admin: 11/26/18 06:15 Dose: Not Given Metoprolol Succinate (Toprol Xl -) 100 mg PO BID [facility] Last Admin: 11/26/18 10:18 Dose: 100 mg - Objective Vital Signs: Vital Signs Temperature 97.8 F 11/26/18 09:00 Pulse Rate 102 H 11/26/18 09:00 Respiratory Rate 20 11/26/18 09:00 Blood Pressure 147/80 11/26/18 09:00 O2 Sat by Pulse Oximetry (%) 99 11/26/18 09:00 Constitutional: Yes: Calm Cardiovascular: Yes: Regular Rate and Rhythm, S1, S2 Respiratory: Yes: Diminished Gastrointestinal: Yes: Normal Bowel Sounds, Soft Edema: Yes Neurological: Yes: Alert, Oriented Labs: CBC, BMP 11/25/18 10:35 11/24/18 05:55 INR, PTT INR 1.33 (0.83-1.09) H 11/23/18 05:40 Problem List - Problems (1) Atrial fibrillation with RVR Assessment/Plan: iv heparin metoprolol inc to 100mg po bid not on lo0ng term AC as yet as will need placement of fistula in arm telemetry Code(s): I48.91 - UNSPECIFIED ATRIAL FIBRILLATION (2) Bilateral lower extremity edema Assessment/Plan: doppler of legs no dvt iv lasix bid Code(s): R60.0 - LOCALIZED EDEMA (3) A-fib Assessment/Plan: metoprolol inc to 100mg bid and digoxin dosing q48 given renal function check digoxin level tele cardiology noted heparin drip Code(s): I48.91 - UNSPECIFIED ATRIAL FIBRILLATION Qualifiers: Atrial fibrillation type: unspecified Qualified Code(s): I48.91 - Unspecified atrial fibrillation (4) CKD (chronic kidney disease) Assessment/Plan: renal noted iv lasix bid to get AVF placed Code(s): N18.9 - CHRONIC KIDNEY DISEASE, UNSPECIFIED Qualifiers: Chronic kidney disease stage: unspecified stage Qualified Code(s): N18.9 - Chronic kidney disease, unspecified (5) Diabetes Assessment/Plan: insulin bgm sliding scale hgba1c 8.9 Code(s): E11.9 - TYPE 2 DIABETES MELLITUS WITHOUT COMPLICATIONS Qualifiers: Diabetes mellitus type: type 2 (6) Left leg weakness Assessment/Plan: ct head negative r MRI and MRA w/o contrast- no acute infarct seen neurology evaluation noted PT eval shuffling with 25 feet Code(s): R29.898 - OT SYMPTOMS AND SIGNS INVOLVING THE MUSCULOSKELETAL SYSTEM Assessment/Plan needs cardiology clearance for AVF placement
--- NOTE | 2018-11-26 14:32 | PN ---
Progress Note, Physician Chief Complaint: Asked to see the patient for preop evaluation for HD access. No chest pain, sob, orthopnea, PND. Still with edema. Tele afib with controlled VR. History of Present Illness: 62 M chronic Afib, CKD, HTN. History of poor compliance. 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 Now with leg paresis and rapid afib in the setting of medication non- compliance. He is awaiting HD access surgery. - Current Medication List Current Medications: Active Medications Digoxin (Lanoxin -) 0.125 mg PO Q48H [facility] Last Admin: 11/26/18 12:14 Dose: 0.125 mg Docusate Sodium (Colace -) 100 mg PO BID [facility] Last Admin: 11/26/18 10:18 Dose: Not Given Furosemide (Lasix Injection -) 80 mg IVPUSH BIDLASIX [facility] Last Admin: 11/26/18 14:14 Dose: 80 mg Insulin Aspart (Novolog Vial Sliding Scale -) 1 vial SQ ACHS [facility]; Protocol Last Admin: 11/26/18 12:17 Dose: Not Given Insulin Detemir (Levemir Vial) 20 units SQ AM [facility] Last Admin: 11/26/18 06:15 Dose: Not Given Metoprolol Succinate (Toprol Xl -) 100 mg PO BID [facility] Last Admin: 11/26/18 10:18 Dose: 100 mg - Objective Vital Signs: Vital Signs Temperature 97.8 F 11/26/18 09:00 Pulse Rate 105 H 11/26/18 12:14 Respiratory Rate 20 11/26/18 09:00 Blood Pressure 147/80 11/26/18 09:00 O2 Sat by Pulse Oximetry (%) 99 11/26/18 09:00 Constitutional: Yes: No Distress, Calm Eyes: Yes: Conjunctiva Clear, Ptosis HENT: Yes: Atraumatic, Normocephalic Neck: Yes: Supple, Trachea Midline Cardiovascular: Yes: Pulse Irregular Respiratory: Yes: CTA Bilaterally Musculoskeletal: Yes: WNL Extremities: Yes: WNL Edema: Yes Edema: LLE: 2+, RLE: 2+ Peripheral Pulses WNL: Yes Labs: CBC, BMP 11/25/18 10:35 11/24/18 05:55 INR, PTT INR 1.33 (0.83-1.09) H 11/23/18 05:40 Assessment/Plan 62 M chronic Afib, CKD, HTN. History of poor compliance. 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 Now with leg paresis and rapid afib in the setting of medication non- compliance. He has been treated for ventricular control and fluid overload. 1. Persistent atrial fibrillation -Toprol increased to 100 mg BID from 50 mg BID this afternoon. Digoxin 0.125 mg daily just added. May need to decrease digoxin to 0.125 mg every other day in a few days based on his renal function. -Continue IV heparin. Transition to coumadin. 2. Decompesated systolic CHF with severe fluid overload: Improved with IV lasix. Monitor daily weight, Is&Os, renal function and electrolytes. 3. Preop Cardiovascular Evaluation There are no cardiac contraindications to surgery. The surgery is low risk. Will see postop as needed.
[2018-11-27] MEDS: FUROSEMIDE 40 MG/4 ML INJECTABLE VIAL IVPUSH SCH ×2 (06:02→14:12)
[2018-11-27] MEDS: INSULIN (LEVEMIR) 100 UNITS/ML UNITS SQ SCH (06:22)
[2018-11-27] MEDS: INSULIN SLIDING SCALE (NOVOLOG) 1 VIAL SQ SCH ×4 (06:22→22:30)
--- NOTE | 2018-11-27 08:17 | PN ---
Progress Note (short form) - Note Progress Note: VASCULAR SURGERY LUE Vein mapping done. Awaiting official read. Planning for LUE AVF. Medical optimization/clearance Awaiting Cardio clearance No IVs/BP/Phlebotomy from [facility]
[2018-11-27] MEDS: DOCUSATE SODIUM 100 MG CAPSULE (FP) PO SCH ×2 (09:40→22:25)
[2018-11-27 11:09] LABS: HEMATOCRIT 32.5 % (35.4-49); HEMOGLOBIN 10.1 GM/dL (11.7-16.9); MCH 23.2 pg (25.7-33.7); MCHC 31.1 g/dl (32.0-35.9); MEAN CELL VOLUME 74.7 fl (80-96); MEAN PLT VOLUME 7.6 fl (7.5-11.1); PLATELET COUNT 274 K/MM3 (134-434); RBC 4.35 M/mm3 (4.00-5.60); RDW 17.6 % (11.9-15.9); WHITE BLOOD COUNT 11.2 K/mm3 (4.0-10.0)
--- NOTE | 2018-11-27 11:57 | PN ---
Progress Note, Physician History of Present Illness: Pt seen and examined at bedside. He is awake and alert. He denies shortness of breath. - Current Medication List Current Medications: Active Medications Digoxin (Lanoxin -) 0.125 mg PO Q48H [facility] Last Admin: 11/26/18 12:14 Dose: 0.125 mg Docusate Sodium (Colace -) 100 mg PO BID [facility] Last Admin: 11/27/18 09:40 Dose: Not Given Furosemide (Lasix Injection -) 80 mg IVPUSH BIDLASIX [facility] Last Admin: 11/27/18 06:02 Dose: 80 mg Insulin Aspart (Novolog Vial Sliding Scale -) 1 vial SQ ACHS [facility]; Protocol Last Admin: 11/27/18 06:22 Dose: Not Given Insulin Detemir (Levemir Vial) 20 units SQ AM [facility] Last Admin: 11/27/18 06:22 Dose: Not Given Metoprolol Succinate (Toprol Xl -) 100 mg PO BID [facility] Last Admin: 11/27/18 09:39 Dose: 100 mg - Objective Vital Signs: Vital Signs Temperature 98.2 F 11/27/18 10:00 Pulse Rate 104 H 11/27/18 10:00 Respiratory Rate 20 11/27/18 10:00 Blood Pressure 137/87 11/27/18 10:00 O2 Sat by Pulse Oximetry (%) 100 11/27/18 09:00 Constitutional: Yes: Calm Eyes: Yes: Conjunctiva Clear HENT: Yes: Atraumatic Neck: Yes: Supple Cardiovascular: Yes: S1, S2 Respiratory: Yes: CTA Bilaterally Gastrointestinal: Yes: Soft Genitourinary: Yes: WNL Musculoskeletal: Yes: WNL Edema: Yes Edema: LLE: 2+, RLE: 2+ Neurological: Yes: Oriented Psychiatric: Yes: Oriented Labs: CBC, BMP 11/27/18 10:55 11/24/18 05:55 INR, PTT INR 1.33 (0.83-1.09) H 11/23/18 05:40 Problem List - Problems (1) Atrial fibrillation with RVR Code(s): I48.91 - UNSPECIFIED ATRIAL FIBRILLATION (2) Bilateral lower extremity edema Code(s): R60.0 - LOCALIZED EDEMA (3) CHF (congestive heart failure), NYHA class II Code(s): I50.9 - HEART FAILURE, UNSPECIFIED Qualifiers: Congestive heart failure type: unspecified Qualified Code(s): I50.9 - Heart failure, unspecified (4) CKD (chronic kidney disease) Code(s): N18.9 - CHRONIC KIDNEY DISEASE, UNSPECIFIED Qualifiers: Chronic kidney disease stage: unspecified stage Qualified Code(s): N18.9 - Chronic kidney disease, unspecified Assessment/Plan Current Medications Generic Name Dose Route Start Last Admin Trade Name Freq PRN Reason Stop Dose Admin Digoxin 0.125 mg 11/24/18 11:45 11/26/18 12:14 Lanoxin - PO 0.125 mg Q48H [facility] Administration Docusate Sodium 100 mg 11/18/18 15:45 11/27/18 09:40 Colace - PO Not Given BID [facility] Furosemide 80 mg 11/18/18 14:00 11/27/18 06:02 Lasix Injection - IVPUSH 80 mg BIDLASIX [facility] Administration Insulin Aspart 1 vial 11/15/18 16:30 11/27/18 06:22 Novolog Vial Sliding Scale - SQ Not Given ACHS [facility] Protocol Insulin Detemir 20 units 11/16/18 07:00 11/27/18 06:22 Levemir Vial SQ Not Given AM [facility] Metoprolol Succinate 100 mg 11/18/18 22:00 11/27/18 09:39 Toprol Xl - PO 100 mg BID [facility] Administration Impression 1. CKD 2. PIO 3. a-fib 4. HTN 5. CHF 6. DM 7. non compliance Plan - ordered labs again, call with results - vascular follow up - follow vein mapping - pt for fistula - renal diet - monitor lytes
[2018-11-27 12:31] LABS: BLOOD UREA NITROGEN 78.1 mg/dL (7-18); CREATININE 3.9 mg/dL (0.55-1.3); POTASSIUM 3.5 mmol/L (3.5-5.1)
--- NOTE | 2018-11-27 13:50 | PN ---
Progress Note (short form) - Note Progress Note: Vascular Surgery Vein mapping reviewed. Pt can get left avf. Please clear from a medical and cardiology standpoint. CAn do av fistula on . Abdias Mccollum DO
--- NOTE | 2018-11-27 18:12 | PN ---
Progress Note, Physician Chief Complaint: PIO BLLE edema Afib - Current Medication List Current Medications: Active Medications Digoxin (Lanoxin -) 0.125 mg PO Q48H [facility] Last Admin: 11/26/18 12:14 Dose: 0.125 mg Docusate Sodium (Colace -) 100 mg PO BID [facility] Last Admin: 11/27/18 09:40 Dose: Not Given Furosemide (Lasix Injection -) 80 mg IVPUSH BIDLASIX [facility] Last Admin: 11/27/18 14:12 Dose: 80 mg Insulin Aspart (Novolog Vial Sliding Scale -) 1 vial SQ ACHS [facility]; Protocol Last Admin: 11/27/18 17:40 Dose: Not Given Insulin Detemir (Levemir Vial) 20 units SQ AM [facility] Last Admin: 11/27/18 06:22 Dose: Not Given Metoprolol Succinate (Toprol Xl -) 100 mg PO BID [facility] Last Admin: 11/27/18 09:39 Dose: 100 mg - Objective Vital Signs: Vital Signs Temperature 98.7 F 11/27/18 15:21 Pulse Rate 105 H 11/27/18 15:21 Respiratory Rate 20 11/27/18 15:21 Blood Pressure 130/98 11/27/18 15:21 O2 Sat by Pulse Oximetry (%) 100 11/27/18 09:00 Constitutional: Yes: Well Nourished, No Distress, Calm Cardiovascular: Yes: Regular Rate and Rhythm Respiratory: Yes: Regular Gastrointestinal: Yes: Normal Bowel Sounds, Soft, Abdomen, Obese Genitourinary: Yes: Yousif Present Musculoskeletal: Yes: Muscle Weakness Extremities: Yes: WNL Edema: Yes Edema: LLE: 3+, RLE: 3+ Peripheral Pulses WNL: Yes Integumentary: Yes: Venous Stasis Changes (LLE) Neurological: Yes: Alert, Oriented Psychiatric: Yes: Alert, Oriented Labs: CBC, BMP 11/27/18 10:55 11/27/18 10:55 INR, PTT INR 1.33 (0.83-1.09) H 11/23/18 05:40 Assessment/Plan (1) Atrial fibrillation with RVR Assessment/Plan: -Heparin drip, due to AVF placement in LUE on -Metoprolol inc to 100mg po bid -Tele monitor -Seen by cardiology Code(s): I48.91 - UNSPECIFIED ATRIAL FIBRILLATION (2) Bilateral lower extremity edema Assessment/Plan: -U/S venous doppler of BLLE-no dvt -IV lasix bid Code(s): R60.0 - LOCALIZED EDEMA (3) CKD (chronic kidney disease) Assessment/Plan: -Nephrology on -IV lasix bid -AVF placement on -Cleared by Cardiology Code(s): N18.9 - CHRONIC KIDNEY DISEASE, UNSPECIFIED Qualifiers: Chronic kidney disease stage: unspecified stage Qualified Code(s): N18.9 - Chronic kidney disease, unspecified (5) Diabetes Assessment/Plan: -BGM AC HS -Refuses insulin -A1c 8.9 Code(s): E11.9 - TYPE 2 DIABETES MELLITUS WITHOUT COMPLICATIONS Qualifiers: Diabetes mellitus type: type 2 (6) Left leg weakness Assessment/Plan: -CT head negative -Brain MRI and MRA w/o contrast- no acute infarct seen -neurology evaluation noted -PT eval shuffling gait -Lumbar spine MRI-Degenerative disc disease predominantly at L4-L5 L5-S1. L4-5 broad base herniation midline toward the right and left recesses more toward the right mass effect on the right L5 nerve root with extension into the inferior aspect of the right L5-S1 foramen as evident on sagittal T1 image #4 and on axial T2 image #24. L5-S1 midline herniation toward the right with mass effect on the right S1 nerve root in the recess without extension into the foramen. No evidence of spinal stenosis. Prominent soft tissue which may related to edema in the presacral and precoccygeal distribution also diffuse in the subcutaneous area behind the lumbar spine and upper sacrum. CT scan of the abdomen and pelvis recommended for further evaluation. Code(s): R29.898 - OTH SYMPTOMS AND SIGNS INVOLVING THE MUSCULOSKELETAL SYSTEM Pt medically stable for OR for AVF placement with acceptable OR risks
[2018-11-28] MEDS: FUROSEMIDE 40 MG/4 ML INJECTABLE VIAL IVPUSH SCH ×2 (06:20→15:17)
[2018-11-28] MEDS: INSULIN (LEVEMIR) 100 UNITS/ML UNITS SQ SCH (06:20)
[2018-11-28] MEDS: INSULIN SLIDING SCALE (NOVOLOG) 1 VIAL SQ SCH ×4 (06:20→21:31)
[2018-11-28 06:28] LABS: BASO % 1.2 % (0-2.0); HEMATOCRIT 28.3 % (35.4-49); LYMPH % 18.7 % (8-40); MCH 23.7 pg (25.7-33.7); MCHC 31.9 g/dl (32.0-35.9); MEAN CELL VOLUME 74.3 fl (80-96); MEAN PLT VOLUME 7.9 fl (7.5-11.1); MONO % 10.1 % (3.8-10.2); PLATELET COUNT 270 K/MM3 (134-434); RBC 3.81 M/mm3 (4.00-5.60); RDW 17.6 % (11.9-15.9); WHITE BLOOD COUNT 9.4 K/mm3 (4.0-10.0)
[2018-11-28 07:03] LABS: ALBUMIN 2.6 g/dl (3.4-5.0); BILIRUBIN,TOTAL 0.8 mg/dL (0.2-1); BLOOD UREA NITROGEN 81.6 mg/dL (7-18); CALCIUM 8.7 mg/dL (8.5-10.1); CREATININE 3.7 mg/dL (0.55-1.3); TOT PROT 6.7 g/dl (6.4-8.2)
[2018-11-28 07:10] LABS: POTASSIUM 2.9 mmol/L (3.5-5.1)
[2018-11-28 07:28] LABS: BILIRUBIN,DIRECT 0.4 mg/dL (0.0-0.2)
[2018-11-28] MEDS ORDERED: POTASSIUM CHLORIDE TABS 20 MEQ TABLET.ER (FP) PO ONE (07:29)
--- NOTE | 2018-11-28 08:56 | PN ---
Progress Note, Physician - Current Medication List Current Medications: Active Medications Digoxin (Lanoxin -) 0.125 mg PO Q48H [facility] Last Admin: 11/26/18 12:14 Dose: 0.125 mg Docusate Sodium (Colace -) 100 mg PO BID [facility] Last Admin: 11/27/18 22:25 Dose: Not Given Furosemide (Lasix Injection -) 80 mg IVPUSH BIDLASIX [facility] Last Admin: 11/28/18 06:20 Dose: 80 mg Insulin Aspart (Novolog Vial Sliding Scale -) 1 vial SQ ACHS [facility]; Protocol Last Admin: 11/28/18 06:20 Dose: Not Given Insulin Detemir (Levemir Vial) 20 units SQ AM [facility] Last Admin: 11/28/18 06:20 Dose: Not Given Metoprolol Succinate (Toprol Xl -) 100 mg PO BID [facility] Last Admin: 11/27/18 22:26 Dose: 100 mg - Objective Vital Signs: Vital Signs Temperature 98 F 11/28/18 06:25 Pulse Rate 93 H 11/28/18 00:00 Respiratory Rate 20 11/28/18 00:00 Blood Pressure 119/71 11/28/18 06:25 O2 Sat by Pulse Oximetry (%) 100 11/27/18 21:00 Cardiovascular: Yes: S1, S2 Respiratory: Yes: CTA Bilaterally, On Nasal O2 Gastrointestinal: Yes: Normal Bowel Sounds, Soft Labs: CBC, BMP 11/28/18 05:35 11/28/18 05:35 INR, PTT INR 1.33 (0.83-1.09) H 11/23/18 05:40 Assessment/Plan (1) Atrial fibrillation with RVR Assessment/Plan: -Heparin drip, due to AVF placement in LUE on -Metoprolol inc to 100mg po bid -Tele monitor -Seen by cardiology Code(s): I48.91 - UNSPECIFIED ATRIAL FIBRILLATION (2) Bilateral lower extremity edema Assessment/Plan: -U/S venous doppler of BLLE-no dvt -IV lasix bid Code(s): R60.0 - LOCALIZED EDEMA (3) CKD (chronic kidney disease) Assessment/Plan: -Nephrology on -IV lasix bid -AVF placement on -Cleared by Cardiology Code(s): N18.9 - CHRONIC KIDNEY DISEASE, UNSPECIFIED Qualifiers: Chronic kidney disease stage: unspecified stage Qualified Code(s): N18.9 - Chronic kidney disease, unspecified (5) Diabetes Assessment/Plan: -BGM AC HS -Refuses insulin -A1c 8.9 Code(s): E11.9 - TYPE 2 DIABETES MELLITUS WITHOUT COMPLICATIONS Qualifiers: Diabetes mellitus type: type 2 (6) Left leg weakness Assessment/Plan: -CT head negative -Brain MRI and MRA w/o contrast- no acute infarct seen -neurology evaluation noted -PT eval shuffling gait -Lumbar spine MRI-Degenerative disc disease predominantly at L4-L5 L5-S1. L4-5 broad base herniation midline toward the right and left recesses more toward the right mass effect on the right L5 nerve root with extension into the inferior aspect of the right L5-S1 foramen as evident on sagittal T1 image #4 and on axial T2 image #24. L5-S1 midline herniation toward the right with mass effect on the right S1 nerve root in the recess without extension into the foramen. No evidence of spinal stenosis. Prominent soft tissue which may related to edema in the presacral and precoccygeal distribution also diffuse in the subcutaneous area behind the lumbar spine and upper sacrum. CT scan of the abdomen and pelvis recommended for further evaluation. Code(s): R29.898 - OTH SYMPTOMS AND SIGNS INVOLVING THE MUSCULOSKELETAL SYSTEM Pt medically stable for OR for AVF placement with acceptable OR risks
[2018-11-28] MEDS: KCL 10 MEQ IVPB 10 MEQ/100 ML INFUS.BAG IVPB SCH ×3 (09:07→14:00)
[2018-11-28] MEDS: DOCUSATE SODIUM 100 MG CAPSULE (FP) PO SCH ×2 (09:11→21:31)
[2018-11-28] MEDS: POTASSIUM CHLORIDE TABS 10 MEQ TABLET.ER (FP) PO SCH (11:41)
[2018-11-28] MEDS: DIGOXIN 0.125 MG TABLET (FP) PO SCH (11:42)
--- NOTE | 2018-11-28 12:42 | PN ---
Progress Note, Physician History of Present Illness: Pt seen and examined at bedside. He is awake and alert. He denies shortness of breath. - Current Medication List Current Medications: Active Medications Digoxin (Lanoxin -) 0.125 mg PO Q48H [facility] Last Admin: 11/28/18 11:42 Dose: 0.125 mg Docusate Sodium (Colace -) 100 mg PO BID [facility] Last Admin: 11/28/18 09:11 Dose: Not Given Furosemide (Lasix Injection -) 80 mg IVPUSH BIDLASIX [facility] Last Admin: 11/28/18 06:20 Dose: 80 mg Insulin Aspart (Novolog Vial Sliding Scale -) 1 vial SQ ACHS [facility]; Protocol Last Admin: 11/28/18 06:20 Dose: Not Given Insulin Detemir (Levemir Vial) 20 units SQ AM [facility] Last Admin: 11/28/18 06:20 Dose: Not Given Metoprolol Succinate (Toprol Xl -) 100 mg PO BID [facility] Last Admin: 11/28/18 09:07 Dose: 100 mg Potassium Chloride (K-Dur -) 20 meq PO DAILY [facility] Last Admin: 11/28/18 11:41 Dose: 20 meq - Objective Vital Signs: Vital Signs Temperature 97.4 F L 11/28/18 10:00 Pulse Rate 102 H 11/28/18 11:42 Respiratory Rate 18 11/28/18 10:00 Blood Pressure 138/72 11/28/18 10:00 O2 Sat by Pulse Oximetry (%) 100 11/27/18 21:00 Constitutional: Yes: Calm Eyes: Yes: Conjunctiva Clear HENT: Yes: Atraumatic Cardiovascular: Yes: S1, S2 Respiratory: Yes: CTA Bilaterally Gastrointestinal: Yes: Soft Genitourinary: Yes: Yousif Present Musculoskeletal: Yes: WNL Edema: Yes Edema: LLE: 1+, RLE: 1+ Neurological: Yes: Oriented Psychiatric: Yes: Oriented Labs: CBC, BMP 11/28/18 05:35 11/28/18 05:35 INR, PTT INR 1.33 (0.83-1.09) H 11/23/18 05:40 Problem List - Problems (1) Atrial fibrillation with RVR Code(s): I48.91 - UNSPECIFIED ATRIAL FIBRILLATION (2) Bilateral lower extremity edema Code(s): R60.0 - LOCALIZED EDEMA (3) CHF (congestive heart failure), NYHA class II Code(s): I50.9 - HEART FAILURE, UNSPECIFIED Qualifiers: Congestive heart failure type: unspecified Qualified Code(s): I50.9 - Heart failure, unspecified (4) CKD (chronic kidney disease) Code(s): N18.9 - CHRONIC KIDNEY DISEASE, UNSPECIFIED Qualifiers: Chronic kidney disease stage: unspecified stage Qualified Code(s): N18.9 - Chronic kidney disease, unspecified Assessment/Plan Current Medications Generic Name Dose Route Start Last Admin Trade Name Lee PRN Reason Stop Dose Admin Digoxin 0.125 mg 11/24/18 11:45 11/28/18 11:42 Lanoxin - PO 0.125 mg Q48H [facility] Administration Docusate Sodium 100 mg 11/18/18 15:45 11/28/18 09:11 Colace - PO Not Given BID [facility] Furosemide 80 mg 11/18/18 14:00 11/28/18 06:20 Lasix Injection - IVPUSH 80 mg BIDLASIX [facility] Administration Insulin Aspart 1 vial 11/15/18 16:30 11/28/18 06:20 Novolog Vial Sliding Scale - SQ Not Given ACHS [facility] Protocol Insulin Detemir 20 units 11/16/18 07:00 11/28/18 06:20 Levemir Vial SQ Not Given AM [facility] Metoprolol Succinate 100 mg 11/18/18 22:00 11/28/18 09:07 Toprol Xl - PO 100 mg BID [facility] Administration Potassium Chloride 20 meq 11/28/18 10:00 11/28/18 11:41 K-Dur - PO 20 meq DAILY [facility] Administration Impression 1. CKD 2. PIO 3. a-fib 4. HTN 5. CHF 6. DM 7. non compliance Plan - replace potassium - pt for fistula tomorrow - discussed plan with pt and his - renal diet - monitor lytes
--- NOTE | 2018-11-28 15:07 | SPA.PREOP ---
- PRE-OP NOTE Dx: ESRD Planned Procedure: Left arm AV fistula formation Surgeon: Abdias Mccollum DO Last Vital Signs Temp Pulse Resp BP Pulse Ox 97.4 F L 102 H 18 138/72 100 11/28/18 10:00 11/28/18 11:42 11/28/18 10:00 11/28/18 10:00 11/27/18 21:00 Lab Results WBC 9.4 K/mm3 (4.0-10.0) 11/28/18 05:35 RBC 3.81 M/mm3 (4.00-5.60) L 11/28/18 05:35 Hgb 9.0 GM/dL (11.7-16.9) L 11/28/18 05:35 Hct 28.3 % (35.4-49) L 11/28/18 05:35 MCV 74.3 fl (80-96) L 11/28/18 05:35 MCHC 31.9 g/dl (32.0-35.9) L 11/28/18 05:35 RDW 17.6 % (11.9-15.9) H 11/28/18 05:35 Plt Count 270 K/MM3 (134-434) 11/28/18 05:35 Sodium 139 mmol/L (136-145) 11/28/18 05:35 Potassium 2.9 mmol/L (3.5-5.1) L* 11/28/18 05:35 Chloride 98 mmol/L (98-107) 11/28/18 05:35 Carbon Dioxide 29 mmol/L (21-32) 11/28/18 05:35 Anion Gap 12 MMOL/L (8-16) 11/28/18 05:35 BUN 81.6 mg/dL (7-18) H 11/28/18 05:35 Creatinine 3.7 mg/dL (0.55-1.3) H 11/28/18 05:35 Random Glucose 137 mg/dL (74-106) H 11/28/18 05:35 Calcium 8.7 mg/dL (8.5-10.1) 11/28/18 05:35 INR 1.33 (0.83-1.09) H 11/23/18 05:40 - ASSESSMENT/PLAN 1. Make NPO after midnight except po meds 2. GI/DVT PPX 3. Medical optimization / clearance 4. Consent to be obtained by surgeon after risks, benefits and alternatives discussed with patient and or Health Care Proxy.
[2018-11-28 19:04] LABS: BLOOD UREA NITROGEN 78.5 mg/dL (7-18); CALCIUM 8.8 mg/dL (8.5-10.1); CREATININE 3.7 mg/dL (0.55-1.3); POTASSIUM 3.7 mmol/L (3.5-5.1)
--- NOTE | 2018-11-28 23:28 | PN ---
Progress Note (short form) - Note Progress Note: Patient continues to have gait difficulty. Reduced edema in his legs associated with some improvement in ambulation, however he still has some numbness and increased tone in his legs. Patient scheduled for AV fistula in a.m. Discussed potential role of surgical decompression of thoracic dorsal mass lesion if he does not improve after dialysis. Will continue to follow. All questions answered.
[2018-11-29] MEDS: FUROSEMIDE 40 MG/4 ML INJECTABLE VIAL IVPUSH SCH ×2 (06:14→14:00)
[2018-11-29] MEDS: INSULIN SLIDING SCALE (NOVOLOG) 1 VIAL SQ SCH ×3 (06:15→21:12)
[2018-11-29] MEDS: INSULIN (LEVEMIR) 100 UNITS/ML UNITS SQ SCH (06:15)
[2018-11-29 07:19] LABS: ALBUMIN 2.8 g/dl (3.4-5.0); BILIRUBIN,TOTAL 0.8 mg/dL (0.2-1); BLOOD UREA NITROGEN 77.2 mg/dL (7-18); CALCIUM 8.7 mg/dL (8.5-10.1); CREATININE 3.7 mg/dL (0.55-1.3); POTASSIUM 3.4 mmol/L (3.5-5.1); TOT PROT 7.1 g/dl (6.4-8.2)
[2018-11-29] MEDS: DOCUSATE SODIUM 100 MG CAPSULE (FP) PO SCH ×2 (09:10→21:10)
[2018-11-29] MEDS: POTASSIUM CHLORIDE TABS 10 MEQ TABLET.ER (FP) PO SCH ×2 (09:10→09:24)
[2018-11-29 11:11] LABS: HEMATOCRIT 29.6 % (35.4-49); HEMOGLOBIN 9.3 GM/dL (11.7-16.9); MCH 23.4 pg (25.7-33.7); MCHC 31.2 g/dl (32.0-35.9); MEAN CELL VOLUME 74.9 fl (80-96); MEAN PLT VOLUME 7.4 fl (7.5-11.1); PLATELET COUNT 315 K/MM3 (134-434); RBC 3.96 M/mm3 (4.00-5.60); RDW 17.6 % (11.9-15.9); WHITE BLOOD COUNT 7.9 K/mm3 (4.0-10.0)
[2018-11-29] MEDS ORDERED: LIDOCAINE HCL 1%, 10 MG/ML (20ML VIAL) ONE ×2 (12:07→15:08)
[2018-11-29] MEDS ORDERED: HEPARIN NA (PORCINE) 5,000 UNITS/ML 1ML VIAL ONE ×2 (12:07→15:08)
--- NOTE | 2018-11-29 12:25 | PN ---
Progress Note (short form) - Note Progress Note: Patient remains stable and is awaiting fistula placement. Case again reviewed with current plan to obtain fistula and Physical Therapy/Rehab followed by further evaluation of his persisting Thoracic compression and the potential role for decompression if he does not improve substantially. All questions answered. Patient is in agreement with this plan of care.
--- NOTE | 2018-11-29 13:18 | PN ---
Progress Note, Physician Chief Complaint: patient seen and examined awaiting placement of AVF - Current Medication List Current Medications: Active Medications Digoxin (Lanoxin -) 0.125 mg PO Q48H [facility] Last Admin: 11/28/18 11:42 Dose: 0.125 mg Docusate Sodium (Colace -) 100 mg PO BID [facility] Last Admin: 11/29/18 09:10 Dose: Not Given Furosemide (Lasix Injection -) 80 mg IVPUSH BIDLASIX [facility] Last Admin: 11/29/18 06:14 Dose: 80 mg Insulin Aspart (Novolog Vial Sliding Scale -) 1 vial SQ ACHS [facility]; Protocol Last Admin: 11/29/18 06:15 Dose: Not Given Insulin Detemir (Levemir Vial) 20 units SQ AM [facility] Last Admin: 11/29/18 06:15 Dose: Not Given Metoprolol Succinate (Toprol Xl -) 100 mg PO BID [facility] Last Admin: 11/29/18 09:11 Dose: 100 mg Potassium Chloride (K-Dur -) 20 meq PO DAILY [facility] Last Admin: 11/29/18 09:24 Dose: 20 meq - Objective Vital Signs: Vital Signs Temperature 98.2 F 11/29/18 06:00 Pulse Rate 99 H 11/29/18 06:00 Respiratory Rate 20 11/29/18 06:00 Blood Pressure 137/70 11/29/18 06:00 O2 Sat by Pulse Oximetry (%) 99 11/28/18 21:00 Constitutional: Yes: Calm Cardiovascular: Yes: Regular Rate and Rhythm, S1, S2 Respiratory: Yes: CTA Bilaterally Gastrointestinal: Yes: Normal Bowel Sounds, Soft Extremities: Yes: Other Edema: Yes Labs: CBC, BMP 11/29/18 10:55 11/29/18 05:40 INR, PTT INR 1.33 (0.83-1.09) H 11/23/18 05:40 Problem List - Problems (1) Atrial fibrillation with RVR Assessment/Plan: iv heparin metoprolol inc to 100mg po bid not on lo0ng term AC as yet as will need placement of fistula in arm telemetry Code(s): I48.91 - UNSPECIFIED ATRIAL FIBRILLATION (2) Bilateral lower extremity edema Assessment/Plan: doppler of legs no dvt iv lasix bid Code(s): R60.0 - LOCALIZED EDEMA (3) A-fib Assessment/Plan: metoprolol inc to 100mg bid and digoxin dosing q48 given renal function check digoxin level tele cardiology noted heparin drip Code(s): I48.91 - UNSPECIFIED ATRIAL FIBRILLATION Qualifiers: Atrial fibrillation type: unspecified Qualified Code(s): I48.91 - Unspecified atrial fibrillation (4) CKD (chronic kidney disease) Assessment/Plan: renal noted iv lasix bid to get AVF placed Code(s): N18.9 - CHRONIC KIDNEY DISEASE, UNSPECIFIED Qualifiers: Chronic kidney disease stage: unspecified stage Qualified Code(s): N18.9 - Chronic kidney disease, unspecified (5) Diabetes Assessment/Plan: insulin bgm sliding scale hgba1c 8.9 Code(s): E11.9 - TYPE 2 DIABETES MELLITUS WITHOUT COMPLICATIONS Qualifiers: Diabetes mellitus type: type 2 (6) Left leg weakness Assessment/Plan: ct head negative r MRI and MRA w/o contrast- no acute infarct seen neurology evaluation noted SHAREE eval noted -plan for PT and rehab and if not effective then surgery for decompression PT eval shuffling with 25 feet Code(s): R29.898 - OTH SYMPTOMS AND SIGNS INVOLVING THE MUSCULOSKELETAL SYSTEM
[2018-11-29] MEDS ORDERED: POVIDONE-IODINE OINTMENT 10% - 28.4 GM TUBE ONE (15:08)
[2018-11-29] MEDS ORDERED: MIDAZOLAM HCL 2 MG/2 ML SINGLE DOSE VIAL ONE ×2 (15:11)
--- NOTE | 2018-11-29 16:01 | PN ---
Progress Note, Physician History of Present Illness: Pt seen and examined at bedside. He is awake and alert. He denies shortness of breath. He is going for fistula creation today. - Current Medication List Current Medications: Active Medications Digoxin (Lanoxin -) 0.125 mg PO Q48H [facility] Last Admin: 11/28/18 11:42 Dose: 0.125 mg Docusate Sodium (Colace -) 100 mg PO BID [facility] Last Admin: 11/29/18 09:10 Dose: Not Given Furosemide (Lasix Injection -) 80 mg IVPUSH BIDLASIX [facility] Last Admin: 11/29/18 06:14 Dose: 80 mg Insulin Aspart (Novolog Vial Sliding Scale -) 1 vial SQ ACHS [facility]; Protocol Last Admin: 11/29/18 12:00 Dose: Not Given Insulin Detemir (Levemir Vial) 20 units SQ AM [facility] Last Admin: 11/29/18 06:15 Dose: Not Given Metoprolol Succinate (Toprol Xl -) 100 mg PO BID [facility] Last Admin: 11/29/18 09:11 Dose: 100 mg Potassium Chloride (K-Dur -) 20 meq PO DAILY [facility] Last Admin: 11/29/18 09:24 Dose: 20 meq - Objective Vital Signs: Vital Signs Temperature 98.7 F 11/29/18 10:00 Pulse Rate 103 H 11/29/18 10:00 Respiratory Rate 22 H 11/29/18 10:00 Blood Pressure 142/88 11/29/18 10:00 O2 Sat by Pulse Oximetry (%) 99 11/28/18 21:00 Constitutional: Yes: Calm Eyes: Yes: Conjunctiva Clear HENT: Yes: Atraumatic Neck: Yes: Supple Cardiovascular: Yes: S1, S2 Respiratory: Yes: CTA Bilaterally Gastrointestinal: Yes: Soft Genitourinary: Yes: WNL Musculoskeletal: Yes: WNL Edema: Yes Edema: LLE: 1+, RLE: 1+ Neurological: Yes: Oriented Psychiatric: Yes: Oriented Labs: CBC, BMP 11/29/18 10:55 11/29/18 05:40 INR, PTT INR 1.33 (0.83-1.09) H 11/23/18 05:40 Problem List - Problems (1) Atrial fibrillation with RVR Code(s): I48.91 - UNSPECIFIED ATRIAL FIBRILLATION (2) Bilateral lower extremity edema Code(s): R60.0 - LOCALIZED EDEMA (3) CHF (congestive heart failure), NYHA class II Code(s): I50.9 - HEART FAILURE, UNSPECIFIED Qualifiers: Congestive heart failure type: unspecified Qualified Code(s): I50.9 - Heart failure, unspecified (4) CKD (chronic kidney disease) Code(s): N18.9 - CHRONIC KIDNEY DISEASE, UNSPECIFIED Qualifiers: Chronic kidney disease stage: unspecified stage Qualified Code(s): N18.9 - Chronic kidney disease, unspecified Assessment/Plan Current Medications Generic Name Dose Route Start Last Admin Trade Name Freq PRN Reason Stop Dose Admin Digoxin 0.125 mg 11/24/18 11:45 11/28/18 11:42 Lanoxin - PO 0.125 mg Q48H [facility] Administration Docusate Sodium 100 mg 11/18/18 15:45 11/29/18 09:10 Colace - PO Not Given BID [facility] Furosemide 80 mg 11/18/18 14:00 11/29/18 06:14 Lasix Injection - IVPUSH 80 mg BIDLASIX [facility] Administration Insulin Aspart 1 vial 11/15/18 16:30 11/29/18 12:00 Novolog Vial Sliding Scale - SQ Not Given ACHS [facility] Protocol Insulin Detemir 20 units 11/16/18 07:00 11/29/18 06:15 Levemir Vial SQ Not Given AM [facility] Metoprolol Succinate 100 mg 11/18/18 22:00 11/29/18 09:11 Toprol Xl - PO 100 mg BID [facility] Administration Potassium Chloride 20 meq 11/28/18 10:00 11/29/18 09:24 K-Dur - PO 20 meq DAILY [facility] Administration Impression 1. CKD 2. PIO 3. a-fib 4. HTN 5. CHF 6. DM 7. non compliance Plan - pt for fistula creation - replace potassium - cont diuretics - renal diet - monitor lytes
[2018-11-29] MEDS ORDERED: PROPOFOL 20 ML ONE ×2 (17:20)
[2018-11-29] MEDS ORDERED: ceFAZolin SODIUM 1 GM VIAL ONE (17:28)
[2018-11-29] MEDS ORDERED: ceFAZolin SODIUM 1 GM VIAL IVPB ONE (17:35)
[2018-11-29] MEDS ORDERED: METOPROLOL TARTRATE 5 MG/5 ML VIAL ONE ×2 (17:43→18:07)
[2018-11-29] MEDS ORDERED: EPHEDRINE SULFATE/0.9% NACL/PF 50 MG/10 ML SYRINGE NR ONE (17:54)
[2018-11-29] MEDS ORDERED: FLUMAZENIL 0.5 MG/5 ML VIAL ONE (18:09)
--- NOTE | 2018-11-29 18:37 | CONSULT ---
Consultation: REQUESTING PROVIDER: Dr Mccollum CONSULT REQUEST: We have been asked to medically evaluate this patient for ( Cardiac Arrest). HISTORY OF PRESENT ILLNESS: Pt is a 63 yr old male with a significant past medical history of CHF (EF 35-30% ), A-Fib (on Warfarin however noncompliant), DM, CKD, and HTN who was initially admitted for R lower extremity weakness and found to have worsening of his CKD. Pt was in O.R this evening for A-V Fistula creation when he developed A-Fib with a rate in the 160 to 180 range and subsequently became bradycardic and arrested. CPR was performed and ROSC was achieved. REVIEW OF SYSTEMS: Unable to obtain 2/2 to pt's condition PHYSICAL EXAMINATION Vital Signs - 24 hr 11/28/18 11/28/18 11/29/18 21:00 22:00 02:00 Temperature 98.2 F 98.4 F Pulse Rate 102 H 95 H Respiratory 18 18 Rate Blood Pressure 129/89 134/67 O2 Sat by Pulse 99 Oximetry (%) 11/29/18 11/29/18 11/29/18 06:00 09:00 10:00 Temperature 98.2 F 98.7 F Pulse Rate 99 H 103 H Respiratory 20 22 H 22 H Rate Blood Pressure 137/70 142/88 O2 Sat by Pulse 95 Oximetry (%) GENERAL: Intubated, Sedated HEAD: AT/NC. EYES: Pinpoint pupils LUNGS: CTAB Anteriorly. Slightly decreased on left. HEART: Irregularly Irregular. Tachycardic ABDOMEN: Soft LOWER EXTREMITIES: Bandages b/l. 3+ pitting edema NEUROLOGICAL: Sedated unable to assess SKIN: Warm, dry, normal turgor, no rashes or lesions noted. Laboratory Results - last 24 hr 11/28/18 11/28/18 11/29/18 17:30 21:21 05:40 WBC RBC Hgb Hct MCV MCH MCHC RDW Plt Count MPV Sodium 138 139 Potassium 3.7 3.4 L Chloride 97 L 98 Carbon Dioxide 29 29 Anion Gap 12 12 BUN 78.5 H 77.2 H Creatinine 3.7 H 3.7 H Est GFR (CKD-EPI)AfAm 19.14 19.14 Est GFR (CKD-EPI)NonAf 16.51 16.51 POC Glucometer 187 Random Glucose 148 H 131 H Calcium 8.8 8.7 Magnesium 2.0 Total Bilirubin 0.8 AST 16 ALT 41 Alkaline Phosphatase 90 Total Protein 7.1 Albumin 2.8 L 11/29/18 11/29/18 11/29/18 06:12 10:55 12:10 WBC 7.9 RBC 3.96 L Hgb 9.3 L Hct 29.6 L MCV 74.9 L MCH 23.4 L MCHC 31.2 L RDW 17.6 H Plt Count 315 MPV 7.4 L Sodium Potassium Chloride Carbon Dioxide Anion Gap BUN Creatinine Est GFR (CKD-EPI)AfAm Est GFR (CKD-EPI)NonAf POC Glucometer 143 137 Random Glucose Calcium Magnesium Total Bilirubin AST ALT Alkaline Phosphatase Total Protein Albumin Active Medications Generic Name Dose Route Start Last Admin Trade Name Freq PRN Reason Stop Dose Admin Digoxin 0.125 mg 11/24/18 11:45 11/28/18 11:42 Lanoxin - PO 0.125 mg Q48H [facility] Administration Docusate Sodium 100 mg 11/18/18 15:45 11/29/18 09:10 Colace - PO Not Given BID [facility] Furosemide 80 mg 11/18/18 14:00 11/29/18 06:14 Lasix Injection - IVPUSH 80 mg BIDLASIX [facility] Administration Insulin Aspart 1 vial 11/15/18 16:30 11/29/18 12:00 Novolog Vial Sliding Scale - SQ Not Given ACHS [facility] Protocol Insulin Detemir 20 units 11/16/18 07:00 11/29/18 06:15 Levemir Vial SQ Not Given AM [facility] Metoprolol Succinate 100 mg 11/18/18 22:00 11/29/18 09:11 Toprol Xl - PO 100 mg BID [facility] Administration Potassium Chloride 20 meq 11/28/18 10:00 11/29/18 09:24 K-Dur - PO 20 meq DAILY [facility] Administration ASSESSMENT/PLAN: Pt is a 63 yr old male with a significant past medical history of CHF (EF 35-30% ), A-Fib, DM, CKD, and HTN who was initially admitted for R lower extremity weakness and found to have worsening of his CKD. #NEURO: Intubated and sedated w/ propofol Consider sedation vacation in am. #CARDIO:- A-fib w/ RVR/ s/p cardiac arrest -Cardiology contacted-Dr Newby. Recommend Dig 0.25x 4 doses and then 0.125 3X Week - Pt while intubated in ICU developed A-Fib w/ RVR rate 180s with RR >30. Pt given Cardizem started on Cardizem gtt and propfofol for sedation. -Continue tele Monitoring #RENAL: BUN/CR--> 71.9/3.6. GFR 19.78 -Was for AV Fistula creation this evening. Procedure cancelled 2/2 cardiac arrest. -Renal on board -CMP in am. #FEN NS@42cc Monitor Electrolytes NPO DVT ppx: Was on Heparin gtt. Consider resuming chemical ppx when H/H wnl. Dispo: We will continue to follow the patient. Thank you for this consultative opportunity. Visit type - Emergency Visit Emergency Visit: Yes ED Registration Date: 11/15/18 Care time: The patient presented to the Emergency Department on the above date and was hospitalized for further evaluation of their emergent condition. - New Patient This patient is new to me today: Yes Date on this admission: 11/29/18 - Critical Care Critical Care patient: Yes Total Critical Care Time (in minutes): 35 Critical Care Statement: The care of this patient involved high complexity decision making to prevent further life threatening deterioration of the patient 's condition and/or to evaluate & treat vital organ system(s) failure or risk of failure. ATTENDING PHYSICIAN STATEMENT I saw and evaluated the patient. I reviewed the resident's note and discussed the case with the resident. I agree with the resident's findings and plan as documented. SUBJECTIVE: OBJECTIVE: ASSESSMENT AND PLAN:
--- NOTE | 2018-11-29 18:40 | PN ---
Progress Note (short form) - Note Progress Note: VAscular Surgery Pt went in for creation of AVF. 10 min into procedure pt had Afib to 160-180. Then pt had bradycardia and arrested. Chest compressions performed . Pulse achieved. Airway secured. Incision closed. Pt tranferred to ICU bed 2. Family notified of cardiac event. Abdias Mccollum DO
--- NOTE | 2018-11-29 18:42 | OP ---
Operative Note - Note: Operative Date: 11/29/18 Pre-Operative Diagnosis: CRF Operation: Attempted left arm AVF creation Post-Operative Diagnosis: Same as Pre-op Surgeon: Abdias Mccollum Anesthesia: Fractional Estimated Blood Loss (mls): 10 Operative Report Dictated: Yes
[2018-11-29] MEDS ORDERED: dilTIAZem HCL 125 MG/25 ML - 25 ML VIAL ONE (18:44)
[2018-11-29] MEDS ORDERED: SODIUM CHLORIDE 1,000 ML IV ONE (18:52)
--- NOTE | 2018-11-29 18:58 | RAPID ---
Physical Examination Vital Signs: Vital Signs Temperature 98.7 F 11/29/18 10:00 Pulse Rate 103 H 11/29/18 10:00 Respiratory Rate 22 H 11/29/18 10:00 Blood Pressure 142/88 11/29/18 10:00 O2 Sat by Pulse Oximetry (%) 95 11/29/18 09:00 Labs: CBC, BMP 11/29/18 10:55 11/29/18 05:40 Rapid Response - Rapid Response Assessment: Code 99 called to OR #5. Rapid response team responded immediately. Please refer to code sheet for details.
[2018-11-29] MEDS: SODIUM CHLORIDE 1,000 ML IV SCH (19:00)
[2018-11-29 19:16] LABS: BASO % 1.2 % (0-2.0); EOS % 1.1 % (0-4.5); HEMATOCRIT 28.8 % (35.4-49); HEMOGLOBIN 8.8 GM/dL (11.7-16.9); LYMPH % 17.5 % (8-40); MCH 23.2 pg (25.7-33.7); MCHC 30.6 g/dl (32.0-35.9); MEAN CELL VOLUME 75.6 fl (80-96); MEAN PLT VOLUME 7.9 fl (7.5-11.1); MONO % 15.6 % (3.8-10.2); NEUT % 64.6 % (42.8-82.8); PLATELET COUNT 337 K/MM3 (134-434); RBC 3.81 M/mm3 (4.00-5.60); RDW 17.5 % (11.9-15.9); WHITE BLOOD COUNT 7.2 K/mm3 (4.0-10.0)
[2018-11-29] MEDS: DIGOXIN 0.5 MG/2 ML AMPUL IVPUSH SCH ×2 (19:20→23:08)
[2018-11-29 19:33] LABS: ARTERIAL BLD GAS O2 SATURATION 50.6 % (95-98); ARTERIAL BLOOD GAS PCO2 42.7 mmHg (35-45); ARTERIAL BLOOD GAS pH 7.32 (7.35-7.45)
[2018-11-29 19:36] LABS: ALLENS TEST POSITIVE
[2018-11-29 19:37] LABS: ALBUMIN 2.3 g/dl (3.4-5.0); BILIRUBIN,TOTAL 0.8 mg/dL (0.2-1); BLOOD UREA NITROGEN 71.9 mg/dL (7-18); CALCIUM 8.3 mg/dL (8.5-10.1); CREATININE 3.6 mg/dL (0.55-1.3); POTASSIUM 3.2 mmol/L (3.5-5.1); TOT PROT 6.2 g/dl (6.4-8.2)
[2018-11-29 19:42] LABS: ARTERIAL BLOOD GAS PO2 < 49 mmHg (80-100)
[2018-11-29] MEDS ORDERED: DEXMEDETOMIDINE HCL 200 MCG in SODIUM CHLORIDE 48 ML IVPB SCH (21:45)
[2018-11-29] MEDS ORDERED: PROPOFOL 1,000,000 MCG/100 ML VIAL ONE (22:48)
[2018-11-29] MEDS ORDERED: dilTIAZem HCL 50 MG/10 ML - 10 ML VIAL IVPUSH ONE (22:51)
[2018-11-29] MEDS ORDERED: dilTIAZem HCL 50 MG/10 ML - 10 ML VIAL ONE (22:53)
[2018-11-29] MEDS: PROPOFOL 1,000,000 MCG/100 ML VIAL IVPB SCH (23:05)
[2018-11-29] MEDS: DILTIAZEM INJECTION 125 MG in SODIUM CHLORIDE 100 ML IVPB SCH (23:06)
[2018-11-30] MEDS ORDERED: PROPOFOL 1,000,000 MCG/100 ML VIAL ONE (03:16)
[2018-11-30] MEDS: DIGOXIN 0.5 MG/2 ML AMPUL IVPUSH SCH ×2 (05:36→06:22)
[2018-11-30] MEDS: FUROSEMIDE 40 MG/4 ML INJECTABLE VIAL IVPUSH SCH (06:02)
[2018-11-30] MEDS: INSULIN SLIDING SCALE (NOVOLOG) 1 VIAL SQ SCH ×4 (06:23→21:26)
[2018-11-30] MEDS: INSULIN (LEVEMIR) 100 UNITS/ML UNITS SQ SCH (06:23)
[2018-11-30] MEDS ORDERED: KCL 10 MEQ IVPB 10 MEQ/100 ML INFUS.BAG IVPB SCH (06:45)
[2018-11-30 08:56] LABS: BASO % 0.9 % (0-2.0); EOS % 0.1 % (0-4.5); HEMATOCRIT 29.7 % (35.4-49); HEMOGLOBIN 9.3 GM/dL (11.7-16.9); LYMPH % 11.1 % (8-40); MCH 23.4 pg (25.7-33.7); MCHC 31.4 g/dl (32.0-35.9); MEAN CELL VOLUME 74.5 fl (80-96); MEAN PLT VOLUME 7.6 fl (7.5-11.1); NEUT % 74.9 % (42.8-82.8); PLATELET COUNT 310 K/MM3 (134-434); RBC 3.99 M/mm3 (4.00-5.60); RDW 17.4 % (11.9-15.9); WHITE BLOOD COUNT 10.3 K/mm3 (4.0-10.0)
[2018-11-30 09:21] LABS: ALBUMIN 2.3 g/dl (3.4-5.0); BILIRUBIN,TOTAL 0.8 mg/dL (0.2-1); BLOOD UREA NITROGEN 67.6 mg/dL (7-18); CALCIUM 8.7 mg/dL (8.5-10.1); CREATININE 3.3 mg/dL (0.55-1.3); MAGNESIUM 1.9 mg/dL (1.8-2.4); POTASSIUM 4.3 mmol/L (3.5-5.1); TOT PROT 6.1 g/dl (6.4-8.2)
--- NOTE | 2018-11-30 09:34 | PN ---
Progress Note (short form) - Note Progress Note: Anesthesia post op: POD #1 s/p attempted A-V fistula plcement under regional anesthesia with sedation. Patient developed tachy-kim afib arrest intraop, transferred to ICU. On digoxin, cardizem gtt, remains intubated/sedated in rate controlled afib.
[2018-11-30] MEDS: DOCUSATE SODIUM 100 MG CAPSULE (FP) PO SCH ×2 (09:59→21:12)
--- NOTE | 2018-11-30 11:00 | PN ---
Teaching Attending Note Name of Resident: Casey Gaona ATTENDING PHYSICIAN STATEMENT I saw and evaluated the patient. I reviewed the resident's note and discussed the case with the resident. I agree with the resident's findings and plan as documented. SUBJECTIVE: Patient seen and examined in the ICU. Intubated and sedated. AC Mode of vent, 80% FiO2. No pressors. Intake & Output 11/27/18 11/28/18 11/29/18 11/30/18 23:59 23:59 23:59 23:59 Intake Total 620 500 540 720 Output Total 9805 695 3249 1700 Balance -1080 -400 -2260 -980 Weight 237 lb 12.8 oz 239 lb 3.2 oz 238 lb 9.6 oz 240 lb 14.4 oz Last Vital Signs Temp Pulse Resp BP Pulse Ox 98.9 F 69 18 144/79 100 11/30/18 06:32 11/30/18 08:00 11/30/18 09:12 11/30/18 08:00 11/29/18 21:34 Active Medications Docusate Sodium (Colace -) 100 mg PO BID [facility] Last Admin: 11/30/18 09:59 Dose: Not Given Sodium Chloride (Normal Saline -) 1,000 mls @ 42 mls/hr IV ASDIR [facility] Last Admin: 11/29/18 19:00 Dose: 42 mls/hr Diltiazem HCl 125 mg/ Sodium (Chloride) 125 mls @ 5 mls/hr IVPB TITR [facility]; Protocol Last Admin: 11/29/18 23:06 Dose: 5 mg/hr, 5 mls/hr Propofol (Diprivan -) 1,000,000 mcg in 100 mls @ 3.247 mls/hr IVPB TITR [facility]; Protocol Last Titration: 11/30/18 07:54 Dose: 30 mcg/kg/min, 19.481 mls/hr Insulin Aspart (Novolog Vial Sliding Scale -) 1 vial SQ ACHS [facility]; Protocol Last Admin: 11/30/18 06:23 Dose: Not Given Insulin Detemir (Levemir Vial) 20 units SQ AM [facility] Last Admin: 11/30/18 06:23 Dose: Not Given GENERAL: Intubated, Sedated HEAD: AT/NC. EYES: sluggish pupils LUNGS: Vented, bilateral scattered rhonchi, no wheeze. HEART: Irregularly Irregular. Tachycardic ABDOMEN: Soft LOWER EXTREMITIES: Bandages b/l. 3+ pitting edema NEUROLOGICAL: Sedated unable to assess SKIN: Warm, dry, normal turgor, no rashes or lesions noted. Laboratory Results - last 24 hr 11/28/18 11/28/18 11/29/18 17:30 21:21 05:40 WBC RBC Hgb Hct MCV MCH MCHC RDW Plt Count MPV Sodium 138 139 Potassium 3.7 3.4 L Chloride 97 L 98 Carbon Dioxide 29 29 Anion Gap 12 12 BUN 78.5 H 77.2 H Creatinine 3.7 H 3.7 H Est GFR (CKD-EPI)AfAm 19.14 19.14 Est GFR (CKD-EPI)NonAf 16.51 16.51 POC Glucometer 187 Random Glucose 148 H 131 H Calcium 8.8 8.7 Magnesium 2.0 Total Bilirubin 0.8 AST 16 ALT 41 Alkaline Phosphatase 90 Total Protein 7.1 Albumin 2.8 L 11/29/18 11/29/18 11/29/18 06:12 10:55 12:10 WBC 7.9 RBC 3.96 L Hgb 9.3 L Hct 29.6 L MCV 74.9 L MCH 23.4 L MCHC 31.2 L RDW 17.6 H Plt Count 315 MPV 7.4 L Sodium Potassium Chloride Carbon Dioxide Anion Gap BUN Creatinine Est GFR (CKD-EPI)AfAm Est GFR (CKD-EPI)NonAf POC Glucometer 143 137 Random Glucose Calcium Magnesium Total Bilirubin AST ALT Alkaline Phosphatase Total Protein Albumin ASSESSMENT/PLAN: Acute CP arrest CHF (EF 20 to 25%) A-Fib DM CKD HTN R/O RENETTA DC sedation to assess mental status Currently on Cardizem drip for rate control Wean FiO2 Strict I & O Cardiac Telemetry monitoring Follow Neuro exam off sedation Will D/W Renal eventual need for HD Requires ICU monitoring Dr Rojas Critical care time spent in reviewing chart, evaluating patient and formulating plan - 36 minutes.
--- NOTE | 2018-11-30 12:03 | PN ---
Progress Note, Physician Chief Complaint: events noted and reviewed in icu intubated sedated - Current Medication List Current Medications: Active Medications Docusate Sodium (Colace -) 100 mg PO BID [facility] Last Admin: 11/30/18 09:59 Dose: Not Given Sodium Chloride (Normal Saline -) 1,000 mls @ 42 mls/hr IV ASDIR [facility] Last Admin: 11/29/18 19:00 Dose: 42 mls/hr Diltiazem HCl 125 mg/ Sodium (Chloride) 125 mls @ 5 mls/hr IVPB TITR [facility]; Protocol Last Admin: 11/29/18 23:06 Dose: 5 mg/hr, 5 mls/hr Propofol (Diprivan -) 1,000,000 mcg in 100 mls @ 3.247 mls/hr IVPB TITR [facility]; Protocol Last Titration: 11/30/18 07:54 Dose: 30 mcg/kg/min, 19.481 mls/hr Insulin Aspart (Novolog Vial Sliding Scale -) 1 vial SQ ACHS [facility]; Protocol Last Admin: 11/30/18 06:23 Dose: Not Given Insulin Detemir (Levemir Vial) 20 units SQ AM [facility] Last Admin: 11/30/18 06:23 Dose: Not Given - Objective Vital Signs: Vital Signs Temperature 98.9 F 11/30/18 06:32 Pulse Rate 69 11/30/18 08:00 Respiratory Rate 18 11/30/18 09:12 Blood Pressure 144/79 11/30/18 08:00 O2 Sat by Pulse Oximetry (%) 100 11/29/18 21:34 Constitutional: Yes: No Distress Cardiovascular: Yes: Tachycardia, Pulse Irregular Respiratory: Yes: Diminished, Mechanically Ventilated Gastrointestinal: Yes: Soft Genitourinary: Yes: Yousif Present Musculoskeletal: Yes: Muscle Weakness Edema: Yes Wound/Incision: Yes: Dressing Dry and Intact Labs: CBC, BMP 11/30/18 08:35 11/30/18 08:35 INR, PTT INR 1.33 (0.83-1.09) H 11/23/18 05:40 Problem List - Problems (1) Atrial fibrillation with RVR Code(s): I48.91 - UNSPECIFIED ATRIAL FIBRILLATION (2) Bilateral lower extremity edema Code(s): R60.0 - LOCALIZED EDEMA (3) CHF (congestive heart failure), NYHA class II Code(s): I50.9 - HEART FAILURE, UNSPECIFIED Qualifiers: Congestive heart failure type: unspecified Qualified Code(s): I50.9 - Heart failure, unspecified (4) CKD (chronic kidney disease) stage 4, GFR 15-29 ml/min Code(s): N18.4 - CHRONIC KIDNEY DISEASE, STAGE 4 (SEVERE) (5) Diabetes Code(s): E11.9 - TYPE 2 DIABETES MELLITUS WITHOUT COMPLICATIONS Qualifiers: Diabetes mellitus type: type 2 Assessment/Plan iv cardizem titrate as needed cardio/pulm eval appreciated wean off vent as tolerated on 80%fio2 sedation needs to be decreased to change to assist mode vent ppi/dvt prophylaxis reviewed icu monitoring continied check labs renal eval/follow up CRF
[2018-11-30 12:48] VITALS: BMI 35.4
--- NOTE | 2018-11-30 12:51 | PN ---
Progress Note, Physician History of Present Illness: Pt seen and examined at bedside. He went into rapid a-fib and then had a cardiac arrest. Pulse was achieved and he was brought to the ICU. He had a second episode of rapid a-fib and was started on a cardizem drip. He is now in the ICU intubated. - Current Medication List Current Medications: Active Medications Docusate Sodium (Colace -) 100 mg PO BID [facility] Last Admin: 11/30/18 09:59 Dose: Not Given Sodium Chloride (Normal Saline -) 1,000 mls @ 42 mls/hr IV ASDIR [facility] Last Admin: 11/29/18 19:00 Dose: 42 mls/hr Diltiazem HCl 125 mg/ Sodium (Chloride) 125 mls @ 5 mls/hr IVPB TITR [facility]; Protocol Last Admin: 11/29/18 23:06 Dose: 5 mg/hr, 5 mls/hr Propofol (Diprivan -) 1,000,000 mcg in 100 mls @ 3.247 mls/hr IVPB TITR [facility]; Protocol Last Titration: 11/30/18 07:54 Dose: 30 mcg/kg/min, 19.481 mls/hr Insulin Aspart (Novolog Vial Sliding Scale -) 1 vial SQ ACHS [facility]; Protocol Last Admin: 11/30/18 06:23 Dose: Not Given Insulin Detemir (Levemir Vial) 20 units SQ AM [facility] Last Admin: 11/30/18 06:23 Dose: Not Given - Objective Vital Signs: Vital Signs Temperature 98.9 F 11/30/18 06:32 Pulse Rate 69 11/30/18 10:00 Respiratory Rate 17 11/30/18 12:20 Blood Pressure 146/82 11/30/18 10:00 O2 Sat by Pulse Oximetry (%) 100 11/29/18 21:34 Constitutional: Yes: Calm Eyes: Yes: Conjunctiva Clear HENT: Yes: Atraumatic Neck: Yes: Supple Cardiovascular: Yes: S1, S2 Respiratory: Yes: Intubated, Mechanically Ventilated Gastrointestinal: Yes: Soft Genitourinary: Yes: Yousif Present Musculoskeletal: Yes: Muscle Weakness Edema: Yes Edema: LLE: 2+, RLE: 2+ Neurological: Yes: Other (pt sedated, moving all extremities) Labs: CBC, BMP 11/30/18 08:35 11/30/18 08:35 INR, PTT INR 1.33 (0.83-1.09) H 11/23/18 05:40 - ....Imaging Chest X-ray: Report Reviewed Problem List - Problems (1) Atrial fibrillation with RVR Code(s): I48.91 - UNSPECIFIED ATRIAL FIBRILLATION (2) Bilateral lower extremity edema Code(s): R60.0 - LOCALIZED EDEMA (3) CHF (congestive heart failure), NYHA class II Code(s): I50.9 - HEART FAILURE, UNSPECIFIED Qualifiers: Congestive heart failure type: unspecified Qualified Code(s): I50.9 - Heart failure, unspecified (4) CKD (chronic kidney disease) Code(s): N18.9 - CHRONIC KIDNEY DISEASE, UNSPECIFIED Qualifiers: Chronic kidney disease stage: unspecified stage Qualified Code(s): N18.9 - Chronic kidney disease, unspecified Assessment/Plan Current Medications Generic Name Dose Route Start Last Admin Trade Name Freq PRN Reason Stop Dose Admin Docusate Sodium 100 mg 11/18/18 15:45 11/30/18 09:59 Colace - PO Not Given BID [facility] Sodium Chloride 1,000 mls @ 42 mls/hr 11/29/18 21:45 11/29/18 19:00 Normal Saline - IV 42 mls/hr ASDIR [facility] Administration Diltiazem HCl 125 mg/ Sodium 125 mls @ 5 mls/hr 11/29/18 23:00 11/29/18 23:06 Chloride IVPB 5 mg/hr TITR [facility] 5 mls/hr Administration Protocol 5 MG/HR Propofol 1,000,000 mcg in 100 mls @ 3.247 mls/hr 11/30/18 06:30 11/30/18 07: 54 Diprivan - IVPB 30 mcg/kg/min TITR [facility] 19.481 mls/hr Titration Protocol 5 MCG/KG/MIN Insulin Aspart 1 vial 11/15/18 16:30 11/30/18 06:23 Novolog Vial Sliding Scale - SQ Not Given ACHS [facility] Protocol Insulin Detemir 20 units 11/16/18 07:00 11/30/18 06:23 Levemir Vial SQ Not Given AM [facility] Impression 1. CKD 2. PIO 3. a-fib 4. HTN 5. CHF 6. DM 7. non compliance Plan - can restart lasix - monitor lytes - monitor output - cardiology follow up for a-fib management - monitor renal function - cxr with congestion - weaning per primary - hold sedation to assess mental status - discussed with ICU team
[2018-11-30] MEDS: FUROSEMIDE 100 MG/10 ML INJECTABLE VIAL IVPB SCH (14:00)
--- NOTE | 2018-11-30 14:40 | PN ---
Progress Note, Physician Chief Complaint: Asked to see the patient after cardiac arrest during AV fistula creation. Tele afib with controlled VR. History of Present Illness: 62 M chronic Afib, CKD, HTN. History of poor compliance. 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 Now with leg paresis and rapid afib in the setting of medication non- compliance. He is s/p attempted HD access surgery 11/29/18. Pt was in O.R 11/29/18 for A-V Fistula creation when he developed A-Fib with a rate in the 160 to 180 range and subsequently became bradycardic and arrested. CPR was performed and ROSC was achieved. He was intubated and hypotensive, fluid resuscitated. Now on dilt drip and getting dig at renal dosing. - Current Medication List Current Medications: Active Medications Docusate Sodium (Colace -) 100 mg PO BID [facility] Last Admin: 11/30/18 09:59 Dose: Not Given Furosemide (Lasix Injection -) 80 mg IVPB BID@0600,1400 [facility] Last Admin: 11/30/18 14:00 Dose: 80 mg Sodium Chloride (Normal Saline -) 1,000 mls @ 42 mls/hr IV ASDIR [facility] Last Admin: 11/29/18 19:00 Dose: 42 mls/hr Diltiazem HCl 125 mg/ Sodium (Chloride) 125 mls @ 5 mls/hr IVPB TITR [facility]; Protocol Last Admin: 11/29/18 23:06 Dose: 5 mg/hr, 5 mls/hr Propofol (Diprivan -) 1,000,000 mcg in 100 mls @ 3.247 mls/hr IVPB TITR [facility]; Protocol Last Titration: 11/30/18 07:54 Dose: 30 mcg/kg/min, 19.481 mls/hr Insulin Aspart (Novolog Vial Sliding Scale -) 1 vial SQ ACHS [facility]; Protocol Last Admin: 11/30/18 13:32 Dose: Not Given Insulin Detemir (Levemir Vial) 20 units SQ AM [facility] Last Admin: 11/30/18 06:23 Dose: Not Given - Objective Vital Signs: Vital Signs Temperature 97.8 F 11/30/18 12:00 Pulse Rate 74 11/30/18 12:00 Respiratory Rate 17 11/30/18 12:20 Blood Pressure 161/94 11/30/18 12:00 O2 Sat by Pulse Oximetry (%) 100 11/30/18 09:00 Constitutional: Yes: No Distress, Calm Eyes: Yes: Conjunctiva Clear, EOM Intact HENT: Yes: Atraumatic, Normocephalic Neck: Yes: Trachea Midline Cardiovascular: Yes: Pulse Irregular, S1, S2 Respiratory: Yes: CTA Bilaterally Extremities: Yes: WNL Edema: Yes Edema: LLE: 2+, RLE: 2+ Labs: CBC, BMP 11/30/18 08:35 11/30/18 08:35 INR, PTT INR 1.33 (0.83-1.09) H 11/23/18 05:40 Assessment/Plan 62 M chronic Afib, CKD, HTN. History of poor compliance. 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 Now with leg paresis and rapid afib in the setting of medication non- compliance. Pt was in O.R 11/29/18 for A-V Fistula creation when he developed A-Fib with a rate in the 160 to 180 range and subsequently became bradycardic and arrested. CPR was performed and ROSC was achieved. He has been treated for ventricular control and fluid overload. 1. Persistent atrial fibrillation -Digoxin 0.125 mg TIW. -Continue IV heparin. Transition to coumadin when stable. -continue IV dilt for now until stable post extubation. Then start dilt 30q6h increase as florin by bp and hr. 2. Decompesated systolic CHF with severe fluid overload: Improved with IV lasix. Monitor daily weight, Is&Os, renal function and electrolytes.
--- NOTE | 2018-11-30 16:01 | PN ---
Physical Exam: SUBJECTIVE: Patient seen and examined at bedside this AM. Overnight events: Pt was recently admitted for decompensated systolic CHF, cardiomyopathy due to rapid AF and PIO on CKD. Pt presented with leg paresis and rapid afib in the setting of medication non-compliance. He is s/p attempted AV fistula placement by [facility] surgery 11/29/18. Pt was in O.R when he developed A-Fib with a rate in the 160 to 180 range and subsequently became bradycardic and arrested. CPR was performed and ROSC was achieved. He was intubated and hypotensive, fluid resuscitated. Pt has since been extubated and off sedation. OBJECTIVE: Vital Signs Period Temp Pulse Resp BP Sys/Abbott Pulse Ox Last 24 Hr 97.8 F-98.9 F 69-180 14-26 82-161/60-96 24-100 GENERAL: The patient is off sedation, extubated, on [place] 2L satting 100% . HEAD: Normal with no signs of trauma. NECK: supple. LUNGS: Breath sounds equal, clear to auscultation bilaterally, no wheezes, no crackles, no accessory muscle use. HEART: Regular rate and rhythm, S1, S2 without murmur, rub or gallop. ABDOMEN: Soft, nontender, nondistended, normoactive bowel sounds, no guarding, no rebound. EXTREMITIES: 2+ pulses, warm, well-perfused, no edema. NEUROLOGICAL: Cranial nerves II through XII grossly intact. Normal speech, gait not observed. PSYCH: Normal mood, normal affect. SKIN: Warm, dry, no rashes or lesions noted Laboratory Results - last 24 hr 11/29/18 11/29/18 11/29/18 18:50 18:50 18:50 WBC 7.2 RBC 3.81 L Hgb 8.8 L Hct 28.8 L MCV 75.6 L MCH 23.2 L MCHC 30.6 L RDW 17.5 H Plt Count 337 MPV 7.9 Absolute Neuts (auto) 4.7 Neutrophils % 64.6 Lymphocytes % 17.5 Monocytes % 15.6 H Eosinophils % 1.1 Basophils % 1.2 Nucleated RBC % 0 Anticoagulation Therapy Puncture Site ABG pH ABG pCO2 at Pt Temp ABG pO2 at Pt Temp ABG HCO3 ABG O2 Sat (Measured) ABG O2 Content ABG Base Excess Emery Test O2 Delivery Device Oxygen Flow Rate Vent Mode Vent Rate Mechanical Rate PEEP Pressure Support Vent Sodium 142 Potassium 3.2 L Chloride 102 Carbon Dioxide 28 Anion Gap 12 BUN 71.9 H Creatinine 3.6 H Est GFR (CKD-EPI)AfAm 19.78 Est GFR (CKD-EPI)NonAf 17.07 POC Glucometer Random Glucose 129 H Lactic Acid 3.7 H* Calcium 8.3 L Magnesium Total Bilirubin 0.8 AST 43 H ALT 48 Alkaline Phosphatase 80 Creatine Kinase 91 Troponin I 0.05 Total Protein 6.2 L Albumin 2.3 L 11/29/18 11/29/18 11/30/18 19:28 21:11 06:17 WBC RBC Hgb Hct MCV MCH MCHC RDW Plt Count MPV Absolute Neuts (auto) Neutrophils % Lymphocytes % Monocytes % Eosinophils % Basophils % Nucleated RBC % Anticoagulation Therapy No Result Required. Puncture Site Right brachial ABG pH 7.32 L ABG pCO2 at Pt Temp 42.7 ABG pO2 at Pt Temp < 49 L* ABG HCO3 21.2 L ABG O2 Sat (Measured) 50.6 L ABG O2 Content No Result Required. ABG Base Excess -4.0 L Emery Test Positive O2 Delivery Device No Result Required. Oxygen Flow Rate 100 Vent Mode No Result Required. Vent Rate 14 Mechanical Rate No Result Required. PEEP 5.0 Pressure Support Vent 500 Sodium Potassium Chloride Carbon Dioxide Anion Gap BUN Creatinine Est GFR (CKD-EPI)AfAm Est GFR (CKD-EPI)NonAf POC Glucometer 123 124 Random Glucose Lactic Acid Calcium Magnesium Total Bilirubin AST ALT Alkaline Phosphatase Creatine Kinase Troponin I Total Protein Albumin 11/30/18 11/30/18 11/30/18 08:35 08:35 08:35 WBC 10.3 H RBC 3.99 L Hgb 9.3 L Hct 29.7 L MCV 74.5 L MCH 23.4 L MCHC 31.4 L RDW 17.4 H Plt Count 310 MPV 7.6 Absolute Neuts (auto) 7.7 Neutrophils % 74.9 Lymphocytes % 11.1 D Monocytes % 13.0 H Eosinophils % 0.1 D Basophils % 0.9 Nucleated RBC % 0 Anticoagulation Therapy Puncture Site ABG pH ABG pCO2 at Pt Temp ABG pO2 at Pt Temp ABG HCO3 ABG O2 Sat (Measured) ABG O2 Content ABG Base Excess Emery Test O2 Delivery Device Oxygen Flow Rate Vent Mode Vent Rate Mechanical Rate PEEP Pressure Support Vent Sodium 142 Potassium 4.3 Chloride 103 Carbon Dioxide 31 Anion Gap 8 BUN 67.6 H Creatinine 3.3 H Est GFR (CKD-EPI)AfAm 21.98 Est GFR (CKD-EPI)NonAf 18.96 POC Glucometer Random Glucose 129 H Lactic Acid 1.6 Calcium 8.7 Magnesium 1.9 Total Bilirubin 0.8 AST 31 ALT 43 Alkaline Phosphatase 80 Creatine Kinase Troponin I 0.09 H Total Protein 6.1 L Albumin 2.3 L 11/30/18 11:50 WBC RBC Hgb Hct MCV MCH MCHC RDW Plt Count MPV Absolute Neuts (auto) Neutrophils % Lymphocytes % Monocytes % Eosinophils % Basophils % Nucleated RBC % Anticoagulation Therapy Puncture Site ABG pH ABG pCO2 at Pt Temp ABG pO2 at Pt Temp ABG HCO3 ABG O2 Sat (Measured) ABG O2 Content ABG Base Excess Emery Test O2 Delivery Device Oxygen Flow Rate Vent Mode Vent Rate Mechanical Rate PEEP Pressure Support Vent Sodium Potassium Chloride Carbon Dioxide Anion Gap BUN Creatinine Est GFR (CKD-EPI)AfAm Est GFR (CKD-EPI)NonAf POC Glucometer 108 Random Glucose Lactic Acid Calcium Magnesium Total Bilirubin AST ALT Alkaline Phosphatase Creatine Kinase Troponin I Total Protein Albumin Active Medications Generic Name Dose Route Start Last Admin Trade Name Freq PRN Reason Stop Dose Admin Docusate Sodium 100 mg 11/18/18 15:45 11/30/18 09:59 Colace - PO Not Given BID [place] Furosemide 80 mg 11/30/18 14:00 11/30/18 14:00 Lasix Injection - IVPB 80 mg BID@0600,1400 [place] Administration Sodium Chloride 1,000 mls @ 42 mls/hr 11/29/18 21:45 11/29/18 19:00 Normal Saline - IV 42 mls/hr ASDIR [facility] Administration Diltiazem HCl 125 mg/ Sodium 125 mls @ 5 mls/hr 11/29/18 23:00 11/29/18 23:06 Chloride IVPB 5 mg/hr TITR [facility] 5 mls/hr Administration Protocol 5 MG/HR Propofol 1,000,000 mcg in 100 mls @ 3.247 mls/hr 11/30/18 06:30 11/30/18 07: 54 Diprivan - IVPB 30 mcg/kg/min TITR [place] 19.481 mls/hr Titration Protocol 5 MCG/KG/MIN Insulin Aspart 1 vial 11/15/18 16:30 11/30/18 13:32 Novolog Vial Sliding Scale - SQ Not Given ACHS [facility] Protocol Insulin Detemir 20 units 11/16/18 07:00 11/30/18 06:23 Levemir Vial SQ Not Given AM [facility] ASSESSMENT/PLAN: Pt is a 63 yr old male with a significant past medical history of CHF (EF 35-30% ), A-Fib, DM, CKD, and HTN who was initially admitted for R lower extremity weakness and found to have worsening of his CKD. #NEURO-> mental status eval post extubation Pt extubated and off sedation given his RSBI was <105. -once pt is more awake will assess mental status. -neuro consulted (Dr. Murry) appreciate recs. #CARDIO -> Persistent A-fib w/ RVR/ s/p cardiac arrest/decompensated Systolic CHF -Cardiology contacted-Dr Newby. Recommend Dig 0.125 TIW, Heparin, transitioning to Coumadin once pt stable, c/w IV dilt until stable post extubation, then will start dilt 30q6h and increase as tolerated by the bp and hr. - continue tele monitoring - pt improving w lasix. #RENAL->Acute on CKD BUN/CR--> 71.9/3.6. GFR 19.78 on admission to ICU. -Renal on board (Dr. Barnett) appreciat recs to continue lasix 80 and monitor I &O and lytes. - PT congested on CXR. - CMP in am. #FEN NS@42cc Monitor Electrolytes NPO DVT ppx: c/w Heparin IV. Dispo: We will continue to follow the patient. Thank you for this consultative opportunity. Visit type - Emergency Visit Emergency Visit: No - New Patient This patient is new to me today: Yes Date on this admission: 11/30/18 - Critical Care Critical Care patient: Yes Total Critical Care Time (in minutes): 35 Critical Care Statement: The care of this patient involved high complexity decision making to prevent further life threatening deterioration of the patient 's condition and/or to evaluate & treat vital organ system(s) failure or risk of failure. - Discharge Referral Referred to [facility] Med [facility] No ATTENDING PHYSICIAN STATEMENT I saw and evaluated the patient. I reviewed the resident's note and discussed the case with the resident. I agree with the resident's findings and plan as documented. SUBJECTIVE: OBJECTIVE: ASSESSMENT AND PLAN:
[2018-11-30] MEDS ORDERED: DIGOXIN 0.5 MG/2 ML AMPUL IVPUSH SCH (17:00)
[2018-11-30] MEDS: SODIUM CHLORIDE 1,000 ML IV SCH (22:42)
[2018-12-01] MEDS: DILTIAZEM INJECTION 125 MG in SODIUM CHLORIDE 100 ML IVPB SCH ×2 (06:03→06:19)
[2018-12-01] MEDS: FUROSEMIDE 100 MG/10 ML INJECTABLE VIAL IVPB SCH ×2 (06:04→14:04)
[2018-12-01] MEDS: INSULIN (LEVEMIR) 100 UNITS/ML UNITS SQ SCH (06:12)
[2018-12-01] MEDS: INSULIN SLIDING SCALE (NOVOLOG) 1 VIAL SQ SCH ×4 (06:12→22:26)
[2018-12-01] MEDS ORDERED: dilTIAZem HCL 25 MG/5 ML - 5 ML VIAL ONE (06:14)
--- NOTE | 2018-12-01 06:46 | PN ---
Progress Note (short form) - Note Progress Note: renal addendum - pt now extubated and is awake - lasix restarted - cardio input appreciated - unable to reach family today, they have not come in yet - discussed with icu Problem List - Problems (1) Atrial fibrillation with RVR Code(s): I48.91 - UNSPECIFIED ATRIAL FIBRILLATION (2) Bilateral lower extremity edema Code(s): R60.0 - LOCALIZED EDEMA (3) CHF (congestive heart failure), NYHA class II Code(s): I50.9 - HEART FAILURE, UNSPECIFIED Qualifiers: Congestive heart failure type: unspecified Qualified Code(s): I50.9 - Heart failure, unspecified (4) CKD (chronic kidney disease) Code(s): N18.9 - CHRONIC KIDNEY DISEASE, UNSPECIFIED Qualifiers: Chronic kidney disease stage: unspecified stage Qualified Code(s): N18.9 - Chronic kidney disease, unspecified
[2018-12-01] MEDS: PROPOFOL 1,000,000 MCG/100 ML VIAL IVPB SCH (07:30)
[2018-12-01 07:49] LABS: EOS % 0.5 % (0-4.5); HEMATOCRIT 31.9 % (35.4-49); LYMPH % 10.7 % (8-40); MCH 23.4 pg (25.7-33.7); MCHC 31.4 g/dl (32.0-35.9); MEAN CELL VOLUME 74.6 fl (80-96); MEAN PLT VOLUME 8.1 fl (7.5-11.1); MONO % 13.7 % (3.8-10.2); NEUT % 74.1 % (42.8-82.8); PLATELET COUNT 390 K/MM3 (134-434); RBC 4.28 M/mm3 (4.00-5.60); RDW 17.7 % (11.9-15.9); WHITE BLOOD COUNT 11.2 K/mm3 (4.0-10.0)
[2018-12-01 08:24] LABS: ALBUMIN 2.6 g/dl (3.4-5.0); BILIRUBIN,TOTAL 1.2 mg/dL (0.2-1); BLOOD UREA NITROGEN 61.2 mg/dL (7-18); CALCIUM 9.1 mg/dL (8.5-10.1); MAGNESIUM 1.7 mg/dL (1.8-2.4); PHOSPHOROUS 3.8 mg/dL (2.5-4.9); POTASSIUM 3.5 mmol/L (3.5-5.1); TOT PROT 6.8 g/dl (6.4-8.2)
--- NOTE | 2018-12-01 08:42 | PN ---
Progress Note (short form) - Note Progress Note: Renal Coverage for Dr. Deras Seen and examined in the ICU awake and alert no overnight events making urine via shay denies any sob, cp, abd pain, fever or chills Vital Signs Temperature 98.3 F 12/01/18 06:00 Pulse Rate 101 H 12/01/18 06:19 Respiratory Rate 15 12/01/18 06:00 Blood Pressure 171/97 H 12/01/18 06:19 O2 Sat by Pulse Oximetry (%) 100 11/30/18 21:00 Intake & Output 11/28/18 11/29/18 11/30/18 12/01/18 23:59 23:59 23:59 23:59 Intake Total 500 540 720 574 Output Total 900 2800 6260 1000 Balance -400 -2260 -5540 -426 Weight 108.499 kg 108.227 kg 109.27 kg 107.365 kg NAD irregular HR, no M/R Dec BS, no rales + LE edema, legs in wrap shay in place CBC, BMP 12/01/18 05:38 12/01/18 05:38 Laboratory Tests 10/07/18 12/01/18 06:25 05:38 Calcium 9.4 9.1 Phosphorus 5.9 H 3.8 Magnesium 2.2 1.7 L Albumin 2.6 L Current Medications Digoxin (Lanoxin Injection -) 0.125 mg IVPUSH MOWEFR@1000 [facility] Last Admin: 11/30/18 17:12 Dose: 0.125 mg Docusate Sodium (Colace -) 100 mg PO BID [facility] Last Admin: 11/30/18 21:12 Dose: Not Given Furosemide (Lasix Injection -) 80 mg IVPB BID@0600,1400 [facility] Last Admin: 12/01/18 06:04 Dose: 80 mg Sodium Chloride (Normal Saline -) 1,000 mls @ 42 mls/hr IV ASDIR [facility] Last Admin: 11/30/18 22:42 Dose: Not Given Diltiazem HCl 125 mg/ Sodium (Chloride) 125 mls @ 5 mls/hr IVPB TITR [facility]; Protocol Last Admin: 12/01/18 06:19 Dose: 6 mg/hr, 6 mls/hr Insulin Aspart (Novolog Vial Sliding Scale -) 1 vial SQ ACHS [facility]; Protocol Last Admin: 12/01/18 06:12 Dose: Not Given Insulin Detemir (Levemir Vial) 20 units SQ AM [place] Last Admin: 12/01/18 06:12 Dose: Not Given Magnesium Sulfate (Magnesium Sulfate) 1 gm IVPB ONCE ONE Stop: 12/01/18 08:46 Impression 1. CKD 2. PIO 3. a-fib 4. HTN 5. CHF 6. DM 7. non compliance Renal function is improving and pt is non-oliguric. No overt electrolyte or acid /base disturbance noted. Continue Lasix IV BID as pt has signs of volume overload. Continue Diltizem for HR control. Consider addition of BB vs. vasodilator of BP remains elevated. Cardiology follow up Maintain shay for now Supplement Mg ICU monitoring Gabriel Callahan DO
[2018-12-01] MEDS ORDERED: MAGNESIUM SULF 50% (8.12 MEQ/2 ML-1 GM VIAL) IVPB ONE (08:45)
[2018-12-01] MEDS: DOCUSATE SODIUM 100 MG CAPSULE (FP) PO SCH ×3 (09:24→22:45)
--- NOTE | 2018-12-01 09:42 | PN ---
Teaching Attending Note Name of Resident: George Christie ATTENDING PHYSICIAN STATEMENT I saw and evaluated the patient. I reviewed the resident's note and discussed the case with the resident. I agree with the resident's findings and plan as documented. SUBJECTIVE: Patient seen and examined in the ICU. Now extubated. Awake and able to follow some simple commands. No pressors. Intake & Output 11/28/18 11/29/18 11/30/18 12/01/18 23:59 23:59 23:59 23:59 Intake Total 500 540 720 574 Output Total 900 2800 6260 1000 Balance -400 -2260 -5540 -426 Weight 239 lb 3.2 oz 238 lb 9.6 oz 240 lb 14.4 oz 236 lb 11.2 oz Last Vital Signs Temp Pulse Resp BP Pulse Ox 98.3 F 101 H 15 171/97 H 95 12/01/18 06:00 12/01/18 06:19 12/01/18 06:00 12/01/18 06:19 12/01/18 08:02 Active Medications Digoxin (Lanoxin Injection -) 0.125 mg IVPUSH MOWEFR@1000 [facility] Last Admin: 11/30/18 17:12 Dose: 0.125 mg Docusate Sodium (Colace -) 100 mg PO BID [facility] Last Admin: 12/01/18 09:33 Dose: Not Given Furosemide (Lasix Injection -) 80 mg IVPB BID@0600,1400 [facility] Last Admin: 12/01/18 06:04 Dose: 80 mg Sodium Chloride (Normal Saline -) 1,000 mls @ 42 mls/hr IV ASDIR [facility] Last Admin: 11/30/18 22:42 Dose: Not Given Diltiazem HCl 125 mg/ Sodium (Chloride) 125 mls @ 5 mls/hr IVPB TITR [facility]; Protocol Last Admin: 12/01/18 06:19 Dose: 6 mg/hr, 6 mls/hr Insulin Aspart (Novolog Vial Sliding Scale -) 1 vial SQ ACHS [facility]; Protocol Last Admin: 12/01/18 06:12 Dose: Not Given Insulin Detemir (Levemir Vial) 20 units SQ AM [facility] Last Admin: 12/01/18 06:12 Dose: Not Given GENERAL: Extubated, awake and responsive HEAD: AT/NC. EYES: (-) Pallor LUNGS: Few scattered rhonchi, no wheeze. HEART: Irregularly Irregular. ABDOMEN: Soft LOWER EXTREMITIES: Bandages b/l. 3+ pitting edema NEUROLOGICAL: Non-focal SKIN: Warm, dry, normal turgor, no rashes or lesions noted. ASSESSMENT/PLAN: Acute CP arrest CHF (EF 20 to 25%) A-Fib DM CKD HTN No clear evidence of RENETTA O2 as needed Rate control Follow I & O Cardiac Telemetry monitoring Follow Neuro exam IV Lasix Daily weight Trial of PO Dr Rojas
--- NOTE | 2018-12-01 09:57 | PN ---
Physical Exam: SUBJECTIVE: Patient seen and examined in ICU. Extubated yesterday successfully. Complains of a sore throat, but talks and responds to questions and commands. No acute events overnight. OBJECTIVE: Vital Signs Period Temp Pulse Resp BP Sys/Abbott Pulse Ox Last 24 Hr 97.8 F-98.3 F 69-101 15-25 146-174/82-104 95-100 GENERAL: The patient is awake, alert, and fully oriented, in no acute distress. HEAD: Normal with no signs of trauma. EYES: PERRL, extraocular movements intact, sclera anicteric, conjunctiva clear. ENT: Ears normal, nares patent, oropharynx clear without exudates, moist mucous membranes. NECK: Trachea midline, full range of motion, supple. LUNGS: Breath sounds equal, clear to auscultation bilaterally, no wheezes, no crackles, no accessory muscle use. HEART: Regular rate and rhythm, S1, S2 without murmur, rub or gallop. ABDOMEN: Soft, nontender, nondistended, no guarding, no rebound, no hepatosplenomegaly, no masses. EXTREMITIES: 2+ pulses, warm, well-perfused, no edema. NEUROLOGICAL: Cranial nerves II through XII grossly intact. Normal speech, Moves all extremities equally. Laboratory Results - last 24 hr 11/30/18 11/30/18 11/30/18 11:50 17:06 21:20 WBC RBC Hgb Hct MCV MCH MCHC RDW Plt Count MPV Absolute Neuts (auto) Neutrophils % Lymphocytes % Monocytes % Eosinophils % Basophils % Nucleated RBC % Sodium Potassium Chloride Carbon Dioxide Anion Gap BUN Creatinine Est GFR (CKD-EPI)AfAm Est GFR (CKD-EPI)NonAf POC Glucometer 108 121 109 Random Glucose Calcium Phosphorus Magnesium Total Bilirubin AST ALT Alkaline Phosphatase Total Protein Albumin 12/01/18 12/01/18 12/01/18 05:38 05:38 05:56 WBC 11.2 H RBC 4.28 Hgb 10.0 L Hct 31.9 L MCV 74.6 L MCH 23.4 L MCHC 31.4 L RDW 17.7 H Plt Count 390 D MPV 8.1 Absolute Neuts (auto) 8.3 H Neutrophils % 74.1 Lymphocytes % 10.7 Monocytes % 13.7 H Eosinophils % 0.5 D Basophils % 1.0 Nucleated RBC % 0 Sodium 143 Potassium 3.5 Chloride 103 Carbon Dioxide 29 Anion Gap 12 BUN 61.2 H Creatinine 3.0 H Est GFR (CKD-EPI)AfAm 24.66 Est GFR (CKD-EPI)NonAf 21.28 POC Glucometer 100 Random Glucose 101 Calcium 9.1 Phosphorus 3.8 Magnesium 1.7 L Total Bilirubin 1.2 H AST 24 ALT 32 Alkaline Phosphatase 87 Total Protein 6.8 Albumin 2.6 L Active Medications Generic Name Dose Route Start Last Admin Trade Name Lee PRN Reason Stop Dose Admin Digoxin 0.125 mg 11/30/18 17:00 11/30/18 17:12 Lanoxin Injection - IVPUSH 0.125 mg MOWEFR@1000 [place] Administration Docusate Sodium 100 mg 11/18/18 15:45 12/01/18 09:33 Colace - PO Not Given BID [place] Furosemide 80 mg 11/30/18 14:00 12/01/18 06:04 Lasix Injection - IVPB 80 mg BID@0600,1400 [facility] Administration Sodium Chloride 1,000 mls @ 42 mls/hr 11/29/18 21:45 11/30/18 22:42 Normal Saline - IV Not Given ASDIR [facility] Diltiazem HCl 125 mg/ Sodium 125 mls @ 5 mls/hr 11/29/18 23:00 12/01/18 06:19 Chloride IVPB 6 mg/hr TITR [place] 6 mls/hr Administration Protocol 5 MG/HR Insulin Aspart 1 vial 11/15/18 16:30 12/01/18 06:12 Novolog Vial Sliding Scale - SQ Not Given ACHS [facility] Protocol Insulin Detemir 20 units 11/16/18 07:00 12/01/18 06:12 Levemir Vial SQ Not Given AM [facility] ASSESSMENT/PLAN: Pt is a 63 yr old male with a significant past medical history of CHF (EF 35-30% ), A-Fib, DM, CKD, and HTN who was initially admitted for R lower extremity weakness and found to have worsening of his CKD. #NEURO-> mental status eval post extubation Pt extubated and off sedation given his RSBI was <105. -Mental status improving, stable #CARDIO -> Persistent A-fib w/ RVR/ s/p cardiac arrest/decompensated Systolic CHF -Cardiology contacted-Dr Newby. Recommend Dig 0.125 TIW, Heparin, transitioning to Coumadin once pt stable, c/w IV dilt until stable post extubation, then will start dilt 30q6h and increase as tolerated by the bp and hr. - continue tele monitoring - pt improving w lasix. #RENAL->Acute on CKD BUN/CR--> 71.9/3.6. GFR 19.78 on admission to ICU. -Renal on board (Dr. Barnett) appreciat recs to continue lasix 80 and monitor I &O and lytes. - PT congested on CXR. - Daily CMPs #FEN NS@42cc Monitor Electrolytes NPO DVT ppx: c/w Heparin IV. Dispo: Transfer to tele Visit type - Emergency Visit Emergency Visit: Yes ED Registration Date: 11/15/18 Care time: The patient presented to the Emergency Department on the above date and was hospitalized for further evaluation of their emergent condition. - New Patient This patient is new to me today: No - Critical Care Critical Care patient: Yes Total Critical Care Time (in minutes): 38 Critical Care Statement: The care of this patient involved high complexity decision making to prevent further life threatening deterioration of the patient 's condition and/or to evaluate & treat vital organ system(s) failure or risk of failure. ATTENDING PHYSICIAN STATEMENT I saw and evaluated the patient. I reviewed the resident's note and discussed the case with the resident. I agree with the resident's findings and plan as documented. SUBJECTIVE: OBJECTIVE: ASSESSMENT AND PLAN:
--- NOTE | 2018-12-01 11:32 | PN ---
Progress Note, Physician Chief Complaint: the patient is sitting quite comfortably in bed. No specific complaints. History of Present Illness: 62 M chronic Afib, CKD, HTN. History of poor compliance. 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 Now with leg paresis and rapid afib in the setting of medication non- compliance. He is s/p attempted HD access surgery 11/29/18. Pt was in O.R 11/29/18 for A-V Fistula creation when he developed A-Fib with a rate in the 160 to 180 range and subsequently became bradycardic and arrested. CPR was performed and ROSC was achieved. He was intubated and hypotensive, fluid resuscitated. Now on dilt drip and getting dig at renal dosing. the patient was eventually extubated.Clinically and symptomatically better. - Current Medication List Current Medications: Active Medications Digoxin (Lanoxin Injection -) 0.125 mg IVPUSH MOWEFR@1000 [facility] Last Admin: 11/30/18 17:12 Dose: 0.125 mg Docusate Sodium (Colace -) 100 mg PO BID [facility] Last Admin: 12/01/18 09:33 Dose: Not Given Furosemide (Lasix Injection -) 80 mg IVPB BID@0600,1400 [facility] Last Admin: 12/01/18 06:04 Dose: 80 mg Sodium Chloride (Normal Saline -) 1,000 mls @ 42 mls/hr IV ASDIR [facility] Last Admin: 11/30/18 22:42 Dose: Not Given Diltiazem HCl 125 mg/ Sodium (Chloride) 125 mls @ 5 mls/hr IVPB TITR [facility]; Protocol Last Admin: 12/01/18 06:19 Dose: 6 mg/hr, 6 mls/hr Insulin Aspart (Novolog Vial Sliding Scale -) 1 vial SQ ACHS [facility]; Protocol Last Admin: 12/01/18 06:12 Dose: Not Given Insulin Detemir (Levemir Vial) 20 units SQ AM [facility] Last Admin: 12/01/18 06:12 Dose: Not Given - Objective Vital Signs: Vital Signs Temperature 98.3 F 12/01/18 06:00 Pulse Rate 101 H 12/01/18 06:19 Respiratory Rate 15 12/01/18 06:00 Blood Pressure 171/97 H 12/01/18 06:19 O2 Sat by Pulse Oximetry (%) 95 12/01/18 08:02 Constitutional: Yes: Well Nourished, No Distress, Calm Eyes: Yes: WNL, Conjunctiva Clear, EOM Intact HENT: Yes: WNL, Atraumatic, Normocephalic Neck: Yes: WNL, Supple, Trachea Midline Cardiovascular: Yes: Tachycardia, Pulse Irregular, S1, S2 Respiratory: Yes: Regular (decreased breath sounds at bases), Other (decreased breath sounds at bases) Gastrointestinal: Yes: WNL, Normal Bowel Sounds, Soft ...Rectal Exam: Yes: Deferred Musculoskeletal: Yes: WNL Extremities: Yes: WNL Edema: No Peripheral Pulses WNL: No Peripheral Pulses: Left Radial: 1+, Right Radial: 1+, Left Doralis Pedis: 1+, Right Dorsalis Pedis: 1+, Left Femoral: 1+, Right Femoral: 1+ Neurological: Yes: Alert, Confusion, Lethargy Psychiatric: Yes: Alert Labs: CBC, BMP 12/01/18 05:38 12/01/18 05:38 INR, PTT INR 1.33 (0.83-1.09) H 11/23/18 05:40 Assessment/Plan 62 M chronic Afib, CKD, HTN. History of poor compliance. 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 Now with leg paresis and rapid afib in the setting of medication non- compliance. He is s/p attempted HD access surgery 11/29/18. Pt was in O.R 11/29/18 for A-V Fistula creation when he developed A-Fib with a rate in the 160 to 180 range and subsequently became bradycardic and arrested. CPR was performed and ROSC was achieved. He was intubated and hypotensive, fluid resuscitated. Now on dilt drip and getting dig at renal dosing. the patient was eventually extubated.Clinically and symptomatically better. ould try to avoid diltiazem.The patient has significant left ventricular systolic dysfunction. try to taper intravenous diltiazem to off. Start Toprol-XL 50 mg daily. May increaseas needed for heart rate controland hypertension. May also use IV pushes of metoprolol as needed for rate control s Toprol-XL kicks in. Salt and fluid restrictions. Gradually improving.
[2018-12-01] MEDS: SODIUM CHLORIDE 1,000 ML IV SCH (11:49)
[2018-12-01] MEDS: dilTIAZem HCL 30 MG TABLET (FP) PO SCH ×2 (12:03→17:40)
[2018-12-01] MEDS ORDERED: METOPROLOL TARTRATE 25 MG TABLET (FP) PO ONE (12:30)
--- NOTE | 2018-12-01 12:47 | PN ---
Progress Note, Physician Chief Complaint: PATIENR SEEN AND EXAMINED IN ICU EXTUBATED AWAKE - Current Medication List Current Medications: Active Medications Digoxin (Lanoxin Injection -) 0.125 mg IVPUSH MOWEFR@1000 [facility] Diltiazem HCl (Cardizem -) 30 mg PO Q6HPO [facility] Last Admin: 12/01/18 12:03 Dose: 30 mg Docusate Sodium (Colace -) 100 mg PO BID [facility] Furosemide (Lasix Injection -) 80 mg IVPB BID@0600,1400 [facility] Sodium Chloride (Normal Saline -) 1,000 mls @ 42 mls/hr IV ASDIR [facility] Last Admin: 12/01/18 11:49 Dose: 42 mls/hr Insulin Aspart (Novolog Vial Sliding Scale -) 1 vial SQ ACHS [facility]; Protocol Insulin Detemir (Levemir Vial) 20 units SQ AM [facility] - Objective Vital Signs: Vital Signs Temperature 98.5 F 12/01/18 08:00 Pulse Rate 102 H 12/01/18 11:00 Respiratory Rate 21 H 12/01/18 11:00 Blood Pressure 178/89 H 12/01/18 11:00 O2 Sat by Pulse Oximetry (%) 95 12/01/18 08:02 Constitutional: Yes: Mild Distress Cardiovascular: Yes: Pulse Irregular Respiratory: Yes: On Nasal O2, Rhonchi Gastrointestinal: Yes: Soft Genitourinary: Yes: Incontinence Musculoskeletal: Yes: Muscle Weakness Edema: Yes Integumentary: Yes: Pressure Ulcer Wound/Incision: Yes: Dressing Dry and Intact Neurological: Yes: Pre-Existing Deficit Psychiatric: Yes: Other Labs: CBC, BMP 12/01/18 05:38 12/01/18 05:38 INR, PTT INR 1.33 (0.83-1.09) H 11/23/18 05:40 Problem List - Problems (1) Atrial fibrillation with RVR Code(s): I48.91 - UNSPECIFIED ATRIAL FIBRILLATION (2) Bilateral lower extremity edema Code(s): R60.0 - LOCALIZED EDEMA (3) CHF (congestive heart failure), NYHA class II Code(s): I50.9 - HEART FAILURE, UNSPECIFIED Qualifiers: Congestive heart failure type: unspecified Qualified Code(s): I50.9 - Heart failure, unspecified (4) CKD (chronic kidney disease) stage 4, GFR 15-29 ml/min Code(s): N18.4 - CHRONIC KIDNEY DISEASE, STAGE 4 (SEVERE) (5) Diabetes Code(s): E11.9 - TYPE 2 DIABETES MELLITUS WITHOUT COMPLICATIONS Qualifiers: Diabetes mellitus type: type 2 Assessment/Plan SEEN IN ICU AND EXTUBATED OFF CARDIZEM DRIP CARDIOLOGY F/U APPRECIATED WILL NEED SNF PLACEMENT ESRD NEEDING HD IN NEAR FUTURE WILL D/W NEPHROLOGY DVT PROPHYLAXIS WOUND CARE LEGS
[2018-12-01 13:59] LABS: HEMATOCRIT 31.1 % (35.4-49); HEMOGLOBIN 9.7 GM/dL (11.7-16.9); MCH 23.3 pg (25.7-33.7); MCHC 31.2 g/dl (32.0-35.9); MEAN CELL VOLUME 74.7 fl (80-96); MEAN PLT VOLUME 7.5 fl (7.5-11.1); PLATELET COUNT 394 K/MM3 (134-434); RBC 4.15 M/mm3 (4.00-5.60); RDW 17.5 % (11.9-15.9); WHITE BLOOD COUNT 10.9 K/mm3 (4.0-10.0)
[2018-12-02] MEDS: dilTIAZem HCL 30 MG TABLET (FP) PO SCH ×4 (00:59→17:08)
[2018-12-02] MEDS: FUROSEMIDE 100 MG/10 ML INJECTABLE VIAL IVPB SCH ×2 (06:22→13:18)
[2018-12-02] MEDS: INSULIN SLIDING SCALE (NOVOLOG) 1 VIAL SQ SCH ×4 (06:22→21:45)
[2018-12-02] MEDS: INSULIN (LEVEMIR) 100 UNITS/ML UNITS SQ SCH ×2 (06:28→06:32)
[2018-12-02 06:47] LABS: HEMATOCRIT 30.2 % (35.4-49); HEMOGLOBIN 9.5 GM/dL (11.7-16.9); MCH 23.5 pg (25.7-33.7); MCHC 31.6 g/dl (32.0-35.9); MEAN CELL VOLUME 74.5 fl (80-96); MEAN PLT VOLUME 7.7 fl (7.5-11.1); PLATELET COUNT 370 K/MM3 (134-434); RBC 4.06 M/mm3 (4.00-5.60); RDW 17.7 % (11.9-15.9); WHITE BLOOD COUNT 10.4 K/mm3 (4.0-10.0)
[2018-12-02 07:09] LABS: ALBUMIN 2.4 g/dl (3.4-5.0); BLOOD UREA NITROGEN 52.7 mg/dL (7-18); CALCIUM 8.9 mg/dL (8.5-10.1); MAGNESIUM 1.8 mg/dL (1.8-2.4); POTASSIUM 3.2 mmol/L (3.5-5.1); TOT PROT 6.5 g/dl (6.4-8.2)
[2018-12-02] MEDS: SODIUM CHLORIDE 1,000 ML IV SCH (11:53)
--- NOTE | 2018-12-02 12:09 | PN ---
Progress Note (short form) - Note Progress Note: Renal Coverage for Dr. Deras Seen and examined at the bedside awake and alert still confused at the bedside making urine Vital Signs Temperature 99.1 F 12/02/18 10:00 Pulse Rate 117 H 12/02/18 10:00 Respiratory Rate 20 12/02/18 10:00 Blood Pressure 156/99 12/02/18 10:00 O2 Sat by Pulse Oximetry (%) 98 12/02/18 09:00 Intake & Output 11/29/18 11/30/18 12/01/18 12/02/18 23:59 23:59 23:59 23:59 Intake Total 540 720 877 504 Output Total 2800 6260 2600 700 Balance -2260 -5540 -1723 -196 Weight 108.227 kg 109.27 kg 107.365 kg NAD irregular HR, no M/R Dec BS, no rales + LE edema, legs in wrap shay in place CBC, BMP 12/02/18 05:28 12/02/18 05:28 Current Medications Digoxin (Lanoxin Injection -) 0.125 mg IVPUSH MOWEFR@1000 [facility] Diltiazem HCl (Cardizem -) 30 mg PO Q6HPO [facility] Last Admin: 12/02/18 11:53 Dose: 30 mg Docusate Sodium (Colace -) 100 mg PO BID [facility] Last Admin: 12/01/18 22:45 Dose: 100 mg Furosemide (Lasix Injection -) 80 mg IVPB BID@0600,1400 [facility] Last Admin: 12/02/18 06:22 Dose: 80 mg Insulin Aspart (Novolog Vial Sliding Scale -) 1 vial SQ ACHS [facility]; Protocol Last Admin: 12/02/18 11:29 Dose: Not Given Insulin Detemir (Levemir Vial) 20 units SQ AM [facility] Last Admin: 12/02/18 06:32 Dose: Not Given Impression 1. CKD 2. PIO 3. a-fib 4. HTN 5. CHF 6. DM 7. Hypokalemia Renal function is improving and pt is non-oliguric. No overt electrolyte or acid /base disturbance noted. Continue Lasix IV BID as pt has signs of volume overload. D/C IVF No acute need for dialysis at this time Cardiology follow up Maintain shay for now supplement Eliz Callahan DO
[2018-12-02] MEDS ORDERED: POTASSIUM CHLORIDE TABS 20 MEQ TABLET.ER (FP) PO ONE (12:30)
[2018-12-02] MEDS: DOCUSATE SODIUM 100 MG CAPSULE (FP) PO SCH ×2 (14:49→21:48)
--- NOTE | 2018-12-02 15:03 | PN ---
Progress Note (short form) - Note Progress Note: Awake and interactive but confused. NAD. No acute events overnight. Intake & Output 11/29/18 11/30/18 12/01/18 12/02/18 23:59 23:59 23:59 23:59 Intake Total 540 720 877 504 Output Total 2800 6260 2600 700 Balance -2260 -5540 -1723 -196 Weight 238 lb 9.6 oz 240 lb 14.4 oz 236 lb 11.2 oz Last Vital Signs Temp Pulse Resp BP Pulse Ox 99.1 F 117 H 20 156/99 98 12/02/18 10:00 12/02/18 10:00 12/02/18 10:00 12/02/18 10:00 12/02/18 09:00 Active Medications Digoxin (Lanoxin Injection -) 0.125 mg IVPUSH MOWEFR@1000 [facility] Diltiazem HCl (Cardizem -) 30 mg PO Q6HPO [facility] Last Admin: 12/02/18 11:53 Dose: 30 mg Docusate Sodium (Colace -) 100 mg PO BID [facility] Last Admin: 12/02/18 14:49 Dose: 100 mg Furosemide (Lasix Injection -) 80 mg IVPB BID@0600,1400 [facility] Last Admin: 12/02/18 13:18 Dose: 80 mg Insulin Aspart (Novolog Vial Sliding Scale -) 1 vial SQ ACHS [facility]; Protocol Last Admin: 12/02/18 11:29 Dose: Not Given Insulin Detemir (Levemir Vial) 20 units SQ AM [facility] Last Admin: 12/02/18 06:32 Dose: Not Given GENERAL: awake, NAD HEAD: AT/NC. EYES: (-) Pallor LUNGS: Few scattered rhonchi, no wheeze. HEART: Irregularly Irregular. ABDOMEN: Soft LOWER EXTREMITIES: Bandages b/l. 3+ pitting edema NEUROLOGICAL: Non-focal SKIN: Warm, dry, normal turgor, no rashes or lesions noted. Laboratory Results - last 24 hr 12/01/18 12/01/18 12/02/18 16:34 22:20 05:28 WBC 10.4 H RBC 4.06 Hgb 9.5 L Hct 30.2 L MCV 74.5 L MCH 23.5 L MCHC 31.6 L RDW 17.7 H Plt Count 370 MPV 7.7 Sodium Potassium Chloride Carbon Dioxide Anion Gap BUN Creatinine Est GFR (CKD-EPI)AfAm Est GFR (CKD-EPI)NonAf POC Glucometer 243 187 Random Glucose Calcium Magnesium Total Bilirubin AST ALT Alkaline Phosphatase Total Protein Albumin 12/02/18 12/02/18 12/02/18 05:28 06:21 11:23 WBC RBC Hgb Hct MCV MCH MCHC RDW Plt Count MPV Sodium 146 H Potassium 3.2 L Chloride 105 Carbon Dioxide 31 Anion Gap 10 BUN 52.7 H Creatinine 3.0 H Est GFR (CKD-EPI)AfAm 24.66 Est GFR (CKD-EPI)NonAf 21.28 POC Glucometer 166 182 Random Glucose 153 H Calcium 8.9 Magnesium 1.8 Total Bilirubin 1.0 AST 17 ALT 23 Alkaline Phosphatase 86 Total Protein 6.5 Albumin 2.4 L ASSESSMENT/PLAN: Acute CP arrest CHF (EF 20 to 25%) A-Fib DM CKD HTN No clear evidence of RENETTA O2 as needed Rate control Follow I & O Cardiac Telemetry monitoring Follow Neuro exam IV Lasix Daily weight PO as tolerated Dr Rojas
--- NOTE | 2018-12-02 15:13 | PN ---
Progress Note, Physician Chief Complaint: PIO BLLE edema Afib History of Present Illness: s/p acute cardiopulmonary arrest CHF A-Fib DM CKD HTN - Current Medication List Current Medications: Active Medications Digoxin (Lanoxin Injection -) 0.125 mg IVPUSH MOWEFR@1000 [facility] Diltiazem HCl (Cardizem -) 30 mg PO Q6HPO [facility] Last Admin: 12/02/18 11:53 Dose: 30 mg Docusate Sodium (Colace -) 100 mg PO BID [facility] Last Admin: 12/02/18 14:49 Dose: 100 mg Furosemide (Lasix Injection -) 80 mg IVPB BID@0600,1400 [facility] Last Admin: 12/02/18 13:18 Dose: 80 mg Insulin Aspart (Novolog Vial Sliding Scale -) 1 vial SQ [facility]; Protocol Last Admin: 12/02/18 11:29 Dose: Not Given Insulin Detemir (Levemir Vial) 20 units SQ AM [facility] Last Admin: 12/02/18 06:32 Dose: Not Given - Objective Vital Signs: Vital Signs Temperature 99.1 F 12/02/18 10:00 Pulse Rate 117 H 12/02/18 10:00 Respiratory Rate 20 12/02/18 10:00 Blood Pressure 156/99 12/02/18 10:00 O2 Sat by Pulse Oximetry (%) 98 12/02/18 09:00 Constitutional: Yes: Well Nourished, No Distress, Calm Cardiovascular: Yes: Regular Rate and Rhythm Respiratory: Yes: Regular Gastrointestinal: Yes: Normal Bowel Sounds, Soft, Abdomen, Obese Musculoskeletal: Yes: Muscle Weakness Extremities: Yes: WNL Edema: Yes Edema: LLE: 2+, RLE: 2+ Peripheral Pulses WNL: Yes Neurological: Yes: Alert, Confusion Psychiatric: Yes: Alert Labs: CBC, BMP 12/02/18 05:28 12/02/18 05:28 INR, PTT INR 1.33 (0.83-1.09) H 11/23/18 05:40 Problem List - Problems (1) Hypokalemia Assessment/Plan: -KCl 40 meq once -nephrology on board -monitor trend Code(s): E87.6 - HYPOKALEMIA Assessment/Plan (1) Atrial fibrillation with RVR Assessment/Plan: -Heparin drip, due to AVF placement in LUE on -Metoprolol inc to 100mg po bid -Tele monitor -Seen by cardiology Code(s): I48.91 - UNSPECIFIED ATRIAL FIBRILLATION (2) Bilateral lower extremity edema Assessment/Plan: -U/S venous doppler of BLLE-no dvt -IV lasix bid Code(s): R60.0 - LOCALIZED EDEMA (3) CKD (chronic kidney disease) Assessment/Plan: -Nephrology on board -IV lasix bid -s/p AVF placement -Cleared by Cardiology Code(s): N18.9 - CHRONIC KIDNEY DISEASE, UNSPECIFIED Qualifiers: Chronic kidney disease stage: unspecified stage Qualified Code(s): N18.9 - Chronic kidney disease, unspecified (5) Diabetes Assessment/Plan: -BGM AC HS -Refuses insulin -A1c 8.9 Code(s): E11.9 - TYPE 2 DIABETES MELLITUS WITHOUT COMPLICATIONS Qualifiers: Diabetes mellitus type: type 2 (6) Left leg weakness Assessment/Plan: -CT head negative -Brain MRI and MRA w/o contrast- no acute infarct seen -neurology evaluation noted -PT eval shuffling gait -Lumbar spine MRI-Degenerative disc disease predominantly at L4-L5 L5-S1. L4-5 broad base herniation midline toward the right and left recesses more toward the right mass effect on the right L5 nerve root with extension into the inferior aspect of the right L5-S1 foramen as evident on sagittal T1 image #4 and on axial T2 image #24. L5-S1 midline herniation toward the right with mass effect on the right S1 nerve root in the recess without extension into the foramen. No evidence of spinal stenosis. Prominent soft tissue which may related to edema in the presacral and precoccygeal distribution also diffuse in the subcutaneous area behind the lumbar spine and upper sacrum. CT scan of the abdomen and pelvis recommended for further evaluation. Code(s): R29.898 - OTH SYMPTOMS AND SIGNS INVOLVING THE MUSCULOSKELETAL SYSTEM
[2018-12-03] MEDS: dilTIAZem HCL 30 MG TABLET (FP) PO SCH ×2 (00:32→06:17)
[2018-12-03] MEDS ORDERED: ACETAMINOPHEN 325 MG TABLET (FP) PO ONE (01:11)
[2018-12-03] MEDS: INSULIN SLIDING SCALE (NOVOLOG) 1 VIAL SQ SCH ×4 (06:17→22:23)
[2018-12-03] MEDS: INSULIN (LEVEMIR) 100 UNITS/ML UNITS SQ SCH (06:17)
[2018-12-03] MEDS: FUROSEMIDE 100 MG/10 ML INJECTABLE VIAL IVPB SCH ×2 (06:17→13:58)
[2018-12-03 06:53] LABS: BASO % 1.1 % (0-2.0); EOS % 1.1 % (0-4.5); HEMATOCRIT 30.2 % (35.4-49); HEMOGLOBIN 9.3 GM/dL (11.7-16.9); MCHC 30.8 g/dl (32.0-35.9); MEAN CELL VOLUME 74.6 fl (80-96); MEAN PLT VOLUME 7.6 fl (7.5-11.1); MONO % 13.2 % (3.8-10.2); NEUT % 68.6 % (42.8-82.8); PLATELET COUNT 363 K/MM3 (134-434); RBC 4.05 M/mm3 (4.00-5.60); RDW 18.1 % (11.9-15.9); WHITE BLOOD COUNT 11.2 K/mm3 (4.0-10.0)
[2018-12-03 07:18] LABS: BLOOD UREA NITROGEN 45.6 mg/dL (7-18); CALCIUM 8.9 mg/dL (8.5-10.1); CREATININE 2.9 mg/dL (0.55-1.3); MAGNESIUM 1.8 mg/dL (1.8-2.4); PHOSPHOROUS 3.4 mg/dL (2.5-4.9); POTASSIUM 3.3 mmol/L (3.5-5.1)
[2018-12-03] MEDS: DOCUSATE SODIUM 100 MG CAPSULE (FP) PO SCH ×2 (09:26→22:23)
[2018-12-03] MEDS: DIGOXIN 0.5 MG/2 ML AMPUL IVPUSH SCH (09:26)
[2018-12-03 10:47] LABS: HEMATOCRIT 30.7 % (35.4-49); HEMOGLOBIN 9.6 GM/dL (11.7-16.9); MCH 23.4 pg (25.7-33.7); MCHC 31.3 g/dl (32.0-35.9); MEAN CELL VOLUME 74.8 fl (80-96); MEAN PLT VOLUME 7.4 fl (7.5-11.1); PLATELET COUNT 354 K/MM3 (134-434); RBC 4.11 M/mm3 (4.00-5.60); RDW 18.2 % (11.9-15.9); WHITE BLOOD COUNT 10.3 K/mm3 (4.0-10.0)
--- NOTE | 2018-12-03 10:55 | PN ---
Progress Note, Physician History of Present Illness: PULMONARY AWAKE,COMFORTABLE,-RESP DISTRESS - Current Medication List Current Medications: Active Medications Digoxin (Lanoxin Injection -) 0.125 mg IVPUSH MOWEFR@1000 [facility] Last Admin: 12/03/18 09:26 Dose: 0.125 mg Docusate Sodium (Colace -) 100 mg PO BID [facility] Last Admin: 12/03/18 09:26 Dose: 100 mg Furosemide (Lasix Injection -) 80 mg IVPB BID@0600,1400 [facility] Last Admin: 12/03/18 06:17 Dose: 80 mg Insulin Aspart (Novolog Vial Sliding Scale -) 1 vial SQ ACHS [facility]; Protocol Last Admin: 12/03/18 06:17 Dose: Not Given Insulin Detemir (Levemir Vial) 20 units SQ AM [facility] Last Admin: 12/03/18 06:17 Dose: Not Given Metoprolol Succinate (Toprol Xl -) 50 mg PO DAILY [facility] - Objective Vital Signs: Vital Signs Temperature 99.6 F 12/03/18 09:34 Pulse Rate 114 H 12/03/18 09:34 Respiratory Rate 20 12/03/18 09:34 Blood Pressure 168/100 12/03/18 09:34 O2 Sat by Pulse Oximetry (%) 98 12/02/18 20:10 Constitutional: Yes: Well Nourished, Calm Eyes: Yes: WNL HENT: Yes: WNL Neck: Yes: WNL Cardiovascular: Yes: Pulse Irregular, S1, S2 Respiratory: Yes: Rales (BIBASILAR RALES) Gastrointestinal: Yes: Normal Bowel Sounds, Soft Extremities: Yes: WNL Edema: No Labs: CBC, BMP 12/03/18 05:30 INR, PTT INR 1.33 (0.83-1.09) H 11/23/18 05:40 Problem List - Problems (1) Cardiopulmonary arrest with successful resuscitation Code(s): I46.9 - CARDIAC ARREST, CAUSE UNSPECIFIED (2) Atrial fibrillation with RVR Code(s): I48.91 - UNSPECIFIED ATRIAL FIBRILLATION (3) Bilateral lower extremity edema Code(s): R60.0 - LOCALIZED EDEMA (4) A-fib Code(s): I48.91 - UNSPECIFIED ATRIAL FIBRILLATION Qualifiers: Atrial fibrillation type: unspecified Qualified Code(s): I48.91 - Unspecified atrial fibrillation (5) Acute on chronic renal failure Code(s): N17.9 - ACUTE KIDNEY FAILURE, UNSPECIFIED; N18.9 - CHRONIC KIDNEY DISEASE, UNSPECIFIED Assessment/Plan ASSESSMENT/PLAN: Acute CP arrest CHF (EF 20 to 25%) A-Fib DM CKD HTN No clear evidence of RENETTA O2 as needed Rate control Follow I & O F/U Neuro exam IV Lasix Daily weight DR TAYLOR
[2018-12-03] MEDS ORDERED: POTASSIUM CHLORIDE TABS 20 MEQ TABLET.ER (FP) PO ONE (11:09)
--- NOTE | 2018-12-03 12:26 | PN ---
Progress Note, Physician History of Present Illness: Pt seen and examined at bedside. He is awake and alert. He feels that his breathing is comfortable. His is at bedside and care was discussed with them. - Current Medication List Current Medications: Active Medications Digoxin (Lanoxin Injection -) 0.125 mg IVPUSH MOWEFR@1000 [facility] Last Admin: 12/03/18 09:26 Dose: 0.125 mg Docusate Sodium (Colace -) 100 mg PO BID [facility] Last Admin: 12/03/18 09:26 Dose: 100 mg Furosemide (Lasix Injection -) 80 mg IVPB BID@0600,1400 [facility] Last Admin: 12/03/18 06:17 Dose: 80 mg Insulin Aspart (Novolog Vial Sliding Scale -) 1 vial SQ ACHS [facility]; Protocol Last Admin: 12/03/18 11:55 Dose: Not Given Insulin Detemir (Levemir Vial) 20 units SQ AM [facility] Last Admin: 12/03/18 06:17 Dose: Not Given Metoprolol Succinate (Toprol Xl -) 50 mg PO DAILY [facility] Last Admin: 12/03/18 11:56 Dose: 50 mg - Objective Vital Signs: Vital Signs Temperature 99.6 F 12/03/18 09:34 Pulse Rate 114 H 12/03/18 09:34 Respiratory Rate 20 12/03/18 09:34 Blood Pressure 168/100 12/03/18 09:34 O2 Sat by Pulse Oximetry (%) 98 12/02/18 20:10 Constitutional: Yes: Calm Eyes: Yes: Conjunctiva Clear Cardiovascular: Yes: S1, S2 Respiratory: Yes: On Nasal O2, Rhonchi Gastrointestinal: Yes: Soft, Abdomen, Obese Genitourinary: Yes: Yousif Present Musculoskeletal: Yes: WNL Edema: Yes Edema: LLE: 1+, RLE: 1+ Neurological: Yes: Oriented Psychiatric: Yes: Oriented Labs: CBC, BMP 12/03/18 10:22 12/03/18 05:30 INR, PTT INR 1.33 (0.83-1.09) H 11/23/18 05:40 Problem List - Problems (1) Atrial fibrillation with RVR Code(s): I48.91 - UNSPECIFIED ATRIAL FIBRILLATION (2) Bilateral lower extremity edema Code(s): R60.0 - LOCALIZED EDEMA (3) CHF (congestive heart failure), NYHA class II Code(s): I50.9 - HEART FAILURE, UNSPECIFIED Qualifiers: Congestive heart failure type: unspecified Qualified Code(s): I50.9 - Heart failure, unspecified (4) CKD (chronic kidney disease) Code(s): N18.9 - CHRONIC KIDNEY DISEASE, UNSPECIFIED Qualifiers: Chronic kidney disease stage: unspecified stage Qualified Code(s): N18.9 - Chronic kidney disease, unspecified Assessment/Plan Current Medications Generic Name Dose Route Start Last Admin Trade Name Lee PRN Reason Stop Dose Admin Digoxin 0.125 mg 12/03/18 10:00 12/03/18 09:26 Lanoxin Injection - IVPUSH 0.125 mg MOWEFR@1000 [facility] Administration Docusate Sodium 100 mg 12/01/18 22:00 12/03/18 09:26 Colace - PO 100 mg BID [facility] Administration Furosemide 80 mg 12/01/18 14:00 12/03/18 06:17 Lasix Injection - IVPB 80 mg BID@0600,1400 [facility] Administration Insulin Aspart 1 vial 12/01/18 16:30 12/03/18 11:55 Novolog Vial Sliding Scale - SQ Not Given ACHS [facility] Protocol Insulin Detemir 20 units 12/02/18 07:00 12/03/18 06:17 Levemir Vial SQ Not Given AM [facility] Metoprolol Succinate 50 mg 12/03/18 10:30 12/03/18 11:56 Toprol Xl - PO 50 mg DAILY [facility] Administration Impression 1. CKD 2. PIO 3. a-fib 4. HTN 5. CHF 6. DM 7. non compliance 8. s/p cardiac arrest with rapid a-fib 9. resp failure now extubated 10. hypokalemia Plan - renal function is improving - cont to monitor - monitor urine output - rate control and monitor pulse - hold off fistula creation until future date - repeat cxr tomorrow - replace potassium
--- NOTE | 2018-12-03 12:38 | PN ---
Progress Note, Physician Chief Complaint: weekend events noted patient on floor out of icu awake alert tele monitor HR in 100's - Current Medication List Current Medications: Active Medications Digoxin (Lanoxin Injection -) 0.125 mg IVPUSH MOWEFR@1000 [facility] Last Admin: 12/03/18 09:26 Dose: 0.125 mg Docusate Sodium (Colace -) 100 mg PO BID [facility] Last Admin: 12/03/18 09:26 Dose: 100 mg Furosemide (Lasix Injection -) 80 mg IVPB BID@0600,1400 [facility] Last Admin: 12/03/18 06:17 Dose: 80 mg Insulin Aspart (Novolog Vial Sliding Scale -) 1 vial SQ ACHS [facility]; Protocol Last Admin: 12/03/18 11:55 Dose: Not Given Insulin Detemir (Levemir Vial) 20 units SQ AM [facility] Last Admin: 12/03/18 06:17 Dose: Not Given Metoprolol Succinate (Toprol Xl -) 50 mg PO DAILY [facility] Last Admin: 12/03/18 11:56 Dose: 50 mg - Objective Vital Signs: Vital Signs Temperature 99.6 F 12/03/18 09:34 Pulse Rate 114 H 12/03/18 09:34 Respiratory Rate 20 12/03/18 09:34 Blood Pressure 168/100 12/03/18 09:34 O2 Sat by Pulse Oximetry (%) 98 12/02/18 20:10 Constitutional: Yes: Calm Cardiovascular: Yes: Pulse Irregular, S1, S2 Respiratory: Yes: Diminished Gastrointestinal: Yes: Normal Bowel Sounds, Soft Extremities: Yes: Other (wrapped) Edema: Yes Labs: CBC, BMP 12/03/18 10:22 12/03/18 05:30 INR, PTT INR 1.33 (0.83-1.09) H 11/23/18 05:40 Problem List - Problems (1) Atrial fibrillation with RVR Assessment/Plan: on toprol stop diltiazem telemetry Code(s): I48.91 - UNSPECIFIED ATRIAL FIBRILLATION (2) Bilateral lower extremity edema Assessment/Plan: doppler of legs no dvt iv lasix bid Code(s): R60.0 - LOCALIZED EDEMA (3) A-fib Assessment/Plan: see above Code(s): I48.91 - UNSPECIFIED ATRIAL FIBRILLATION Qualifiers: Atrial fibrillation type: unspecified Qualified Code(s): I48.91 - Unspecified atrial fibrillation (4) CKD (chronic kidney disease) Assessment/Plan: renal noted iv lasix bid no plan for AVF right now renal function better Code(s): N18.9 - CHRONIC KIDNEY DISEASE, UNSPECIFIED Qualifiers: Chronic kidney disease stage: unspecified stage Qualified Code(s): N18.9 - Chronic kidney disease, unspecified (5) Diabetes Assessment/Plan: insulin bgm sliding scale hgba1c 8.9 Code(s): E11.9 - TYPE 2 DIABETES MELLITUS WITHOUT COMPLICATIONS Qualifiers: Diabetes mellitus type: type 2 (6) Left leg weakness Assessment/Plan: ct head negative r MRI and MRA w/o contrast- no acute infarct seen neurology evaluation noted SHAREE eval noted -plan for PT and rehab and if not effective then surgery for decompression PT eval shuffling with 25 feet needs rehab- [facility] Code(s): R29.898 - OTH SYMPTOMS AND SIGNS INVOLVING THE MUSCULOSKELETAL SYSTEM Assessment/Plan PT at [facility] when stable for DC
--- NOTE | 2018-12-03 15:20 | PN ---
Progress Note (short form) - Note Progress Note: Patient looking substantially improved. Continues to remain non-ambulatory with improvement in renal function. Agree with plans in place for rehab and medical optimization. Will re-evaluate potential role of further evaluation and potential treatment of Thoracic dorsal compression if patient unable to resume ambulation. Case and plan of care discussed with patient and spouse in detail.
--- NOTE | 2018-12-03 16:40 | PN ---
Progress Note, Physician Chief Complaint: The patient appears comfortable. He reports no palpitation, SOB at rest or chest pain. Telemetry shows persistent atrial fibrillation with mild ventricular response, 100-110 BPM. Occasional up to 130s. History of Present Illness: 62 year-old man with a PMHx of long-standing persistent atrial fibrillation, HTN , chronic systolic CHF, cardiomyopathy possible due to rapid atrial fibrillation , medication non-compliance, PIO on CKD, s/p attempted HD access 11/29/18 complicated with rapid afib with a rate in the 160 to 180 range and subsequently became bradycardic and arrested. CPR was performed and ROSC was achieved. He was intubated and hypotensive, received fluid resuscitated. He was successfully extubated. He remains stable with improved renal function and ventricular rate control. Echocardiogram 11/16/18: Normal LV size with severe global LV systolic dysfunction. LVEF 20-25%. Normal RV with moderate hypokinesis. Normal LA and RA in size. Mild to moderate MR. Mild TR. Normal AV. Trivial pericardial effusion. - Current Medication List Current Medications: Active Medications Digoxin (Lanoxin Injection -) 0.125 mg IVPUSH MOWEFR@1000 [facility] Last Admin: 12/03/18 09:26 Dose: 0.125 mg Docusate Sodium (Colace -) 100 mg PO BID [facility] Last Admin: 12/03/18 09:26 Dose: 100 mg Furosemide (Lasix Injection -) 80 mg IVPB BID@0600,1400 [facility] Last Admin: 12/03/18 13:58 Dose: 80 mg Insulin Aspart (Novolog Vial Sliding Scale -) 1 vial SQ ACHS [facility]; Protocol Last Admin: 12/03/18 11:55 Dose: Not Given Insulin Detemir (Levemir Vial) 20 units SQ AM [facility] Last Admin: 12/03/18 06:17 Dose: Not Given Metoprolol Succinate (Toprol Xl -) 50 mg PO DAILY [facility] Last Admin: 12/03/18 11:56 Dose: 50 mg - Objective Vital Signs: Vital Signs Temperature 97.6 F 12/03/18 13:44 Pulse Rate 105 H 12/03/18 13:44 Respiratory Rate 18 12/03/18 13:44 Blood Pressure 156/97 12/03/18 13:44 O2 Sat by Pulse Oximetry (%) 98 12/03/18 09:00 General: Well developed. Chronic ill. No acute distress. Head: Normocephalic. Atraumatic, Eyes: PERRLA, EOMI. Sclerae anicteric. Conjunctivae clear. Neck: Supple. No JVD. No bruits. Heart: Normal S1, S2: Irregular rhythm and rate. No murmur. No gallop or rub. Lungs: Symmetrical air entry. Clear to auscultation. No crackle. No wheezing or rhonchi. Abdomen: Soft. Bowel sound positive. Non tender. No masses. Extremities: Dressing intact. Trace edema. No clubbing or cyanosis. PD 2+, equal bilaterally. Labs: CBC, BMP 12/03/18 10:22 12/03/18 05:30 INR, PTT INR 1.33 (0.83-1.09) H 11/23/18 05:40 Assessment/Plan 62 year-old man with a PMHx of long-standing persistent atrial fibrillation, HTN , chronic systolic CHF, cardiomyopathy possible due to rapid atrial fibrillation , medication non-compliance, PIO on CKD, s/p attempted HD access 11/29/18 complicated with rapid afib with a rate in the 160 to 180 range and subsequently became bradycardic and arrested. CPR was performed and ROSC was achieved. He was intubated and hypotensive, received fluid resuscitated. He was successfully extubated. He remains stable with improved renal function and ventricular rate control. Echocardiogram 11/16/18: Normal LV size with severe global LV systolic dysfunction. LVEF 20-25%. Normal RV with moderate hypokinesis. Normal LA and RA in size. Mild to moderate MR. Mild TR. Normal AV. Trivial pericardial effusion. 1. Persistent atrial fibrillation with mild ventricular response. -May increase metoprolol succinate to 100 mg daily. Continue digoxin 0.125 mg every other day. -Anticoagulation for stroke prevention if no acute contraindication. 2. Systolic CHF with improved fluid overload: -May change IV Lasix to PO 80 mg BID. -Add Isosorbide dinitrate 20 mg BID along with hydralazine 25 mg BID. -Monitor BP, daily weight, Is&Os, renal function and electrolytes.
[2018-12-04] MEDS: FUROSEMIDE 100 MG/10 ML INJECTABLE VIAL IVPB SCH ×2 (05:55→06:54)
[2018-12-04] MEDS: INSULIN (LEVEMIR) 100 UNITS/ML UNITS SQ SCH (06:06)
[2018-12-04] MEDS: INSULIN SLIDING SCALE (NOVOLOG) 1 VIAL SQ SCH ×4 (06:06→21:26)
--- NOTE | 2018-12-04 08:33 | PN ---
Progress Note, Physician - Current Medication List Current Medications: Active Medications Digoxin (Lanoxin Injection -) 0.125 mg IVPUSH MOWEFR@1000 [facility] Last Admin: 12/03/18 09:26 Dose: 0.125 mg Docusate Sodium (Colace -) 100 mg PO BID [facility] Last Admin: 12/03/18 22:23 Dose: Not Given Furosemide (Lasix Injection -) 80 mg IVPB BID@0600,1400 [facility] Last Admin: 12/04/18 06:54 Dose: Not Given Insulin Aspart (Novolog Vial Sliding Scale -) 1 vial SQ ACHS [facility]; Protocol Last Admin: 12/04/18 06:06 Dose: Not Given Insulin Detemir (Levemir Vial) 20 units SQ AM [facility] Last Admin: 12/04/18 06:06 Dose: Not Given Metoprolol Succinate (Toprol Xl -) 50 mg PO DAILY [facility] Last Admin: 12/03/18 11:56 Dose: 50 mg - Objective Vital Signs: Vital Signs Temperature 98.6 F 12/03/18 20:25 Pulse Rate 107 H 12/03/18 20:25 Respiratory Rate 18 12/03/18 20:25 Blood Pressure 159/114 H 12/03/18 20:25 O2 Sat by Pulse Oximetry (%) 98 12/03/18 21:00 Cardiovascular: Yes: S1, S2 Respiratory: Yes: Regular, CTA Bilaterally Gastrointestinal: Yes: Normal Bowel Sounds, Soft Labs: CBC, BMP 12/03/18 10:22 12/03/18 05:30 INR, PTT INR 1.33 (0.83-1.09) H 11/23/18 05:40 Assessment/Plan - Problems (1) Atrial fibrillation with RVR Assessment/Plan: on toprol stop diltiazem Orders 12/03/18 10:00 Digoxin Injection [Lanoxin Injection -] 0.125 mg IVPUSH MOWEFR@1000 12/03/18 10:30 Metoprolol Succinate [Toprol Xl -] 50 mg PO DAILY telemetry Code(s): I48.91 - UNSPECIFIED ATRIAL FIBRILLATION (2) Bilateral lower extremity edema Assessment/Plan: doppler of legs no dvt iv lasix bid--po demadex Code(s): R60.0 - LOCALIZED EDEMA (3) A-fib Assessment/Plan: see above Code(s): I48.91 - UNSPECIFIED ATRIAL FIBRILLATION Qualifiers: Atrial fibrillation type: unspecified Qualified Code(s): I48.91 - Unspecified atrial fibrillation (4) CKD (chronic kidney disease) Assessment/Plan: renal noted improving no plan for AVF right now renal function better Code(s): N18.9 - CHRONIC KIDNEY DISEASE, UNSPECIFIED Qualifiers: Chronic kidney disease stage: unspecified stage Qualified Code(s): N18.9 - Chronic kidney disease, unspecified (5) Diabetes Assessment/Plan: insulin bgm sliding scale hgba1c 8.9 Code(s): E11.9 - TYPE 2 DIABETES MELLITUS WITHOUT COMPLICATIONS Qualifiers: Diabetes mellitus type: type 2 (6) Left leg weakness Assessment/Plan: ct head negative r MRI and MRA w/o contrast- no acute infarct seen neurology evaluation noted SHAREE eval noted -plan for PT and rehab and if not effective then surgery for decompression PT eval shuffling with 25 feet needs rehab- [facility] Code(s): R29.898 - OTH SYMPTOMS AND SIGNS INVOLVING THE MUSCULOSKELETAL SYSTEM
[2018-12-04] MEDS ORDERED: PT OWN MED DRAWER 7, Y5N ONE (09:22)
[2018-12-04] MEDS ORDERED: TAMSULOSIN HCL 0.4 MG CAP PO ONE (10:30)
--- NOTE | 2018-12-04 10:34 | PN ---
Progress Note (short form) - Note Progress Note: 62 year old male history of DM,CKD,Atrial fibrillation. He presented to hospital for feeling of sluggish adn heavy in his leg and last few days got worse. He denies any trauma,fever or cancer. He deneis any bowel or bladder incontinence or severe back pain. Patient lives in apt and have difficulty moving around. He uses cane. Mri of t and l spine was unremarkable, Initially I saw for lower exremity weakness , and my impression was deconditioning and neuropathy Neurosurgery consult appreciated patient has cardiac arrest and had cpr and following that he has cognitive difficulty NEUROLOGICAL EXAMINATION Alert oriented x 0, speech is normal neck is supple, VSS afebrile eomi, pupils reactive , no face asymmetry, Moving all extremity Patient has severe edema in lower extremity and skin discoloration in lower extremity He is moving all extremity and reflex are symmetrical Assessment/Plan 2.lower extremity weakness is gradual detioration of Neuropathy and Deconditioning and painful leg swelling.MRI of L and T spine si unremarkable. Patient was seen by neurosurgery to review mri t/L spine results and conservative treatment for now 2. Cognitive difficulty following cardiac arrest, possible mild anoxic ischemic encephalopathy . I suggest to do mri of brain. Continue supportive care Thanking you so much Juan Carlos Rodríguez MD
[2018-12-04] MEDS: DOCUSATE SODIUM 100 MG CAPSULE (FP) PO SCH ×2 (10:44→21:21)
[2018-12-04] MEDS: TORSEMIDE 20 MG TABLET (FP) PO SCH ×2 (10:46→21:21)
--- NOTE | 2018-12-04 11:08 | PN ---
Progress Note, Physician History of Present Illness: seen and examined today in [facility]. no overnight events. no new complaints. asking to remove shay. - Current Medication List Current Medications: Active Medications Digoxin (Lanoxin Injection -) 0.125 mg IVPUSH MOWEFR@1000 [facility] Last Admin: 12/03/18 09:26 Dose: 0.125 mg Docusate Sodium (Colace -) 100 mg PO BID [facility] Last Admin: 12/04/18 10:44 Dose: 100 mg Insulin Aspart (Novolog Vial Sliding Scale -) 1 vial SQ ACHS [facility]; Protocol Last Admin: 12/04/18 06:06 Dose: Not Given Insulin Detemir (Levemir Vial) 20 units SQ AM [facility] Last Admin: 12/04/18 06:06 Dose: Not Given Metoprolol Succinate (Toprol Xl -) 50 mg PO DAILY [facility] Last Admin: 12/04/18 10:44 Dose: 50 mg Tamsulosin HCl (Flomax -) 0.4 mg PO DAILY@0830 [facility] Torsemide (Demadex -) 40 mg PO BID [facility] Last Admin: 12/04/18 10:46 Dose: 40 mg - Objective Vital Signs: Vital Signs Temperature 98.6 F 12/03/18 20:25 Pulse Rate 107 H 12/03/18 20:25 Respiratory Rate 18 12/03/18 20:25 Blood Pressure 159/114 H 12/03/18 20:25 O2 Sat by Pulse Oximetry (%) 98 12/03/18 21:00 Constitutional: Yes: No Distress, Calm Eyes: Yes: Conjunctiva Clear, EOM Intact HENT: Yes: Atraumatic, Normocephalic Neck: Yes: Supple, Trachea Midline Cardiovascular: Yes: Pulse Irregular, S1, S2. No: Regular Rate and Rhythm, Bradycardia, Tachycardia, Bruit, JVD, Gallop, Murmur, Rub, S3, S4, Varicosities Respiratory: Yes: Regular, Diminished. No: Rales, Rhonchi, SOB, Wheezes Gastrointestinal: Yes: Normal Bowel Sounds, Soft. No: Distention, Tenderness Extremities: Yes: WNL Edema: Yes Edema: LLE: Trace, RLE: Trace Peripheral Pulses WNL: Yes Neurological: Yes: Alert Psychiatric: Yes: Alert Labs: CBC, BMP 12/03/18 10:22 12/03/18 05:30 INR, PTT INR 1.33 (0.83-1.09) H 11/23/18 05:40 - ....Imaging Chest X-ray: Report Reviewed, Image Reviewed EKG: Report Reviewed, Image Reviewed Other: Report Reviewed, Image Reviewed (tele-af, HR adequate, at times above goal) Assessment/Plan 63 year-old man with a PMHx of long-standing persistent atrial fibrillation, HTN , chronic systolic CHF, cardiomyopathy possible due to rapid atrial fibrillation , medication non-compliance, PIO on CKD, s/p attempted HD access 11/29/18 complicated with rapid afib with a rate in the 160 to 180 range and subsequently became bradycardic and arrested. CPR was performed and ROSC was achieved. He was intubated and hypotensive, received fluid resuscitated. He was successfully extubated. He remains stable with improved renal function and ventricular rate control. Echocardiogram 11/16/18: Normal LV size with severe global LV systolic dysfunction. LVEF 20-25%. Normal RV with moderate hypokinesis. Normal LA and RA in size. Mild to moderate MR. Mild TR. Normal AV. Trivial pericardial effusion. 1. Persistent atrial fibrillation with mild rapid ventricular response at times. -increase metoprolol succinate to 100 mg daily. -Continue digoxin 0.125 mg every other day but can change to po -Anticoagulation for stroke prevention if no acute contraindication. 2. Systolic CHF with improved volume overload: -cont torsemide 40mg BID. -can add Isosorbide dinitrate 20 mg BID along with hydralazine 25 mg BID. -Monitor BP, daily weight, Is&Os, renal function and electrolytes.
--- NOTE | 2018-12-04 11:11 | PN ---
Progress Note, Physician History of Present Illness: PULMONARY AWAKE,CONFUSED,COMFORTABLE,-RESP DISTRESS - Current Medication List Current Medications: Active Medications Digoxin (Lanoxin Injection -) 0.125 mg IVPUSH MOWEFR@1000 [facility] Last Admin: 12/03/18 09:26 Dose: 0.125 mg Docusate Sodium (Colace -) 100 mg PO BID [facility] Last Admin: 12/04/18 10:44 Dose: 100 mg Insulin Aspart (Novolog Vial Sliding Scale -) 1 vial SQ ACHS [facility]; Protocol Last Admin: 12/04/18 06:06 Dose: Not Given Insulin Detemir (Levemir Vial) 20 units SQ AM [facility] Last Admin: 12/04/18 06:06 Dose: Not Given Metoprolol Succinate (Toprol Xl -) 50 mg PO DAILY [facility] Last Admin: 12/04/18 10:44 Dose: 50 mg Tamsulosin HCl (Flomax -) 0.4 mg PO DAILY@0830 [facility] Torsemide (Demadex -) 40 mg PO BID [facility] Last Admin: 12/04/18 10:46 Dose: 40 mg - Objective Vital Signs: Vital Signs Temperature 98.6 F 12/03/18 20:25 Pulse Rate 107 H 12/03/18 20:25 Respiratory Rate 18 12/03/18 20:25 Blood Pressure 159/114 H 12/03/18 20:25 O2 Sat by Pulse Oximetry (%) 98 12/03/18 21:00 Constitutional: Yes: Well Nourished, Calm Eyes: Yes: WNL HENT: Yes: WNL Neck: Yes: WNL Cardiovascular: Yes: Pulse Irregular, S1, S2 Respiratory: Yes: Diminished Gastrointestinal: Yes: Normal Bowel Sounds, Soft Extremities: Yes: WNL Edema: Yes Labs: CBC, BMP 12/03/18 10:22 Problem List - Problems (1) Cardiopulmonary arrest with successful resuscitation Code(s): I46.9 - CARDIAC ARREST, CAUSE UNSPECIFIED (2) Atrial fibrillation with RVR Code(s): I48.91 - UNSPECIFIED ATRIAL FIBRILLATION (3) Bilateral lower extremity edema Code(s): R60.0 - LOCALIZED EDEMA (4) A-fib Code(s): I48.91 - UNSPECIFIED ATRIAL FIBRILLATION Qualifiers: Atrial fibrillation type: unspecified Qualified Code(s): I48.91 - Unspecified atrial fibrillation (5) Acute on chronic renal failure Code(s): N17.9 - ACUTE KIDNEY FAILURE, UNSPECIFIED; N18.9 - CHRONIC KIDNEY DISEASE, UNSPECIFIED Assessment/Plan ASSESSMENT/PLAN: Acute CP arrest CHF (EF 20 to 25%) A-Fib DM CKD HTN No clear evidence of RENETTA O2 as needed Rate control Follow I & O IV Lasix Daily weight DR TAYLOR
[2018-12-04 13:59] LABS: BLOOD UREA NITROGEN 42.3 mg/dL (7-18); CALCIUM 8.6 mg/dL (8.5-10.1); CREATININE 2.7 mg/dL (0.55-1.3); MAGNESIUM 1.8 mg/dL (1.8-2.4); POTASSIUM 3.2 mmol/L (3.5-5.1)
[2018-12-04] MEDS ORDERED: POTASSIUM CHLORIDE TABS 20 MEQ TABLET.ER (FP) PO ONE (15:12)
--- NOTE | 2018-12-04 15:15 | PN ---
Progress Note, Physician History of Present Illness: Pt seen and examined at bedside. He is awake and alert. He denies shortness of breath. - Current Medication List Current Medications: Active Medications Digoxin (Lanoxin Injection -) 0.125 mg IVPUSH MOWEFR@1000 [facility] Last Admin: 12/03/18 09:26 Dose: 0.125 mg Docusate Sodium (Colace -) 100 mg PO BID [facility] Last Admin: 12/04/18 10:44 Dose: 100 mg Insulin Aspart (Novolog Vial Sliding Scale -) 1 vial SQ ACHS [facility]; Protocol Last Admin: 12/04/18 11:54 Dose: Not Given Insulin Detemir (Levemir Vial) 20 units SQ AM [facility] Last Admin: 12/04/18 06:06 Dose: Not Given Metoprolol Succinate (Toprol Xl -) 50 mg PO DAILY [facility] Last Admin: 12/04/18 10:44 Dose: 50 mg Potassium Chloride (K-Dur -) 40 meq PO ONCE ONE Stop: 12/04/18 15:13 Tamsulosin HCl (Flomax -) 0.4 mg PO DAILY@0830 [facility] Torsemide (Demadex -) 40 mg PO BID [facility] Last Admin: 12/04/18 10:46 Dose: 40 mg - Objective Vital Signs: Vital Signs Temperature 97.7 F 12/04/18 09:00 Pulse Rate 108 H 12/04/18 09:00 Respiratory Rate 20 12/04/18 09:00 Blood Pressure 171/97 H 12/04/18 09:00 O2 Sat by Pulse Oximetry (%) 98 12/04/18 09:00 Constitutional: Yes: Calm Eyes: Yes: Conjunctiva Clear HENT: Yes: Atraumatic Neck: Yes: Supple Cardiovascular: Yes: S1, S2 Respiratory: Yes: CTA Bilaterally Gastrointestinal: Yes: Soft Genitourinary: Yes: WNL Musculoskeletal: Yes: WNL Edema: LLE: Trace, RLE: Trace Integumentary: Yes: Venous Stasis Changes Neurological: Yes: Oriented Psychiatric: Yes: Oriented Labs: CBC, BMP 12/03/18 10:22 12/04/18 13:16 INR, PTT INR 1.33 (0.83-1.09) H 11/23/18 05:40 Problem List - Problems (1) Atrial fibrillation with RVR Code(s): I48.91 - UNSPECIFIED ATRIAL FIBRILLATION (2) Bilateral lower extremity edema Code(s): R60.0 - LOCALIZED EDEMA (3) CHF (congestive heart failure), NYHA class II Code(s): I50.9 - HEART FAILURE, UNSPECIFIED Qualifiers: Congestive heart failure type: unspecified Qualified Code(s): I50.9 - Heart failure, unspecified (4) CKD (chronic kidney disease) Code(s): N18.9 - CHRONIC KIDNEY DISEASE, UNSPECIFIED Qualifiers: Chronic kidney disease stage: unspecified stage Qualified Code(s): N18.9 - Chronic kidney disease, unspecified Assessment/Plan Current Medications Generic Name Dose Route Start Last Admin Trade Name Freq PRN Reason Stop Dose Admin Digoxin 0.125 mg 12/03/18 10:00 12/03/18 09:26 Lanoxin Injection - IVPUSH 0.125 mg MOWEFR@1000 [facility] Administration Docusate Sodium 100 mg 12/01/18 22:00 12/04/18 10:44 Colace - PO 100 mg BID [facility] Administration Insulin Aspart 1 vial 12/01/18 16:30 12/04/18 11:54 Novolog Vial Sliding Scale - SQ Not Given ACHS [facility] Protocol Insulin Detemir 20 units 12/02/18 07:00 12/04/18 06:06 Levemir Vial SQ Not Given AM [facility] Metoprolol Succinate 50 mg 12/03/18 10:30 12/04/18 10:44 Toprol Xl - PO 50 mg DAILY [facility] Administration Potassium Chloride 40 meq 12/04/18 15:12 K-Dur - PO 12/04/18 15:13 ONCE ONE Tamsulosin HCl 0.4 mg 12/05/18 08:30 Flomax - PO DAILY@0830 [facility] Torsemide 40 mg 12/04/18 10:00 12/04/18 10:46 Demadex - PO 40 mg BID [facility] Administration Impression 1. CKD 2. PIO 3. a-fib 4. HTN 5. CHF 6. DM 7. non compliance 8. s/p cardiac arrest with rapid a-fib 9. resp failure now extubated 10. hypokalemia Plan - agree with changing iv lasix to torsemide - renal function is markedly improved and is the best that it has been - d/c shay - monitor lytes - cardio input appreciated - replace potassium
[2018-12-05] MEDS: INSULIN SLIDING SCALE (NOVOLOG) 1 VIAL SQ SCH ×4 (07:00→22:20)
[2018-12-05] MEDS: INSULIN (LEVEMIR) 100 UNITS/ML UNITS SQ SCH (07:02)
--- NOTE | 2018-12-05 08:36 | DS ---
Physical Examination Vital Signs: Vital Signs Temperature 98.4 F 12/05/18 06:00 Pulse Rate 111 H 12/05/18 06:00 Respiratory Rate 20 12/05/18 06:00 Blood Pressure 173/104 H 12/05/18 06:00 O2 Sat by Pulse Oximetry (%) 98 12/04/18 21:00 Cardiovascular: Yes: S1 Respiratory: Yes: Regular, CTA Bilaterally Gastrointestinal: Yes: Normal Bowel Sounds, Soft Edema: Yes Labs: CBC, BMP 12/03/18 10:22 12/04/18 13:16 Discharge Summary Reason For Visit: CHF NYHA CLASS 2 Current Active Problems Atrial fibrillation with RVR (Acute) Bilateral lower extremity edema (Acute) CHF (congestive heart failure), NYHA class II (Acute) Cardiopulmonary arrest with successful resuscitation (Acute) Left leg weakness (Acute) Hospital Course: - Problems (1) Atrial fibrillation with RVR Assessment/Plan: on toprol stop diltiazem Orders 12/03/18 10:00 Digoxin Injection [Lanoxin Injection -] 0.125 mg IVPUSH MOWEFR@1000 12/03/18 10:30 Metoprolol Succinate [Toprol Xl -] 50 mg PO DAILY telemetry Code(s): I48.91 - UNSPECIFIED ATRIAL FIBRILLATION (2) Bilateral lower extremity edema Assessment/Plan: doppler of legs no dvt iv lasix bid--po demadex Code(s): R60.0 - LOCALIZED EDEMA (3) A-fib Assessment/Plan: see above Code(s): I48.91 - UNSPECIFIED ATRIAL FIBRILLATION Qualifiers: Atrial fibrillation type: unspecified Qualified Code(s): I48.91 - Unspecified atrial fibrillation (4) CKD (chronic kidney disease) Assessment/Plan: renal noted improving no plan for AVF right now renal function better Code(s): N18.9 - CHRONIC KIDNEY DISEASE, UNSPECIFIED Qualifiers: Chronic kidney disease stage: unspecified stage Qualified Code(s): N18.9 - Chronic kidney disease, unspecified (5) Diabetes Assessment/Plan: insulin bgm sliding scale hgba1c 8.9 Code(s): E11.9 - TYPE 2 DIABETES MELLITUS WITHOUT COMPLICATIONS Qualifiers: Diabetes mellitus type: type 2 (6) Left leg weakness Assessment/Plan: ct head negative r MRI and MRA w/o contrast- no acute infarct seen neurology evaluation noted SHAREE eval noted -plan for PT and rehab and if not effective then surgery for decompression PT eval shuffling with 25 feet needs rehab- [facility] Code(s): R29.898 - OTH SYMPTOMS AND SIGNS INVOLVING THE MUSCULOSKELETAL SYSTEM Condition: Stable - Instructions Disposition: INTERMEDIATE FACILITY - Home Medications Comprehensive Discharge Medication List: Ambulatory Orders Insulin Detemir [Levemir Flextouch] 20 unit SQ AM #1 insuln.pen 10/09/18 Metoprolol Tartrate [Lopressor -] 50 mg PO TID #90 tablet 10/09/18 Pen Needle, Diabetic [Pen Needle] 1 each [facility] AM #30 dis.needle 10/09/18 Digoxin Injection [Lanoxin Injection -] 0.125 mg IVPUSH MOWEFR@1000 ampul 12/05 Docusate Sodium [Colace -] 100 mg PO BID capsule 12/05/18 Insulin (Levemir) [Levemir Vial] 20 units SQ AM units 12/05/18 Metoprolol Succinate [Toprol XL -] 50 mg PO DAILY tab.sr.24h 12/05/18 Potassium Chloride [K-Dur -] 10 meq PO BID tablet.er 12/05/18 Tamsulosin HCl [Flomax -] 0.4 mg PO DAILY@0830 cap.er.24h 12/05/18 Torsemide [Demadex -] 40 mg PO BID tablet 12/05/18 Warfarin Na [Coumadin -] 5 mg PO DAILY@1800 tablet 12/05/18
[2018-12-05 09:10] LABS: BASO % 1.2 % (0-2.0); EOS % 1.4 % (0-4.5); HEMATOCRIT 34.4 % (35.4-49); HEMOGLOBIN 10.5 GM/dL (11.7-16.9); LYMPH % 10.8 % (8-40); MCH 22.8 pg (25.7-33.7); MCHC 30.6 g/dl (32.0-35.9); MEAN CELL VOLUME 74.6 fl (80-96); MEAN PLT VOLUME 7.6 fl (7.5-11.1); MONO % 10.5 % (3.8-10.2); NEUT % 76.1 % (42.8-82.8); PLATELET COUNT 423 K/MM3 (134-434); RBC 4.61 M/mm3 (4.00-5.60); WHITE BLOOD COUNT 11.7 K/mm3 (4.0-10.0)
[2018-12-05] MEDS ORDERED: POTASSIUM CHLORIDE TABS 10 MEQ TABLET.ER (FP) PO ONE (09:15)
[2018-12-05 09:25] LABS: INR 1.25 (0.83-1.09); PROTHROMBIN TIME (PATIENT) 14.8 SEC (9.7-13.0)
[2018-12-05 09:39] LABS: ALBUMIN 2.6 g/dl (3.4-5.0); BLOOD UREA NITROGEN 39.8 mg/dL (7-18); CALCIUM 9.1 mg/dL (8.5-10.1); CREATININE 2.6 mg/dL (0.55-1.3); POTASSIUM 3.5 mmol/L (3.5-5.1); TOT PROT 7.5 g/dl (6.4-8.2)
[2018-12-05] MEDS: TAMSULOSIN HCL 0.4 MG CAP PO SCH (10:30)
[2018-12-05] MEDS: DOCUSATE SODIUM 100 MG CAPSULE (FP) PO SCH ×2 (10:31→22:20)
[2018-12-05] MEDS: TORSEMIDE 20 MG TABLET (FP) PO SCH ×2 (10:31→22:15)
--- NOTE | 2018-12-05 10:57 | PN ---
Progress Note, Physician History of Present Illness: PULMONARY ALERT,NO DISTRESS,-CONGESTION,-SOB - Current Medication List Current Medications: Active Medications Digoxin (Lanoxin Injection -) 0.125 mg IVPUSH MOWEFR@1000 [facility] Last Admin: 12/03/18 09:26 Dose: 0.125 mg Docusate Sodium (Colace -) 100 mg PO BID [facility] Last Admin: 12/05/18 10:31 Dose: Not Given Insulin Aspart (Novolog Vial Sliding Scale -) 1 vial SQ ACHS [facility]; Protocol Last Admin: 12/05/18 07:00 Dose: Not Given Insulin Detemir (Levemir Vial) 20 units SQ AM [facility] Last Admin: 12/05/18 07:02 Dose: Not Given Metoprolol Succinate (Toprol Xl -) 50 mg PO DAILY [facility] Last Admin: 12/05/18 10:31 Dose: 50 mg Potassium Chloride (K-Dur -) 10 meq PO BID [facility] Tamsulosin HCl (Flomax -) 0.4 mg PO DAILY@0830 [facility] Last Admin: 12/05/18 10:30 Dose: 0.4 mg Torsemide (Demadex -) 40 mg PO BID [facility] Last Admin: 12/05/18 10:31 Dose: 40 mg Warfarin Sodium (Coumadin -) 5 mg PO DAILY@1800 [facility] - Objective Vital Signs: Vital Signs Temperature 98.4 F 12/05/18 06:00 Pulse Rate 111 H 12/05/18 06:00 Respiratory Rate 20 12/05/18 06:00 Blood Pressure 173/104 H 12/05/18 06:00 O2 Sat by Pulse Oximetry (%) 98 12/04/18 21:00 Constitutional: Yes: Well Nourished, Calm Eyes: Yes: WNL HENT: Yes: WNL Neck: Yes: WNL Cardiovascular: Yes: Pulse Irregular, S1, S2 Respiratory: Yes: Diminished Gastrointestinal: Yes: Normal Bowel Sounds, Soft Extremities: Yes: WNL Edema: Yes Labs: CBC, BMP 12/05/18 08:55 12/05/18 08:55 INR, PTT INR 1.25 (0.83-1.09) H 12/05/18 08:55 Problem List - Problems (1) Cardiopulmonary arrest with successful resuscitation Code(s): I46.9 - CARDIAC ARREST, CAUSE UNSPECIFIED (2) Atrial fibrillation with RVR Code(s): I48.91 - UNSPECIFIED ATRIAL FIBRILLATION (3) Bilateral lower extremity edema Code(s): R60.0 - LOCALIZED EDEMA (4) A-fib Code(s): I48.91 - UNSPECIFIED ATRIAL FIBRILLATION Qualifiers: Atrial fibrillation type: unspecified Qualified Code(s): I48.91 - Unspecified atrial fibrillation (5) Acute on chronic renal failure Code(s): N17.9 - ACUTE KIDNEY FAILURE, UNSPECIFIED; N18.9 - CHRONIC KIDNEY DISEASE, UNSPECIFIED Assessment/Plan ASSESSMENT/PLAN: Acute CP arrest CHF (EF 20 to 25%) A-Fib DM CKD STABLE HTN No clear evidence of RENETTA O2 as needed Rate control Follow I & O diuretics as per renal Daily weight DR TAYLOR
--- NOTE | 2018-12-05 11:08 | PN ---
Progress Note, Physician Chief Complaint: The patient appears comfortable. He reports no palpitation, SOB at rest or chest pain. Telemetry shows persistent atrial fibrillation with mild ventricular response, 100-110 BPM. Occasional up to 130s. History of Present Illness: 62 year-old man with a PMHx of long-standing persistent atrial fibrillation, HTN , chronic systolic CHF, cardiomyopathy possible due to rapid atrial fibrillation , medication non-compliance, PIO on CKD, s/p attempted HD access 11/29/18 complicated with rapid afib with a rate in the 160 to 180 range and subsequently became bradycardic and arrested. CPR was performed and ROSC was achieved. He was intubated and hypotensive, received fluid resuscitated. He was successfully extubated. He remains stable with improved renal function and ventricular rate control. Echocardiogram 11/16/18: Normal LV size with severe global LV systolic dysfunction. LVEF 20-25%. Normal RV with moderate hypokinesis. Normal LA and RA in size. Mild to moderate MR. Mild TR. Normal AV. Trivial pericardial effusion. - Current Medication List Current Medications: Active Medications Digoxin (Lanoxin Injection -) 0.125 mg IVPUSH MOWEFR@1000 [facility] Last Admin: 12/03/18 09:26 Dose: 0.125 mg Docusate Sodium (Colace -) 100 mg PO BID [facility] Last Admin: 12/05/18 10:31 Dose: Not Given Insulin Aspart (Novolog Vial Sliding Scale -) 1 vial SQ ACHS [facility]; Protocol Last Admin: 12/05/18 07:00 Dose: Not Given Insulin Detemir (Levemir Vial) 20 units SQ AM [facility] Last Admin: 12/05/18 07:02 Dose: Not Given Metoprolol Succinate (Toprol Xl -) 50 mg PO DAILY [facility] Last Admin: 12/05/18 10:31 Dose: 50 mg Potassium Chloride (K-Dur -) 10 meq PO BID [facility] Tamsulosin HCl (Flomax -) 0.4 mg PO DAILY@0830 [facility] Last Admin: 12/05/18 10:30 Dose: 0.4 mg Torsemide (Demadex -) 40 mg PO BID [facility] Last Admin: 12/05/18 10:31 Dose: 40 mg Warfarin Sodium (Coumadin -) 5 mg PO DAILY@1800 [facility] - Objective Vital Signs: Vital Signs Temperature 98.4 F 12/05/18 06:00 Pulse Rate 111 H 12/05/18 06:00 Respiratory Rate 20 12/05/18 06:00 Blood Pressure 173/104 H 12/05/18 06:00 O2 Sat by Pulse Oximetry (%) 98 12/04/18 21:00 General: Well developed. Chronic ill. No acute distress. Head: Normocephalic. Atraumatic, Eyes: PERRLA, EOMI. Sclerae anicteric. Conjunctivae clear. Neck: Supple. No JVD. No bruits. Heart: Normal S1, S2: Irregular rhythm and tachycardia. No murmur. No gallop or rub. Lungs: Symmetrical air entry. Clear to auscultation. No crackle. No wheezing or rhonchi. Abdomen: Soft. Bowel sound positive. Non tender. No masses. Extremities: Dressing intact. Trace edema. No clubbing or cyanosis. PD 2+, equal bilaterally. Labs: CBC, BMP 12/05/18 08:55 12/05/18 08:55 INR, PTT INR 1.25 (0.83-1.09) H 12/05/18 08:55 Assessment/Plan 62 year-old man with a PMHx of long-standing persistent atrial fibrillation, HTN , chronic systolic CHF, cardiomyopathy possible due to rapid atrial fibrillation , medication non-compliance, PIO on CKD, s/p attempted HD access 11/29/18 complicated with rapid afib with a rate in the 160 to 180 range and subsequently became bradycardic and arrested. CPR was performed and ROSC was achieved. He was intubated and hypotensive, received fluid resuscitated. He was successfully extubated. He remains stable with improved renal function and ventricular rate control. Echocardiogram 11/16/18: Normal LV size with severe global LV systolic dysfunction. LVEF 20-25%. Normal RV with moderate hypokinesis. Normal LA and RA in size. Mild to moderate MR. Mild TR. Normal AV. Trivial pericardial effusion. 1. Persistent atrial fibrillation with mild rapid ventricular response at times. -Increase metoprolol succinate to 100 mg daily. -Continue digoxin 0.125 mg every other day but can change to po -Continue warfarin for stroke prevention with target INR 2-3. 2. Systolic CHF with improved volume overload: -Continue torsemide 40mg BID. -Add Isosorbide dinitrate 20 mg BID along with hydralazine 25 mg BID for systolic CHF and BP control. -Monitor BP, daily weight, Is&Os, renal function and electrolytes. Please do not hesitate to call us for re-consult at any time if any further questions or additional issue arises regarding this patient.
[2018-12-05] MEDS: DIGOXIN 0.5 MG/2 ML AMPUL IVPUSH SCH (12:36)
[2018-12-05] MEDS ORDERED: DIGOXIN 0.125 MG TABLET (FP) PO ONE (13:15)
--- NOTE | 2018-12-05 13:27 | PN ---
Progress Note, Physician History of Present Illness: Pt seen and examined at bedside. He denies shortness of breath. He feels that his lower ext edema is improved. - Current Medication List Current Medications: Active Medications Digoxin (Lanoxin Injection -) 0.125 mg IVPUSH MOWEFR@1000 [facility] Last Admin: 12/05/18 12:36 Dose: Not Given Docusate Sodium (Colace -) 100 mg PO BID [facility] Last Admin: 12/05/18 10:31 Dose: Not Given Insulin Aspart (Novolog Vial Sliding Scale -) 1 vial SQ ACHS [facility]; Protocol Last Admin: 12/05/18 12:10 Dose: Not Given Insulin Detemir (Levemir Vial) 20 units SQ AM [facility] Last Admin: 12/05/18 07:02 Dose: Not Given Metoprolol Succinate (Toprol Xl -) 50 mg PO DAILY [facility] Last Admin: 12/05/18 10:31 Dose: 50 mg Potassium Chloride (K-Dur -) 10 meq PO BID [facility] Tamsulosin HCl (Flomax -) 0.4 mg PO DAILY@0830 [facility] Last Admin: 12/05/18 10:30 Dose: 0.4 mg Torsemide (Demadex -) 40 mg PO BID [facility] Last Admin: 12/05/18 10:31 Dose: 40 mg Warfarin Sodium (Coumadin -) 5 mg PO DAILY@1800 [facility] - Objective Vital Signs: Vital Signs Temperature 98.4 F 12/05/18 06:00 Pulse Rate 111 H 12/05/18 06:00 Respiratory Rate 20 12/05/18 06:00 Blood Pressure 173/104 H 12/05/18 06:00 O2 Sat by Pulse Oximetry (%) 98 12/04/18 21:00 Constitutional: Yes: Calm Eyes: Yes: Conjunctiva Clear HENT: Yes: Atraumatic Neck: Yes: Supple Cardiovascular: Yes: S1, S2 Respiratory: Yes: CTA Bilaterally Gastrointestinal: Yes: Soft, Abdomen, Obese Genitourinary: Yes: WNL Edema: Yes Edema: LLE: Trace, RLE: Trace Neurological: Yes: Oriented Psychiatric: Yes: Oriented Labs: CBC, BMP 12/05/18 08:55 12/05/18 08:55 INR, PTT INR 1.25 (0.83-1.09) H 12/05/18 08:55 Problem List - Problems (1) Atrial fibrillation with RVR Code(s): I48.91 - UNSPECIFIED ATRIAL FIBRILLATION (2) Bilateral lower extremity edema Code(s): R60.0 - LOCALIZED EDEMA (3) CHF (congestive heart failure), NYHA class II Code(s): I50.9 - HEART FAILURE, UNSPECIFIED Qualifiers: Congestive heart failure type: unspecified Qualified Code(s): I50.9 - Heart failure, unspecified (4) CKD (chronic kidney disease) Code(s): N18.9 - CHRONIC KIDNEY DISEASE, UNSPECIFIED Qualifiers: Chronic kidney disease stage: unspecified stage Qualified Code(s): N18.9 - Chronic kidney disease, unspecified Assessment/Plan Current Medications Generic Name Dose Route Start Last Admin Trade Name Freq PRN Reason Stop Dose Admin Digoxin 0.125 mg 12/03/18 10:00 12/05/18 12:36 Lanoxin Injection - IVPUSH Not Given MOWEFR@1000 [facility] Docusate Sodium 100 mg 12/01/18 22:00 12/05/18 10:31 Colace - PO Not Given BID [facility] Insulin Aspart 1 vial 12/01/18 16:30 12/05/18 12:10 Novolog Vial Sliding Scale - SQ Not Given ACHS [facility] Protocol Insulin Detemir 20 units 12/02/18 07:00 12/05/18 07:02 Levemir Vial SQ Not Given AM [facility] Metoprolol Succinate 50 mg 12/03/18 10:30 12/05/18 10:31 Toprol Xl - PO 50 mg DAILY [facility] Administration Potassium Chloride 10 meq 12/05/18 22:00 K-Dur - PO BID [facility] Tamsulosin HCl 0.4 mg 12/05/18 08:30 12/05/18 10:30 Flomax - PO 0.4 mg DAILY@0830 [facility] Administration Torsemide 40 mg 12/04/18 10:00 12/05/18 10:31 Demadex - PO 40 mg BID [facility] Administration Warfarin Sodium 5 mg 12/05/18 18:00 Coumadin - PO DAILY@1800 [facility] Impression 1. CKD 2. PIO 3. a-fib 4. HTN 5. CHF 6. DM 7. non compliance 8. s/p cardiac arrest with rapid a-fib 9. resp failure now extubated 10. 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
--- NOTE | 2018-12-05 13:39 | PN ---
Progress Note (short form) - Note Progress Note: Patient stable for discharge to [facility]. Plans for followup discussed with patient and spouse.
[2018-12-05] MEDS ORDERED: WARFARIN NA 5 MG TABLET (UD) PO SCH (18:00)
[2018-12-05] MEDS: POTASSIUM CHLORIDE TABS 10 MEQ TABLET.ER (FP) PO SCH (22:15)
[2018-12-06] MEDS: INSULIN (LEVEMIR) 100 UNITS/ML UNITS SQ SCH (06:08)
[2018-12-06] MEDS: INSULIN SLIDING SCALE (NOVOLOG) 1 VIAL SQ SCH ×2 (06:08→12:03)
[2018-12-06] MEDS: POTASSIUM CHLORIDE TABS 10 MEQ TABLET.ER (FP) PO SCH (09:33)
[2018-12-06] MEDS: TORSEMIDE 20 MG TABLET (FP) PO SCH (09:33)
[2018-12-06] MEDS: DOCUSATE SODIUM 100 MG CAPSULE (FP) PO SCH (09:33)
[2018-12-06] MEDS: TAMSULOSIN HCL 0.4 MG CAP PO SCH (09:34)
[2018-12-06] MEDS ORDERED: hydrALAZINE HCL 25 MG TABLET (FP) PO SCH ×2 (10:34→22:00)
--- NOTE | 2018-12-06 10:57 | PN ---
Progress Note, Physician History of Present Illness: pulmonary alert,comfortable,-resp distress,-cp - Current Medication List Current Medications: Active Medications Digoxin (Lanoxin Injection -) 0.125 mg IVPUSH MOWEFR@1000 [facility] Last Admin: 12/05/18 12:36 Dose: Not Given Docusate Sodium (Colace -) 100 mg PO BID [facility] Last Admin: 12/06/18 09:33 Dose: 100 mg Hydralazine HCl (Apresoline -) 25 mg PO BID [facility] Insulin Aspart (Novolog Vial Sliding Scale -) 1 vial SQ ACHS [facility]; Protocol Last Admin: 12/06/18 06:08 Dose: Not Given Insulin Detemir (Levemir Vial) 20 units SQ AM [facility] Last Admin: 12/06/18 06:08 Dose: Not Given Isosorbide Dinitrate (Isordil -) 20 mg PO BID [facility] Metoprolol Succinate (Toprol Xl -) 100 mg PO DAILY [facility] Potassium Chloride (K-Dur -) 10 meq PO BID [facility] Last Admin: 12/06/18 09:33 Dose: 10 meq Tamsulosin HCl (Flomax -) 0.4 mg PO DAILY@0830 [facility] Last Admin: 12/06/18 09:34 Dose: 0.4 mg Torsemide (Demadex -) 40 mg PO BID [facility] Last Admin: 12/06/18 09:33 Dose: 40 mg Warfarin Sodium (Coumadin -) 5 mg PO DAILY@1800 [facility] Last Admin: 12/05/18 17:47 Dose: 5 mg - Objective Vital Signs: Vital Signs Temperature 98.2 F 12/06/18 08:07 Pulse Rate 99 H 12/06/18 08:07 Respiratory Rate 20 12/06/18 08:07 Blood Pressure 142/107 H 12/06/18 08:07 O2 Sat by Pulse Oximetry (%) 98 12/06/18 08:05 Constitutional: Yes: Well Nourished, Calm Eyes: Yes: WNL HENT: Yes: WNL Neck: Yes: WNL Cardiovascular: Yes: Pulse Irregular, S1, S2 Respiratory: Yes: CTA Bilaterally Gastrointestinal: Yes: Normal Bowel Sounds, Soft Extremities: Yes: WNL Edema: No Labs: CBC, BMP Problem List - Problems (1) Cardiopulmonary arrest with successful resuscitation Code(s): I46.9 - CARDIAC ARREST, CAUSE UNSPECIFIED (2) Atrial fibrillation with RVR Code(s): I48.91 - UNSPECIFIED ATRIAL FIBRILLATION (3) Bilateral lower extremity edema Code(s): R60.0 - LOCALIZED EDEMA (4) A-fib Code(s): I48.91 - UNSPECIFIED ATRIAL FIBRILLATION Qualifiers: Atrial fibrillation type: unspecified Qualified Code(s): I48.91 - Unspecified atrial fibrillation (5) Acute on chronic renal failure Code(s): N17.9 - ACUTE KIDNEY FAILURE, UNSPECIFIED; N18.9 - CHRONIC KIDNEY DISEASE, UNSPECIFIED Assessment/Plan ASSESSMENT/PLAN: Acute CP arrest CHF (EF 20 to 25%) A-Fib DM CKD STABLE HTN No clear evidence of RENETTA O2 as needed Rate control Follow I & O diuretics as per renal Daily weight DR TAYLOR
[2018-12-06] MEDS ORDERED: ISOSORBIDE DINITRATE 20 MG TABLET (FP) PO SCH (11:45)
--- NOTE | 2018-12-06 12:00 | OP ---
DATE OF OPERATION: 11/29/2018 PREOPERATIVE DIAGNOSIS: End-stage renal disease. POSTOPERATIVE DIAGNOSIS: End-stage renal disease. PROCEDURE: Attempted left arteriovenous fistula. SURGEON: Abdias Wadsworth DO ANESTHESIA: Fractional. BLOOD LOSS: 10 mL. INDICATIONS FOR PROCEDURE: Patient is a 63-year-old male who needs permanent dialysis access in the form of a left AV fistula. He is not on dialysis yet but will need dialysis in the next 3 months. Preoperative vein mapping shows that the patient has a good left cephalic vein. Patient was then cleared by Medicine and Cardiology in order to have the procedure. Patient preoperatively had a left upper extremity supraclavicular nerve block performed by anesthesia. That way we can minimize the anesthesia given to the patient. Patient was then consented for the procedure understanding all risks, benefits, alternatives then taken in the operating room. DESCRIPTION OF PROCEDURE: Once in the operating room, was laid on the operating table in supine manner, and the area of the left arm was prepped and draped in a sterile surgical manner. We then went ahead and using ultrasound guidance mapped out our cephalic vein and the brachial artery. Those were marked on the skin above the antecubital fossa, and a transverse incision was performed. We then went ahead and injected 10 mL of lidocaine 1% in the area. We then went ahead and used a No. 15 blade and made an incision. Bovie electrocautery used for hemostasis. We were able to get down to the subcutaneous tissue. During this time, the patient became unstable in the form of having atrial fibrillation, and heart rate went up to almost 180. Once the heart rate became 180, anesthesia was monitoring the heart rate and then all of a sudden, the patient started to have bradycardia going down to 0 and the patient losing his pulse. At this point, we had to stop the operation. Chest compressions were initiated. A pulse was reinstated, and the patient was brought back. At this point, patient had a good blood pressure, and patient had a good pulse. Patient's airway was secured via intubation. We went ahead and discontinued the operation because the patient needed to be transferred to the ICU. The wound was well irrigated, 3-0 Vicryl was used in the subcutaneous tissue. It was approximated in an interrupted manner, and the skin was closed with skin iraj, 4 x 4, Tegaderms were placed. Patient was then transferred to the ICU for further management. ABDIAS WADSWORTH DO [id number]
[2018-12-06] MEDS ORDERED: WARFARIN NA 3 MG TABLET PO SCH (12:06)
--- NOTE | 2018-12-06 12:16 | PN ---
Progress Note (short form) - Note Progress Note: 62 year old male history of DM,CKD,Atrial fibrillation. He presented to hospital for feeling of sluggish adn heavy in his leg and last few days got worse. He denies any trauma,fever or cancer. He deneis any bowel or bladder incontinence or severe back pain. Patient lives in apt and have difficulty moving around. He uses cane. Mri of t and l spine was unremarkable, Initially I saw for lower exremity weakness , and my impression was deconditioning and neuropathy Neurosurgery consult appreciated patient has cardiac arrest and had cpr and following that he has cognitive difficulty .He remains confused NEUROLOGICAL EXAMINATION Alert oriented x 1, he is able to tell this is december 06, speech is normal neck is supple, VSS afebrile eomi, pupils reactive , no face asymmetry, Moving all extremity Patient has severe edema in lower extremity and skin discoloration in lower extremity He is moving all extremity and reflex are symmetrical Assessment/Plan 2.lower extremity weakness is gradual detioration of Neuropathy and Deconditioning and painful leg swelling.MRI of L and T spine si unremarkable. Patient was seen by neurosurgery to review mri t/L spine results and conservative treatment for now 2. Cognitive difficulty following cardiac arrest, possible mild anoxic ischemic encephalopathy . I suggest to do mri of brain once stable. Continue supportive care Thanking you so much Juan Carlos Rodríguez MD
--- NOTE | 2018-12-06 13:19 | PN ---
Progress Note, Physician - Current Medication List Current Medications: Active Medications Digoxin (Lanoxin Injection -) 0.125 mg IVPUSH MOWEFR@1000 [facility] Last Admin: 12/05/18 12:36 Dose: Not Given Digoxin (Lanoxin -) 0.125 mg PO Q2D [facility] Docusate Sodium (Colace -) 100 mg PO BID [facility] Last Admin: 12/06/18 09:33 Dose: 100 mg Hydralazine HCl (Apresoline -) 25 mg PO BID [facility] Last Admin: 12/06/18 12:03 Dose: 25 mg Insulin Aspart (Novolog Vial Sliding Scale -) 1 vial SQ ACHS [facility]; Protocol Last Admin: 12/06/18 12:03 Dose: Not Given Insulin Detemir (Levemir Vial) 20 units SQ AM [facility] Last Admin: 12/06/18 06:08 Dose: Not Given Isosorbide Dinitrate (Isordil -) 20 mg PO BIDISORDIL [facility] Last Admin: 12/06/18 12:03 Dose: 20 mg Metoprolol Succinate (Toprol Xl -) 100 mg PO DAILY [facility] Potassium Chloride (K-Dur -) 10 meq PO BID [facility] Last Admin: 12/06/18 09:33 Dose: 10 meq Tamsulosin HCl (Flomax -) 0.4 mg PO DAILY@0830 [facility] Last Admin: 12/06/18 09:34 Dose: 0.4 mg Torsemide (Demadex -) 40 mg PO BID [facility] Last Admin: 12/06/18 09:33 Dose: 40 mg Warfarin Sodium (Coumadin -) 6 mg PO DAILY@1800 [facility] - Objective Vital Signs: Vital Signs Temperature 98.2 F 12/06/18 08:07 Pulse Rate 99 H 12/06/18 08:07 Respiratory Rate 20 12/06/18 08:07 Blood Pressure 142/107 H 12/06/18 08:07 O2 Sat by Pulse Oximetry (%) 98 12/06/18 08:05 Constitutional: Yes: Calm Neck: Yes: Trachea Midline Cardiovascular: Yes: Regular Rate and Rhythm, S1, S2 Respiratory: Yes: Dullness Gastrointestinal: Yes: Normal Bowel Sounds, Soft Edema: No Neurological: Yes: Alert, Oriented Labs: CBC, BMP 12/05/18 08:55 12/05/18 08:55 INR, PTT INR 1.25 (0.83-1.09) H 12/05/18 08:55 Problem List - Problems (1) Atrial fibrillation with RVR Assessment/Plan: on toprol 100mg po daily digoxin every other day Code(s): I48.91 - UNSPECIFIED ATRIAL FIBRILLATION (2) Bilateral lower extremity edema Assessment/Plan: doppler of legs no dvt iv lasix bid change to torsemide 40mg po bid Code(s): R60.0 - LOCALIZED EDEMA (3) CKD (chronic kidney disease) Assessment/Plan: renal noted iv lasix bid change to oral torsemide no plan for AVF right now renal function better Code(s): N18.9 - CHRONIC KIDNEY DISEASE, UNSPECIFIED Qualifiers: Chronic kidney disease stage: unspecified stage Qualified Code(s): N18.9 - Chronic kidney disease, unspecified (4) Diabetes Assessment/Plan: insulin bgm sliding scale [id number] 8.9 Code(s): E11.9 - TYPE 2 DIABETES MELLITUS WITHOUT COMPLICATIONS Qualifiers: Diabetes mellitus type: type 2 (5) Left leg weakness Assessment/Plan: ct head negative r MRI and MRA w/o contrast- no acute infarct seen neurology evaluation noted SHAREE krystian noted -plan for PT and rehab and if not effective then surgery for decompression rehab repeat brain MRI in one month Code(s): R29.898 - OTH SYMPTOMS AND SIGNS INVOLVING THE MUSCULOSKELETAL SYSTEM
[2018-12-06 14:37] VITALS: BP 127/70; PULSE 107; TEMP 98.3
--- NOTE | 2018-12-06 14:55 | PN ---
Progress Note, Physician History of Present Illness: Pt seen and examined at bedside. He is awake and alert. is at bedside. - Current Medication List Current Medications: Active Medications Digoxin (Lanoxin Injection -) 0.125 mg IVPUSH MOWEFR@1000 [facility] Last Admin: 12/05/18 12:36 Dose: Not Given Digoxin (Lanoxin -) 0.125 mg PO Q2D [facility] Docusate Sodium (Colace -) 100 mg PO BID [facility] Last Admin: 12/06/18 09:33 Dose: 100 mg Hydralazine HCl (Apresoline -) 25 mg PO BID [facility] Last Admin: 12/06/18 12:03 Dose: 25 mg Insulin Aspart (Novolog Vial Sliding Scale -) 1 vial SQ ACHS [facility]; Protocol Last Admin: 12/06/18 12:03 Dose: Not Given Insulin Detemir (Levemir Vial) 20 units SQ AM [facility] Last Admin: 12/06/18 06:08 Dose: Not Given Isosorbide Dinitrate (Isordil -) 20 mg PO BIDISORDIL [facility] Last Admin: 12/06/18 12:03 Dose: 20 mg Metoprolol Succinate (Toprol Xl -) 100 mg PO DAILY [facility] Potassium Chloride (K-Dur -) 10 meq PO BID [facility] Last Admin: 12/06/18 09:33 Dose: 10 meq Tamsulosin HCl (Flomax -) 0.4 mg PO DAILY@0830 [facility] Last Admin: 12/06/18 09:34 Dose: 0.4 mg Torsemide (Demadex -) 40 mg PO BID [facility] Last Admin: 12/06/18 09:33 Dose: 40 mg Warfarin Sodium (Coumadin -) 6 mg PO DAILY@1800 [facility] - Objective Vital Signs: Vital Signs Temperature 98.3 F 12/06/18 14:35 Pulse Rate 107 H 12/06/18 14:35 Respiratory Rate 20 12/06/18 14:35 Blood Pressure 127/70 12/06/18 14:35 O2 Sat by Pulse Oximetry (%) 98 12/06/18 08:05 Constitutional: Yes: Calm Eyes: Yes: Conjunctiva Clear HENT: Yes: Atraumatic Cardiovascular: Yes: S1, S2 Respiratory: Yes: CTA Bilaterally Gastrointestinal: Yes: Soft Genitourinary: Yes: WNL Musculoskeletal: Yes: WNL Edema: LLE: Trace, RLE: Trace Neurological: Yes: Oriented Psychiatric: Yes: Oriented Labs: CBC, BMP 12/05/18 08:55 12/05/18 08:55 INR, PTT INR 1.25 (0.83-1.09) H 12/05/18 08:55 Problem List - Problems (1) Atrial fibrillation with RVR Code(s): I48.91 - UNSPECIFIED ATRIAL FIBRILLATION (2) Bilateral lower extremity edema Code(s): R60.0 - LOCALIZED EDEMA (3) CHF (congestive heart failure), NYHA class II Code(s): I50.9 - HEART FAILURE, UNSPECIFIED Qualifiers: Congestive heart failure type: unspecified Qualified Code(s): I50.9 - Heart failure, unspecified (4) CKD (chronic kidney disease) Code(s): N18.9 - CHRONIC KIDNEY DISEASE, UNSPECIFIED Qualifiers: Chronic kidney disease stage: unspecified stage Qualified Code(s): N18.9 - Chronic kidney disease, unspecified Assessment/Plan Current Medications Generic Name Dose Route Start Last Admin Trade Name Lee PRN Reason Stop Dose Admin Digoxin 0.125 mg 12/03/18 10:00 12/05/18 12:36 Lanoxin Injection - IVPUSH Not Given MOWEFR@1000 [place] Digoxin 0.125 mg 12/07/18 06:00 Lanoxin - PO Q2D [facility] Docusate Sodium 100 mg 12/01/18 22:00 12/06/18 09:33 Colace - PO 100 mg BID [place] Administration Hydralazine HCl 25 mg 12/06/18 10:34 12/06/18 12:03 Apresoline - PO 25 mg BID [place] Administration Insulin Aspart 1 vial 12/01/18 16:30 12/06/18 12:03 Novolog Vial Sliding Scale - SQ Not Given ACHS [facility] Protocol Insulin Detemir 20 units 12/02/18 07:00 12/06/18 06:08 Levemir Vial SQ Not Given AM [facility] Isosorbide Dinitrate 20 mg 12/06/18 11:45 12/06/18 12:03 Isordil - PO 20 mg BIDISORDIL [place] Administration Metoprolol Succinate 100 mg 12/06/18 10:32 Toprol Xl - PO DAILY [facility] Potassium Chloride 10 meq 12/05/18 22:00 12/06/18 09:33 K-Dur - PO 10 meq BID [place] Administration Tamsulosin HCl 0.4 mg 12/05/18 08:30 12/06/18 09:34 Flomax - PO 0.4 mg DAILY@0830 [place] Administration Torsemide 40 mg 12/04/18 10:00 12/06/18 09:33 Demadex - PO 40 mg BID [place] Administration Warfarin Sodium 6 mg 12/06/18 12:06 Coumadin - PO DAILY@1800 [place] Impression 1. CKD 2. PIO 3. a-fib 4. HTN 5. CHF 6. DM 7. non compliance 8. s/p cardiac arrest with rapid a-fib 9. resp failure now extubated 10. hypokalemia Plan - cont diuretics - cont cardiac diet - renal function is stable - will need close outpt follow up - rate control
[2018-12-07] MEDS ORDERED: DIGOXIN 0.125 MG TABLET (FP) PO SCH (06:00)
== END 2018-12-06 15:39 | DRG 308 ==
LOC: JER 12:38 → JERBED 15:04 → J4W 20:05 → JICU 11-29 18:24 → J4W 12-01 12:30
PROVIDERS: ADMIT Student in an Organized Health Care Education/Training Program; ATTEND Student in an Organized Health Care Education/Training Program
PROC: 5A1935Z Respiratory Ventilation, Less than 24 Consecutive Hours (ICD-10-PCS; 2018-11-29)
PROC: 0CHY7BZ Insertion of Airway into Mouth and Throat, Via Natural or Artificial Opening (ICD-10-PCS; principal; 2018-11-29 15:15)
PROC: 5A12012 Performance of Cardiac Output, Single, Manual (ICD-10-PCS; 2018-11-29 15:15)
DX: I48.1 Persistent atrial fibrillation (principal); I50.21 Acute systolic (congestive) heart failure; J96.00 Acute respiratory failure, unspecified whether with hypoxia or hypercapnia; N17.9 Acute kidney failure, unspecified; I13.0 Hypertensive heart and chronic kidney disease with heart failure and stage 1 through stage 4 chronic kidney disease, or unspecified chronic kidney disease; I48.91 Unspecified atrial fibrillation; I42.8 Other cardiomyopathies; M10.9 Gout, unspecified; R60.0 Localized edema; E66.8 Other obesity; Z68.33 Body mass index [BMI] 33.0-33.9, adult; Z91.14 Patient's other noncompliance with medication regimen; E11.22 Type 2 diabetes mellitus with diabetic chronic kidney disease; N18.9 Chronic kidney disease, unspecified; I50.9 Heart failure, unspecified; R29.898 Other symptoms and signs involving the musculoskeletal system; E87.6 Hypokalemia; M51.36 Other intervertebral disc degeneration, lumbar region; E11.40 Type 2 diabetes mellitus with diabetic neuropathy, unspecified; R00.1 Bradycardia, unspecified; I46.9 Cardiac arrest, cause unspecified; Z53.8 Procedure and treatment not carried out for other reasons; I95.9 Hypotension, unspecified
CPT/HCPCS: 36415; 36600; 70450-TC; 70544-TC; 70551-TC; 71045-TC-FY; 72146-TC; 72148-TC; 76700-TC; 80048; 80053; 80061; 80074; 80076; 81003; 82550; 82553; 82607; 82747; 82803; 82962; 83036; 83540; 83550; 83605; 83721; 83735; 83880; 84100; 84443; 84484; 85014; 85025; 85027; 85610; 85730; 87086; 93005; 93010; 93306-TC; 93931; 93970-TC; 93971; 94002; 94760; 95860-TC; 97116-GP; 97162-GP; 99283-25; J1644; J7030

== ENCOUNTER 2019-02-01 15:44 | Inpatient (IN) | payer BC ==
--- NOTE | 2019-02-01 15:58 | PDOC ---
Rapid Medical Evaluation Chief Complaint: Hematuria Time Seen by Provider: 02/01/19 15:51 Medical Evaluation: Allergies Allergy/AdvReac Type Severity Reaction Status Date / Time asparagus AdvReac Verified 02/01/19 15:51 cauliflower AdvReac Verified 02/01/19 15:51 mushroom AdvReac Verified 02/01/19 15:51 pork derived (porcine) AdvReac Verified 02/01/19 15:51 Pork/Porcine Containing AdvReac Verified 02/01/19 15:51 Products 02/01/19 15:52 63 year old male c/o hematuria since last night. patient is on coumadin reports having a nose bleed yesterday PE: patient alert ox3 A: hematuria P; labs ua urine culture Discharge Disposition - Diagnosis Hematuria Qualifiers: Hematuria type: unspecified type Qualified Code(s): R31.9 - Hematuria, unspecified - Referrals - Patient Instructions - Post Discharge Activity
[2019-02-01 16:31] LABS: BASO % 1.3 % (0-2.0); EOS % 0.9 % (0-4.5); HEMATOCRIT 29.1 % (35.4-49); LYMPH % 12.2 % (8-40); MCH 23.1 pg (25.7-33.7); MCHC 30.9 g/dl (32.0-35.9); MEAN CELL VOLUME 74.6 fl (80-96); MEAN PLT VOLUME 7.6 fl (7.5-11.1); MONO % 10.8 % (3.8-10.2); NEUT % 74.8 % (42.8-82.8); PLATELET COUNT 412 K/MM3 (134-434); RDW 24.1 % (11.9-15.9); WHITE BLOOD COUNT 8.1 K/mm3 (4.0-10.0)
[2019-02-01 16:59] LABS: ALBUMIN 3.3 g/dl (3.4-5.0); BILIRUBIN,TOTAL 0.3 mg/dL (0.2-1); BLOOD UREA NITROGEN 41.5 mg/dL (7-18); CREATININE 2.7 mg/dL (0.55-1.3); INR 2.99 (0.83-1.09); PROTHROMBIN TIME (PATIENT) 35.7 SEC (9.7-13.0); TOT PROT 8.2 g/dl (6.4-8.2)
[2019-02-01 17:02] LABS: ACTIVATED PTT 48.8 SECONDS (25.2-36.5)
[2019-02-01 17:27] LABS: ANISOCYTOSIS 2+
[2019-02-01] MEDS ORDERED: POTASSIUM CHLORIDE TABS 20 MEQ TABLET.ER (FP) PO ONE ×2 (17:59→18:09)
--- NOTE | 2019-02-01 18:40 | PDOC ---
History of Present Illness - General Chief Complaint: Hematuria Stated Complaint: BLOOD IN URINE Time Seen by Provider: 02/01/19 15:51 - History of Present Illness Initial Comments: 02/01/19 18:42 62 yo M PMH long-standing persistent atrial fibrillation, HTN, chronic systolic CHF, cardiomyopathy possible due to rapid atrial fibrillation, medication non- compliance, PIO on CKD, s/p attempted HD access 11/29/18 complicated with rapid afib, cardiac arrest, and successful resuscitation, p/w hematuria. Patient reports blood in urine beginning yesterday. Reports repeated nosebleeds and states that his coumadin dose was changed from 4+5 to 4+2.5 on 01/24/2019. Specifically denies CP, SOB, lightheadedness, dizziness, LOC, pre-syncope, syncope, palpitations, AMOS, abd pain, constipation/diarrhea, fevers/chills. Past History - Past Medical History Allergies/Adverse Reactions: Allergies Allergy/AdvReac Type Severity Reaction Status Date / Time asparagus AdvReac Verified 02/01/19 15:51 cauliflower AdvReac Verified 02/01/19 15:51 mushroom AdvReac Verified 02/01/19 15:51 pork derived (porcine) AdvReac Verified 02/01/19 15:51 Pork/Porcine Containing AdvReac Verified 02/01/19 15:51 Products Home Medications: Ambulatory Orders Insulin Detemir [Levemir Flextouch] 20 unit SQ AM #1 insuln.pen 10/09/18 Digoxin Injection [Lanoxin Injection -] 0.125 mg IVPUSH MOWEFR@1000 ampul 12/05 Docusate Sodium [Colace -] 100 mg PO BID capsule 12/05/18 Insulin (Levemir) [Levemir Vial] 20 units SQ AM units 12/05/18 Metoprolol Succinate [Toprol XL -] 50 mg PO DAILY tab.sr.24h 12/05/18 Potassium Chloride [K-Dur -] 10 meq PO BID tablet.er 12/05/18 Tamsulosin HCl [Flomax -] 0.4 mg PO DAILY@0830 cap.er.24h 12/05/18 Torsemide [Demadex -] 40 mg PO BID tablet 12/05/18 Warfarin Na [Coumadin -] 5 mg PO DAILY@1800 tablet 12/05/18 Digoxin [Lanoxin -] 0.125 mg PO Q2D #30 tablet 12/06/18 Metoprolol Succinate [Toprol XL -] 100 mg PO DAILY #30 tab.sr.24h 12/06/18 Anemia: No Asthma: No Cancer: No Cardiac Disorders: Yes (SOB) CVA: No COPD: No CHF: Yes Dementia: No Diabetes: Yes GI Disorders: No Disorders: No HTN: Yes Hypercholesterolemia: No Liver Disease: No Seizures: No Thyroid Disease: No - Surgical History Abdominal Surgery: No Appendectomy: No Cardiac Surgery: No Cholecystectomy: No Lung Surgery: No Neurologic Surgery: No Orthopedic Surgery: No - Immunization History Immunization Up to Date: Yes - Psycho Social/Smoking Cessation Hx Smoking History: Never smoked Have you smoked in the past 12 months: No Hx Alcohol Use: No Drug/Substance Use Hx: No Substance Use Type: None Hx Substance Use Treatment: No Review of Systems - Review of Systems Comments:: 02/01/19 18:46 GENERAL/CONSTITUTIONAL: No fever or chills. No weakness. HEAD, EYES, EARS, NOSE AND THROAT: No change in vision. No ear pain or discharge. No sore throat. CARDIOVASCULAR: No chest pain or shortness of breath. RESPIRATORY: No cough, wheezing, or hemoptysis. GASTROINTESTINAL: No nausea, vomiting, diarrhea or constipation. GENITOURINARY: No dysuria, frequency, or change in urination. Positive for hematuria. MUSCULOSKELETAL: No joint or muscle swelling or pain. No neck or back pain. SKIN: No rash NEUROLOGIC: No headache, vertigo, loss of consciousness, or change in strength/ sensation. ENDOCRINE: No increased thirst. No abnormal weight change. HEMATOLOGIC/LYMPHATIC: recurrent nosebleeds ALLERGIC/IMMUNOLOGIC: No hives or skin allergy *Physical Exam - Vital Signs Last Vital Signs Temp Pulse Resp BP Pulse Ox 98.2 F 80 16 167/69 99 02/01/19 15:52 02/01/19 15:52 02/01/19 15:52 02/01/19 15:52 02/01/19 15:52 - Physical Exam Comments: 02/01/19 18:47 Gen: well-developed, well-nourished, NAD Neuro: AAOX4, CN II-XII intact, FTN intact, EOMI, PERRLA, 5/5 strength, SILT HEENT: atraumatic, normocephalic, dry mucous membranes Neck: trachea midline, supple CV: regular rate, irregularly irregular, no murmurs, rubs, or gallops Pulm: CTA b/l, no wheezing Abd: soft, non-distended, non-tender MSK: full ROM, intact pulses Extr: 3+ pitting edema in b/l extremities, wrapping on L leg up to knee with chronic wound, no deformities Skin: warm, dry ED Treatment Course - LABORATORY CBC & Chemistry Diagram: 02/01/19 16:25 02/01/19 16:25 - ADDITIONAL ORDERS Additional order review: Laboratory Results 02/01/19 02/01/19 16:25 16:25 PT with INR 35.70 H INR 2.99 H PTT (Actin FS) 48.8 H Sodium 141 Potassium 3.0 L Chloride 103 Carbon Dioxide 31 Anion Gap 7 L BUN 41.5 H Creatinine 2.7 H Est GFR (CKD-EPI)AfAm 28.01 Est GFR (CKD-EPI)NonAf 24.17 Random Glucose 178 H Calcium 9.0 Total Bilirubin 0.3 AST 20 ALT 17 Alkaline Phosphatase 91 Total Protein 8.2 Albumin 3.3 L 02/01/19 16:25 RBC 3.90 L MCV 74.6 L MCHC 30.9 L RDW 24.1 H MPV 7.6 Neutrophils % 74.8 Lymphocytes % 12.2 Monocytes % 10.8 H Eosinophils % 0.9 Basophils % 1.3 - Medications Given in the ED: ED Medications Discontinued Medications Generic Name Dose Route Start Last Admin Trade Name Freq PRN Reason Stop Dose Admin Potassium Chloride 40 meq 02/01/19 17:59 02/01/19 18:09 K-Dur - PO 02/01/19 18:00 40 meq ONCE ONE Administration Medical Decision Making - Medical Decision Making 02/01/19 18:48 Hematuria may be due to coumadin use v possible bladder cancer v UTI. INR at 2.99. Will f/u UA, get CT spiral to assess for potential other cause. 02/01/19 19:48 UA concerning for UTI. Discharge - Discharge Information Problems reviewed: Yes Clinical Impression/Diagnosis: Hematuria Qualifiers: Hematuria type: unspecified type Qualified Code(s): R31.9 - Hematuria, unspecified - Follow up/Referral - Patient Discharge Instructions - Post Discharge Activity
--- NOTE | 2019-02-01 18:45 | PDOC ---
Documentation entered by Richard Morejon SCRIBE, acting as scribe for Mavis Figueroa MD. Mavis Figueroa MD: This documentation has been prepared by the Jean-Pierre jain Daniel, SCRIBE, under my direction and personally reviewed by me in its entirety. I confirm that the documentation accurately reflects all work, treatment, procedures, and medical decision making performed by me. Attending Attestation - Resident Resident Name: Joselyn Mahoney - ED Attending Attestation I have performed the following: I have examined & evaluated the patient, The case was reviewed & discussed with the resident, I agree w/resident's findings & plan, Exceptions are as noted - HPI HPI: 02/01/19 17:57 The patient is a 63 year old male with a past medical history of afib (coumadin) , CKD, CHF, diabetes, and gout here today for evaluation of nose bleed and hematuria. The patient reports that he has had 3-4 weeks of nose bleeds which he attributes to his coumadin and states that he asked his PCP to discontinue his coumadin. He notes that yesterday he began to have dark red hematuria and notes clots. pt was recently admitted to hospital for afib with rvr, chf, and esrd, went into cardiopulmonary arrest during access placement was intubated and in ICU, extubated and was sent to rehab [facility] until 10 days ago, when dc to home. today c/o intermittent nose bleeds, for weeks, hematuria since last pm. is able to urinate, no f/c no abd pain. does not feel lightheaded no cp. currently on coumadin, 6.5mg daily, decreased from 9 mg recently. Patient denies lightheadedness. Denies fever, chills. Denies nausea, vomiting, diarrhea, abdominal pain. Denies dysuria, difficulty urinating. Allergies: pork, asparagus, mushroom, cauliflower PCP: Nat Deluca 02/01/19 18:39 - Physicial Exam PE: 02/01/19 18:42 Awake alert no acute distress head is atraumatic nares show no active nasal bleeding currently lungs are clear bilaterally heart is irregular but no murmurs rubs or gallops abdomen is soft nontender there is no palpable distended bladder no CVA tenderness extremities are warm well perfused there is noted bilateral brawny edema. There is a left anterior steel wound which is clean and dry no surrounding erythema or exudates patient is awake alert and oriented x3 - Medical Decision Making 02/01/19 18:43 63-year-old male history of CHF CKD A. fib recently admitted to the hospital in November with subsequent cardia pulmonary arrest during dialysis access placement followed by rehab for several months recently out of rehab tending good days ago here today with epistaxis and hematuria. On my exam there is no current epistaxis noted. Patient however does have active hematuria there is thick blood with clots noting on the urethral meatus after urination. Plan CBC CMP PT PTT differential includes supratherapeutic INR UTI renal mass or bladder mass. Will obtain a CT abdomen and pelvis UA CBC CMP and INR. A post void bladder volume shows a volume of 59 mL therefore the patient is not retaining INR is measured at 2.9 patient is a baseline anemia with hemoglobin 9.5 creatinine is 2.7 which is actually similar to where he was on most recent discharge CT abdomen pelvis is pending
[2019-02-01 19:46] LABS: EPI CELLS 0.3 /HPF (0-5/HPF); HYALINE CASTS 1 /lpf (0-8); URINE APPEARANCE CLEAR; URINE BACTERIA 2494.6 /hpf (NEGATIVE); URINE BILIRUBIN NEGATIVE (NEGATIVE); URINE COLOR YELLOW; URINE GLUCOSE (UA) TRACE (NEGATIVE); URINE KETONE NEGATIVE (NEGATIVE); URINE LEUK ESTERASE 1+ (NEGATIVE); URINE NITRITE POSITIVE (NEGATIVE); URINE PROTEIN 2+ (NEGATIVE); URINE RBC 1406 /hpf (0-4); URINE WBC 24 /hpf (0-5)
[2019-02-01] MEDS ORDERED: CEFTRIAXONE 1,000 MG in DEXTROSE 5%-WATER - 50 ML IVPB ONE (20:00)
[2019-02-01] MEDS ORDERED: CEFTRIAXONE 1 GM/50 ML BAG ONE (20:18)
--- NOTE | 2019-02-02 00:22 | PDOC ---
*Physical Exam - Vital Signs Last Vital Signs Temp Pulse Resp BP Pulse Ox 98.2 F 80 16 167/69 99 02/01/19 15:52 02/01/19 15:52 02/01/19 15:52 02/01/19 15:52 02/01/19 15:52 ED Treatment Course - LABORATORY CBC & Chemistry Diagram: 02/01/19 16:25 02/01/19 16:25 - ADDITIONAL ORDERS Additional order review: Laboratory Results 02/01/19 02/01/19 02/01/19 18:48 16:25 16:25 PT with INR 35.70 H INR 2.99 H PTT (Actin FS) 48.8 H Sodium 141 Potassium 3.0 L Chloride 103 Carbon Dioxide 31 Anion Gap 7 L BUN 41.5 H Creatinine 2.7 H Est GFR (CKD-EPI)AfAm 28.01 Est GFR (CKD-EPI)NonAf 24.17 Random Glucose 178 H Calcium 9.0 Total Bilirubin 0.3 AST 20 ALT 17 Alkaline Phosphatase 91 Total Protein 8.2 Albumin 3.3 L Urine Color Yellow Urine Appearance Clear Urine pH 7.0 D Ur Specific [place] 1.012 Urine Protein 2+ H Urine Glucose (UA) Trace Urine Ketones Negative Urine Blood 3+ H Urine Nitrite Positive H Urine Bilirubin Negative Urine Urobilinogen 1.0 Ur Leukocyte Esterase 1+ H Urine WBC (Auto) 24 Urine RBC (Auto) 1406 Urine Casts (Auto) 1 U Epithel Cells (Auto) 0.3 Urine Bacteria (Auto) 2494.6 02/01/19 16:25 RBC 3.90 L MCV 74.6 L MCHC 30.9 L RDW 24.1 H MPV 7.6 Neutrophils % 74.8 Lymphocytes % 12.2 Monocytes % 10.8 H Eosinophils % 0.9 Basophils % 1.3 - Medications Given in the ED: ED Medications Discontinued Medications Generic Name Dose Route Start Last Admin Trade Name Freq PRN Reason Stop Dose Admin Ceftriaxone Sodium 1,000 mg/ 50 mls @ 100 mls/hr 02/01/19 20:00 02/01/19 21: 49 Dextrose IVPB 02/01/19 20:29 100 mls/hr ONCE ONE Administration Potassium Chloride 40 meq 02/01/19 17:59 02/01/19 18:09 K-Dur - PO 02/01/19 18:00 40 meq ONCE ONE Administration Medical Decision Making - Medical Decision Making 02/02/19 00:21 Pt received on sign out from Dr. Mahoney. Patient presenting with new onset hematuria. -urology call back pending -CT spiral read pending -plan to admit for ceftriaxone given his INR is 2.99 and will likely require monitoring and coumadin dose adjustment 02/02/19 00:49 D/c with Dr. Anaya who recommends managing the INR and can f/u urology as needed after discharge. 02/02/[address] abd/pelv shows sigmoid diverticulosis w/o diverticulitis. No renal stones or evidence of obstructive uropathy. 02/02/19 03:10 D/w [facility] who agrees to accept the patient for admission under Dr. Tavares. Discharge - Discharge Information Problems reviewed: Yes Clinical Impression/Diagnosis: Hematuria Qualifiers: Hematuria type: unspecified type Qualified Code(s): R31.9 - Hematuria, unspecified Condition: Stable - Admission Yes - Follow up/Referral - Patient Discharge Instructions - Post Discharge Activity
--- NOTE | 2019-02-02 03:37 | HP ---
Admitting History and Physical - Primary Care Physician PCP: Dr. Deluca - Admission Chief Complaint: hematuria since last night History of Present Illness: 62 year old male with PMH atrial fibrillation, HTN, chronic systolic CHF, cardiomyopathy, medication non-compliance, s/p attempted HD access 11/29/18 complicated with rapid afib, cardiac arrest, and successful resuscitation arrived to emergency department due to episodes of nosebleeds and hematuria. Patient reports blood in urine beginning yesterday. Reports repeated nosebleeds and states that his coumadin dose was changed from 4+5 to 4+2.5 on 01/24/2019. Patient denies CP, SOB, lightheadedness, dizziness, LOC, pre-syncope, syncope, palpitations, AMOS, abd pain, constipation/diarrhea, fevers/chills. History Source: Patient, Family Member Limitations to Obtaining History: No Limitations - Past Medical History Cardiovascular: Yes: AFIB, CHF, HTN Renal/: Yes: Renal Inusuff Rheumatology: Yes: Gout Endocrine: Yes: Diabetes Mellitus - Past Surgical History Past Surgical History: Yes: None - Smoking History Smoking history: Never smoked Have you smoked in the past 12 months: No - Alcohol/Substance Use Hx Alcohol Use: No History of Substance Use: reports: None - Social History Usual Living Arrangement: Yes: With Spouse ADL: Independent (with [place]) History of Recent Travel: No Home Medications - Allergies Allergies/Adverse Reactions: Allergies Allergy/AdvReac Type Severity Reaction Status Date / Time asparagus AdvReac Verified 02/01/19 15:51 cauliflower AdvReac Verified 02/01/19 15:51 mushroom AdvReac Verified 02/01/19 15:51 pork derived (porcine) AdvReac Verified 02/01/19 15:51 Pork/Porcine Containing AdvReac Verified 02/01/19 15:51 Products - Home Medications Home Medications: Ambulatory Orders Insulin Detemir [Levemir Flextouch] 20 unit SQ AM #1 insuln.pen 10/09/18 Digoxin Injection [Lanoxin Injection -] 0.125 mg IVPUSH MOWEFR@1000 ampul 12/05 Docusate Sodium [Colace -] 100 mg PO BID capsule 12/05/18 Insulin (Levemir) [Levemir Vial] 20 units SQ AM units 12/05/18 Metoprolol Succinate [Toprol XL -] 50 mg PO DAILY tab.sr.24h 12/05/18 Potassium Chloride [K-Dur -] 10 meq PO BID tablet.er 12/05/18 Tamsulosin HCl [Flomax -] 0.4 mg PO DAILY@0830 cap.er.24h 12/05/18 Torsemide [Demadex -] 40 mg PO BID tablet 12/05/18 Warfarin Na [Coumadin -] 5 mg PO DAILY@1800 tablet 12/05/18 Digoxin [Lanoxin -] 0.125 mg PO Q2D #30 tablet 12/06/18 Metoprolol Succinate [Toprol XL -] 100 mg PO DAILY #30 tab.sr.24h 12/06/18 Family Medical History Family Hx Cardiac Disorders: Father Family Hx Diabetes: Mother Review of Systems - Review of Systems Constitutional: reports: No Symptoms Eyes: reports: No Symptoms HENT: reports: Epistaxis Neck: reports: No Symptoms Cardiovascular: reports: No Symptoms Respiratory: reports: No Symptoms Gastrointestinal: reports: No Symptoms Genitourinary: reports: Hematuria Musculoskeletal: reports: No Symptoms Integumentary: reports: No Symptoms Neurological: reports: No Symptoms Endocrine: reports: No Symptoms Hematology/Lymphatic: reports: No Symptoms Psychiatric: reports: No Symptoms Physical Examination Vital Signs: Vital Signs Temperature 98.2 F 02/01/19 15:52 Pulse Rate 80 02/01/19 15:52 Respiratory Rate 16 02/01/19 15:52 Blood Pressure 167/69 02/01/19 15:52 O2 Sat by Pulse Oximetry (%) 99 02/01/19 15:52 Constitutional: Yes: No Distress, Calm Eyes: Yes: Conjunctiva Clear, EOM Intact HENT: Yes: Atraumatic, Normocephalic Neck: Yes: Supple, Trachea Midline Cardiovascular: Yes: Pulse Irregular, S1, S2 Respiratory: Yes: Regular, CTA Bilaterally Gastrointestinal: Yes: Normal Bowel Sounds, Soft Musculoskeletal: Yes: WNL Extremities: Yes: WNL Edema: Yes Edema: RUE: 3+, LLE: 3+ Peripheral Pulses WNL: Yes Integumentary: Yes: WNL Neurological: Yes: Alert, Oriented Labs: CBC, BMP 02/01/19 16:25 02/01/19 16:25 Imaging - Results Cat Scan: Report Reviewed (CT abd/pelv shows sigmoid diverticulosis w/o diverticulitis. No renal stones or evidence of obstructive uropathy.) Problem List - Problems (1) UTI (urinary tract infection) Code(s): N39.0 - URINARY TRACT INFECTION, SITE NOT SPECIFIED (2) Hematuria Code(s): R31.9 - HEMATURIA, UNSPECIFIED Qualifiers: Hematuria type: unspecified type Qualified Code(s): R31.9 - Hematuria, unspecified (3) HTN (hypertension) Code(s): I10 - ESSENTIAL (PRIMARY) HYPERTENSION (4) BPH (benign prostatic hyperplasia) Code(s): N40.0 - BENIGN PROSTATIC HYPERPLASIA WITHOUT LOWER URINRY TRACT SYMP (5) A-fib Code(s): I48.91 - UNSPECIFIED ATRIAL FIBRILLATION Qualifiers: Atrial fibrillation type: unspecified Qualified Code(s): I48.91 - Unspecified atrial fibrillation (6) Diabetes Code(s): E11.9 - TYPE 2 DIABETES MELLITUS WITHOUT COMPLICATIONS Qualifiers: Diabetes mellitus type: type 2 (7) CHF (congestive heart failure), NYHA class II Code(s): I50.9 - HEART FAILURE, UNSPECIFIED Qualifiers: Congestive heart failure type: unspecified Qualified Code(s): I50.9 - Heart failure, unspecified (8) Bilateral lower extremity edema Code(s): R60.0 - LOCALIZED EDEMA (9) CKD (chronic kidney disease) Code(s): N18.9 - CHRONIC KIDNEY DISEASE, UNSPECIFIED Qualifiers: Chronic kidney disease stage: unspecified stage Qualified Code(s): N18.9 - Chronic kidney disease, unspecified Assessment/Plan 62 year old male with PMH atrial fibrillation, HTN, chronic systolic CHF, cardiomyopathy, medication non-compliance, s/p attempted HD access 11/29/18 complicated with rapid afib, cardiac arrest, and successful resuscitation arrived to emergency department due to episodes of nosebleeds and hematuria. Patient reports blood in urine beginning yesterday. #UTI - UA positive - CT abd: CT abd/pelv shows sigmoid diverticulosis w/o diverticulitis. No renal stones or evidence of obstructive uropathy. - ED discussed with Dr. Anaya who recommends managing the INR and can f /u urology as needed after discharge. - Rocephin given in ED, will continue - follow up UCX - monitor CBC trend # Hypokalemia - replaced with KCL - monitor lytes # A-fib # Supra-therapeutic INR - monitor PT/INR, hold Coumadin tonight - Digoxin 0.125 mg PO Q2D - Metoprolol Succinate 100 mg PO DAILY - follow up PT/INR # CHF - Torsemide 40 mg PO BID - monitor I&O - daily weight - elevate extremity #CKD - avoid nephro toxins - monitor renal function #DM -Insulin Nhejahr85 units SQ AM -FSBS BID AC -Diet control -Follow up HgbA1c #BPH - Tamsulosin HCl 0.4 mg PO DAILY Diet: YOSSI/NCS VTE: SCD, early ambulation Visit type - Emergency Visit Emergency Visit: Yes ED Registration Date: 02/02/19 Care time: The patient presented to the Emergency Department on the above date and was hospitalized for further evaluation of their emergent condition. - New Patient This patient is new to me today: Yes Date on this admission: 02/02/19 - Critical Care Critical Care patient: No
[2019-02-02] MEDS ORDERED: ACETAMINOPHEN 325 MG TABLET (FP) PO PRN (03:52)
[2019-02-02] MEDS: INSULIN SLIDING SCALE (NOVOLOG) 1 VIAL SQ SCH ×2 (06:26→17:05)
[2019-02-02] MEDS ORDERED: INSULIN (LEVEMIR) 100 UNITS/ML UNITS SQ SCH (07:00)
[2019-02-02] MEDS: TORSEMIDE 20 MG TABLET (FP) PO SCH ×3 (07:28→14:33)
[2019-02-02 07:58] VITALS: BMI 28.8
[2019-02-02] MEDS ORDERED: cefTRIAXone SODIUM 1 GM VIAL ONE (08:44)
[2019-02-02] MEDS ORDERED: DEXTROSE 5%-WATER - 50 ML IVPB ONE (08:45)
--- NOTE | 2019-02-02 09:00 | CONSULT ---
Consult Consult Specialty:: urology Referred by:: Yosi Reason for Consultation:: bph/uti/gross hematuria - History of Present Illness Chief Complaint: gross hematuria/uti/bph History of Present Illness: 62 year old male with PMH atrial fibrillation, HTN, chronic systolic CHF, cardiomyopathy, medication non-compliance, s/p attempted HD access 11/29/18 complicated with rapid afib, cardiac arrest, and successful resuscitation arrived to emergency department due to episodes of nosebleeds and hematuria. Patient reports blood in urine beginning yesterday. Reports repeated nosebleeds and states that his coumadin dose was changed from 4+5 to 4+2.5 on 01/24/2019. Patient is currently on ceftriaxone for uti and is on flomax for bph. The patient denies fever, chills, or dysuria. The urine is clearing. - History Source History Provided By: Patient Limitations to Obtaining History: No Limitations - Past Medical History Cardio/Vascular: Yes: AFIB, CHF, HTN Renal/: Yes: Renal Inusuff Rheumatology: Yes: Gout Endocrine: Yes: Diabetes Mellitus - Past Surgical History Past Surgical History: Yes: None - Alcohol/Substance Use Hx Alcohol Use: No History of Substance Use: reports: None - Smoking History Smoking history: Never smoked Have you smoked in the past 12 months: No - Social History Usual Living Arrangement: With Spouse (in apartment without stairs) ADL: Independent (with [place]) History of Recent Travel: No Home Medications - Allergies Allergies/Adverse Reactions: Allergies Allergy/AdvReac Type Severity Reaction Status Date / Time asparagus AdvReac Verified 02/01/19 15:51 cauliflower AdvReac Verified 02/01/19 15:51 mushroom AdvReac Verified 02/01/19 15:51 pork derived (porcine) AdvReac Verified 02/01/19 15:51 Pork/Porcine Containing AdvReac Verified 02/01/19 15:51 Products - Home Medications Home Medications: Ambulatory Orders Insulin Detemir [Levemir Flextouch] 20 unit SQ AM #1 insuln.pen 10/09/18 Digoxin Injection [Lanoxin Injection -] 0.125 mg IVPUSH MOWEFR@1000 ampul 12/05 Docusate Sodium [Colace -] 100 mg PO BID capsule 12/05/18 Insulin (Levemir) [Levemir Vial] 20 units SQ AM units 12/05/18 Metoprolol Succinate [Toprol XL -] 50 mg PO DAILY tab.sr.24h 12/05/18 Potassium Chloride [K-Dur -] 10 meq PO BID tablet.er 12/05/18 Tamsulosin HCl [Flomax -] 0.4 mg PO DAILY@0830 cap.er.24h 12/05/18 Torsemide [Demadex -] 40 mg PO BID tablet 12/05/18 Warfarin Na [Coumadin -] 5 mg PO DAILY@1800 tablet 12/05/18 Digoxin [Lanoxin -] 0.125 mg PO Q2D #30 tablet 12/06/18 Metoprolol Succinate [Toprol XL -] 100 mg PO DAILY #30 tab.sr.24h 12/06/18 Physical Exam Vital Signs: Vital Signs Temperature 97.8 F 02/02/19 07:48 Pulse Rate 83 02/02/19 07:48 Respiratory Rate 18 02/02/19 07:48 Blood Pressure 167/99 02/02/19 05:38 O2 Sat by Pulse Oximetry (%) 99 02/02/19 08:08 Constitutional: Yes: Well Nourished, No Distress, Calm Eyes: Yes: WNL, Conjunctiva Clear, EOM Intact HENT: Yes: WNL, Atraumatic, Normocephalic Neck: Yes: WNL, Supple, Trachea Midline Cardiovascular: Yes: WNL Respiratory: Yes: Regular Gastrointestinal: Yes: WNL, Normal Bowel Sounds, Soft ...Rectal Exam: Yes: Sphincter Tone Normal (3+ prostate with asymmetry) Renal/: Yes: WNL Labs: CBC, BMP 02/01/19 16:25 02/01/19 16:25 Assessment/Plan impression bph gross hemauria uti plan continue flomax and ceftriaxone hydration will follow-up as outpatient
--- NOTE | 2019-02-02 09:39 | PN ---
Progress Note, Physician Chief Complaint: UTI Hematuria History of Present Illness: pt refusing medications, lab draw at the moment - Current Medication List Current Medications: Active Medications Acetaminophen (Tylenol -) 650 mg PO Q6H PRN PRN Reason: PAIN LEVEL 1-5 Digoxin (Lanoxin -) 0.125 mg PO Q2D [facility] Docusate Sodium (Colace -) 100 mg PO BID [facility] Ceftriaxone Sodium 1 gm/ (Dextrose) 50 mls @ 100 mls/hr IVPB DAILY [facility] Stop: 02/08/19 23:59 Insulin Aspart (Novolog Vial Sliding Scale -) 1 vial SQ BIDAC [facility]; Protocol Last Admin: 02/02/19 06:26 Dose: Not Given Insulin Detemir (Levemir Vial) 20 units SQ AM [facility] Metoprolol Succinate (Toprol Xl -) 100 mg PO DAILY [facility] Tamsulosin HCl (Flomax -) 0.4 mg PO DAILY@0830 [facility] Torsemide (Demadex -) 40 mg PO BIDLASIX [facility] Last Admin: 02/02/19 08:41 Dose: 40 mg - Objective Vital Signs: Vital Signs Temperature 97.8 F 02/02/19 07:48 Pulse Rate 83 02/02/19 07:48 Respiratory Rate 18 02/02/19 07:48 Blood Pressure 167/99 02/02/19 05:38 O2 Sat by Pulse Oximetry (%) 99 02/02/19 08:08 Constitutional: Yes: Well Nourished, No Distress, Calm Cardiovascular: Yes: Pulse Irregular Respiratory: Yes: Regular Gastrointestinal: Yes: Normal Bowel Sounds, Soft Genitourinary: Yes: WNL Musculoskeletal: Yes: Muscle Weakness Extremities: Yes: WNL Neurological: Yes: Alert, Oriented Psychiatric: Yes: Alert, Oriented Labs: CBC, BMP 02/01/19 16:25 02/01/19 16:25 INR, PTT INR 2.99 (0.83-1.09) H 02/01/19 16:25 Problem List - Problems (1) HTN (hypertension) Assessment/Plan: -resume home meds -monitor trend Problems reviewed: Yes Code(s): I10 - ESSENTIAL (PRIMARY) HYPERTENSION (2) Hematuria Assessment/Plan: -likely 2/2 to UTI -Seen by Urology -Awaiting UC -IV abx -ID consult -Hold Coumadin today Problems reviewed: Yes Code(s): R31.9 - HEMATURIA, UNSPECIFIED Qualifiers: Hematuria type: unspecified type Qualified Code(s): R31.9 - Hematuria, unspecified (3) UTI (urinary tract infection) Assessment/Plan: -likely 2/2 to UTI -Seen by Urology -Awaiting UC -IV abx -ID consult Problems reviewed: Yes Code(s): N39.0 - URINARY TRACT INFECTION, SITE NOT SPECIFIED (4) A-fib Assessment/Plan: -Coumadin on hold -monitor INR if pt lets phlebotomy draw bloods Problems reviewed: Yes Code(s): I48.91 - UNSPECIFIED ATRIAL FIBRILLATION Qualifiers: Atrial fibrillation type: unspecified Qualified Code(s): I48.91 - Unspecified atrial fibrillation (5) CKD (chronic kidney disease) Assessment/Plan: -Nephrology consult Problems reviewed: Yes Code(s): N18.9 - CHRONIC KIDNEY DISEASE, UNSPECIFIED Qualifiers: Chronic kidney disease stage: unspecified stage Qualified Code(s): N18.9 - Chronic kidney disease, unspecified (6) Hypokalemia Assessment/Plan: -refuses to take any more KCl than what he was taking at home -Refuses blood draw Problems reviewed: Yes Code(s): E87.6 - HYPOKALEMIA (7) Non compliance with medical treatment Problems reviewed: Yes Code(s): Z91.19 - PATIENT'S NONCOMPLIANCE W OTH MEDICAL TREATMENT AND REGIMEN Assessment/Plan see problem list
[2019-02-02] MEDS: DOCUSATE SODIUM 100 MG CAPSULE (FP) PO SCH ×2 (09:46→21:41)
[2019-02-02] MEDS: TAMSULOSIN HCL 0.4 MG CAP PO SCH (09:47)
[2019-02-02] MEDS: CEFTRIAXONE 1 GM in DEXTROSE 5%-WATER - 50 ML IVPB SCH (09:48)
[2019-02-02] MEDS ORDERED: DIGOXIN 0.125 MG TABLET (FP) PO SCH (10:00)
[2019-02-02] MEDS: ASPIRIN 81 MG CHEWABLE TABLETS PO SCH (11:17)
[2019-02-02] MEDS: POTASSIUM CHLORIDE TABS 10 MEQ TABLET.ER (FP) PO SCH (11:17)
[2019-02-02] MEDS: COLCHICINE 0.6 MG CAP PO SCH ×2 (11:17→21:39)
[2019-02-02] MEDS: FEBUXOSTAT 40 MG TAB PO SCH (11:17)
--- NOTE | 2019-02-02 11:51 | PN ---
Progress Note (short form) - Note Progress Note: ID consult dictated imp/reccd hematuria UTI afib on coumadin CKD no prior UTIs continue ceftriaxone, f/u ct scan f/u cultures Problem List - Problems (1) Hematuria Code(s): R31.9 - HEMATURIA, UNSPECIFIED Qualifiers: Hematuria type: unspecified type Qualified Code(s): R31.9 - Hematuria, unspecified (2) UTI (urinary tract infection) Code(s): N39.0 - URINARY TRACT INFECTION, SITE NOT SPECIFIED (3) A-fib Code(s): I48.91 - UNSPECIFIED ATRIAL FIBRILLATION Qualifiers: Atrial fibrillation type: unspecified Qualified Code(s): I48.91 - Unspecified atrial fibrillation (4) CKD (chronic kidney disease) stage 4, GFR 15-29 ml/min Code(s): N18.4 - CHRONIC KIDNEY DISEASE, STAGE 4 (SEVERE)
--- NOTE | 2019-02-02 12:25 | CONS ---
DATE OF CONSULTATION: DATE OF DICTATION: 02/02/2019 INFECTIOUS DISEASE CONSULTATION HISTORY OF PRESENT ILLNESS: This is a 63-year-old man who comes to the ER with intermittent nosebleeds and hematuria that started yesterday. He has had a recent adjustment in Coumadin. He has a history of atrial fibrillation. He denies any fevers and chills. He has never had a UTI before. He has no problems with abdominal pain, chest pain. He has had no nausea, vomiting or diarrhea. He has never had hematuria before. He has no flank pain. He has no dysuria. He has recently been at the residential. He was discharged home about 7 to 10 days ago. He lives at home with his and as stated his Coumadin dose was just recently changed. PAST MEDICAL HISTORY: Notable for atrial fibrillation, CHF, hypertension. He has a history of cardiomyopathy. In November 2018 he had a cardiac arrest and successful resuscitation. He has a history of gout, diabetes and he has CKD. SOCIAL HISTORY: There is no history of cigarette or substance use. He lives with his . No recent travel. ALLERGIES: PORK DERIVATIVES. MEDICATIONS: At home include: 1. Insulin. 2. Digoxin. 3. Metoprolol. 4. Potassium. 5. Tamsulosin. 6. Torsemide. 7. Warfarin. FAMILY HISTORY: Notable for coronary artery disease in his father and diabetes in his mother. REVIEW OF SYSTEMS: He is feeling quite well at this time. PHYSICAL EXAMINATION: General: He is awake and alert, in no distress. Vital Signs: Temperature is 97.8, pulse 88, blood pressure is 167/99, he is saturating 99% on room air. HEENT: Normocephalic. His eyes are anicteric. Neck: Supple. Lungs: Have diminished breath sounds at the bases. Otherwise clear. Heart: Regular rate and rhythm. Abdomen: Soft, nontender. He has no CVA or suprapubic tenderness. Extremities: He has 1 to 2+ edema bilaterally. He has some superficial erosions on the left lower leg and on the right leg he has several small blisters that have not opened. There is no erythema or warmth. LABORATORIES: Notable for a white count of 8.1, hemoglobin 9, platelets are 415. BUN is 41 and creatinine is 2.7. His LFTs are normal. His urinalysis has 3+ blood, 2+ protein, 1+ leukocyte esterase with 24 white cells. Urine culture is pending. ASSESSMENT: In summary this is a 63-year-old man with chronic kidney disease, history of atrial fibrillation, cardiomyopathy, on Coumadin, admitted with hematuria and nosebleeds. His INR was 2.9 on admission. His urinalysis is consistent with a possible urinary tract infection. RECOMMENDATIONS: He has currently been started on ceftriaxone which I would continue at this time. If his cultures are negative I would stop his antibiotics and attribute this to his anticoagulant. Case was discussed with the nurse practitioner. Alex [id number]
[2019-02-02] MEDS: hydrALAZINE HCL 25 MG TABLET (FP) PO SCH ×2 (14:33→21:41)
--- NOTE | 2019-02-02 15:10 | CONSULT ---
Consult Consult Specialty:: Nephrology Reason for Consultation:: ckd - History of Present Illness Chief Complaint: hematuria History of Present Illness: Pt is a 63 year old male with pmhx of a-fib, ckd, chf, dm, and gout who presents to the ER with hematuria. He is awake and alert. he denies shortness of breath. 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 He has ckd. his renal function is stable. he is on torsemide at home. he denies fevers or chills. he was found to have a uti. He was evaluated by urology and they recommend treatment of uti. - History Source History Provided By: Patient, Medical Record - Past Medical History Cardio/Vascular: Yes: AFIB, CHF, HTN Renal/: Yes: Renal Inusuff Rheumatology: Yes: Gout Endocrine: Yes: Diabetes Mellitus - Past Surgical History Past Surgical History: Yes: None - Alcohol/Substance Use Hx Alcohol Use: No History of Substance Use: reports: None - Smoking History Smoking history: Never smoked Have you smoked in the past 12 months: No - Social History Usual Living Arrangement: With Spouse (in apartment without stairs) ADL: Independent (with [place]) History of Recent Travel: No Home Medications - Allergies Allergies/Adverse Reactions: Allergies Allergy/AdvReac Type Severity Reaction Status Date / Time asparagus AdvReac Verified 02/01/19 15:51 cauliflower AdvReac Verified 02/01/19 15:51 mushroom AdvReac Verified 02/01/19 15:51 pork derived (porcine) AdvReac Verified 02/01/19 15:51 Pork/Porcine Containing AdvReac Verified 02/01/19 15:51 Products - Home Medications Home Medications: Ambulatory Orders Insulin Detemir [Levemir Flextouch] 20 unit SQ AM #1 insuln.pen 10/09/18 Digoxin Injection [Lanoxin Injection -] 0.125 mg IVPUSH MOWEFR@1000 ampul 12/05 Docusate Sodium [Colace -] 100 mg PO BID capsule 12/05/18 Insulin (Levemir) [Levemir Vial] 20 units SQ AM units 12/05/18 Metoprolol Succinate [Toprol XL -] 50 mg PO DAILY tab.sr.24h 12/05/18 Potassium Chloride [K-Dur -] 10 meq PO BID tablet.er 12/05/18 Tamsulosin HCl [Flomax -] 0.4 mg PO DAILY@0830 cap.er.24h 12/05/18 Torsemide [Demadex -] 40 mg PO BID tablet 12/05/18 Warfarin Na [Coumadin -] 5 mg PO DAILY@1800 tablet 12/05/18 Digoxin [Lanoxin -] 0.125 mg PO Q2D #30 tablet 12/06/18 Metoprolol Succinate [Toprol XL -] 100 mg PO DAILY #30 tab.sr.24h 12/06/18 Family Medical History Family History: Denies Review of Systems - Review of Systems Constitutional: reports: No Symptoms Eyes: reports: No Symptoms HENT: reports: No Symptoms Neck: reports: No Symptoms Cardiovascular: reports: Edema Respiratory: reports: No Symptoms Gastrointestinal: reports: No Symptoms Genitourinary: reports: Hematuria Musculoskeletal: reports: Muscle Weakness Neurological: reports: No Symptoms Endocrine: reports: No Symptoms Hematology/Lymphatic: reports: No Symptoms Psychiatric: reports: No Symptoms Physical Exam Vital Signs: Vital Signs Temperature 97.8 F 02/02/19 07:48 Pulse Rate 88 02/02/19 09:46 Respiratory Rate 18 02/02/19 09:00 Blood Pressure 167/99 02/02/19 05:38 O2 Sat by Pulse Oximetry (%) 99 02/02/19 09:00 Constitutional: Yes: Calm Eyes: Yes: Conjunctiva Clear HENT: Yes: Atraumatic Neck: Yes: Supple Cardiovascular: Yes: S1, S2 Respiratory: Yes: CTA Bilaterally Gastrointestinal: Yes: Soft Renal/: Yes: WNL Musculoskeletal: Yes: WNL Edema: Yes Edema: LLE: 1+, RLE: 1+ Neurological: Yes: Oriented Psychiatric: Yes: Oriented Labs: CBC, BMP 02/01/19 16:25 02/01/19 16:25 Microbiology Laboratory Tests 02/01/19 18:48 Urine Protein 2+ H Urine Blood 3+ H Urine Nitrite Positive H Assessment/Plan Current Medications Generic Name Dose Route Start Last Admin Trade Name Freq PRN Reason Stop Dose Admin Acetaminophen 650 mg 02/02/19 03:52 Tylenol - PO Q6H PRN PAIN LEVEL 1-5 Aspirin 81 mg 02/02/19 11:00 02/02/19 11:17 Asa - PO 81 mg DAILY [place] Administration Colchicine 0.6 mg 02/02/19 11:00 02/02/19 11:17 Colcrys PO 0.6 mg BID [facility] Administration Digoxin 0.125 mg 02/03/19 10:00 Lanoxin - PO DAILY [facility] Docusate Sodium 100 mg 02/02/19 10:00 02/02/19 09:46 Colace - PO Not Given BID [place] Febuxostat 40 mg 02/02/19 11:00 02/02/19 11:17 Uloric - PO 40 mg DAILY [place] Administration Hydralazine HCl 25 mg 02/02/19 14:00 02/02/19 14:33 Apresoline - PO 25 mg TID [facility] Administration Ceftriaxone Sodium 1 gm/ 50 mls @ 100 mls/hr 02/02/19 10:00 02/02/19 09:48 Dextrose IVPB 02/08/19 23:59 100 mls/hr DAILY [facility] Administration Insulin Aspart 1 vial 02/02/19 07:00 02/02/19 06:26 Novolog Vial Sliding Scale - SQ Not Given BIDAC [facility] Protocol Insulin Detemir 15 units 02/02/19 22:00 Levemir Vial SQ [facility] Metoprolol Succinate 150 mg 02/02/19 10:56 Toprol Xl - PO DAILY [facility] Potassium Chloride 10 meq 02/02/19 11:00 02/02/19 11:17 K-Dur - PO 10 meq DAILY [facility] Administration Tamsulosin HCl 0.4 mg 02/02/19 08:30 02/02/19 09:47 Flomax - PO Not Given DAILY@0830 [facility] Torsemide 40 mg 02/02/19 06:45 02/02/19 14:33 Demadex - PO Not Given BIDLASIX [facility] Impression 1. CKD 2. hematuria 3. a-fib 4. HTN 5. CHF 6. DM 7. non compliance 8. s/p cardiac arrest with rapid a-fib 9. hypokalemia Plan - pt is refusing labs - will give another dose of potassium and a dose of mag - check cmp and mag if he agrees - cont diuretics - abx for uti
[2019-02-02] MEDS ORDERED: POTASSIUM CHLORIDE TABS 20 MEQ TABLET.ER (FP) PO ONE (17:10)
[2019-02-02] MEDS ORDERED: MAGNESIUM OXIDE 400 MG TABLET (FP) PO ONE (17:10)
[2019-02-02] MEDS: INSULIN (LEVEMIR) 100 UNITS/ML UNITS SQ SCH (21:42)
[2019-02-03] MEDS: hydrALAZINE HCL 25 MG TABLET (FP) PO SCH ×3 (05:57→21:07)
[2019-02-03] MEDS: TORSEMIDE 20 MG TABLET (FP) PO SCH ×2 (05:57→15:08)
[2019-02-03] MEDS: TAMSULOSIN HCL 0.4 MG CAP PO SCH (08:19)
[2019-02-03] MEDS ORDERED: cefTRIAXone SODIUM 1 GM VIAL ONE (10:01)
[2019-02-03] MEDS ORDERED: DEXTROSE 5%-WATER - 50 ML IVPB ONE (10:01)
[2019-02-03] MEDS: ASPIRIN 81 MG CHEWABLE TABLETS PO SCH (12:14)
[2019-02-03] MEDS: POTASSIUM CHLORIDE TABS 10 MEQ TABLET.ER (FP) PO SCH (12:14)
[2019-02-03] MEDS: DOCUSATE SODIUM 100 MG CAPSULE (FP) PO SCH ×2 (12:14→21:10)
[2019-02-03] MEDS: COLCHICINE 0.6 MG CAP PO SCH ×2 (12:14→21:07)
[2019-02-03] MEDS: FEBUXOSTAT 40 MG TAB PO SCH (12:15)
[2019-02-03] MEDS: CEFTRIAXONE 1 GM in DEXTROSE 5%-WATER - 50 ML IVPB SCH (12:15)
[2019-02-03] MEDS: DIGOXIN 0.125 MG TABLET (FP) PO SCH (12:15)
--- NOTE | 2019-02-03 13:24 | PN ---
Progress Note, Physician Chief Complaint: UTI Hematuria History of Present Illness: at bedside Pt agrees to lab draw today Limb alert L arm for possible future AVF - Current Medication List Current Medications: Active Medications Acetaminophen (Tylenol -) 650 mg PO Q6H PRN PRN Reason: PAIN LEVEL 1-5 Aspirin (Asa -) 81 mg PO DAILY [facility] Last Admin: 02/03/19 12:14 Dose: 81 mg Colchicine (Colcrys) 0.6 mg PO BID [facility] Last Admin: 02/03/19 12:14 Dose: 0.6 mg Digoxin (Lanoxin -) 0.125 mg PO DAILY [facility] Last Admin: 02/03/19 12:15 Dose: 0.125 mg Docusate Sodium (Colace -) 100 mg PO BID [facility] Last Admin: 02/03/19 12:14 Dose: Not Given Febuxostat (Uloric -) 40 mg PO DAILY [facility] Last Admin: 02/03/19 12:15 Dose: 40 mg Hydralazine HCl (Apresoline -) 25 mg PO TID [facility] Last Admin: 02/03/19 05:57 Dose: 25 mg Ceftriaxone Sodium 1 gm/ (Dextrose) 50 mls @ 100 mls/hr IVPB DAILY [facility] Stop: 02/08/19 23:59 Last Admin: 02/03/19 12:15 Dose: 100 mls/hr Insulin Aspart (Novolog Vial Sliding Scale -) 1 vial SQ BIDAC [facility]; Protocol Last Admin: 02/02/19 17:05 Dose: Not Given Insulin Detemir (Levemir Vial) 15 units SQ HS [facility] Last Admin: 02/02/19 21:42 Dose: 15 units Metoprolol Succinate (Toprol Xl -) 150 mg PO DAILY [facility] Last Admin: 02/03/19 12:15 Dose: 150 mg Potassium Chloride (K-Dur -) 10 meq PO DAILY [facility] Last Admin: 02/03/19 12:14 Dose: 10 meq Tamsulosin HCl (Flomax -) 0.4 mg PO DAILY@0830 [facility] Last Admin: 02/03/19 08:19 Dose: 0.4 mg Torsemide (Demadex -) 40 mg PO BIDLASIX [facility] Last Admin: 02/03/19 05:57 Dose: 40 mg - Objective Vital Signs: Vital Signs Temperature 99.1 F 02/03/19 06:00 Pulse Rate 88 02/03/19 12:15 Respiratory Rate 18 02/03/19 06:00 Blood Pressure 164/80 02/03/19 06:00 O2 Sat by Pulse Oximetry (%) 99 02/02/19 09:00 Constitutional: Yes: Well Nourished, No Distress, Calm Cardiovascular: Yes: Regular Rate and Rhythm Respiratory: Yes: Regular Gastrointestinal: Yes: WNL, Normal Bowel Sounds, Soft, Abdomen, Obese Genitourinary: Yes: WNL Musculoskeletal: Yes: WNL Extremities: Yes: WNL Edema: Yes Edema: LLE: 2+, RLE: 1+ Peripheral Pulses WNL: Yes Neurological: Yes: Alert, Oriented Psychiatric: Yes: Alert, Oriented Labs: CBC, BMP 02/01/19 16:25 02/01/19 16:25 INR, PTT INR 2.99 (0.83-1.09) H 02/01/19 16:25 Problem List - Problems (1) HTN (hypertension) Assessment/Plan: -resume home meds -monitor trend Problems reviewed: Yes Code(s): I10 - ESSENTIAL (PRIMARY) HYPERTENSION (2) Hematuria Assessment/Plan: -resolved -Seen by Urology -UC negative -IV abx -ID consult -Recheck INR today to resume Coumadin Problems reviewed: Yes Code(s): R31.9 - HEMATURIA, UNSPECIFIED Qualifiers: Hematuria type: unspecified type Qualified Code(s): R31.9 - Hematuria, unspecified (3) UTI (urinary tract infection) Assessment/Plan: -resolved -Seen by Urology -UC negative -IV abx -ID consult -Recheck INR today to resume Coumadin Problems reviewed: Yes Code(s): N39.0 - URINARY TRACT INFECTION, SITE NOT SPECIFIED (4) A-fib Assessment/Plan: -Recheck INR today -resume Coumadin if INR therapeutic or subtherapeutic bloods Problems reviewed: Yes Code(s): I48.91 - UNSPECIFIED ATRIAL FIBRILLATION Qualifiers: Atrial fibrillation type: unspecified Qualified Code(s): I48.91 - Unspecified atrial fibrillation (5) CKD (chronic kidney disease) Assessment/Plan: -Nephrology consult Problems reviewed: Yes Code(s): N18.9 - CHRONIC KIDNEY DISEASE, UNSPECIFIED Qualifiers: Chronic kidney disease stage: unspecified stage Qualified Code(s): N18.9 - Chronic kidney disease, unspecified (6) Hypokalemia Assessment/Plan: -Lab draw today -replace if needed -Monitor trend Problems reviewed: Yes Code(s): E87.6 - HYPOKALEMIA (7) Non compliance with medical treatment Problems reviewed: Yes Code(s): Z91.19 - PATIENT'S NONCOMPLIANCE W OTH MEDICAL TREATMENT AND REGIMEN Assessment/Plan see problem list
[2019-02-03] MEDS: INSULIN SLIDING SCALE (NOVOLOG) 1 VIAL SQ SCH ×2 (15:08→17:04)
[2019-02-03 15:59] LABS: BASO % 1.3 % (0-2.0); EOS % 1.2 % (0-4.5); LYMPH % 22.8 % (8-40); MCH 23.8 pg (25.7-33.7); MEAN CELL VOLUME 74.4 fl (80-96); MEAN PLT VOLUME 8.1 fl (7.5-11.1); MONO % 26.6 % (3.8-10.2); NEUT % 48.1 % (42.8-82.8); PLATELET COUNT 318 K/MM3 (134-434); RBC 3.76 M/mm3 (4.00-5.60); RDW 24.1 % (11.9-15.9); WHITE BLOOD COUNT 6.9 K/mm3 (4.0-10.0)
[2019-02-03 16:14] LABS: INR 1.73 (0.83-1.09); PROTHROMBIN TIME (PATIENT) 20.5 SEC (9.7-13.0)
[2019-02-03 16:28] LABS: BILIRUBIN,TOTAL 0.3 mg/dL (0.2-1); BLOOD UREA NITROGEN 54.7 mg/dL (7-18); CALCIUM 8.9 mg/dL (8.5-10.1); CREATININE 3.1 mg/dL (0.55-1.3); POTASSIUM 3.7 mmol/L (3.5-5.1); TOT PROT 7.9 g/dl (6.4-8.2)
[2019-02-03 16:29] LABS: ANISOCYTOSIS 2+
[2019-02-03 16:32] LABS: PLATELET ESTIMATE ADEQUATE
--- NOTE | 2019-02-03 17:23 | PN ---
Progress Note, Physician History of Present Illness: Pt seen and examined at bedside. He is awake and alert. he denies shortness of breath. - Current Medication List Current Medications: Active Medications Acetaminophen (Tylenol -) 650 mg PO Q6H PRN PRN Reason: PAIN LEVEL 1-5 Aspirin (Asa -) 81 mg PO DAILY [facility] Last Admin: 02/03/19 12:14 Dose: 81 mg Colchicine (Colcrys) 0.6 mg PO BID [facility] Last Admin: 02/03/19 12:14 Dose: 0.6 mg Digoxin (Lanoxin -) 0.125 mg PO DAILY [facility] Last Admin: 02/03/19 12:15 Dose: 0.125 mg Docusate Sodium (Colace -) 100 mg PO BID [facility] Last Admin: 02/03/19 12:14 Dose: Not Given Febuxostat (Uloric -) 40 mg PO DAILY [facility] Last Admin: 02/03/19 12:15 Dose: 40 mg Hydralazine HCl (Apresoline -) 25 mg PO TID [facility] Last Admin: 02/03/19 15:08 Dose: 25 mg Insulin Aspart (Novolog Vial Sliding Scale -) 1 vial SQ BIDAC [facility]; Protocol Last Admin: 02/03/19 17:04 Dose: Not Given Insulin Detemir (Levemir Vial) 15 units SQ HS [facility] Last Admin: 02/02/19 21:42 Dose: 15 units Metoprolol Succinate (Toprol Xl -) 150 mg PO DAILY [facility] Last Admin: 02/03/19 12:15 Dose: 150 mg Potassium Chloride (K-Dur -) 10 meq PO DAILY [facility] Last Admin: 02/03/19 12:14 Dose: 10 meq Tamsulosin HCl (Flomax -) 0.4 mg PO DAILY@0830 [facility] Last Admin: 02/03/19 08:19 Dose: 0.4 mg Torsemide (Demadex -) 40 mg PO BIDLASIX [facility] Last Admin: 02/03/19 15:08 Dose: 40 mg - Objective Vital Signs: Vital Signs Temperature 98.9 F 02/03/19 13:57 Pulse Rate 84 02/03/19 13:57 Respiratory Rate 18 02/03/19 13:57 Blood Pressure 161/91 02/03/19 13:57 O2 Sat by Pulse Oximetry (%) 99 02/02/19 09:00 Constitutional: Yes: Calm Eyes: Yes: Conjunctiva Clear HENT: Yes: Atraumatic Neck: Yes: Supple Cardiovascular: Yes: S1, S2 Respiratory: Yes: CTA Bilaterally Gastrointestinal: Yes: Soft Genitourinary: Yes: WNL Musculoskeletal: Yes: WNL Edema: Yes Edema: LLE: 1+, RLE: 1+ Integumentary: Yes: WNL Neurological: Yes: Oriented Psychiatric: Yes: Oriented Labs: CBC, BMP 02/03/19 15:15 02/03/19 15:15 INR, PTT INR 1.73 (0.83-1.09) H 02/03/19 15:15 Assessment/Plan Current Medications Generic Name Dose Route Start Last Admin Trade Name Freq PRN Reason Stop Dose Admin Acetaminophen 650 mg 02/02/19 03:52 Tylenol - PO Q6H PRN PAIN LEVEL 1-5 Aspirin 81 mg 02/02/19 11:00 02/03/19 12:14 Asa - PO 81 mg DAILY [place] Administration Colchicine 0.6 mg 02/02/19 11:00 02/03/19 12:14 Colcrys PO 0.6 mg BID [facility] Administration Digoxin 0.125 mg 02/03/19 10:00 02/03/19 12:15 Lanoxin - PO 0.125 mg DAILY [facility] Administration Docusate Sodium 100 mg 02/02/19 10:00 02/03/19 12:14 Colace - PO Not Given BID [place] Febuxostat 40 mg 02/02/19 11:00 02/03/19 12:15 Uloric - PO 40 mg DAILY [facility] Administration Hydralazine HCl 25 mg 02/02/19 14:00 02/03/19 15:08 Apresoline - PO 25 mg TID [facility] Administration Insulin Aspart 1 vial 02/02/19 07:00 02/03/19 17:04 Novolog Vial Sliding Scale - SQ Not Given BIDAC [facility] Protocol Insulin Detemir 15 units 02/02/19 22:00 02/02/19 21:42 Levemir Vial SQ 15 units HS [facility] Administration Metoprolol Succinate 150 mg 02/02/19 10:56 02/03/19 12:15 Toprol Xl - PO 150 mg DAILY [facility] Administration Potassium Chloride 10 meq 02/02/19 11:00 02/03/19 12:14 K-Dur - PO 10 meq DAILY [facility] Administration Tamsulosin HCl 0.4 mg 02/02/19 08:30 02/03/19 08:19 Flomax - PO 0.4 mg DAILY@0830 [facility] Administration Torsemide 40 mg 02/02/19 06:45 02/03/19 15:08 Demadex - PO 40 mg BIDLASIX [facility] Administration Impression 1. CKD 2. hematuria 3. a-fib 4. HTN 5. CHF 6. DM 7. non compliance 8. s/p cardiac arrest with rapid a-fib 9. hypokalemia Plan - labs reviewed - cont diuretics - 2 gram sodium diet with fluid restriction - monitor lytes - abx for uti
[2019-02-03 17:58] LABS: MAGNESIUM 2.1 mg/dL (1.8-2.4)
--- NOTE | 2019-02-03 20:11 | EKG ---
Test Reason : Blood Pressure : / mmHG Vent. Rate : 099 BPM Atrial Rate : 097 BPM P-R Int : 000 ms QRS Dur : 090 ms QT Int : 300 ms P-R-T Axes : 000 099 -43 degrees QTc Int : 385 ms ATRIAL FIBRILLATION RIGHTWARD AXIS NONSPECIFIC T WAVE ABNORMALITY ABNORMAL ECG WHEN COMPARED WITH ECG OF 15-NOV-2018 12:56, VENT. RATE HAS DECREASED BY 49 BPM Confirmed by KYLAH HAY MD ([id number]) on 02/03/2019 8:11:13 PM Referred By: Confirmed By:KYLAH AHY MD
[2019-02-03] MEDS ORDERED: WARFARIN NA 5 MG TABLET (UD) PO ONE ×2 (20:16→21:00)
[2019-02-03] MEDS: INSULIN (LEVEMIR) 100 UNITS/ML UNITS SQ SCH (21:57)
[2019-02-04] MEDS: INSULIN SLIDING SCALE (NOVOLOG) 1 VIAL SQ SCH (06:03)
[2019-02-04] MEDS: TORSEMIDE 20 MG TABLET (FP) PO SCH ×2 (06:03→13:55)
[2019-02-04] MEDS: hydrALAZINE HCL 25 MG TABLET (FP) PO SCH ×2 (06:03→13:56)
[2019-02-04 07:26] LABS: INR 1.49 (0.83-1.09); PROTHROMBIN TIME (PATIENT) 17.7 SEC (9.7-13.0)
[2019-02-04] MEDS: DOCUSATE SODIUM 100 MG CAPSULE (FP) PO SCH (10:08)
[2019-02-04] MEDS: FEBUXOSTAT 40 MG TAB PO SCH (10:08)
[2019-02-04] MEDS: POTASSIUM CHLORIDE TABS 10 MEQ TABLET.ER (FP) PO SCH (10:08)
[2019-02-04] MEDS: TAMSULOSIN HCL 0.4 MG CAP PO SCH (10:08)
[2019-02-04] MEDS: DIGOXIN 0.125 MG TABLET (FP) PO SCH (10:09)
[2019-02-04] MEDS: COLCHICINE 0.6 MG CAP PO SCH (10:09)
[2019-02-04] MEDS: ASPIRIN 81 MG CHEWABLE TABLETS PO SCH (10:09)
--- NOTE | 2019-02-04 12:06 | PN ---
Progress Note, Physician History of Present Illness: Pt seen and examined at bedside. He is awake and alert. he denies shortness of breath. - Current Medication List Current Medications: Active Medications Acetaminophen (Tylenol -) 650 mg PO Q6H PRN PRN Reason: PAIN LEVEL 1-5 Aspirin (Asa -) 81 mg PO DAILY [facility] Last Admin: 02/04/19 10:09 Dose: 81 mg Colchicine (Colcrys) 0.6 mg PO BID [facility] Last Admin: 02/04/19 10:09 Dose: 0.6 mg Digoxin (Lanoxin -) 0.125 mg PO DAILY [facility] Last Admin: 02/04/19 10:09 Dose: 0.125 mg Docusate Sodium (Colace -) 100 mg PO BID [facility] Last Admin: 02/04/19 10:08 Dose: 100 mg Febuxostat (Uloric -) 40 mg PO DAILY [facility] Last Admin: 02/04/19 10:08 Dose: 40 mg Hydralazine HCl (Apresoline -) 25 mg PO TID [facility] Last Admin: 02/04/19 06:03 Dose: 25 mg Insulin Aspart (Novolog Vial Sliding Scale -) 1 vial SQ BIDAC [facility]; Protocol Last Admin: 02/04/19 06:03 Dose: Not Given Insulin Detemir (Levemir Vial) 15 units SQ HS [facility] Last Admin: 02/03/19 21:57 Dose: 15 units Metoprolol Succinate (Toprol Xl -) 150 mg PO DAILY [facility] Last Admin: 02/04/19 10:08 Dose: 150 mg Potassium Chloride (K-Dur -) 10 meq PO DAILY [facility] Last Admin: 02/04/19 10:08 Dose: 10 meq Tamsulosin HCl (Flomax -) 0.4 mg PO DAILY@0830 [facility] Last Admin: 02/04/19 10:08 Dose: 0.4 mg Torsemide (Demadex -) 40 mg PO BIDLASIX [facility] Last Admin: 02/04/19 06:03 Dose: 40 mg Warfarin Sodium (Coumadin -) 5 mg PO DAILY@1800 [facility] - Objective Vital Signs: Vital Signs Temperature 98.5 F 02/04/19 10:00 Pulse Rate 79 02/04/19 10:09 Respiratory Rate 20 02/04/19 10:00 Blood Pressure 156/89 02/04/19 10:00 O2 Sat by Pulse Oximetry (%) 99 02/04/19 09:00 Constitutional: Yes: Calm Eyes: Yes: Conjunctiva Clear HENT: Yes: Atraumatic Neck: Yes: Supple Cardiovascular: Yes: S1, S2 Respiratory: Yes: CTA Bilaterally Gastrointestinal: Yes: Normal Bowel Sounds, Soft Genitourinary: Yes: WNL Musculoskeletal: Yes: WNL Edema: Yes Edema: LLE: 1+, RLE: 1+ Neurological: Yes: Oriented Psychiatric: Yes: Oriented Labs: CBC, BMP 02/03/19 15:15 02/03/19 15:15 INR, PTT INR 1.49 (0.83-1.09) H 02/04/19 06:10 Assessment/Plan Current Medications Generic Name Dose Route Start Last Admin Trade Name Freq PRN Reason Stop Dose Admin Acetaminophen 650 mg 02/02/19 03:52 Tylenol - PO Q6H PRN PAIN LEVEL 1-5 Aspirin 81 mg 02/02/19 11:00 02/04/19 10:09 Asa - PO 81 mg DAILY [place] Administration Colchicine 0.6 mg 02/02/19 11:00 02/04/19 10:09 Colcrys PO 0.6 mg BID [place] Administration Digoxin 0.125 mg 02/03/19 10:00 02/04/19 10:09 Lanoxin - PO 0.125 mg DAILY [place] Administration Docusate Sodium 100 mg 02/02/19 10:00 02/04/19 10:08 Colace - PO 100 mg BID [place] Administration Febuxostat 40 mg 02/02/19 11:00 02/04/19 10:08 Uloric - PO 40 mg DAILY [place] Administration Hydralazine HCl 25 mg 02/02/19 14:00 02/04/19 06:03 Apresoline - PO 25 mg TID [place] Administration Insulin Aspart 1 vial 02/02/19 07:00 02/04/19 06:03 Novolog Vial Sliding Scale - SQ Not Given BIDAC [facility] Protocol Insulin Detemir 15 units 02/02/19 22:00 02/03/19 21:57 Levemir Vial SQ 15 units HS [place] Administration Metoprolol Succinate 150 mg 02/02/19 10:56 02/04/19 10:08 Toprol Xl - PO 150 mg DAILY [place] Administration Potassium Chloride 20 meq 02/04/19 12:04 K-Dur - PO DAILY [place] Tamsulosin HCl 0.4 mg 02/02/19 08:30 02/04/19 10:08 Flomax - PO 0.4 mg DAILY@0830 [place] Administration Torsemide 40 mg 02/02/19 06:45 02/04/19 06:03 Demadex - PO 40 mg BIDLASIX [place] Administration Warfarin Sodium 5 mg 02/04/19 18:00 Coumadin - PO DAILY@1800 [place] Impression 1. CKD 2. hematuria 3. a-fib 4. HTN 5. CHF 6. DM 7. non compliance 8. s/p cardiac arrest with rapid a-fib 9. hypokalemia Plan - cont torsemide - cont potassium supplements - he refused labs - will need outpt follow up - abx for UTI
--- NOTE | 2019-02-04 14:05 | DS ---
Physical Examination Vital Signs: Vital Signs Temperature 98.5 F 02/04/19 10:00 Pulse Rate 79 02/04/19 10:09 Respiratory Rate 20 02/04/19 10:00 Blood Pressure 156/89 02/04/19 10:00 O2 Sat by Pulse Oximetry (%) 99 02/04/19 09:00 Constitutional: Yes: Calm Cardiovascular: Yes: Regular Rate and Rhythm, S1, S2 Respiratory: Yes: CTA Bilaterally Gastrointestinal: Yes: Normal Bowel Sounds, Soft Extremities: Yes: Other (left leg wrapped) Edema: Yes Neurological: Yes: Alert Labs: CBC, BMP 02/03/19 15:15 02/03/19 15:15 Discharge Summary Problems reviewed: Yes Reason For Visit: HEMATURIA Current Active Problems BPH (benign prostatic hyperplasia) (Acute) HTN (hypertension) (Acute) Hematuria (Acute) Non compliance with medical treatment (Acute) UTI (urinary tract infection) (Acute) Other Procedures: ct scan no hydronephrosis or urolithiasis. and non sepcific left adrneal nodule noted Hospital Course: 62 year old male with PMH atrial fibrillation, HTN, chronic systolic CHF, cardiomyopathy, medication non-compliance, s/p attempted HD access 11/29/18 complicated with rapid afib, cardiac arrest, and successful resuscitation arrived to emergency department due to episodes of nosebleeds and hematuria seen by urology, afib inr monitored, on coumadin abx for UTI culture no growth and abx stopped CKD seen by renal continue torsemide Condition: Stable - Instructions Disposition: VNS/HOME HEALTH CARE - Home Medications Comprehensive Discharge Medication List: Ambulatory Orders Insulin Detemir [Levemir Flextouch] 20 unit SQ AM #1 insuln.pen 10/09/18 Digoxin Injection [Lanoxin Injection -] 0.125 mg IVPUSH MOWEFR@1000 ampul 12/05 Docusate Sodium [Colace -] 100 mg PO BID capsule 12/05/18 Insulin (Levemir) [Levemir Vial] 20 units SQ AM units 12/05/18 Metoprolol Succinate [Toprol XL -] 50 mg PO DAILY tab.sr.24h 12/05/18 Potassium Chloride [K-Dur -] 10 meq PO BID tablet.er 12/05/18 Tamsulosin HCl [Flomax -] 0.4 mg PO DAILY@0830 cap.er.24h 12/05/18 Torsemide [Demadex -] 40 mg PO BID tablet 12/05/18 Warfarin Na [Coumadin -] 5 mg PO DAILY@1800 tablet 12/05/18 Digoxin [Lanoxin -] 0.125 mg PO Q2D #30 tablet 12/06/18 Metoprolol Succinate [Toprol XL -] 100 mg PO DAILY #30 tab.sr.24h 12/06/18
[2019-02-04 14:43] VITALS: BP 152/92; PULSE 80; TEMP 98.2
[2019-02-04] MEDS ORDERED: WARFARIN NA 5 MG TABLET (UD) PO SCH ×3 (18:00)
[2019-02-04] MEDS ORDERED: WARFARIN NA PO SCH (18:00)
[2019-02-05] MEDS ORDERED: POTASSIUM CHLORIDE TABS 20 MEQ TABLET.ER (FP) PO SCH (10:00)
== END 2019-02-04 15:46 | disposition home health service (06) | DRG 813 ==
LOC: JER 15:44 → JERBED 02-02 03:09 → J4W 02-02 05:21
PROVIDERS: ADMIT Internal Medicine; ATTEND Family Medicine
DX: D68.32 Hemorrhagic disorder due to extrinsic circulating anticoagulants (principal); N39.0 Urinary tract infection, site not specified; I13.0 Hypertensive heart and chronic kidney disease with heart failure and stage 1 through stage 4 chronic kidney disease, or unspecified chronic kidney disease; I50.22 Chronic systolic (congestive) heart failure; I42.8 Other cardiomyopathies; I48.91 Unspecified atrial fibrillation; M10.9 Gout, unspecified; N40.0 Benign prostatic hyperplasia without lower urinary tract symptoms; Z91.14 Patient's other noncompliance with medication regimen; R31.9 Hematuria, unspecified; K57.30 Diverticulosis of large intestine without perforation or abscess without bleeding; E87.6 Hypokalemia; E66.9 Obesity, unspecified; Z68.26 Body mass index [BMI] 26.0-26.9, adult; E11.22 Type 2 diabetes mellitus with diabetic chronic kidney disease; N18.9 Chronic kidney disease, unspecified; R04.0 Epistaxis; T45.515A Adverse effect of anticoagulants, initial encounter
CPT/HCPCS: 36415; 74176-TC; 80053; 81003; 82962; 83735; 85025; 85610; 85730; 87086; 93005; 93010; 97116-GP; 97161-GP; 99283-25

== ENCOUNTER 2019-02-18 10:49 | Day surgery (SDC) | payer BC, OTHER ==
[2019-02-18] MEDS ORDERED: FERRIC CARBOXYMALTOSE 750 MG in SODIUM CHLORIDE 250 ML IVPB ONE (11:00)
[2019-02-18 14:50] VITALS: BP 166/94; PULSE 86; TEMP 98.2
== END 2019-02-18 14:30 | disposition home or self-care (01) ==
LOC: JINFUSION 10:49
PROVIDERS: ATTEND Family Medicine
PROC: 3E033GC Introduction of Other Therapeutic Substance into Peripheral Vein, Percutaneous Approach (ICD-10-PCS; principal; 2019-02-18)
DX: D50.9 Iron deficiency anemia, unspecified (principal)
CPT/HCPCS: 96365; J1439

== ENCOUNTER 2019-02-28 09:22 | Day surgery (SDC) | payer BC ==
[2019-02-28] MEDS ORDERED: FERRIC CARBOXYMALTOSE 750 MG in SODIUM CHLORIDE 250 ML IVPB ONE (11:00)
[2019-02-28 11:08] VITALS: BP 189/100; PULSE 86; TEMP 98.3
== END 2019-02-28 10:50 | disposition home or self-care (01) ==
LOC: JINFUSION 09:22
PROVIDERS: ATTEND Family Medicine
DX: Z53.8 Procedure and treatment not carried out for other reasons (principal)

== ENCOUNTER 2019-03-18 10:33 | Emergency (ER) | payer BC ==
[2019-03-18 10:50] VITALS: TEMP 97.3; BMI 31.7
--- NOTE | 2019-03-18 11:36 | PDOC ---
History of Present Illness - General Chief Complaint: Nasal Bleeding Stated Complaint: NOSE BLEED - History of Present Illness Initial Comments: 03/18/19 11:34 63 yo M PMH atrial fibrillation, HTN, chronic systolic CHF, cardiomyopathy, medication non-compliance, s/p attempted HD access 11/29/18 complicated with rapid afib, cardiac arrest, and successful resuscitation, arrived to emergency department due to nosebleed. Has had consistent history of intermittent hematuria and nosebleeds d/t warfarin. Gets his levels checked every Monday, last level was wnl. States that his current episode began around 1900 last night, continued over night till about 0200, then restarted around 0400. Did not apply any pressure, only packed with paper towels. Denies lightheadedness, dizziness, CP, SOB, abd pain, rectal bleeding, hematuria, AMOS, N/V. Past History - Past Medical History Allergies/Adverse Reactions: Allergies Allergy/AdvReac Type Severity Reaction Status Date / Time spinach Allergy Mild Verified 03/18/19 10:49 asparagus AdvReac Verified 03/18/19 10:49 cauliflower AdvReac Verified 03/18/19 10:49 mushroom AdvReac Verified 03/18/19 10:49 pork derived (porcine) AdvReac Verified 03/18/19 10:49 Pork/Porcine Containing AdvReac Verified 03/18/19 10:49 Products Home Medications: Ambulatory Orders Potassium Chloride [K-Dur -] 10 meq PO BID tablet.er 12/05/18 Tamsulosin HCl [Flomax -] 0.4 mg PO DAILY@0830 cap.er.24h 12/05/18 Torsemide [Demadex -] 40 mg PO BID tablet 12/05/18 Febuxostat [Uloric -] 40 mg PO DAILY tab 02/04/19 Metoprolol Succinate [Toprol XL -] 150 mg PO DAILY #60 tab.sr.24h 02/04/19 Colchicine 0.6 mg PO DAILY PRN 02/11/19 Digoxin [Lanoxin -] 0.125 mg PO ASDIR 02/18/19 Aspirin [Ecotrin] 81 mg PO DAILY 02/27/19 hydrALAZINE HCL [Apresoline -] 25 mg PO BID 02/27/19 Warfarin Sodium [Coumadin] 4 mg PO HS 03/18/19 Anemia: No Asthma: No Cancer: No Cardiac Disorders: Yes (afib cardiomyopathy.cardiac arrest.) CVA: No COPD: No CHF: Yes Dementia: No Diabetes: Yes GI Disorders: No Disorders: Yes (BPH) HTN: Yes Hypercholesterolemia: No Liver Disease: No Seizures: No Thyroid Disease: No - Surgical History Abdominal Surgery: No Appendectomy: No Cardiac Surgery: No Cholecystectomy: No Lung Surgery: No Neurologic Surgery: No Orthopedic Surgery: No - Immunization History Immunization Up to Date: Yes - Psycho Social/Smoking Cessation Hx Smoking History: Never smoked Have you smoked in the past 12 months: No Hx Alcohol Use: No Drug/Substance Use Hx: No Substance Use Type: None Hx Substance Use Treatment: No Review of Systems - Review of Systems Comments:: 03/18/19 14:36 GENERAL/CONSTITUTIONAL: No fever or chills. No weakness. HEAD, EYES, EARS, NOSE AND THROAT: No change in vision. No ear pain or discharge. No sore throat. CARDIOVASCULAR: No chest pain or shortness of breath. RESPIRATORY: No cough, wheezing, or hemoptysis. GASTROINTESTINAL: No nausea, vomiting, diarrhea or constipation. GENITOURINARY: No dysuria, frequency, or change in urination. MUSCULOSKELETAL: No joint or muscle swelling or pain. No neck or back pain. SKIN: No rash NEUROLOGIC: No headache, vertigo, loss of consciousness, or change in strength/ sensation. ENDOCRINE: No increased thirst. No abnormal weight change. HEMATOLOGIC/LYMPHATIC: Easy bleeding with nosebleed. No history of blood clots. ALLERGIC/IMMUNOLOGIC: No hives or skin allergy *Physical Exam - Vital Signs Last Vital Signs Temp Pulse Resp BP Pulse Ox 97.3 F L 80 16 173/89 H 99 03/18/19 10:46 03/18/19 10:46 03/18/19 10:46 03/18/19 10:46 03/18/19 10:46 - Physical Exam 03/18/19 14:41 Gen: well-developed, well-nourished, NAD Neuro: AAOX4, CN II-XII intact, FTN intact, EOMI, PERRLA, 5/5 strength, SILT HEENT: atraumatic, normocephalic, dry mucous membranes. Slow bleeding from anterior nares b/l. Neck: trachea midline, supple CV: regular rate, regular rhythm, no murmurs, rubs, or gallops Pulm: CTA b/l, no wheezing Abd: soft, non-distended, non-tender MSK: full ROM, intact pulses Extr: 2+ pitting edema, no deformities Skin: warm, dry ED Treatment Course - LABORATORY CBC & Chemistry Diagram: 03/18/19 12:50 03/18/19 12:50 Medical Decision Making - Medical Decision Making 03/18/19 12:33 63 yo M on warfarin, here with nosebleed. - CBC, CMP - coags - EKG - Afrin gauze - reassess 03/18/19 14:33 INR 1.76. Patient bleeding stopped. Discharge - Discharge Information Problems reviewed: Yes Clinical Impression/Diagnosis: Epistaxis Condition: Improved Disposition: HOME - Admission No - Follow up/Referral Referrals: Tank Dennis MD [Staff Physician] - - Patient Discharge Instructions Patient Printed Discharge Instructions: DI for Nosebleed Additional Instructions: You were seen with a nosebleed. This improved with medication and pressure. If you develop worsening nosebleeds, place pressure at the bridge of the nose for 30 minutes in a row. We also gave you a bottle of Afrin. If initial pressure does not work, apply one spray to each nostril, soak some gauze with Afrin, and apply pressure for another 30 minutes. If this does not work, come to the ED. Please follow up with your primary care doctor within one week. Return to the ED if you develop worsening symptoms. - Post Discharge Activity
[2019-03-18] MEDS ORDERED: OXYMETAZOLINE 0.05% NASAL SOLUTION 15 ML BOTTLE NS ONE (12:41)
--- NOTE | 2019-03-18 12:59 | PDOC ---
Documentation entered by Laura Carlin SCRIBE, acting as scribe for Steve Becker MD. Steve Becker MD: This documentation has been prepared by the Raegan jain Xhesika, SCRIBE, under my direction and personally reviewed by me in its entirety. I confirm that the documentation accurately reflects all work, treatment, procedures, and medical decision making performed by me. Attending Attestation - Resident Resident Name: Joselyn Mahoney - ED Attending Attestation I have performed the following: I have examined & evaluated the patient, The case was reviewed & discussed with the resident, I agree w/resident's findings & plan - HPI HPI: 03/18/19 12:27 The patient is a 63 year old male with a significant PMH of atrial fibrillation , HTN, chronic systolic CHF, cardiomyopathy, cardiac arrest, and successful resuscitation who presents to the emergency department for epistaxis. Pt states he endorsed his first episode of epistaxis yesterday at 4pm, patient then put paper towels in his nose that eventually stopped the bleeding. Pt states he endorsed another episode of epistaxis at 4am today, promoting his arrival to the ED. The patient denies chest pain, shortness of breath, headache, lightheadedness, or dizziness. Denies fever, chills, cough, nausea, vomiting, diarrhea and constipation. Denies dysuria, frequency, urgency and hematuria. Allergies: spinach, asparagus, cauliflower, mushroom, etc 12 - Physicial Exam PE: 03/18/19 12:57 Blood pressure slightly elevated, heart rate normal Well-appearing seated in stretcher, speaking full sentences, no airway compromise Right nare with visible blood clot anteriorly and active oozing from septum, left nare more clear with slight residual clot, no active bleeding. Oropharynx clear without blood or obstruction Lungs are clear Chronic lower extremity edema, left greater than right - Medical Decision Making 03/18/19 12:58 63-year-old male with history of atrial fibrillation on Coumadin, renal insufficiency, history of epistaxis presents with epistaxis since yesterday, unable to control despite packing. Hemodynamically stable here, no airway compromise. Anterior right nare epistaxis Afrin gauze packing Check INR Reassess 03/18/19 14:51 baseline Hb, baseline RI. INR actually subtherapeutic. bleeding resolved after afrin/pressure gauze. ambulating comfortably, agrees with d/c plan, ENT f/u Heart Score/ECG Review #1 ECG reviewed & interpreted by me at: 12:45 General ECG Interpretation: Normal Rate (afib at 69), Normal Intervals, No acute ischemic changes (nonspecific lateral T wave flattening)
[2019-03-18 13:21] LABS: BASO % 0.9 % (0-2.0); EOS % 1.9 % (0-4.5); HEMOGLOBIN 9.6 GM/dL (11.7-16.9); LYMPH % 19.8 % (8-40); MCH 26.1 pg (25.7-33.7); MCHC 32.1 g/dl (32.0-35.9); MEAN CELL VOLUME 81.2 fl (80-96); MEAN PLT VOLUME 7.9 fl (7.5-11.1); NEUT % 65.4 % (42.8-82.8); PLATELET COUNT 372 K/MM3 (134-434); RDW 21.2 % (11.9-15.9); WHITE BLOOD COUNT 7.8 K/mm3 (4.0-10.0)
[2019-03-18 13:31] LABS: ALBUMIN 3.4 g/dl (3.4-5.0); BILIRUBIN,TOTAL 0.3 mg/dL (0.2-1); BLOOD UREA NITROGEN 34.7 mg/dL (7-18); CREATININE 2.7 mg/dL (0.55-1.3); N-TERMINAL BNP 7530.1 pg/ml (5-125); POTASSIUM 3.1 mmol/L (3.5-5.1); TOT PROT 8.3 g/dl (6.4-8.2)
[2019-03-18 13:38] LABS: INR 1.76 (0.83-1.09); PROTHROMBIN TIME (PATIENT) 20.9 SEC (9.7-13.0)
[2019-03-18 13:40] LABS: ACTIVATED PTT 41.2 SECONDS (25.2-36.5)
[2019-03-18 14:42] VITALS: BP 182/101; PULSE 66
[2019-03-18 14:57] LABS: ANISOCYTOSIS 3+; MACROCYTOSIS 0; PLATELET ESTIMATE NORMAL
--- NOTE | 2019-03-19 10:20 | EKG ---
Test Reason : Blood Pressure : / mmHG Vent. Rate : 069 BPM Atrial Rate : 288 BPM P-R Int : 000 ms QRS Dur : 106 ms QT Int : 394 ms P-R-T Axes : 000 107 -10 degrees QTc Int : 422 ms ATRIAL FIBRILLATION RIGHTWARD AXIS ABNORMAL QRS-T ANGLE, CONSIDER PRIMARY T WAVE ABNORMALITY ABNORMAL ECG WHEN COMPARED WITH ECG OF 02-FEB-2019 04:50, NO SIGNIFICANT CHANGE WAS FOUND Confirmed by MD Eligio, Philippe ([id number]) on 03/19/2019 10:20:01 AM Referred By: Confirmed By:Philippe Del Valle MD
== END 2019-03-18 14:57 | disposition home or self-care (01) ==
LOC: JER 10:33
DX: R04.0 Epistaxis (principal); I48.91 Unspecified atrial fibrillation; I50.9 Heart failure, unspecified; N40.0 Benign prostatic hyperplasia without lower urinary tract symptoms; I10 Essential (primary) hypertension; Z79.01 Long term (current) use of anticoagulants; Z91.018 Allergy to other foods; Z91.14 Patient's other noncompliance with medication regimen
CPT/HCPCS: 36415; 80053; 83880; 85025; 85610; 85730; 93005; 93010; 99284-25